=== PATIENT | male | born 1950 | race Caucasian/White ===

== ENCOUNTER 2016-10-15 18:36 | Emergency (ER) | payer OTHER ==
[2016-10-15 18:44] VITALS: BMI 27.4
--- NOTE | 2016-10-15 22:03 | PDOC ---
History of Present Illness - General History Source: Patient Exam Limitations: No Limitations - History of Present Illness Initial Comments: 10/15/16 22:14 The patient is a 66 year old male with significant past medical history of a-fib , hypertension, hyperlipidemia and diabetes who presents to the ED with 6 days of productive cough, wheezing, SOB and headache. Patient report productive cough with yellow sputum. He also reports fever yesterday (tmax of 101) that resolved today on its own. Denies chest pain, diaphoresis, lightheadedness, dizziness, jaw pain, shoulder pain, arm pain, back pain, or leg swelling. States he is visiting from [facility] and has been in the country for about 1 month now. Denies any sick contacts. The patient denies fever, chills, abdominal pain, nausea, vomiting, and diarrhea. Allergies: NKDA Social History: Former smoker (quit several years ago). No alcohol or drug use reported. Past Surgical History: appendectomy, cholecystectomy PMD in [facility] <Melina Hernandez - Last Filed: 10/15/16 22:14> - General History Source: Patient <JackyPratik huerta - Last Filed: 10/15/16 23:43> - General Chief Complaint: Shortness of Breath Stated Complaint: shortness of breath Time Seen by Provider: 10/15/16 22:03 Past History <Melina Hernandez - Last Filed: 10/15/16 22:14> - Past Medical History Diabetes: Yes HTN: Yes - Surgical History Appendectomy: Yes Cholecystectomy: Yes Orthopedic Surgery: Yes - Psycho/Social/Smoking Cessation Hx Anxiety: No Suicidal Ideation: No Smoking History: Never smoked Have you smoked in the past 12 months: No Information on smoking cessation initiated: No Hx Alcohol Use: No Drug/Substance Use Hx: No Substance Use Type: None Hx Substance Use Treatment: No <Pratik Mendoza - Last Filed: 10/15/16 23:43> - Past Medical History Allergies/Adverse Reactions: Allergies Allergy/AdvReac Type Severity Reaction Status Date / Time No Known Allergies Allergy Verified 10/15/16 18:44 Home Medications: Ambulatory Orders Clopidogrel Bisulfate [Plavix -] 75 mg PO DAILY 07/13/14 Enalapril Maleate [Vasotec] 20 mg PO DAILY 07/13/14 Metformin HCl 850 mg PO DAILY 07/13/14 Prednisone [Deltasone -] 50 mg PO DAILY 07/13/14 Amiodarone HCl [Cordarone -] 400 mg PO DAILY #60 tablet 07/18/14 Aspirin [ASA -] 81 mg PO DAILY #0 tab.chew 08/09/14 Digoxin [Lanoxin -] 0.125 mg PO DAILY #0 tablet 08/09/14 Lisinopril [Prinivil] 10 mg PO DAILY #0 tablet 08/09/14 Albuterol 0.083% Nebulizer Malgorzata [Ventolin 0.083% Nebulizer Soln -] 1 neb NEB Q6H #30 vial 10/15/16 Azithromycin [Zithromax -] 250 mg PO UTDICT #6 tab 10/15/16 Prednisone [Deltasone -] 40 mg PO DAILY #10 tablet 10/15/16 Review of Systems - Review of Systems Able to Perform ROS?: Yes Comments:: 10/15/16 22:14 CONSTITUTIONAL: +fever Absent: chills, diaphoresis, generalized weakness, malaise, loss of appetite HEENT: Absent: rhinorrhea, nasal congestion, throat pain, throat swelling, difficulty swallowing, mouth swelling, ear pain, eye pain, visual Changes CARDIOVASCULAR: Absent: chest pain, syncope, palpitations, irregular heart rate, lightheadedness , peripheral edema RESPIRATORY: +cough, SOB, wheezing Absent: dyspnea with exertion, orthopnea, stridor, hemoptysis GASTROINTESTINAL: Absent: abdominal pain, abdominal distension, nausea, vomiting, diarrhea, constipation, melena, hematochezia GENITOURINARY: Absent: dysuria, frequency, urgency, hesitancy, hematuria, flank pain, genital pain MUSCULOSKELETAL: Absent: myalgia, arthralgia, joint swelling SKIN: Absent: rash, itching, pallor NEUROLOGIC: +headache Absent: focal weakness or paresthesias, dizziness, unsteady gait, seizure, mental status changes, bladder or bowel incontinence <Melina Hernandez - Last Filed: 10/15/16 22:14> *Physical Exam - Vital Signs Last Vital Signs Temp Pulse Resp BP Pulse Ox 98.4 F 88 18 137/73 96 10/15/16 18:43 10/15/16 18:43 10/15/16 18:43 10/15/16 18:43 10/15/16 18:43 - Physical Exam Comments: 10/15/16 22:14 GENERAL: Well developed, well nourished. Awake and alert. No acute distress. HEENT: Normocephalic, atraumatic. PERRLA, EOMI. No conjunctival pallor. Sclera are non- icteric. Moist mucous membranes. Oropharynx is clear. NECK: Supple. Full ROM. No JVD. Carotid pulses 2+ and symmetric, without bruits. No thyromegaly. No lymphadenopathy. CARDIOVASCULAR: Regular rate and rhythm. No murmurs, rubs, or gallops. PULMONARY: No evidence of respiratory distress. Bilateral rhonchi. No conversational dyspnea. No retractions. ABDOMINAL: Soft. Non-tender. Non-distended. No rebound or guarding. No organomegaly. Normoactive bowel sounds. MUSCULOSKELETAL Normal range of motion at all joints. No bony deformities or tenderness. No CVA tenderness. EXTREMITIES: No cyanosis. No clubbing. No edema. No calf tenderness. SKIN: Warm and dry. Normal capillary refill. No rashes. No jaundice. NEUROLOGICAL: Alert, awake, appropriate. Cranial nerves 2-12 intact. Moving all extremities. No gross focal neurological deficits. <Melina Hernandez - Last Filed: 10/15/16 22:14> - Vital Signs Last Vital Signs Temp Pulse Resp BP Pulse Ox 98.4 F 88 18 137/73 96 10/15/16 18:43 10/15/16 18:43 10/15/16 18:43 10/15/16 18:43 10/15/16 18:43 <Pratik Mendoza - Last Filed: 10/15/16 23:43> Medical Decision Making - Medical Decision Making 10/15/16 22:47 Dr. Mendoza: The scribe's documentation has been prepared under my direction and personally reviewed by me in its entirery. I confirm that the note above accurately reflects all work, treatment, procedures, and medical decision making performed by me. Chest xray negative for infiltrate. Pt will be give Zpak and prednisone for 5 days. Pt to follow up with pcp. <Pratik Mendoza - Last Filed: 10/15/16 23:43> *DC/Admit/Observation/Transfer - Attestations Scribe Attestion: 10/15/16 22:14 Documentation prepared by Melina Hernandez, acting as certified medical technician for Pratik Mendoza MD <Melina Hernandez - Last Filed: 10/15/16 22:14> - Discharge Dispostion Admit: No <Pratik Mendoza - Last Filed: 10/15/16 23:43> Diagnosis at time of Disposition: Bronchitis - Discharge Dispostion Disposition: HOME Condition at time of disposition: Stable - Prescriptions Prescriptions: Prednisone [Deltasone -] 40 mg PO DAILY #10 tablet Albuterol 0.083% Nebulizer Malgorzata [Ventolin 0.083% Nebulizer Soln -] 1 neb NEB Q6H #30 vial Azithromycin [Zithromax -] 250 mg PO UTDICT #6 tab - Patient Instructions Printed Discharge Instructions: DI for Acute Bronchitis
[2016-10-15] MEDS ORDERED: ALBUTEROL SO4 2.5/IPRATROPIUM 0.5 INH SOL 3 ML VIAL.NEB. NEB STA (22:07)
[2016-10-15] MEDS ORDERED: AZITHROMYCIN 250 MG TABLET (FP) PO STA (22:43)
[2016-10-15] MEDS ORDERED: predniSONE 20 MG TABLET (UD) PO ONE (22:50)
[2016-10-15] MEDS ORDERED: predniSONE 20 MG TABLET (UD) ONE (23:02)
[2016-10-15] MEDS ORDERED: AZITHROMYCIN 250 MG TABLET (FP) ONE (23:02)
[2016-10-15] MEDS ORDERED: ALBUTEROL SO4 2.5/IPRATROPIUM 0.5 INH SOL 3 ML VIAL.NEB. NEB ONE (23:03)
[2016-10-16 07:44] VITALS: BP 140/78; PULSE 86; TEMP 98.6
== END 2016-10-15 23:48 | disposition home or self-care (01) ==
LOC: JER 18:36
PROC: 3E0F7GC Introduction of Other Therapeutic Substance into Respiratory Tract, Via Natural or Artificial Opening (ICD-10-PCS; principal; 2016-10-15)
DX: J40 Bronchitis, not specified as acute or chronic (principal); I48.91 Unspecified atrial fibrillation; Z79.01 Long term (current) use of anticoagulants; I10 Essential (primary) hypertension; E78.00 Pure hypercholesterolemia, unspecified; E11.9 Type 2 diabetes mellitus without complications; Z79.84 Long term (current) use of oral hypoglycemic drugs
CPT/HCPCS: 71020-TC; 99282-25

== ENCOUNTER 2018-11-27 08:28 | Inpatient (IN) | payer OTHER ==
--- NOTE | 2018-11-27 08:40 | PDOC ---
History of Present Illness - General Stated Complaint: SOB Time Seen by Provider: 11/27/18 08:40 History Source: Patient, Family Exam Limitations: No Limitations - History of Present Illness Initial Comments: 11/27/18 08:42 [id number] with h/o A-fib (no reported anticoagulation or rhythm/rate control), HTN ( on enalapril), HLD (on a fibrate), breathing difficulties (patient cannot elaborate on his respiratory diagnosis but has ipratropium MDI on his person), and NIDDM (on metformin) who p/w SOB x1 day. He arrived to [place] from [facility] on 11/17/18 and had been doing well except for BLE edema, but yesterday had the gradual onset of SOB. He has no pain/discomfort in chest or abdomen. Denies any recent f/c/n/v/d/c, cough, runny nose, sore throat, CALERO, dizziness/ lightheadedness, n/t/w focally, LOC, or other symptoms. He reportedly had a similar episode of these symptoms while he was in [facility] a couple of weeks ago and went to the hospital where they treated his difficulty breathing, then was discharged home. He has not followed up since. Past History - Past Medical History Allergies/Adverse Reactions: Allergies Allergy/AdvReac Type Severity Reaction Status Date / Time No Known Allergies Allergy Verified 11/27/18 08:44 Home Medications: Ambulatory Orders metFORMIN HCL [Metformin HCl] 850 mg PO DAILY 07/13/14 Aspirin [ASA -] 81 mg PO DAILY #0 tab.chew 08/09/14 Glipizide [Glipizide Xl] 10 mg PO DAILY 10/16/16 Albuterol Sulfate Inhaler - [Ventolin Hfa Inhaler -] 1 puff IH PRN 11/27/18 Ascorbic Acid [Vitamin C -] 500 mg PO DAILY 11/27/18 Atorvastatin Ca [Lipitor] 10 mg PO HS 11/27/18 Enalapril Maleate [Vasotec] 20 mg PO DAILY 11/27/18 Diabetes: Yes HTN: Yes - Surgical History Appendectomy: Yes Cholecystectomy: Yes Orthopedic Surgery: Yes - Immunization History Immunization Up to Date: No - Suicide/Smoking/Psychosocial Hx Smoking History: Never smoked Have you smoked in the past 12 months: No Hx Alcohol Use: No Drug/Substance Use Hx: No Substance Use Type: None Hx Substance Use Treatment: No Review of Systems - Review of Systems Able to Perform ROS?: Yes Comments:: 11/27/18 09:21 GEN: no fever, chills, malaise, generalized weakness, or weight change HEENT: no ear pain, sore throat, vision change, or eye pain CV: palpitations, edema, no chest pain, lightheadedness, syncope RESP: SOB, no cough or wheezing GI: no abdominal pain, nausea, vomiting, diarrhea, constipation, or white/black/ bloody stool : no dysuria, hematuria, incontinence, retention, bleeding, or discharge MSK: no neck/back pain, muscle weakness/pain, or joint swelling/pain NEURO: no headache, seizure, vertigo, numbness, tingling, or focal weakness PSYCH: no substance use, no behavior change SKIN: no jaundice, no rash ROS otherwise negative except as noted in HPI *Physical Exam - Physical Exam Comments: 11/27/18 09:22 GENERAL: mild distress, nontoxic appearing, A/Ox4, answers questions appropriately, Chinese-speaking, accompanied by daughter HEENT: PERRLA, EOMI, moist mucous membranes NECK/BACK: no midline ttp, no spinal stepoff or deformity, no hematoma, full ROM , neck supple CARDIOVASCULAR: irregularly irregular and tachycardic, normal S1S2, no MGR, strong peripheral pulses, capillary refill <2 seconds, extremities wwp, no edema LUNGS/RESPIRATORY: no respiratory distress, CTAB GI/ABDOMEN: symmetric iadi-tt-dfos, normoactive BS, soft, no ttp, no midline pulsatile masses : no CVA tenderness EXTREMITIES: no muscle atrophy, no acute deformity SKIN: warm and dry, no pallor, no jaundice, no rash, no bruising, no skin breakdown, no cuts, no lesions NEUROLOGICAL: GCS 15, CN II-XII grossly intact, 5/5 strength proximally and distally, no facial droop Heart Score/ECG Review #1 11/27/18 08:25 A-fib with RVR, rate 147, with RBBB and left posterior fascicular block, no ischemic ST-T changes #2 11/27/18 09:22 A-fib with RVR, rate 120, nithe rightward axis, RBBB, left posterior fascicular block has resolved since last study, ST depressions in [id number] but no JANIE ED Treatment Course - LABORATORY CBC & Chemistry Diagram: 11/27/18 08:50 11/27/18 08:50 Medical Decision Making - Medical Decision Making [id number] with h/o paroxysmal A-fib p/w SOB found in A-fib with RVR. Initial Vital Signs Temp Pulse Resp BP Pulse Ox 98.1 F 144 H 18 93/67 100 11/27/18 08:41 11/27/18 08:41 11/27/18 08:41 11/27/18 08:41 11/27/18 08:41 Exam: As noted in Physical Exam section. DDX IBNLT: tachyarrhythmia (e.g. SVT, re-entrant tachycardia, WPW, Brugada, long QT, AF/AFL w/ RVR, MAT, ventricular dysrhythmia), ischemia (ACS), structural heart condition (MVP, mitral stenosis, atrial enlargement, HOCM), anxiety/panic, hypoxia, anemia (e.g. hemorrhage from heavy menstruation, ruptured ectopic, etc), PE, PTX, bronchitis/PNA, sepsis/shock, tamponade, metabolic (e.g. DKA, hypoglycemia), thyroid condition, catecholamine surge ( e.g. pheochromocytoma), anxiety/panic disorder, medication effect, substance use , etc. W/U ordered: Monitor EKG CXR CBCD CMP Mg Phos TSH Cardiac Panel UA UCx hCG TX ordered: IV O2 Pacer pads applied IVF Vagal maneuvers (no carotid massage) EKG: Reviewed; results as noted in ECG Review section. CXR: Congestive changes, otherwise nothing acute. 11/27/18 08:52 FSBG is 232. 11/27/18 09:00 Patient first had 10 mg Cardizem IV push, preceding BP was in 110s systolic, brought HR from 160s-130s. Subsequent BP was in the upper 90s-lower 100s systolic. Second push of Cardizem was given (this time 20 mg as patient's estimated body weight is 85kg). Subsequent BP is 88 systolic, HR subsequently 90s-low 110s. Patient states breathing is a bit easier. 11/27/18 09:10 I placed an order for 30 mg Cardizem PO. Also ordered BLE Duplex r/o DVT. 11/27/18 09:43 Patient with continued (though still improved) SOB; RT called to place BiPAP. Laboratory Tests 11/27/18 11/27/18 11/27/18 08:50 08:50 08:50 WBC 11.4 H RBC 4.10 Hgb 11.5 L Hct 35.4 MCV 86.4 MCH 28.0 MCHC 32.4 RDW 15.5 Plt Count 153 MPV 12.0 H D Absolute Neuts (auto) 9.1 H Neutrophils % 79.4 Lymphocytes % 12.1 D Monocytes % 5.4 Eosinophils % 1.6 Basophils % 1.5 Nucleated RBC % 0 PT with INR 14.50 H INR 1.23 H PTT (Actin FS) 23.4 L Sodium 134 L Potassium 4.7 Chloride 99 Carbon Dioxide 26 Anion Gap 9 BUN 25 H Creatinine 1.7 H Est GFR (CKD-EPI)AfAm 47.31 Est GFR (CKD-EPI)NonAf 40.82 Random Glucose 235 H Calcium 7.9 L Magnesium 1.4 L Total Bilirubin 0.6 AST 32 ALT 56 Alkaline Phosphatase 65 Creatine Kinase 58 Troponin I 0.04 B-Natriuretic Peptide 4343.4 H Total Protein 5.8 L Albumin 3.1 L TSH 1.26 D The Pt is unsafe for discharge at this time. They require further hospital observation, workup, and treatment. Microblog sent to [facility] for admission. Blank Decision to Admit order is placed per ED protocol. 11/27/18 11:[address] Oliver who will admit the patient. We have added on D-dimer per Dr. Oliver's request; if positive, will discuss CTA. Vital Signs Temperature 98.1 F 11/27/18 08:41 Pulse Rate 135 H 11/27/18 12:10 Respiratory Rate 21 H 11/27/18 11:14 Blood Pressure 119/93 11/27/18 12:10 O2 Sat by Pulse Oximetry (%) 100 11/27/18 11:14 11/27/18 12:17 I have spoken with Dr. Oliver who is taking the patient; decision to admit order corrected. Patient's rate back up to the 140s maximum, BP is 116 systolic, so another 20 mg Cardizem IV push ordered. 11/27/18 12:21 Patient's D-dimer will be drawn with repeat troponin; orders placed. 11/27/18 12:58 BLE Duplex showed no e/o DVT. D-dimer positive, repeat troponin negative. I ordered chest CTA and repeat EKG. *DC/Admit/Observation/Transfer Diagnosis at time of Disposition: [place] (acute kidney injury), Atrial fibrillation with rapid ventricular response , Hypotension, SOB (shortness of breath), CHF (congestive heart failure) - Discharge Dispostion Condition at time of disposition: Guarded Decision to Admit order: Yes - Referrals - Patient Instructions - Post Discharge Activity
[2018-11-27] MEDS ORDERED: dilTIAZem HCL 50 MG/10 ML - 10 ML VIAL IVPUSH ONE ×3 (08:43→12:17)
[2018-11-27] MEDS ORDERED: dilTIAZem HCL 50 MG/10 ML - 10 ML VIAL ONE (08:45)
[2018-11-27] MEDS ORDERED: dilTIAZem HCL 125 MG/25 ML - 25 ML VIAL ONE ×2 (08:56→12:13)
--- NOTE | 2018-11-27 08:56 | PDOC ---
Attending Attestation - Resident Resident Name: Glenny Meng - ED Attending Attestation I have performed the following: I have examined & evaluated the patient, The case was reviewed & discussed with the resident, I agree w/resident's findings & plan, Exceptions are as noted - HPI HPI: 11/27/18 09:12 68yo male with sob/hypotension, afib w rvr. Pt recently arrived from [facility] - was in the hospital for heart problems-unsure exactly the cause. Pt with hx of htn, hld, dm-on enalapril for BP. Pt denies fevers/chills. Pt denies cp. C/o SOB. Pt with LE swelling. No abd pain. No n/v/d. - Physicial Exam PE: 11/27/18 09:13 Gen: awake, generally weak heart: +s1s2 tachy lungs: cta b/l abd: soft, nt/nd +bs, abd scars well healed ext: 2+ LE edema skin: warm, dry, intact - Critical Care Time Total Critical Care Time: 35 Critical Care Statement: The care of this patient involved high complexity decision making to prevent further life threatening deterioration of the patient 's condition and/or to evaluate & treat vital organ system(s) failure or risk of failure. - Medical Decision Making 11/27/18 08:56 I, Dr. Sheila Zimmerman, DO, attest that this document has been prepared under my direction and personally reviewed by me in its entirety. I further attest, that it accurately reflects all work, treatment, procedures and medical decision -making performed by me. 11/27/18 09:09 a/p: 68yo male with hx of htn, hld, dm, pafib from [facility] with sob/ palpitations, LE edema -pt arrives in afib w rvr at 147-180s -iv placed, stat labs ordered, cardizem iv given -cardizem 10mg iv given - HR 160s to 120s -repeat cardizem 20mg given with HR 120s-90s - sob improved -pt with LE swelling -arrived 10 days ago with calf swelling - will send for duplex -was in the hospital for heart problems in [facility] prior to [place] the [place] -pt not on rate controlling meds -will need anticoags -will need admission -will need tele monitoring 11/27/18 09:37 mild congestion on cxr - suspect chf secondary to afib w rvr 11/27/18 09:54 pt placed on bipap chf low magnesium consult placed to Dr. Metz microblog sent to [facility] for admission 11/27/18 11:45 resident discussed the case with Dr. Oliver who accepts pt to [facility] service Heart Score/ECG Review - ECG Intrepretation Comment:: 11/27/18 09:38 afib at 147, rbbb, no acute st/t wave fidnigns 11/27/18 09:39 afib at 120, nl axis, rbbb, no acute st/t wave findigns, pvc
[2018-11-27] MEDS ORDERED: dilTIAZem HCL 30 MG TABLET (FP) PO ONE (09:09)
[2018-11-27] MEDS ORDERED: dilTIAZem HCL 30 MG TABLET (FP) ONE (09:12)
[2018-11-27 09:15] LABS: BASO % 1.5 % (0-2.0); EOS % 1.6 % (0-4.5); HEMATOCRIT 35.4 % (35.4-49); HEMOGLOBIN 11.5 GM/dL (11.7-16.9); LYMPH % 12.1 % (8-40); MCHC 32.4 g/dl (32.0-35.9); MEAN CELL VOLUME 86.4 fl (80-96); MONO % 5.4 % (3.8-10.2); NEUT % 79.4 % (42.8-82.8); PLATELET COUNT 153 K/MM3 (134-434); RDW 15.5 % (11.9-15.9); WHITE BLOOD COUNT 11.4 K/mm3 (4.0-10.0)
[2018-11-27] MEDS ORDERED: SODIUM CHLORIDE 0.9% 500 ML INFUS.BAG IV ONE (09:15)
[2018-11-27 09:23] LABS: INR 1.23 (0.83-1.09); PROTHROMBIN TIME (PATIENT) 14.5 SEC (9.7-13.0)
[2018-11-27 09:26] LABS: ACTIVATED PTT 23.4 SECONDS (25.2-36.5)
[2018-11-27 09:49] LABS: ALBUMIN 3.1 g/dl (3.4-5.0); BILIRUBIN,TOTAL 0.6 mg/dL (0.2-1); CALCIUM 7.9 mg/dL (8.5-10.1); CREATININE 1.7 mg/dL (0.55-1.3); MAGNESIUM 1.4 mg/dL (1.8-2.4); N-TERMINAL BNP 4343.4 pg/ml (5-125); POTASSIUM 4.7 mmol/L (3.5-5.1); TOT PROT 5.8 g/dl (6.4-8.2)
[2018-11-27] MEDS ORDERED: MAGNESIUM SULF 50% (8.12 MEQ/2 ML-1 GM VIAL) IVPB ONE (09:52)
[2018-11-27] MEDS ORDERED: MAGNESIUM 1GM/D5W - 1 GM/100 ML IVPB IVPB ONE (09:58)
[2018-11-27] MEDS ORDERED: RIVAROXABAN 20 MG TABLET PO ONE (11:55)
--- NOTE | 2018-11-27 12:06 | CON.CARD ---
Consult Consult Specialty:: cardio - History of Present Illness Chief Complaint: sob History of Present Illness: 68 M here with sob. dtr translates and provides ancillary history: since pt left [place] for [facility] in 2014, pt believes he stopped prior amio and other meds he was on, has only been on blood thinner he thinks. his was administering meds and supervising in [facility]--she several months ago. since then he has not been taking blood thinner either, only ASA began noticing sob spells couple of months ago, was in hospital in [facility] recently for this--? details of w/u and tx then. has noticed feet swelling as well. in recent weeks sob has only been mild. recently returned to [place], living with his dtr--yest incr sob with any activity. worsened in evening--came to ER noted to be in rapid afib in ER here. given 10 mg Cardizem IV push, brought HR from 160s-130s. BP dropped from 110s systolic to 90s-100s range. received Cardizem 20 mg IVP--HR to 90s-110s, with drop in BP to 88 systolic. was 96-97% on 2L NC here. pt reported that sob improved though not resolved--bipap ordered. breathing improved significantly he says, however now starting to feel sob again. has been having intermittent localized (1 finger), "stabbing" pains in lower R pectoral region NEVER FEELS HEART RACING/PALPITATIONS (per review of hospital notes from dr robledo 2014, his prior cardio: pt came in at that time with dx of PAF on amio, warfarin and plavix--all continued by dr robledo in hospital. he had known low EF as well.) PMH: syst chf afib HTN HPL DM (on orals) ex etoh ex cigs (no known copd) - Past Medical History Cardio/Vascular: Yes: HTN Endocrine: Yes: Diabetes Mellitus - Alcohol/Substance Use Hx Alcohol Use: No - Smoking History Smoking history: Never smoked Have you smoked in the past 12 months: No Home Medications - Allergies Allergies/Adverse Reactions: Allergies Allergy/AdvReac Type Severity Reaction Status Date / Time No Known Allergies Allergy Verified 11/27/18 08:44 - Home Medications Home Medications: Ambulatory Orders metFORMIN HCL [Metformin HCl] 850 mg PO DAILY 07/13/14 Aspirin [ASA -] 81 mg PO DAILY #0 tab.chew 08/09/14 Glipizide [Glipizide Xl] 10 mg PO DAILY 10/16/16 Albuterol Sulfate Inhaler - [Ventolin Hfa Inhaler -] 1 puff IH PRN 11/27/18 Ascorbic Acid [Vitamin C -] 500 mg PO DAILY 11/27/18 Atorvastatin Ca [Lipitor] 10 mg PO HS 11/27/18 Enalapril Maleate [Vasotec] 20 mg PO DAILY 11/27/18 Family Disease History - Family Disease History Family History: Denies (no known CMP) Review of Systems - Review of Systems Constitutional: denies: Chills, Fever Eyes: denies: Eye Pain HENT: denies: Nasal Congestion Neck: denies: Stiffness Cardiovascular: denies: Palpitations Respiratory: denies: Cough, Wheezing Gastrointestinal: denies: Diarrhea, Rectal Bleeding Genitourinary: denies: Burning, Hematuria Musculoskeletal: denies: Muscle Pain Integumentary: denies: Rash Neurological: denies: Numbness, Seizure, Syncope Endocrine: denies: Excessive Sweating Hematology/Lymphatic: denies: Excessive Bleeding Vital Signs: Vital Signs Temperature 98.1 F 11/27/18 08:41 Pulse Rate 121 H 11/27/18 11:14 Respiratory Rate 21 H 11/27/18 11:14 Blood Pressure 123/73 11/27/18 11:14 O2 Sat by Pulse Oximetry (%) 100 11/27/18 11:14 Constitutional: Yes: Well Nourished, No Distress, Diaphoresis Eyes: No: Sclera Icterus HENT: No: Nasal Congestion Neck: No: Decreased ROM Respiratory: Yes: CTA Bilaterally (decr diffusely). No: Accessory Muscle Use, Rales, Wheezes Gastrointestinal: Yes: Normal Bowel Sounds. No: Distention, Hepatomegaly, Palpable Mass, Tenderness Cardiovascular: Yes: Pulse Irregular JVD: Yes Carotid Bruit: No PMI: Non-Displaced Heart Sounds: Yes: S1 (decr intensity sounds), S2. No: Gallop Murmur: No: Systolic Murmur, Diastolic Murmur Musculoskeletal: Yes: Other (No kyphosis) Extremities: No: Cool, Cyanosis Edema: Yes (feet 1+) Peripheral Pulses: 2+ Left Carotid, 2+ Right Carotid, 2+ Left Doralis Pedis, 2+ Right Dorsalis Pedis Integumentary: No: Jaundice Neurological: Yes: Alert, Oriented (x3) Psychiatric: No: Agitated - Other Data Labs, Other Data: CBC, BMP 11/27/18 08:50 11/27/18 08:50 INR, PTT INR 1.23 (0.83-1.09) H 11/27/18 08:50 Troponin, BNP 11/27/18 08:50 Troponin I 0.04 B-Natriuretic Peptide 4343.4 H Troponin, BNP 11/27/18 08:50 Troponin I 0.04 B-Natriuretic Peptide 4343.4 H Laboratory Tests 02/02/16 11/27/18 11/27/18 14:00 08:50 08:50 WBC 11.4 H Hgb 11.5 L Plt Count 153 INR 1.23 H Sodium Potassium Carbon Dioxide BUN Creatinine 1.3 D Magnesium AST ALT Troponin I B-Natriuretic Peptide Albumin TSH 11/27/18 08:50 WBC Hgb Plt Count INR Sodium 134 L Potassium 4.7 Carbon Dioxide 26 BUN 25 H Creatinine 1.7 H Magnesium 1.4 L AST 32 ALT 56 Troponin I 0.04 B-Natriuretic Peptide 4343.4 H Albumin 3.1 L TSH 1.26 D Assessment/Plan ECG x2 11/27: afib, RBBB, far right QRS axis, nonspecific ST-T abn--R bundle and axis new vs 01/2016 prior CXR: large heart, congestive changes (new vs 2017), no effusions (my review: + cephalization, + incr interstitium c/w interstitial edema possibly) Echo 2014: mild LVE, moderately decr LVSF (global). RV tds. valves unremarkable PAF: -known dx since at least 2014. -at that time on amiodarone with dr robledo--pt not currently taking, thinks he stopped it since 2014. -rapid HR here, with acute hypotension after IV diltiazem -currently with adequate HRs, soft BPs -start metoprolol tartrate 25 BID, tolerate sbp >90 (will use short acting formulation given possibility of severe underlying LV dysfunction, risk of hypotension) -no CCB (suspect syst HF) -at that time on warfarin (+ clopidogrel, reasons unclear from review of notes)- -not on current med list, INR 1.2 here -CHADS VASC 4--warrants AC. given xarelto 20 in ER. -current GFR is <50, hence xarelto 15mg is indicated dose. however this is acute change in renal fxn vs 2016 value -cont xarelto 20 for now. monitor labs (expect will improve with optimization of HF status)--if GFR remains <50 will change to 15 mg dose acute on chronic syst HF: -here with sob, leg swelling, diaphoresis, + JVD. BNP 4K (decr GFR, no priors available), congested CXR -previously with known moderately decr LVSF 2014. -etiology uncertain--plan was for outpatient stress test in 2014, ? if completed ischemia w/u -? burden of tachycardia (tachy-CMP from afib?)--given no sx's when in rapid AF , suspect he may have been uncontrolled for long time -? DM cmp (untreated for few years?)--check A1c -lasix 40 IV x1 now--may need higher dose. -plan lasix 40 iv bid--reassess response in am -trend labs daily for renal fxn -echo -no concern for ACS (trop neg x 2) [place]: -creat 1.7, from 1.3 in 2016 -? cardiorenal syndrome HTN: -bp was well controlled on presentation--dropped after IV cardizem -hold home meds for now, AF rate control as above PT REQUIRES TELE MONITORING DM: -per hospitalist
[2018-11-27] MEDS ORDERED: FUROSEMIDE 40 MG/4 ML INJECTABLE VIAL IVPUSH ONE (14:48)
--- NOTE | 2018-11-27 15:10 | HP ---
Admitting History and Physical - Admission Chief Complaint: palpiations with SOB History of Present Illness: this is a 68 y/o m with hx of HTN,DM, DL, and atrial fibrillation was on rate control, presented with worsening SOB, and PAYAN patient was recently on a plane ride> 4 hours long from [facility], his daughter said that he became abruptly SOB when he came here, and his heart was racing. she brought him to the hospital History Source: Patient, Family Member Limitations to Obtaining History: No Limitations - Past Medical History Cardiovascular: Yes: HTN Endocrine: Yes: Diabetes Mellitus - Smoking History Smoking history: Never smoked Have you smoked in the past 12 months: No - Alcohol/Substance Use Hx Alcohol Use: No Home Medications - Allergies Allergies/Adverse Reactions: Allergies Allergy/AdvReac Type Severity Reaction Status Date / Time No Known Allergies Allergy Verified 11/27/18 08:44 - Home Medications Home Medications: Ambulatory Orders RX: metFORMIN HCL [Metformin HCl] 850 mg PO DAILY 07/13/14 RX: Aspirin [ASA -] 81 mg PO DAILY #0 tab.chew 08/09/14 Glipizide [Glipizide Xl] 10 mg PO DAILY 10/16/16 Albuterol Sulfate Inhaler - [Ventolin Hfa Inhaler -] 1 puff IH PRN 11/27/18 Ascorbic Acid [Vitamin C -] 500 mg PO DAILY 11/27/18 Atorvastatin Ca [Lipitor] 10 mg PO HS 11/27/18 Enalapril Maleate [Vasotec] 20 mg PO DAILY 11/27/18 Review of Systems - Review of Systems Constitutional: reports: No Symptoms Eyes: reports: No Symptoms HENT: reports: No Symptoms Neck: reports: No Symptoms Cardiovascular: reports: Palpitations, Shortness of Breath Respiratory: reports: Cough, SOB, SOB on Exertion Gastrointestinal: reports: No Symptoms Genitourinary: reports: No Symptoms Musculoskeletal: reports: No Symptoms Integumentary: reports: No Symptoms Neurological: reports: No Symptoms Endocrine: reports: No Symptoms Hematology/Lymphatic: reports: No Symptoms Psychiatric: reports: No Symptoms Physical Examination Vital Signs: Vital Signs Temperature 98.0 F 11/27/18 14:57 Pulse Rate 54 L 11/27/18 14:57 Respiratory Rate 18 11/27/18 14:57 Blood Pressure 102/85 11/27/18 14:57 O2 Sat by Pulse Oximetry (%) 99 11/27/18 14:57 Constitutional: Yes: Well Nourished, No Distress, Calm Eyes: Yes: WNL, Conjunctiva Clear, EOM Intact HENT: Yes: WNL, Atraumatic, Normocephalic Neck: Yes: WNL, Supple, Trachea Midline Cardiovascular: Yes: WNL, Pulse Irregular, S1, S2 Respiratory: Yes: WNL, Regular, CTA Bilaterally, Rales, SOB on Exertion Gastrointestinal: Yes: WNL, Normal Bowel Sounds, Soft Musculoskeletal: Yes: WNL Extremities: Yes: WNL Edema: LLE: 2+, RLE: 2+ Integumentary: Yes: WNL Neurological: Yes: WNL, Alert, Oriented ...Motor Strength: WNL Labs: CBC, BMP 11/27/18 08:50 11/27/18 08:50 Imaging - Results Chest X-ray: Image Reviewed EKG: Image Reviewed Problem List - Problems (1) Acute on chronic HFrEF (heart failure with reduced ejection fraction) Assessment/Plan: patient is being admitted for atrial fibrillation with pulmonary congestion admit to telemetry obtain an echocardiogram IV furosemide 40mg twice dialy keep SBP >90 monitor I/O f/u cardiology recommendation rate control with metoprolol trend troponin trend ecg Code(s): I50.23 - ACUTE ON CHRONIC SYSTOLIC (CONGESTIVE) HEART FAILURE (2) [place] (acute kidney injury) Assessment/Plan: elevated from the baseline - possible 2/2 hypoperfusion monitor levels will give a trial of diueresis and monitor the HENRRY Code(s): N17.9 - ACUTE KIDNEY FAILURE, UNSPECIFIED (3) Atrial fibrillation with rapid ventricular response Assessment/Plan: rivaroxiban 20mg daily rate control tele admission obtain echocardiogram f/u cardiology recommendation AVOID GIVING THE PATIENT DILTIAZEM(CARDIZEM) FOR RATE CONTROL DUE TO HFrEF Code(s): I48.91 - UNSPECIFIED ATRIAL FIBRILLATION (4) SOB (shortness of breath) Assessment/Plan: 2/2 Acute on chronic CHF will diures the patient Code(s): R06.02 - SHORTNESS OF BREATH (5) Diabetes Assessment/Plan: ISS diabetic diet Code(s): E11.9 - TYPE 2 DIABETES MELLITUS WITHOUT COMPLICATIONS (6) Dyslipidemia associated with type 2 diabetes mellitus Assessment/Plan: atorvasatin 20mg chin y obtain TSH obtain Lipid profile Code(s): E11.69 - TYPE 2 DIABETES MELLITUS WITH OTHER SPECIFIED COMPLICATION; E78.5 - HYPERLIPIDEMIA, UNSPECIFIED (7) Hypertension Assessment/Plan: stable will continue the patient on home medicaiton Code(s): I10 - ESSENTIAL (PRIMARY) HYPERTENSION Qualifiers: Hypertension type: secondary to endocrine disorders Qualified Code(s): I15.2 - Hypertension secondary to endocrine disorders (8) Elevated d-dimer Assessment/Plan: patient just arrived from [facility] 6 hour flight patient is a high risk for DVT/PE duplex was negative in the acute setting of the atrial fibrillation with RVR and SOB PE has to be r/o, however the patient is in [place] will wait to obtain the imaging with the high clinical suspicion and the elevated d-dimer patient requires anticoagulation will start the patient on rivaroxiban 20mg daily Code(s): R79.89 - OTHER SPECIFIED ABNORMAL FINDINGS OF BLOOD CHEMISTRY
[2018-11-27] MEDS ORDERED: FUROSEMIDE 40 MG/4 ML INJECTABLE VIAL ONE (15:13)
--- NOTE | 2018-11-27 15:26 | EKG ---
Test Reason : Blood Pressure : / mmHG Vent. Rate : 110 BPM Atrial Rate : 150 BPM P-R Int : 000 ms QRS Dur : 086 ms QT Int : 370 ms P-R-T Axes : 000 120 122 degrees QTc Int : 500 ms Rapid ATRIAL FIBRILLATION Abarrently conducted complexes LEFT POSTERIOR FASCICULAR BLOCK ABNORMAL ECG WHEN COMPARED WITH ECG OF 27-NOV-2018 09:22, JUNCTIONAL RHYTHM HAS REPLACED ATRIAL FIBRILLATION RIGHT BUNDLE BRANCH BLOCK IS NO LONGER PRESENT Confirmed by MD Chase, Michael ([id number]) on 11/27/2018 3:26:00 PM Referred By: Confirmed By:Michael Stone MD
--- NOTE | 2018-11-27 15:28 | EKG ---
Test Reason : Blood Pressure : / mmHG Vent. Rate : 147 BPM Atrial Rate : 147 BPM P-R Int : 000 ms QRS Dur : 132 ms QT Int : 322 ms P-R-T Axes : 000 138 -02 degrees QTc Int : 503 ms ATRIAL FIBRILLATION WITH RAPID VENTRICULAR RESPONSE RIGHT BUNDLE BRANCH BLOCK LEFT POSTERIOR FASCICULAR BLOCK BIFASCICULAR BLOCK ABNORMAL ECG WHEN COMPARED WITH ECG OF 02-FEB-2016 13:48, ATRIAL FIBRILLATION HAS REPLACED SINUS RHYTHM (RBBB AND LEFT POSTERIOR FASCICULAR BLOCK) IS NOW PRESENT Confirmed by MD Chase, Michael ([id number]) on 11/27/2018 3:27:55 PM Referred By: Confirmed By:Michael Stone MD
--- NOTE | 2018-11-27 15:28 | EKG ---
Test Reason : Blood Pressure : / mmHG Vent. Rate : 120 BPM Atrial Rate : 136 BPM P-R Int : 000 ms QRS Dur : 134 ms QT Int : 370 ms P-R-T Axes : 000 138 -23 degrees QTc Int : 522 ms ATRIAL FIBRILLATION WITH RAPID VENTRICULAR RESPONSE WITH PREMATURE VENTRICULAR OR ABERRANTLY CONDUCTED COMPLEXES RIGHT BUNDLE BRANCH BLOCK ABNORMAL ECG WHEN COMPARED WITH ECG OF 27-NOV-2018 08:25, T WAVE INVERSION NOW EVIDENT IN ANTERIOR LEADS Confirmed by MD Chase, Michael ([id number]) on 11/27/2018 3:27:35 PM Referred By: Confirmed By:Michael Stone MD
[2018-11-27] MEDS ORDERED: ALBUTEROL SO4 8 GM HFA INHALER IH SCH (15:45)
[2018-11-27] MEDS ORDERED: ALBUTEROL SO4 8 GM HFA INHALER IH PRN (16:00)
[2018-11-27] MEDS: INSULIN SLIDING SCALE (NOVOLOG) 1 VIAL SQ SCH (17:21)
[2018-11-27] MEDS ORDERED: ACETAMINOPHEN 325 MG TABLET (FP) ONE (18:38)
[2018-11-27] MEDS: METOPROLOL TARTRATE 25 MG TABLET (FP) PO SCH (22:02)
[2018-11-27] MEDS: ACETAMINOPHEN 325 MG TABLET (FP) PO PRN (22:03)
[2018-11-28] MEDS ORDERED: FUROSEMIDE 40 MG/4 ML INJECTABLE VIAL IVPUSH SCH ×2 (06:00→10:24)
[2018-11-28] MEDS: INSULIN SLIDING SCALE (NOVOLOG) 1 VIAL SQ SCH ×3 (06:23→17:43)
--- NOTE | 2018-11-28 08:07 | PN ---
Progress Note, Physician - Current Medication List Current Medications: Active Medications Acetaminophen (Tylenol -) 650 mg PO Q6H PRN PRN Reason: PAIN LEVEL 4 - 6 Last Admin: 11/27/18 22:03 Dose: 650 mg Albuterol Sulfate (Ventolin Hfa Inhaler -) 1 puff IH Q6H PRN PRN Reason: SHORTNESS OF BREATH Aspirin (Asa -) 81 mg PO DAILY [facility] Enalapril Maleate (Vasotec -) 20 mg PO DAILY [facility] Furosemide (Lasix Injection -) 40 mg IVPUSH BIDLASIX [facility] Last Admin: 11/28/18 06:00 Dose: 40 mg Insulin Aspart (Novolog Vial Sliding Scale -) 1 vial SQ TIDAC [facility]; Protocol Last Admin: 11/28/18 06:23 Dose: Not Given Metoprolol Tartrate (Lopressor -) 25 mg PO BID [facility] Last Admin: 11/27/18 22:02 Dose: 25 mg Rivaroxaban (Xarelto) 20 mg PO DAILY@1800 [facility] - Objective Vital Signs: Vital Signs Temperature 97.6 F 11/28/18 04:00 Pulse Rate 117 H 11/28/18 04:00 Respiratory Rate 18 11/28/18 04:00 Blood Pressure 96/55 L 11/28/18 04:00 O2 Sat by Pulse Oximetry (%) 98 11/28/18 04:04 Constitutional: Yes: Well Nourished, No Distress, Calm Eyes: Yes: WNL, Conjunctiva Clear, EOM Intact HENT: Yes: WNL, Atraumatic, Normocephalic Neck: Yes: WNL, Supple, Trachea Midline Cardiovascular: Yes: WNL, Regular Rate and Rhythm Respiratory: Yes: WNL, Regular, CTA Bilaterally Gastrointestinal: Yes: WNL, Normal Bowel Sounds, Soft Musculoskeletal: Yes: WNL Extremities: Yes: WNL Edema: No Peripheral Pulses WNL: Yes Integumentary: Yes: WNL Neurological: Yes: WNL, Alert, Oriented ...Motor Strength: WNL Psychiatric: Yes: WNL, Alert, Oriented Labs: INR, PTT INR 1.23 (0.83-1.09) H 11/27/18 08:50 Problem List - Problems (1) Acute on chronic HFrEF (heart failure with reduced ejection fraction) Code(s): I50.23 - ACUTE ON CHRONIC SYSTOLIC (CONGESTIVE) HEART FAILURE (2) [place] (acute kidney injury) Code(s): N17.9 - ACUTE KIDNEY FAILURE, UNSPECIFIED (3) Atrial fibrillation with rapid ventricular response Code(s): I48.91 - UNSPECIFIED ATRIAL FIBRILLATION (4) SOB (shortness of breath) Code(s): R06.02 - SHORTNESS OF BREATH (5) Diabetes Code(s): E11.9 - TYPE 2 DIABETES MELLITUS WITHOUT COMPLICATIONS (6) Dyslipidemia associated with type 2 diabetes mellitus Code(s): E11.69 - TYPE 2 DIABETES MELLITUS WITH OTHER SPECIFIED COMPLICATION; E78.5 - HYPERLIPIDEMIA, UNSPECIFIED (7) Hypertension Code(s): I10 - ESSENTIAL (PRIMARY) HYPERTENSION Qualifiers: Hypertension type: secondary to endocrine disorders Qualified Code(s): I15.2 - Hypertension secondary to endocrine disorders (8) Elevated d-dimer Code(s): R79.89 - OTHER SPECIFIED ABNORMAL FINDINGS OF BLOOD CHEMISTRY Assessment/Plan Acute on chronic HFrEF (heart failure with reduced ejection fraction) patient is being admitted for atrial fibrillation with pulmonary congestion admit to telemetry obtain an echocardiogram IV furosemide increased to 80mg twice daily keep SBP >90 monitor I/O f/u cardiology recommendation rate control with metoprolol trend troponin trend ecg [place] (acute kidney injury) elevated from the baseline - possible 2/2 hypoperfusion monitor levels will give a trial of diueresis and monitor the HENRRY Atrial fibrillation with rapid ventricular response rivaroxiban 20mg daily rate control tele admission obtain echocardiogram f/u cardiology recommendation SOB (shortness of breath) 2/2 Acute on chronic CHF will diures the patient Diabetes ISS diabetic diet Dyslipidemia associated with type 2 diabetes mellitus atorvasatin 20mg daily obtain TSH obtain Lipid profile Hypertension stable will continue the patient on home medicaiton Elevated d-dimer patient just arrived from [facility] 6 hour flight patient is a high risk for DVT/PE duplex was negative in the acute setting of the atrial fibrillation with RVR and SOB PE has to be r/o, however the patient is in [place] will wait to obtain the imaging with the high clinical suspicion and the elevated d-dimer patient requires anticoagulation will start the patient on rivaroxiban 20mg daily
[2018-11-28 08:17] LABS: HEMATOCRIT 34.1 % (35.4-49); HEMOGLOBIN 11.2 GM/dL (11.7-16.9); MCH 27.8 pg (25.7-33.7); MCHC 32.9 g/dl (32.0-35.9); MEAN CELL VOLUME 84.5 fl (80-96); MEAN PLT VOLUME 12.2 fl (7.5-11.1); PLATELET COUNT 135 K/MM3 (134-434); RBC 4.03 M/mm3 (4.00-5.60); RDW 15.5 % (11.9-15.9); WHITE BLOOD COUNT 8.7 K/mm3 (4.0-10.0)
--- NOTE | 2018-11-28 08:34 | PN ---
Progress Note, Physician Chief Complaint: sob History of Present Illness: remains very sob. able to sleep last night only with cpap on--sob when it is removed no cp, palp no leg swelling no etoh - Current Medication List Current Medications: Active Medications Acetaminophen (Tylenol -) 650 mg PO Q6H PRN PRN Reason: PAIN LEVEL 4 - 6 Last Admin: 11/27/18 22:03 Dose: 650 mg Albuterol Sulfate (Ventolin Hfa Inhaler -) 1 puff IH Q6H PRN PRN Reason: SHORTNESS OF BREATH Aspirin (Asa -) 81 mg PO DAILY [facility] Enalapril Maleate (Vasotec -) 20 mg PO DAILY [facility] Furosemide (Lasix Injection -) 40 mg IVPUSH BIDLASIX [facility] Last Admin: 11/28/18 06:00 Dose: 40 mg Insulin Aspart (Novolog Vial Sliding Scale -) 1 vial SQ TIDAC [facility]; Protocol Last Admin: 11/28/18 06:23 Dose: Not Given Metoprolol Tartrate (Lopressor -) 25 mg PO BID [facility] Last Admin: 11/27/18 22:02 Dose: 25 mg Rivaroxaban (Xarelto) 20 mg PO DAILY@1800 [facility] - Objective Vital Signs: Vital Signs Temperature 97.6 F 11/28/18 04:00 Pulse Rate 117 H 11/28/18 04:00 Respiratory Rate 18 11/28/18 08:25 Blood Pressure 96/55 L 11/28/18 04:00 O2 Sat by Pulse Oximetry (%) 97 11/28/18 08:25 Constitutional: Yes: No Distress, Calm Eyes: No: Sclera Icterus HENT: No: Nasal Congestion Cardiovascular: Yes: Pulse Irregular, JVD (probable (cpap on)), S1, S2, Other ( PMI non diplaced). No: Gallop, Murmur Respiratory: Yes: CTA Bilaterally. No: Accessory Muscle Use, Rales, Wheezes Gastrointestinal: Yes: Normal Bowel Sounds, Soft. No: Tenderness Musculoskeletal: Yes: Other (No kyphosis) Extremities: No: Cold, Cyanosis Edema: No Integumentary: No: Jaundice Neurological: Yes: Alert, Oriented (x3) Psychiatric: No: Agitated Labs: CBC, BMP 11/28/18 06:58 INR, PTT INR 1.23 (0.83-1.09) H 11/27/18 08:50 Assessment/Plan ECG x2 11/27: afib, RBBB, far right QRS axis, nonspecific ST-T abn--R bundle and axis new vs 01/2016 prior CXR: large heart, congestive changes (new vs 2017), no effusions (my review: + cephalization, + incr interstitium c/w interstitial edema possibly) Echo 2015: mild LVE, moderately decr LVSF (global). RV tds. valves unremarkable tele: AF 120s-140s, at times briefly to 170. 8 beats WCT ? AF with aberrancy vs VT PAF: -known dx since at least 2014, at that time on amiodarone with dr robledo--pt not currently taking, thinks he stopped it since 2014. -rapid HR here in ER, with acute hypotension after IV diltiazem (suspect rapid AF is due to acute decomp HF, not the other way around (though possible)). started metoprolol tartrate 25 BID, tolerate sbp >90 (will use short acting formulation given possibility of severe underlying LV dysfunction, risk of hypotension) -11/28: HRs very uncontrolled (see above). bp's soft but stable. try incr lopressor 25 bid to 50 TID if bp allows. start digoxin (monitor levels). -if BP intolerant of AVN miguelito regimen, will need to start IV amio -no CCB (suspect severe syst HF) -CHADS VASC 4--warrants AC. xarelto started here (15mg qd for GFR 15-50) acute on chronic syst HF: -here with sob, leg swelling, diaphoresis, + JVD. BNP 4K (decr GFR, no priors available), congested CXR -previously with known moderately decr LVSF 2014. -etiology uncertain--? if completed outpt ischemia w/u at time of initial dx -suspect may have high, longstanding burden of tachycardia as he has no sx's when in rapid AF--? isch CMP -? diabetic CMP (A1c 8.8), ? sec to past etoh -11/27: lasix 40 IV x1 now, then bid trial -11/28: BPs soft, stable (90s-110s). modest urination to lasix doses (per urinal at bedside). wt down 2 lbs. ongoing resp distress requiring cpap. incr lasix to 80 iv bid. -trend labs daily for renal fxn -echo -hold enalapril to allow bp room to tolerate diuretics, AF rate control -no concern for ACS (trop neg x 2) [place]: -creat 1.7, from 1.3 in 2016 -? cardiorenal syndrome -observe trend with increasing diuresis VT: -NSVT on tele, vs AF with aberrancy -K > 4, Mg > 2 HTN: -low bp's here -TANMAY-I on hold for now. DM: -per hospitalist
[2018-11-28 09:01] LABS: ALBUMIN 3.1 g/dl (3.4-5.0); BILIRUBIN,TOTAL 0.7 mg/dL (0.2-1); CALCIUM 7.7 mg/dL (8.5-10.1); CREATININE 1.8 mg/dL (0.55-1.3); MAGNESIUM 1.7 mg/dL (1.8-2.4); N-TERMINAL BNP 3308.9 pg/ml (5-125); PHOSPHOROUS 3.6 mg/dL (2.5-4.9); POTASSIUM 3.9 mmol/L (3.5-5.1)
[2018-11-28] MEDS: METOPROLOL TARTRATE 25 MG TABLET (FP) PO SCH (09:40)
[2018-11-28] MEDS: ACETAMINOPHEN 325 MG TABLET (FP) PO PRN (09:40)
[2018-11-28] MEDS: ASPIRIN 81 MG CHEWABLE TABLETS PO SCH (09:40)
[2018-11-28] MEDS ORDERED: ENALAPRIL MALEATE 10 MG TABLET (FP) PO SCH (10:00)
[2018-11-28] MEDS ORDERED: METOPROLOL TARTRATE 25 MG TABLET (FP) PO ONE (10:22)
[2018-11-28] MEDS ORDERED: DIGOXIN 0.25 MG TABLET (FP) PO ONE (10:22)
[2018-11-28] MEDS ORDERED: FUROSEMIDE 40 MG/4 ML INJECTABLE VIAL ONE (10:31)
[2018-11-28] MEDS ORDERED: MAGNESIUM SULF 50% (8.12 MEQ/2 ML-1 GM VIAL) IVPB ONE (10:45)
[2018-11-28] MEDS: FUROSEMIDE 40 MG/4 ML INJECTABLE VIAL IVPUSH SCH ×2 (11:16→14:56)
[2018-11-28] MEDS: METOPROLOL TARTRATE 50 MG TABLET (FP) PO SCH ×2 (14:56→22:35)
[2018-11-28] MEDS ORDERED: RIVAROXABAN 20 MG TABLET PO SCH ×2 (18:00)
[2018-11-28] MEDS: RIVAROXABAN 15 MG TABLET PO SCH (18:06)
[2018-11-29] MEDS: ACETAMINOPHEN 325 MG TABLET (FP) PO PRN ×2 (00:59→18:30)
[2018-11-29] MEDS ORDERED: FUROSEMIDE 40 MG/4 ML INJECTABLE VIAL IVPUSH SCH (06:00)
[2018-11-29] MEDS: guaiFENesin/D-METHORPHAN HB 10 ML UNIT-DOSE CUPS PO PRN ×3 (06:19→19:52)
[2018-11-29] MEDS: FUROSEMIDE 40 MG/4 ML INJECTABLE VIAL IVPUSH SCH ×2 (06:20→13:27)
[2018-11-29] MEDS: INSULIN SLIDING SCALE (NOVOLOG) 1 VIAL SQ SCH ×3 (06:20→18:46)
[2018-11-29] MEDS: METOPROLOL TARTRATE 50 MG TABLET (FP) PO SCH ×3 (06:20→22:09)
--- NOTE | 2018-11-29 07:27 | PN ---
Progress Note, Physician Chief Complaint: 68YOM with h/o A-fib, HTN , HLD , breathing difficulties, and NIDDM who p/w SOB x1 day to ED. He arrived to [place] from [facility] on 11/17/18 and had been doing well except for BLE edema with the gradual onset of SOB. Denied chest pain or other symtpoms and claimed he had a similiar episode of these symptoms while he was in [facility] a couple of weeks ago and went to the hospital where they treated his difficulty breathing, then was discharged home. He has not followed up since. - Current Medication List Current Medications: Active Medications Acetaminophen (Tylenol -) 650 mg PO Q6H PRN PRN Reason: PAIN LEVEL 4 - 6 Last Admin: 11/29/18 00:59 Dose: 650 mg Albuterol Sulfate (Ventolin Hfa Inhaler -) 1 puff IH Q6H PRN PRN Reason: SHORTNESS OF BREATH Aspirin (Asa -) 81 mg PO DAILY [facility] Last Admin: 11/28/18 09:40 Dose: 81 mg Digoxin (Lanoxin -) 0.125 mg PO DAILY [facility] Furosemide (Lasix Injection -) 80 mg IVPUSH BIDLASIX [facility] Last Admin: 11/29/18 06:20 Dose: 80 mg Guaifenesin (Robitussin Dm -) 10 ml PO Q6H PRN PRN Reason: COUGH Last Admin: 11/29/18 06:19 Dose: 10 ml Insulin Aspart (Novolog Vial Sliding Scale -) 1 vial SQ TIDAC [facility]; Protocol Last Admin: 11/29/18 06:20 Dose: Not Given Metoprolol Tartrate (Lopressor -) 50 mg PO TID [facility] Last Admin: 11/29/18 06:20 Dose: 50 mg Rivaroxaban (Xarelto) 15 mg PO DAILY@1800 [facility] Last Admin: 11/28/18 18:06 Dose: 15 mg - Objective Vital Signs: Vital Signs Temperature 98.9 F 11/29/18 05:00 Pulse Rate 130 H 11/29/18 05:00 Respiratory Rate 20 11/29/18 05:00 Blood Pressure 91/48 L 11/29/18 05:00 O2 Sat by Pulse Oximetry (%) 100 11/29/18 06:52 Constitutional: Yes: Well Nourished, No Distress, Calm Eyes: Yes: WNL, Conjunctiva Clear, EOM Intact HENT: Yes: WNL, Atraumatic, Normocephalic Neck: Yes: WNL, Supple, Trachea Midline, Other (+JVD) Cardiovascular: Yes: WNL, Regular Rate and Rhythm, Tachycardia, JVD Respiratory: Yes: WNL, Regular, CTA Bilaterally Gastrointestinal: Yes: WNL, Normal Bowel Sounds, Soft Genitourinary: Yes: WNL Musculoskeletal: Yes: WNL Extremities: Yes: WNL Edema: LLE: Trace, RLE: Trace Peripheral Pulses WNL: Yes Integumentary: Yes: WNL Neurological: Yes: WNL, Alert, Oriented ...Motor Strength: WNL Psychiatric: Yes: WNL, Alert, Oriented Labs: CBC, BMP 11/28/18 06:58 INR, PTT INR 1.23 (0.83-1.09) H 11/27/18 08:50 - ....Imaging Chest X-ray: Report Reviewed (mild congestion on cxr - suspect chf secondary to afib w rvr, mild bibasal atelectatic changes with airspace disease/pneumonia in the left lower lobe, posteriorly), Image Reviewed EKG: Report Reviewed (11/27/18 08:25 A-fib with RVR, rate 147, with RBBB and left posterior fascicular block, no ischemic ST-T changes #2 11/27/18 09: 22 A-fib with RVR, rate 120, nithe rightward axis, RBBB, left posterior fascicular block has resolved since last study, ST depressions in [id number] but no JANIE), Image Reviewed Other: Report Reviewed ( Echo 2015: mild LVE, moderately decr LVSF (global). RV tds. valves unremarkable) Problem List - Problems (1) [place] (acute kidney injury) Assessment/Plan: -creat 1.7, up from last documented Cr of 1.3 in 2016 -? cardiorenal syndrome -daily CMP to trend Cr. with increasing diuresis, may need to decrease if Cr rises Code(s): N17.9 - ACUTE KIDNEY FAILURE, UNSPECIFIED (2) Acute on chronic HFrEF (heart failure with reduced ejection fraction) Assessment/Plan: clinical sign of chronic HR HF sob, lperipheral edema, + JVD, elevated BNP -continue lasix 80mg bid as per cardiology -daily weights -daily CMP to assess renal function, Cr 1.7 may need to decrease lasix if becoming too dry -TTE requested to assess LV function -continue to hold home enalapril -Trops negative x 2, no further need to trend unless chest pain presents Code(s): I50.23 - ACUTE ON CHRONIC SYSTOLIC (CONGESTIVE) HEART FAILURE (3) Atrial fibrillation with rapid ventricular response Assessment/Plan: diagnosed in 2014 but not on any home meds, rapid HR here in ER, with acute hypotension after IV diltiazem -cardiology folowing and appreciate recommendations -tolerating metoprolol tartrate 50mg TID , heart rate labile (70s-118) but no sustained episodes of RVR -continue digoxin. Recent dig level .48, continue to monitor levels -11/29: BP remains soft. HR improved. digoxin level ok--cont monitoring. -no CCB as per cardiology (suspect severe syst HF) -CHADS VASC 4,. xarelto started as per cardiology Code(s): I48.91 - UNSPECIFIED ATRIAL FIBRILLATION (4) Atrial fibrillation Assessment/Plan: chronic AF now with RVR Code(s): I48.91 - UNSPECIFIED ATRIAL FIBRILLATION (5) SOB (shortness of breath) Code(s): R06.02 - SHORTNESS OF BREATH (6) Diabetes Assessment/Plan: Novolog sliding scale FS AC/HS diabetic diet Code(s): E11.9 - TYPE 2 DIABETES MELLITUS WITHOUT COMPLICATIONS (7) Hypertension Assessment/Plan: hold home anti hypertensives (CCB) while attempting to rate control AF with BB resume home meds when rate control and BL will tolerate hold TANMAY given rise in Cr. low salt diet Code(s): I10 - ESSENTIAL (PRIMARY) HYPERTENSION Qualifiers: Hypertension type: secondary to endocrine disorders Qualified Code(s): I15.2 - Hypertension secondary to endocrine disorders (8) NSVT (nonsustained ventricular tachycardia) Assessment/Plan: NSVT on telemetry vs AF with aberrancy keep K > 4, Mg > 2 continue continuous tele monitoring Code(s): I47.2 - VENTRICULAR TACHYCARDIA Impression/Plan Impression/Plan: FEN no additional IV while diuresing replete electrolytes as needed diabetic, low sodium diet. Avoid caffeine Prophy continue xarelto 15mg Dispo maintian as in patient on tele discharge planning Visit type - Emergency Visit Emergency Visit: Yes ED Registration Date: 11/27/18 Care time: The patient presented to the Emergency Department on the above date and was hospitalized for further evaluation of their emergent condition. - New Patient This patient is new to me today: Yes Date on this admission: 11/29/18 - Critical Care Critical Care patient: No - Discharge Referral Referred to [facility] No
[2018-11-29 07:49] LABS: CALCIUM 7.6 mg/dL (8.5-10.1); CREATININE 1.7 mg/dL (0.55-1.3); POTASSIUM 3.9 mmol/L (3.5-5.1)
--- NOTE | 2018-11-29 08:52 | PN ---
Progress Note, Physician Chief Complaint: sob History of Present Illness: sob much better. dtr states he slept last night with NC, no cpap. ditto this am so far, not currently sob. no cp leg swelling resolved no palpit remote etoh - Current Medication List Current Medications: Active Medications Acetaminophen (Tylenol -) 650 mg PO Q6H PRN PRN Reason: PAIN LEVEL 4 - 6 Last Admin: 11/29/18 00:59 Dose: 650 mg Albuterol Sulfate (Ventolin Hfa Inhaler -) 1 puff IH Q6H PRN PRN Reason: SHORTNESS OF BREATH Aspirin (Asa -) 81 mg PO DAILY [facility] Last Admin: 11/28/18 09:40 Dose: 81 mg Digoxin (Lanoxin -) 0.125 mg PO DAILY [facility] Furosemide (Lasix Injection -) 80 mg IVPUSH BIDLASIX [facility] Last Admin: 11/29/18 06:20 Dose: 80 mg Guaifenesin (Robitussin Dm -) 10 ml PO Q6H PRN PRN Reason: COUGH Last Admin: 11/29/18 06:19 Dose: 10 ml Insulin Aspart (Novolog Vial Sliding Scale -) 1 vial SQ TIDAC [facility]; Protocol Last Admin: 11/29/18 06:20 Dose: Not Given Metoprolol Tartrate (Lopressor -) 50 mg PO TID [facility] Last Admin: 11/29/18 06:20 Dose: 50 mg Rivaroxaban (Xarelto) 15 mg PO DAILY@1800 [facility] Last Admin: 11/28/18 18:06 Dose: 15 mg - Objective Vital Signs: Vital Signs Temperature 98.9 F 11/29/18 05:00 Pulse Rate 130 H 11/29/18 05:00 Respiratory Rate 20 11/29/18 05:00 Blood Pressure 91/48 L 11/29/18 05:00 O2 Sat by Pulse Oximetry (%) 100 11/29/18 06:52 Constitutional: Yes: No Distress, Calm Eyes: No: Sclera Icterus HENT: No: Nasal Congestion Cardiovascular: Yes: Regular Rate and Rhythm, JVD, S1, S2, Other (PMI non diplaced). No: Gallop, Murmur Respiratory: Yes: CTA Bilaterally. No: Accessory Muscle Use, Rales, Wheezes Gastrointestinal: Yes: Normal Bowel Sounds, Soft. No: Tenderness Musculoskeletal: Yes: Other (No kyphosis) Extremities: No: Cold Edema: No Integumentary: No: Jaundice Neurological: Yes: Alert, Oriented (x3) Psychiatric: No: Agitated Labs: CBC, BMP 11/28/18 06:58 11/29/18 05:40 INR, PTT INR 1.23 (0.83-1.09) H 11/27/18 08:50 Assessment/Plan ECG x2 11/27: afib, RBBB, far right QRS axis, nonspecific ST-T abn--R bundle and axis new vs 01/2016 prior CXR: large heart, congestive changes (new vs 2017), no effusions (my review: + cephalization, + incr interstitium c/w interstitial edema possibly) Echo 2015: mild LVE, moderately decr LVSF (global). RV tds. valves unremarkable tele: AF 110s-120s mostly (briefly 150s) PAF: -known dx since at least 2014, at that time on amiodarone with dr robledo--pt not currently taking, thinks he stopped it since 2014. -rapid HR here in ER, with acute hypotension after IV diltiazem (suspect rapid AF is due to acute decomp HF, not the other way around (though possible)). started metoprolol tartrate 25 BID, tolerate sbp >90 (will use short acting formulation given possibility of severe underlying LV dysfunction, risk of hypotension) -11/28: HRs very uncontrolled (see above). bp's soft but stable. try incr lopressor 25 bid to 50 TID if bp allows. start digoxin (monitor levels). -11/29: BP remains soft. HR signif improved. same metopr, dig as doing. (digoxin level ok--cont monitoring.) -no CCB (suspect severe syst HF) -CHADS VASC 4--warrants AC. xarelto started here (15mg qd for GFR 15-50) acute on chronic syst HF: -here with sob, leg swelling, diaphoresis, + JVD. BNP 4K (decr GFR, no priors available), congested CXR -previously with known moderately decr LVSF 2014. -etiology uncertain--? if completed outpt ischemia w/u at time of initial dx -suspect may have high, longstanding burden of tachycardia as he has no sx's when in rapid AF--? isch CMP -? diabetic CMP (A1c 8.8), ? sec to past etoh -11/27: lasix 40 IV x1 now, then bid trial -11/28: BPs soft, stable (90s-110s). modest urination to lasix doses (per urinal at bedside). wt down 2 lbs. ongoing resp distress requiring cpap. incr lasix to 80 iv bid. -11/29: wt down 176 initially, to 167 today. renal fxn stable. O2 and PAP req'ts signif improved, less sob. JVD persists. continue lasix 80 iv bid. -trend labs daily for renal fxn -echo tomorrow -hold enalapril to allow bp room to tolerate diuretics, AF rate control -no concern for ACS (trop neg x 2) [place]: -creat 1.7, from 1.3 in 2016 -? cardiorenal syndrome -observe trend with increasing diuresis VT: -NSVT on tele, vs AF with aberrancy -K > 4, Mg > 2 HTN: -low bp's here -TANMAY-I on hold for now. DM: -per hospitalist
[2018-11-29] MEDS: ASPIRIN 81 MG CHEWABLE TABLETS PO SCH (09:43)
[2018-11-29] MEDS: DIGOXIN 0.125 MG TABLET (FP) PO SCH (09:43)
[2018-11-29] MEDS ORDERED: PT OWN MED DRAWER 7, Y5N ONE (11:33)
[2018-11-29] MEDS ORDERED: MAGNESIUM CITRATE 300 ML BOTTLE PO PRN (17:57)
[2018-11-29] MEDS ORDERED: BISACODYL 5 MG TABLET.DR (FP) PO ONE (17:57)
[2018-11-29] MEDS: RIVAROXABAN 15 MG TABLET PO SCH (18:26)
[2018-11-29 23:01] LABS: URINE APPEARANCE CLEAR; URINE BILIRUBIN NEGATIVE (NEGATIVE); URINE COLOR YELLOW; URINE GLUCOSE (UA) NEGATIVE (NEGATIVE); URINE KETONE NEGATIVE (NEGATIVE); URINE LEUK ESTERASE NEGATIVE (NEGATIVE); URINE NITRITE NEGATIVE (NEGATIVE); URINE PROTEIN NEGATIVE (NEGATIVE)
[2018-11-30] MEDS: guaiFENesin/D-METHORPHAN HB 10 ML UNIT-DOSE CUPS PO PRN ×2 (03:11→19:54)
[2018-11-30] MEDS: FUROSEMIDE 40 MG/4 ML INJECTABLE VIAL IVPUSH SCH ×2 (05:39→14:14)
[2018-11-30] MEDS: ACETAMINOPHEN 325 MG TABLET (FP) PO PRN ×2 (05:39→19:59)
[2018-11-30] MEDS: METOPROLOL TARTRATE 50 MG TABLET (FP) PO SCH ×3 (05:41→21:34)
[2018-11-30 07:09] LABS: BASO % 0.5 % (0-2.0); EOS % 2.4 % (0-4.5); HEMATOCRIT 32.9 % (35.4-49); HEMOGLOBIN 10.9 GM/dL (11.7-16.9); LYMPH % 8.4 % (8-40); MCH 27.9 pg (25.7-33.7); MEAN CELL VOLUME 84.5 fl (80-96); MEAN PLT VOLUME 11.3 fl (7.5-11.1); MONO % 5.8 % (3.8-10.2); NEUT % 82.9 % (42.8-82.8); PLATELET COUNT 118 K/MM3 (134-434); RBC 3.89 M/mm3 (4.00-5.60); RDW 15.2 % (11.9-15.9); WHITE BLOOD COUNT 9.2 K/mm3 (4.0-10.0)
[2018-11-30] MEDS: INSULIN SLIDING SCALE (NOVOLOG) 1 VIAL SQ SCH ×3 (07:15→16:30)
[2018-11-30 07:50] LABS: ALBUMIN 2.9 g/dl (3.4-5.0); BILIRUBIN,TOTAL 0.8 mg/dL (0.2-1); CREATININE 1.6 mg/dL (0.55-1.3); MAGNESIUM 1.6 mg/dL (1.8-2.4); POTASSIUM 3.5 mmol/L (3.5-5.1); TOT PROT 5.8 g/dl (6.4-8.2)
[2018-11-30 08:05] LABS: CALCIUM 6.9 mg/dL (8.5-10.1)
[2018-11-30] MEDS: DIGOXIN 0.125 MG TABLET (FP) PO SCH (09:12)
[2018-11-30] MEDS: ASPIRIN 81 MG CHEWABLE TABLETS PO SCH (09:22)
--- NOTE | 2018-11-30 09:22 | PN ---
Progress Note, Physician History of Present Illness: Patient is a 68 year old male with a significant past medical history of A-fib ( no reported anticoagulation control), HTN, HLD and NIDDM (on metformin). He comes to the ED on 11/27/2018 with shortness of breath x 1 day. He was on [place] and arrived to [place] on 11/17/2018 and has been doing well except for bilateral lower ext edema, but then developed shortness of breath. BNP 7k on admission. He is having fevers, hypotension, [place] and increased work of breathing. will start on azithromycin. meets sepsis criteria and blood cultures have been collected and are pending. 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: afib 116-130s - Current Medication List Current Medications: Active Medications Acetaminophen (Tylenol -) 650 mg PO Q6H PRN PRN Reason: FEVER Last Admin: 11/30/18 05:39 Dose: 650 mg Albuterol Sulfate (Ventolin Hfa Inhaler -) 1 puff IH Q6H PRN PRN Reason: SHORTNESS OF BREATH Aspirin (Asa -) 81 mg PO DAILY [facility] Last Admin: 11/29/18 09:43 Dose: 81 mg Digoxin (Lanoxin -) 0.125 mg PO DAILY [facility] Last Admin: 11/30/18 09:12 Dose: 0.125 mg Furosemide (Lasix Injection -) 80 mg IVPUSH BIDLASIX [facility] Last Admin: 11/30/18 05:39 Dose: 80 mg Guaifenesin (Robitussin Dm -) 10 ml PO Q6H PRN PRN Reason: COUGH Last Admin: 11/30/18 03:11 Dose: 10 ml Insulin Aspart (Novolog Vial Sliding Scale -) 1 vial SQ TIDAC [facility]; Protocol Last Admin: 11/29/18 18:46 Dose: 2 units Magnesium Citrate (Citroma -) 300 ml PO Q48H PRN PRN Reason: CONSTIPATION Metoprolol Tartrate (Lopressor -) 50 mg PO TID [facility] Last Admin: 11/30/18 05:41 Dose: 50 mg Rivaroxaban (Xarelto) 15 mg PO DAILY@1800 [facility] Last Admin: 11/29/18 18:26 Dose: 15 mg - Objective Vital Signs: Vital Signs Temperature 100.2 F H 11/30/18 06:00 Pulse Rate 117 H 11/30/18 09:12 Respiratory Rate 20 11/30/18 06:00 Blood Pressure 102/57 L 11/30/18 06:00 O2 Sat by Pulse Oximetry (%) 98 11/30/18 04:35 Constitutional: Yes: Well Nourished, Obese Eyes: Yes: WNL HENT: Yes: WNL Neck: Yes: WNL Cardiovascular: Yes: Tachycardia, Pulse Irregular Respiratory: Yes: Accessory Muscle Use, Cough, Diminished, Poor Air Entry, Rhonchi, SOB, SOB on Exertion, Tachypnea Gastrointestinal: Yes: WNL, Normal Bowel Sounds ...Rectal Exam: Yes: Deferred Genitourinary: Yes: WNL Musculoskeletal: Yes: WNL Extremities: Yes: WNL Integumentary: Yes: WNL Neurological: Yes: Alert, Oriented Psychiatric: Yes: WNL Labs: CBC, BMP 11/30/18 05:30 11/30/18 05:30 INR, PTT INR 1.23 (0.83-1.09) H 11/27/18 08:50 Problem List - Problems (1) Sepsis Assessment/Plan: meets sepsis criteria. hypotension, [place], fevers, tachypnea. blood and urine cultures pending lactic acid within normal limits source of fevers unknown at this time, await cultures Code(s): A41.9 - SEPSIS, UNSPECIFIED ORGANISM Qualifiers: Sepsis type: sepsis due to unspecified organism Qualified Code(s): A41.9 - Sepsis, unspecified organism (2) [place] (acute kidney injury) Assessment/Plan: elevated creatinine. based on creat in past admission, baseline 1.0-1.3 monitor kidney function and encourage PO intake, monitor while closely while on diuretic therapy. Code(s): N17.9 - ACUTE KIDNEY FAILURE, UNSPECIFIED (3) Atrial fibrillation with rapid ventricular response Assessment/Plan: rate control with metoprolol, on xarelto Code(s): I48.91 - UNSPECIFIED ATRIAL FIBRILLATION (4) Acute hypoxemic respiratory failure Assessment/Plan: on supplemental oxygen pulmonary following and started on xeponex on noctural bipap Code(s): J96.01 - ACUTE RESPIRATORY FAILURE WITH HYPOXIA (5) Acute on chronic HFrEF (heart failure with reduced ejection fraction) Assessment/Plan: monitor daily weights, intake and output Code(s): I50.23 - ACUTE ON CHRONIC SYSTOLIC (CONGESTIVE) HEART FAILURE (6) CHF (congestive heart failure) Assessment/Plan: on diuretic therapy. cardiology following. monitor for volume overload. Code(s): I50.9 - HEART FAILURE, UNSPECIFIED (7) Elevated d-dimer Assessment/Plan: elevated d dimer. pulmonary following Code(s): R79.89 - OTHER SPECIFIED ABNORMAL FINDINGS OF BLOOD CHEMISTRY (8) D dimer value normal Assessment/Plan: elevated d dimer. unable to perform cta secondary to [place] pulmonary following patient on anticoagulation Code(s): Z01.89 - ENCOUNTER FOR OTHER SPECIFIED SPECIAL EXAMINATIONS (9) Prophylactic measure Assessment/Plan: fen tolerating PO monitor electrolytes hypocalcium on todays labs, corrected calcium 7.8, monitor daily. added supplements low salt diet prophy dvt: on xarelto gi: on bowel regimen. physical therapy when more stable Code(s): Z29.9 - ENCOUNTER FOR PROPHYLACTIC MEASURES, UNSPECIFIED Visit type - Emergency Visit Emergency Visit: Yes ED Registration Date: 11/27/18 Care time: The patient presented to the Emergency Department on the above date and was hospitalized for further evaluation of their emergent condition. - New Patient This patient is new to me today: Yes Date on this admission: 11/30/18 - Critical Care Critical Care patient: No - Discharge Referral Referred to [facility] No
--- NOTE | 2018-11-30 09:56 | PN ---
Progress Note, Physician Chief Complaint: seen and examined Feeling better TELE: AF w/ RVR 150s at times History of Present Illness: weight is down from 11/27 - Current Medication List Current Medications: Active Medications Acetaminophen (Tylenol -) 650 mg PO Q6H PRN PRN Reason: FEVER Last Admin: 11/30/18 05:39 Dose: 650 mg Albuterol Sulfate (Ventolin Hfa Inhaler -) 1 puff IH Q6H [facility] Aspirin (Asa -) 81 mg PO DAILY [facility] Last Admin: 11/30/18 09:22 Dose: 81 mg Digoxin (Lanoxin -) 0.125 mg PO DAILY [facility] Last Admin: 11/30/18 09:12 Dose: 0.125 mg Furosemide (Lasix Injection -) 80 mg IVPUSH BIDLASIX [facility] Last Admin: 11/30/18 05:39 Dose: 80 mg Guaifenesin (Robitussin Dm -) 10 ml PO Q6H PRN PRN Reason: COUGH Last Admin: 11/30/18 03:11 Dose: 10 ml Azithromycin (Zithromax 500mg Ivpb (Pre-Docked)) 500 mg in 250 mls @ 250 mls/ hr IVPB ONCE ONE Stop: 11/30/18 10:59 Insulin Aspart (Novolog Vial Sliding Scale -) 1 vial SQ TIDAC [facility]; Protocol Last Admin: 11/29/18 18:46 Dose: 2 units Magnesium Citrate (Citroma -) 300 ml PO Q48H PRN PRN Reason: CONSTIPATION Magnesium Oxide (Mag-Ox -) 800 mg PO ONCE ONE Stop: 11/30/18 10:01 Metoprolol Tartrate (Lopressor -) 50 mg PO TID [facility] Last Admin: 11/30/18 05:41 Dose: 50 mg Rivaroxaban (Xarelto) 15 mg PO DAILY@1800 [facility] Last Admin: 11/29/18 18:26 Dose: 15 mg - Objective Vital Signs: Vital Signs Temperature 100.2 F H 11/30/18 06:00 Pulse Rate 117 H 11/30/18 09:12 Respiratory Rate 20 11/30/18 06:00 Blood Pressure 102/57 L 11/30/18 06:00 O2 Sat by Pulse Oximetry (%) 98 11/30/18 04:35 Constitutional: Yes: No Distress Cardiovascular: Yes: Pulse Irregular Respiratory: Yes: CTA Bilaterally Gastrointestinal: Yes: Soft (NT) Edema: No Neurological: Yes: Alert Labs: CBC, BMP 11/30/18 05:30 11/30/18 05:30 INR, PTT INR 1.23 (0.83-1.09) H 11/27/18 08:50 Microbiology Laboratory Tests 11/30/18 11/30/18 11/30/18 05:30 05:30 05:30 WBC 9.2 Hgb 10.9 L Plt Count 118 L Sodium 131 L Potassium 3.5 BUN 23 H Creatinine 1.6 H Calcium 6.9 L* Magnesium 1.6 L Total Bilirubin 0.8 AST 15 ALT 34 B-Natriuretic Peptide 7587.8 H - ....Imaging MRI: Image Reviewed Assessment/Plan Assessment/Plan ECG x2 11/27: afib, RBBB, far right QRS axis, nonspecific ST-T abn--R bundle and axis new vs 01/2016 prior CXR: large heart, congestive changes (new vs 2017), no effusions (my review: + cephalization, + incr interstitium c/w interstitial edema possibly) Echo 2015: mild LVE, moderately decr LVSF (global). RV tds. valves unremarkable tele: AF 110s-120s mostly (briefly 150s) PAF: -known dx since at least 2014, at that time on amiodarone with dr robledo--pt not currently taking, thinks he stopped it since 2014. -Overall trend average rates around 100-110. Cont metoprolol and dig. -CHADS VASC 4--warrants AC. xarelto started here (15mg qd for GFR 15-50) Acute on chronic syst HF: Diuresing and overall improved. -previously with known moderately decr LVSF 2014. -etiology uncertain--? if completed outpt ischemia w/u at time of initial dx -suspect may have high, longstanding burden of tachycardia as he has no sx's when in rapid AF--? isch CMP -echo today -holding enalapril to allow bp room to tolerate diuretics, AF rate control -no concern for ACS (trop neg x 2) -ischemic w/u when euvolemic [place]: -creat 1.7, from 1.3 in 2016 -? cardiorenal syndrome -observe trend with increasing diuresis VT: -NSVT on tele, vs AF with aberrancy -K > 4, Mg > 2 HTN: -low bp's here -TANMAY-I on hold for now. DM: -per hospitalist
[2018-11-30] MEDS ORDERED: MAGNESIUM OXIDE 400 MG TABLET (FP) PO ONE (10:00)
[2018-11-30] MEDS ORDERED: AZITHROMYCIN IVPB 500 MG/250 ML BAG IVPB ONE (10:00)
[2018-11-30] MEDS ORDERED: PT OWN MED DRAWER 7, Y5N ONE (11:18)
[2018-11-30] MEDS: ALBUTEROL SO4 8 GM HFA INHALER IH SCH ×2 (11:34→16:29)
--- NOTE | 2018-11-30 12:39 | PN ---
Progress Note (short form) - Note Progress Note: PULMONARY CONSULTATION DICTATED 11/30/18 IMP ACUTE RESPIRATORY FAILURE ACUTE ON CHRONIC CHF AFIB WITH RVR ? H/O COPD HTN ELEVATED D-DIMER NON-SPECIFIC CANNOT EXCLUDE PE ACUTE KIDNEY INJURY PLAN RATE CONTROL PER CARDIOLOGY LASIX AC XOPENEX PRN NIPPV NEEDED O2 TO MAINTAIN O2 SAT > 90% CHEST CT ECHO MONITOR LYTES,RENAL FUNCTION DAILY WT ABG DR SKY Problem List - Problems (1) Acute hypoxemic respiratory failure Code(s): J96.01 - ACUTE RESPIRATORY FAILURE WITH HYPOXIA (2) [place] (acute kidney injury) Code(s): N17.9 - ACUTE KIDNEY FAILURE, UNSPECIFIED (3) Acute on chronic HFrEF (heart failure with reduced ejection fraction) Code(s): I50.23 - ACUTE ON CHRONIC SYSTOLIC (CONGESTIVE) HEART FAILURE (4) Atrial fibrillation with rapid ventricular response Code(s): I48.91 - UNSPECIFIED ATRIAL FIBRILLATION (5) CHF (congestive heart failure) Code(s): I50.9 - HEART FAILURE, UNSPECIFIED (6) Dyslipidemia associated with type 2 diabetes mellitus Code(s): E11.69 - TYPE 2 DIABETES MELLITUS WITH OTHER SPECIFIED COMPLICATION; E78.5 - HYPERLIPIDEMIA, UNSPECIFIED (7) Elevated d-dimer Code(s): R79.89 - OTHER SPECIFIED ABNORMAL FINDINGS OF BLOOD CHEMISTRY (8) Hypotension Code(s): I95.9 - HYPOTENSION, UNSPECIFIED (9) SOB (shortness of breath) Code(s): R06.02 - SHORTNESS OF BREATH (10) Hypertension Code(s): I10 - ESSENTIAL (PRIMARY) HYPERTENSION Qualifiers: Hypertension type: secondary to endocrine disorders Qualified Code(s): I15.2 - Hypertension secondary to endocrine disorders (11) Acute respiratory failure Code(s): J96.00 - ACUTE RESPIRATORY FAILURE, UNSP W HYPOXIA OR HYPERCAPNIA
--- NOTE | 2018-11-30 14:49 | ECHO ---
Name: TRACEY GARCIA Exam:Adult Echocardiogram Study Date: 11/30/2018 01:25 PM Age: 68 yrs Reason For Study: DECOMPENSATED HF Height: 66 in Weight: 154 lb BSA: 1.8 m2 MMode/2D Measurements & Calculations IVSd: 0.99 cm Ao root diam: 2.6 cm LVIDd: 6.0 cm LA dimension: 4.1 cm LVIDs: 5.2 cm LVPWd: 1.00 cm EDV(Teich): 176.9 ml LVOT diam: 2.0 cm ESV(Teich): 127.0 ml Doppler Measurements & Calculations MV E max luke: 99.9 cm/sec Ao V2 max: 161.6 cm/sec MV A max luke: 35.0 cm/sec Ao max P.4 mmHg MV E/A: 2.9 Ao V2 mean: 117.5 cm/sec MV dec time: 0.17 sec Ao mean P.1 mmHg Ao V2 VTI: 25.2 cm FERNANDEZ(I,D): 1.3 cm2 FERNANDEZ(V,D): 1.3 cm2 LV V1 max P.0 mmHg MR max luke: 342.6 cm/sec LV V1 mean P.75 mmHg MR max P.1 mmHg LV V1 max: 71.0 cm/sec LV V1 mean: 37.8 cm/sec LV V1 VTI: 10.9 cm SV(LVOT): 32.7 ml TR max luke: 230.9 cm/sec TR max P.7 mmHg Med Peak E' Luke: 6.3 cm/sec Med E/e': 15.7 Lat Peak E' Luke: 8.1 cm/sec Lat E/e': 12.3 Procedure A complete two-dimensional transthoracic echocardiogram was performed (2D, M-mode, Doppler and color flow Doppler). Left Ventricle The left ventricle is mildly dilated. Left ventricular systolic function is severely reduced. Ejectio n Fraction = 30%. The transmitral spectral Doppler flow pattern is suggestive of restrictive physiology . There is severe global hypokinesis of the left ventricle. Right Ventricle The right ventricle is normal in size and function. Atria The left atrium is mildly dilated. Right atrial size is normal. Mitral Valve The mitral valve is normal in structure and function. There is mild to moderate mitral regurgitation. The mitral regurgitant jet is eccentrically directed. Tricuspid Valve The tricuspid valve is normal in structure and function. There is trace tricuspid regurgitation. Righ t ventricular systolic pressure is 22 mmhg. Aortic Valve There is mild aortic valve thickening. Pulmonic Valve The pulmonic valve is normal in structure and function. Great Vessels The aortic root is normal size. Pericardium/Pleura There is no pericardial effusion. There is no pleural effusion. Interpretation Summary The left ventricle is mildly dilated. There is severe global hypokinesis of the left ventricle. Left ventricular systolic function is severely reduced. Ejection Fraction = 30%. The right ventricle is normal in size and function. The left atrium is mildly dilated. Right atrial size is normal. There is mild to moderate mitral regurgitation. The mitral regurgitant jet is eccentrically directed. There is mild aortic valve thickening. MD Mychal Rapp 11/30/2018 02:49 PM
--- NOTE | 2018-11-30 14:51 | CONS ---
DATE OF CONSULTATION: 11/30/2018 REFERRING PROVIDER: ALEXANDR Perry The patient is a 68-year-old male with a past medical history of atrial fibrillation, not on anticoagulation, hypertension, hyperlipidemia, congestive heart failure, cardiomyopathy, also questionable history of COPD, apparently he was placed on an inhaled bronchodilator, and was recently in [facility], has insulin- dependent diabetes, admitted to [facility] with increasing shortness of breath. Patient recently arrived from [facility] on November 17, 2018, after a prolonged plane ride. Apparently he has been doing well but complaining of lower extremity edema. The day prior to admission, he developed increasing shortness of breath and then he developed acute onset of shortness of breath with worsening, at which time he presented to the emergency room. In the ER, he was felt to be in acute CHF as well as he was noted to be in a rapid atrial fibrillation. At the time, he was started on Cardizem IV, which reduced his heart rate but he developed hypotension. He has also had increasing shortness of breath, with some improvement, but was placed on BiPAP and transferred up to medical telemetry unit for further monitoring. On the telemetry unit, he was evaluated by Dr. Metz, for cardiology consultation, who felt that the patient had acute on chronic congestive heart failure. Of note is the patient had an echo in 2014 which revealed mild LV enlargement and moderate decrease in left ventricular systolic ejection function. Patient was started on Lasix as well as BiPAP. Patient apparently at nighttime , off BiPAP, develops increasing respiratory distress, which was why he was placed back on BiPAP. The patient has history of tobacco use, approximately 2 to 3 packs per day for 30 years, quit in his mid-50s. There is no history of occupational exposure. There is no history of DVT or PE in the past. Of note is that patient was also placed on Xarelto 20 mg daily secondary to PAF and possibility of pulmonary embolism due to increased risk secondary to recent plane ride. Also noted to have elevated D- dimer. Of note is the patient underwent a duplex of the lower extremities, which was within normal limits. Past medical history, again, includes systolic congestive heart failure, global hypokinesia, atrial fibrillation, hypertension, hyperlipidemia, diabetes. SOCIAL HISTORY: Tobacco use, quit 16 or 17 years ago. History of EtOH. No occupational exposures. REVIEW OF SYSTEMS: Positive dyspnea, positive orthopnea, positive lower extremity edema. No chest pain, no palpitation, no nausea, no vomiting, no hemoptysis. PHYSICAL EXAMINATION: General: The patient is a well-developed, well-nourished male, awake, on BiPAP, appears comfortable, in no acute distress. Vital Signs: Heart rate is 117 and irregular. Blood pressure is 101/68. Respiratory rate is 20. O2 saturation 100% on BiPAP with 30% oxygen. Temperature is 99. HEENT: Normocephalic, atraumatic. Neck: Supple. Heart: Tachycardic, irregular, S1 and S2. Chest: Bibasilar crackles, a few scattered bilateral wheezes. Abdomen: Soft. Bowel sounds are positive. Extremities: No cyanosis, edema. LABORATORY DATA: WBC 9.2, hemoglobin 10.9, hematocrit 32.9, with a platelet count of 118,000. INR is 1.23. BUN 23, creatinine 1.6. BNP is 7587. Chest x-ray reveals cardiomegaly and mild congestion bilaterally. IMPRESSION: 1. Acute respiratory failure secondary to acute on chronic congestive heart failure. 2. Atrial fibrillation with rapid ventricular response. 3. Questionable history of chronic obstructive pulmonary disease. 4. Underlying chronic obstructive pulmonary disease. 5. Hypertension. 6. Diabetes. 7. Elevated D-dimer, nonspecific, although cannot exclude a possible pulmonary embolism, as patient is at increased risk secondary to recent travel. 8r acute on chronic kidney injury. PLAN: Rate control as per Cardiology. Continue Lasix, anticoagulation, Xopenex inhalation p.r.n., BiPAP as needed to reduce work of breathing. Supplemental O2 to maintain O2 saturation greater than 90%. Obtain CT scan of the chest, echocardiogram. Monitor renal function. Electrolytes. Obtain echocardiogram. Daily weight. ZENIA SKY M.D. [id number] MTDD
[2018-11-30 15:04] LABS: ARTERIAL BLD GAS O2 SATURATION 98.6 % (95-98); ARTERIAL BLOOD GAS BASE EXCESS 7.4 meq/l (-2-2); ARTERIAL BLOOD GAS PCO2 43.4 mmHg (35-45); ARTERIAL BLOOD GAS PO2 103 mmHg (80-105); ARTERIAL BLOOD GAS pH 7.47 (7.35-7.45)
[2018-11-30 15:09] LABS: ALLENS TEST POSITIVE
[2018-11-30] MEDS: RIVAROXABAN 15 MG TABLET PO SCH (17:54)
[2018-11-30] MEDS: DOCUSATE SODIUM 100 MG CAPSULE (FP) PO SCH (23:20)
[2018-11-30] MEDS: CALCIUM (OYSTER SHELL) 500 MG TABLET (FP) PO SCH (23:20)
[2018-12-01] MEDS: guaiFENesin/D-METHORPHAN HB 10 ML UNIT-DOSE CUPS PO PRN ×3 (01:30→22:26)
[2018-12-01] MEDS: DOCUSATE SODIUM 100 MG CAPSULE (FP) PO SCH ×3 (06:03→21:37)
[2018-12-01] MEDS: FUROSEMIDE 40 MG/4 ML INJECTABLE VIAL IVPUSH SCH (06:03)
[2018-12-01] MEDS: METOPROLOL TARTRATE 50 MG TABLET (FP) PO SCH ×3 (06:03→17:00)
[2018-12-01] MEDS: INSULIN SLIDING SCALE (NOVOLOG) 1 VIAL SQ SCH ×3 (06:04→16:56)
[2018-12-01] MEDS: ACETAMINOPHEN 325 MG TABLET (FP) PO PRN ×2 (06:05→19:53)
[2018-12-01 07:06] LABS: BASO % 0.4 % (0-2.0); EOS % 2.1 % (0-4.5); HEMATOCRIT 33.1 % (35.4-49); HEMOGLOBIN 10.9 GM/dL (11.7-16.9); LYMPH % 7.6 % (8-40); MCH 27.9 pg (25.7-33.7); MCHC 32.9 g/dl (32.0-35.9); MEAN CELL VOLUME 84.8 fl (80-96); MEAN PLT VOLUME 11.4 fl (7.5-11.1); MONO % 5.9 % (3.8-10.2); PLATELET COUNT 129 K/MM3 (134-434); RBC 3.91 M/mm3 (4.00-5.60); RDW 15.4 % (11.9-15.9); WHITE BLOOD COUNT 10.9 K/mm3 (4.0-10.0)
[2018-12-01 08:25] LABS: BILIRUBIN,TOTAL 0.9 mg/dL (0.2-1); CREATININE 1.6 mg/dL (0.55-1.3); MAGNESIUM 1.5 mg/dL (1.8-2.4); POTASSIUM 3.6 mmol/L (3.5-5.1); TOT PROT 6.1 g/dl (6.4-8.2)
[2018-12-01] MEDS ORDERED: MAGNESIUM OXIDE 400 MG TABLET (FP) PO ONE (08:26)
--- NOTE | 2018-12-01 09:51 | PN ---
Progress Note, Physician Chief Complaint: Having fevers TELE: AF 130s. Average rate is > 100bpm - Current Medication List Current Medications: Active Medications Acetaminophen (Tylenol -) 650 mg PO Q6H PRN PRN Reason: FEVER Last Admin: 12/01/18 06:05 Dose: 650 mg Albuterol Sulfate (Ventolin Hfa Inhaler -) 1 puff IH Q6H [facility] Last Admin: 11/30/18 16:29 Dose: 1 puff Aspirin (Asa -) 81 mg PO DAILY [facility] Last Admin: 11/30/18 09:22 Dose: 81 mg Calcium Carbonate (Os-Raffi 500mg -) 500 mg PO BID [facility] Last Admin: 11/30/18 23:20 Dose: 500 mg Digoxin (Lanoxin -) 0.125 mg PO DAILY [facility] Last Admin: 11/30/18 09:12 Dose: 0.125 mg Docusate Sodium (Colace -) 100 mg PO TID [facility] Last Admin: 12/01/18 06:03 Dose: 100 mg Furosemide (Lasix Injection -) 80 mg IVPUSH BIDLASIX [facility] Last Admin: 12/01/18 06:03 Dose: 80 mg Guaifenesin (Robitussin Dm -) 10 ml PO Q6H PRN PRN Reason: COUGH Last Admin: 12/01/18 01:30 Dose: 10 ml Azithromycin 250 mg/ Dextrose 250 mls @ 250 mls/hr IVPB DAILY [facility] Insulin Aspart (Novolog Vial Sliding Scale -) 1 vial SQ TIDAC [facility]; Protocol Last Admin: 12/01/18 06:04 Dose: Not Given Magnesium Citrate (Citroma -) 300 ml PO Q48H PRN PRN Reason: CONSTIPATION Metoprolol Tartrate (Lopressor -) 50 mg PO TID [facility] Last Admin: 12/01/18 06:03 Dose: 50 mg Multivitamins/Minerals/Vitamin C (Tab-A-Vit -) 1 tab PO DAILY [facility] Rivaroxaban (Xarelto) 15 mg PO DAILY@1800 [facility] Last Admin: 11/30/18 17:54 Dose: 15 mg - Objective Vital Signs: Vital Signs Temperature 100.1 F H 12/01/18 06:00 Pulse Rate 124 H 12/01/18 06:00 Respiratory Rate 20 12/01/18 06:00 Blood Pressure 119/66 12/01/18 06:00 O2 Sat by Pulse Oximetry (%) 98 05/28/19 22:00 Constitutional: Yes: No Distress Cardiovascular: Yes: Pulse Irregular Respiratory: Yes: Other (decreased breath sounds c/w COPD- no active wheezing.) Gastrointestinal: Yes: Soft Edema: No Labs: CBC, BMP 12/01/18 05:30 12/01/18 05:30 INR, PTT INR 1.23 (0.83-1.09) H 11/27/18 08:50 - ....Imaging EKG: Image Reviewed Assessment/Plan Assessment/Plan ECG x2 11/27: afib, RBBB, far right QRS axis, nonspecific ST-T abn--R bundle and axis new vs 01/2016 prior CXR: large heart, congestive changes (new vs 2017), no effusions (my review: + cephalization, + incr interstitium c/w interstitial edema possibly) Echo 2014: mild LVE, moderately decr LVSF (global). RV tds. valves unremarkable tele: AF 110s-120s mostly (briefly 150s) 1. PAF: -known dx since at least 2014, at that time on amiodarone with dr robledo--pt not currently taking, thinks he stopped it since 2014. -Overall trend shows uncontrolled AF. Will increase metoprolol to q6h. Cont Dig -CHADS VASC 4--warrants AC. xarelto started here (15mg qd for GFR 15-50) 2. Acute on chronic syst HF: Diuresing and overall improved. -previously with known moderately decr LVSF 2014. Now with EF 30%, global -etiology uncertain--? if completed outpt ischemia w/u at time of initial dx -suspect may have high, longstanding burden of tachycardia as he has no sx's when in rapid AF--? isch CMP -echo 11/30 showed severe global HK, EF 30%, moderate MR -holding enalapril to allow bp room to tolerate diuretics, AF rate control -no concern for ACS (trop neg x 2) -ischemic w/u when euvolemic 3. [place]: -creat 1.7, from 1.3 in 2016 -? cardiorenal syndrome -Creat stable thus far with diuresis. Will now scale back on IV Lasix as he is febrile 4. VT: -NSVT on tele, vs AF with aberrancy -K > 4, Mg > 2 5. HTN: -low bp's here, improved. -TANMAY-I on hold for now. 6. DM: -per hospitalist 7. Fevers: -Work up as per PMD
[2018-12-01] MEDS: ALBUTEROL SO4 8 GM HFA INHALER IH SCH ×2 (10:00→15:55)
[2018-12-01] MEDS: ASPIRIN 81 MG CHEWABLE TABLETS PO SCH (10:01)
[2018-12-01] MEDS: DIGOXIN 0.125 MG TABLET (FP) PO SCH (10:01)
[2018-12-01] MEDS: CALCIUM (OYSTER SHELL) 500 MG TABLET (FP) PO SCH ×2 (10:02→21:37)
[2018-12-01] MEDS: MULTIVITAMINS (DAILY MVI) TABLET (FP) PO SCH (10:02)
[2018-12-01] MEDS: AZITHROMYCIN IVPB 250 MG in DEXTROSE 5%-WATER - 250 ML IVPB SCH (10:02)
--- NOTE | 2018-12-01 12:13 | PN ---
Progress Note, Physician History of Present Illness: PULMONARY ALERT,ON BIPAP,MORE COMFORTABLE - Current Medication List Current Medications: Active Medications Acetaminophen (Tylenol -) 650 mg PO Q6H PRN PRN Reason: FEVER Last Admin: 12/01/18 06:05 Dose: 650 mg Albuterol Sulfate (Ventolin Hfa Inhaler -) 1 puff IH Q6H [facility] Last Admin: 12/01/18 10:00 Dose: 1 puff Aspirin (Asa -) 81 mg PO DAILY [facility] Last Admin: 12/01/18 10:01 Dose: 81 mg Calcium Carbonate (Os-Raffi 500mg -) 500 mg PO BID [facility] Last Admin: 12/01/18 10:02 Dose: 500 mg Digoxin (Lanoxin -) 0.125 mg PO DAILY [facility] Last Admin: 12/01/18 10:01 Dose: 0.125 mg Docusate Sodium (Colace -) 100 mg PO TID [facility] Last Admin: 12/01/18 06:03 Dose: 100 mg Furosemide (Lasix Injection -) 80 mg IVPUSH BIDLASIX [facility] Last Admin: 12/01/18 06:03 Dose: 80 mg Guaifenesin (Robitussin Dm -) 10 ml PO Q6H PRN PRN Reason: COUGH Last Admin: 12/01/18 10:45 Dose: 10 ml Azithromycin 250 mg/ Dextrose 250 mls @ 250 mls/hr IVPB DAILY [facility] Last Admin: 12/01/18 10:02 Dose: 250 mls/hr Insulin Aspart (Novolog Vial Sliding Scale -) 1 vial SQ TIDAC [facility]; Protocol Last Admin: 12/01/18 11:01 Dose: 4 units Magnesium Citrate (Citroma -) 300 ml PO Q48H PRN PRN Reason: CONSTIPATION Metoprolol Tartrate (Lopressor -) 50 mg PO Q6HPO [facility] Multivitamins/Minerals/Vitamin C (Tab-A-Vit -) 1 tab PO DAILY [facility] Last Admin: 12/01/18 10:02 Dose: 1 tab Rivaroxaban (Xarelto) 15 mg PO DAILY@1800 [facility] Last Admin: 11/30/18 17:54 Dose: 15 mg - Objective Vital Signs: Vital Signs Temperature 97.7 F 12/01/18 10:00 Pulse Rate 109 H 12/01/18 10:01 Respiratory Rate 22 H 12/01/18 10:00 Blood Pressure 122/79 12/01/18 10:00 O2 Sat by Pulse Oximetry (%) 99 12/01/18 11:20 Constitutional: Yes: Well Nourished, Calm Eyes: Yes: WNL HENT: Yes: WNL Neck: Yes: WNL Cardiovascular: Yes: Tachycardia, Pulse Irregular, S1, S2 Respiratory: Yes: On BiPap, Rales, Wheezes (SCATTERED WHEEZES AND RALES) Gastrointestinal: Yes: Normal Bowel Sounds, Soft Extremities: Yes: WNL Edema: No Labs: CBC, BMP 12/01/18 05:30 12/01/18 05:30 INR, PTT INR 1.23 (0.83-1.09) H 11/27/18 08:50 Laboratory Tests 11/30/18 12:45 ABG pH 7.47 H ABG pCO2 at Pt Temp 43.4 ABG pO2 at Pt Temp 103 ABG HCO3 31.5 H ABG O2 Sat (Measured) 98.6 H Oxygen Flow Rate 30 Vent Rate 14 Pressure Support Vent 10/ Problem List - Problems (1) Acute hypoxemic respiratory failure Code(s): J96.01 - ACUTE RESPIRATORY FAILURE WITH HYPOXIA (2) [place] (acute kidney injury) Code(s): N17.9 - ACUTE KIDNEY FAILURE, UNSPECIFIED (3) Acute on chronic HFrEF (heart failure with reduced ejection fraction) Code(s): I50.23 - ACUTE ON CHRONIC SYSTOLIC (CONGESTIVE) HEART FAILURE (4) Atrial fibrillation with rapid ventricular response Code(s): I48.91 - UNSPECIFIED ATRIAL FIBRILLATION (5) CHF (congestive heart failure) Code(s): I50.9 - HEART FAILURE, UNSPECIFIED (6) Dyslipidemia associated with type 2 diabetes mellitus Code(s): E11.69 - TYPE 2 DIABETES MELLITUS WITH OTHER SPECIFIED COMPLICATION; E78.5 - HYPERLIPIDEMIA, UNSPECIFIED (7) Elevated d-dimer Code(s): R79.89 - OTHER SPECIFIED ABNORMAL FINDINGS OF BLOOD CHEMISTRY (8) Hypotension Code(s): I95.9 - HYPOTENSION, UNSPECIFIED (9) SOB (shortness of breath) Code(s): R06.02 - SHORTNESS OF BREATH (10) Hypertension Code(s): I10 - ESSENTIAL (PRIMARY) HYPERTENSION Qualifiers: Hypertension type: secondary to endocrine disorders Qualified Code(s): I15.2 - Hypertension secondary to endocrine disorders (11) Acute respiratory failure Code(s): J96.00 - ACUTE RESPIRATORY FAILURE, UNSP W HYPOXIA OR HYPERCAPNIA Assessment/Plan IMP ACUTE RESPIRATORY FAILURE ACUTE ON CHRONIC CHF/CARDIOMYOPATHY SEVERE LV DYSFUNCTION WITH GLOBAL HYPOKINESIS LVEF 30% AFIB WITH RVR ? H/O COPD HTN ELEVATED D-DIMER NON-SPECIFIC CANNOT EXCLUDE PE ACUTE KIDNEY INJURY PLAN RATE CONTROL PER CARDIOLOGY LASIX AC XOPENEX PRN NIPPV NEEDED O2 TO MAINTAIN O2 SAT > 90% MONITOR LYTES,RENAL FUNCTION DAILY WT DR SKY Problem List - Problems (1) Acute hypoxemic respiratory failure Code(s): J96.01 - ACUTE RESPIRATORY FAILURE WITH HYPOXIA (2) [place] (acute kidney injury) Code(s): N17.9 - ACUTE KIDNEY FAILURE, UNSPECIFIED (3) Acute on chronic HFrEF (heart failure with reduced ejection fraction) Code(s): I50.23 - ACUTE ON CHRONIC SYSTOLIC (CONGESTIVE) HEART FAILURE (4) Atrial fibrillation with rapid ventricular response Code(s): I48.91 - UNSPECIFIED ATRIAL FIBRILLATION (5) CHF (congestive heart failure) Code(s): I50.9 - HEART FAILURE, UNSPECIFIED (6) Dyslipidemia associated with type 2 diabetes mellitus Code(s): E11.69 - TYPE 2 DIABETES MELLITUS WITH OTHER SPECIFIED COMPLICATION; E78.5 - HYPERLIPIDEMIA, UNSPECIFIED (7) Elevated d-dimer Code(s): R79.89 - OTHER SPECIFIED ABNORMAL FINDINGS OF BLOOD CHEMISTRY (8) Hypotension Code(s): I95.9 - HYPOTENSION, UNSPECIFIED (9) SOB (shortness of breath) Code(s): R06.02 - SHORTNESS OF BREATH (10) Hypertension Code(s): I10 - ESSENTIAL (PRIMARY) HYPERTENSION Qualifiers: Hypertension type: secondary to endocrine disorders Qualified Code(s): I15.2 - Hypertension secondary to endocrine disorders (11) Acute respiratory failure Code(s): J96.00 - ACUTE RESPIRATORY FAILURE, UNSP W HYPOXIA OR HYPERCAPNIA
--- NOTE | 2018-12-01 13:09 | CON.ID ---
Consult - Past Medical History Cardio/Vascular: Yes: HTN Endocrine: Yes: Diabetes Mellitus - Alcohol/Substance Use Hx Alcohol Use: No - Smoking History Smoking history: Never smoked Have you smoked in the past 12 months: No Home Medications - Allergies Allergies/Adverse Reactions: Allergies Allergy/AdvReac Type Severity Reaction Status Date / Time No Known Allergies Allergy Verified 11/27/18 08:44 - Home Medications Home Medications: Ambulatory Orders metFORMIN HCL [Metformin HCl] 850 mg PO DAILY 07/13/14 Aspirin [ASA -] 81 mg PO DAILY #0 tab.chew 08/09/14 Glipizide [Glipizide Xl] 10 mg PO DAILY 10/16/16 Albuterol Sulfate Inhaler - [Ventolin Hfa Inhaler -] 1 puff IH PRN 11/27/18 Ascorbic Acid [Vitamin C -] 500 mg PO DAILY 11/27/18 Atorvastatin Ca [Lipitor] 10 mg PO HS 11/27/18 Enalapril Maleate [Vasotec] 20 mg PO DAILY 11/27/18 Physical Exam Vital Signs: Vital Signs Temperature 97.7 F 12/01/18 10:00 Pulse Rate 109 H 12/01/18 10:01 Respiratory Rate 22 H 12/01/18 10:00 Blood Pressure 122/79 12/01/18 10:00 O2 Sat by Pulse Oximetry (%) 99 12/01/18 11:20 Labs: CBC, BMP 12/01/18 05:30 12/01/18 05:30
[2018-12-01] MEDS ORDERED: cefTRIAXone SODIUM 1 GM VIAL ONE (13:27)
[2018-12-01] MEDS ORDERED: DEXTROSE 5%-WATER - 50 ML IVPB ONE (13:27)
[2018-12-01] MEDS: CEFTRIAXONE 1 GM in DEXTROSE 5%-WATER - 50 ML IVPB SCH (13:45)
--- NOTE | 2018-12-01 13:49 | PN ---
Progress Note, Physician History of Present Illness: Patient is a 68 year old male with a significant past medical history of A-fib ( no reported anticoagulation control), HTN, HLD and NIDDM (on metformin). He comes to the ED on 11/27/2018 with shortness of breath x 1 day. He was on [place] and arrived to [place] on 11/17/2018 and has been doing well except for bilateral lower ext edema, but then developed shortness of breath. BNP 7k on admission. He is having fevers, hypotension, [place] and increased work of breathing. will start on azithromycin. meets sepsis criteria and blood cultures have been collected and are pending. potline monitor 12/01 @ 0900: afib 110s - Current Medication List Current Medications: Active Medications Acetaminophen (Tylenol -) 650 mg PO Q6H PRN PRN Reason: FEVER Last Admin: 12/01/18 06:05 Dose: 650 mg Albuterol Sulfate (Ventolin Hfa Inhaler -) 1 puff IH Q6H [facility] Last Admin: 12/01/18 10:00 Dose: 1 puff Aspirin (Asa -) 81 mg PO DAILY [facility] Last Admin: 12/01/18 10:01 Dose: 81 mg Calcium Carbonate (Os-Raffi 500mg -) 500 mg PO BID [facility] Last Admin: 12/01/18 10:02 Dose: 500 mg Digoxin (Lanoxin -) 0.125 mg PO DAILY [facility] Last Admin: 12/01/18 10:01 Dose: 0.125 mg Docusate Sodium (Colace -) 100 mg PO TID [facility] Last Admin: 12/01/18 13:46 Dose: 100 mg Furosemide (Lasix Injection -) 80 mg IVPUSH BIDLASIX [facility] Last Admin: 12/01/18 06:03 Dose: 80 mg Guaifenesin (Robitussin Dm -) 10 ml PO Q6H PRN PRN Reason: COUGH Last Admin: 12/01/18 10:45 Dose: 10 ml Azithromycin 250 mg/ Dextrose 250 mls @ 250 mls/hr IVPB DAILY [facility] Last Admin: 12/01/18 10:02 Dose: 250 mls/hr Ceftriaxone Sodium 1 gm/ (Dextrose) 50 mls @ 100 mls/hr IVPB DAILY [facility]; Protocol Last Admin: 12/01/18 13:45 Dose: 100 mls/hr Insulin Aspart (Novolog Vial Sliding Scale -) 1 vial SQ TIDAC [facility]; Protocol Last Admin: 12/01/18 11:01 Dose: 4 units Magnesium Citrate (Citroma -) 300 ml PO Q48H PRN PRN Reason: CONSTIPATION Metoprolol Tartrate (Lopressor -) 50 mg PO Q6HPO [facility] Last Admin: 12/01/18 12:12 Dose: 50 mg Multivitamins/Minerals/Vitamin C (Tab-A-Vit -) 1 tab PO DAILY [facility] Last Admin: 12/01/18 10:02 Dose: 1 tab Rivaroxaban (Xarelto) 15 mg PO DAILY@1800 [facility] Last Admin: 11/30/18 17:54 Dose: 15 mg - Objective Vital Signs: Vital Signs Temperature 97.7 F 12/01/18 10:00 Pulse Rate 109 H 12/01/18 10:01 Respiratory Rate 22 H 12/01/18 10:00 Blood Pressure 122/79 12/01/18 10:00 O2 Sat by Pulse Oximetry (%) 99 12/01/18 11:20 Constitutional: Yes: Well Nourished, Calm Eyes: Yes: WNL Neck: Yes: WNL Cardiovascular: Yes: Pulse Irregular Respiratory: Yes: Accessory Muscle Use, Cough, Diminished, On BiPap, On Nasal O2 , Rhonchi, SOB, SOB on Exertion Gastrointestinal: Yes: Normal Bowel Sounds ...Rectal Exam: Yes: WNL Genitourinary: Yes: WNL Extremities: Yes: WNL Edema: No Peripheral Pulses WNL: Yes Integumentary: Yes: WNL Neurological: Yes: Alert, Oriented ...Motor Strength: WNL Labs: CBC, BMP 12/01/18 05:30 12/01/18 05:30 INR, PTT INR 1.23 (0.83-1.09) H 11/27/18 08:50 Problem List - Problems (1) Sepsis Assessment/Plan: Currently meets sepsis criteria. hypotensive with [place], fevers and tachypnea. Started on Azithromycin on 11/30/18, ID consulted for further recommendations and patient now also on Ceftriaxone. Blood and urine cultures negative to date. lactic acid within normal limits source of fevers unknown at this time, await cultures, however, pneumonia a possibility. Code(s): A41.9 - SEPSIS, UNSPECIFIED ORGANISM Qualifiers: Sepsis type: sepsis due to unspecified organism Qualified Code(s): A41.9 - Sepsis, unspecified organism (2) [place] (acute kidney injury) Assessment/Plan: elevated creatinine. based on creat in past admission, baseline 1.0-1.3 monitor kidney function and encourage PO intake, monitor while closely while on diuretic therapy. Code(s): N17.9 - ACUTE KIDNEY FAILURE, UNSPECIFIED (3) Atrial fibrillation with rapid ventricular response Assessment/Plan: rate control with metoprolol, on xarelto daily. Code(s): I48.91 - UNSPECIFIED ATRIAL FIBRILLATION (4) Acute hypoxemic respiratory failure Assessment/Plan: on supplemental oxygen pulmonary following and started on xeponex on noctural bipap Code(s): J96.01 - ACUTE RESPIRATORY FAILURE WITH HYPOXIA (5) Acute on chronic HFrEF (heart failure with reduced ejection fraction) Assessment/Plan: monitor daily weights, intake and output Code(s): I50.23 - ACUTE ON CHRONIC SYSTOLIC (CONGESTIVE) HEART FAILURE (6) CHF (congestive heart failure) Assessment/Plan: on diuretic therapy. Echo shows EF 30%. LV mildly dilated, severe global hypokinesis of left ventricle. left ventricular systolic function is severely reduced. right ventrile normal, left atria mildly dilated. right atrial size normal. mild to moderate mitral regurg. mitral regurg jet is eccentrically directed. mild aortic valve thickening. Code(s): I50.9 - HEART FAILURE, UNSPECIFIED (7) Elevated d-dimer Assessment/Plan: elevated d dimer. Echo shows heart failure. lower extremity dopplers negative for DVT. pulmonary following Code(s): R79.89 - OTHER SPECIFIED ABNORMAL FINDINGS OF BLOOD CHEMISTRY (8) D dimer value normal Assessment/Plan: elevated d dimer. unable to perform cta secondary to [place] pulmonary following patient on anticoagulation Code(s): Z01.89 - ENCOUNTER FOR OTHER SPECIFIED SPECIAL EXAMINATIONS (9) Prophylactic measure Assessment/Plan: fen tolerating PO monitor electrolytes hypocalcium on todays labs, corrected calcium 7.8, added supplements. will give one dose of calcium gluconate. low salt diet prophy dvt: on xarelto gi: on bowel regimen. physical therapy when more stable Code(s): Z29.9 - ENCOUNTER FOR PROPHYLACTIC MEASURES, UNSPECIFIED Visit type - Emergency Visit Emergency Visit: Yes ED Registration Date: 11/27/18 Care time: The patient presented to the Emergency Department on the above date and was hospitalized for further evaluation of their emergent condition. - New Patient This patient is new to me today: No - Critical Care Critical Care patient: No - Discharge Referral Referred to [facility] Med P.C.: No
[2018-12-01] MEDS: RIVAROXABAN 15 MG TABLET PO SCH (17:01)
[2018-12-01] MEDS ORDERED: CALCIUM GLUCONATE 10% - 1,000 MG/10 ML VIAL IVPB ONE (18:13)
[2018-12-01] MEDS: MAGNESIUM OXIDE 400 MG TABLET (FP) PO SCH (21:37)
[2018-12-02] MEDS: METOPROLOL TARTRATE 50 MG TABLET (FP) PO SCH ×4 (00:10→17:18)
[2018-12-02] MEDS ORDERED: ACETAMINOPHEN 1000 MG/100 ML VIAL (NON FORMULARY) IVPB ONE ×2 (01:36→13:05)
[2018-12-02] MEDS: INSULIN SLIDING SCALE (NOVOLOG) 1 VIAL SQ SCH ×3 (06:28→17:17)
[2018-12-02] MEDS: DOCUSATE SODIUM 100 MG CAPSULE (FP) PO SCH ×3 (06:31→21:53)
[2018-12-02 07:32] LABS: BASO % 0.4 % (0-2.0); EOS % 1.3 % (0-4.5); HEMOGLOBIN 11.1 GM/dL (11.7-16.9); LYMPH % 7.2 % (8-40); MCH 28.3 pg (25.7-33.7); MCHC 33.7 g/dl (32.0-35.9); MEAN PLT VOLUME 11.2 fl (7.5-11.1); NEUT % 84.1 % (42.8-82.8); PLATELET COUNT 141 K/MM3 (134-434); RBC 3.93 M/mm3 (4.00-5.60); RDW 15.2 % (11.9-15.9); WHITE BLOOD COUNT 10.3 K/mm3 (4.0-10.0)
[2018-12-02 08:38] LABS: ALBUMIN 3.2 g/dl (3.4-5.0); CALCIUM 7.7 mg/dL (8.5-10.1); CREATININE 1.5 mg/dL (0.55-1.3); POTASSIUM 3.7 mmol/L (3.5-5.1); TOT PROT 6.6 g/dl (6.4-8.2)
[2018-12-02] MEDS ORDERED: cefTRIAXone SODIUM 1 GM VIAL ONE (10:17)
[2018-12-02] MEDS ORDERED: DEXTROSE 5%-WATER - 50 ML IVPB ONE (10:17)
[2018-12-02] MEDS: guaiFENesin/D-METHORPHAN HB 10 ML UNIT-DOSE CUPS PO PRN (10:22)
[2018-12-02] MEDS: ASPIRIN 81 MG CHEWABLE TABLETS PO SCH (10:22)
[2018-12-02] MEDS: CALCIUM (OYSTER SHELL) 500 MG TABLET (FP) PO SCH ×2 (10:22→21:53)
[2018-12-02] MEDS: DIGOXIN 0.125 MG TABLET (FP) PO SCH (10:22)
[2018-12-02] MEDS: CEFTRIAXONE 1 GM in DEXTROSE 5%-WATER - 50 ML IVPB SCH (10:23)
[2018-12-02] MEDS: MULTIVITAMINS (DAILY MVI) TABLET (FP) PO SCH (10:23)
[2018-12-02] MEDS: MAGNESIUM OXIDE 400 MG TABLET (FP) PO SCH ×2 (10:23→21:53)
[2018-12-02] MEDS: ACETAMINOPHEN 325 MG TABLET (FP) PO PRN (10:26)
[2018-12-02] MEDS: AZITHROMYCIN IVPB 250 MG in DEXTROSE 5%-WATER - 250 ML IVPB SCH (10:31)
[2018-12-02] MEDS ORDERED: METOPROLOL TARTRATE 5 MG/5 ML VIAL IVPUSH PRN (11:33)
--- NOTE | 2018-12-02 11:33 | PN ---
Progress Note (short form) - Note Progress Note: s: no cp sob palps dizzy o: Vital Signs Period Temp Pulse Resp BP Sys/Perez Pulse Ox Last 24 Hr 97.9 F-100.9 F 91-120 18-20 101-135/46-82 100-100 Constitutional: Yes: No Distress Cardiovascular: Yes: Pulse Irregular Respiratory: Yes: scattered rhonchi, nl eff Gastrointestinal: Yes: Soft Edema: no le e/c/c no jaundice diaphoresis Current Medications Generic Name Dose Route Start Last Admin Trade Name Freq PRN Reason Stop Dose Admin Acetaminophen 650 mg 11/29/18 18:42 12/02/18 10:26 Tylenol - PO 650 mg Q6H PRN Administration FEVER Albuterol Sulfate 1 puff 11/30/18 09:45 12/01/18 15:55 Ventolin Hfa Inhaler - IH 1 puff Q6H [facility] Administration Aspirin 81 mg 11/28/18 10:00 12/02/18 10:22 Asa - PO 81 mg DAILY [facility] Administration Calcium Carbonate 500 mg 11/30/18 22:00 12/02/18 10:22 Os-Raffi 500mg - PO 500 mg BID [facility] Administration Digoxin 0.125 mg 11/29/18 10:00 12/02/18 10:22 Lanoxin - PO 0.125 mg DAILY [facility] Administration Docusate Sodium 100 mg 11/30/18 22:00 12/02/18 06:31 Colace - PO 100 mg TID [facility] Administration Furosemide 80 mg 11/28/18 10:30 12/01/18 06:03 Lasix Injection - IVPUSH 80 mg BIDLASIX [facility] Administration Guaifenesin 10 ml 11/29/18 05:25 12/02/18 10:22 Robitussin Dm - PO 10 ml Q6H PRN Administration COUGH Azithromycin 250 mg/ Dextrose 250 mls @ 250 mls/hr 12/01/18 10:00 12/02/18 10 :31 IVPB 250 mls/hr DAILY [facility] Administration Ceftriaxone Sodium 1 gm/ 50 mls @ 100 mls/hr 12/01/18 13:15 12/02/18 10:23 Dextrose IVPB 100 mls/hr DAILY [facility] Administration Protocol Insulin Aspart 1 vial 11/27/18 16:30 12/02/18 06:28 Novolog Vial Sliding Scale - SQ 2 units TIDAC [facility] Administration Protocol Magnesium Citrate 300 ml 11/29/18 17:57 Citroma - PO Q48H PRN CONSTIPATION Magnesium Oxide 400 mg 12/01/18 22:00 12/02/18 10:23 Mag-Ox - PO 400 mg BID [facility] Administration Metoprolol Tartrate 50 mg 12/01/18 12:00 12/02/18 06:30 Lopressor - PO 50 mg Q6HPO [facility] Administration Metoprolol Tartrate 5 mg 12/02/18 11:33 Lopressor Injection - IVPUSH Q4H PRN [facility] Multivitamins/Minerals/Vitamin C 1 tab 12/01/18 10:00 12/02/18 10:23 Tab-A-Vit - PO 1 tab DAILY [facility] Administration Rivaroxaban 15 mg 11/28/18 18:00 12/01/18 17:01 Xarelto PO 15 mg DAILY@1800 [facility] Administration CBC, BMP 12/02/18 06:20 12/02/18 06:20 - ....Imaging EKG: Image Reviewed Assessment/Plan ECG x2 11/27: afib, RBBB, far right QRS axis, nonspecific ST-T abn--R bundle and axis new vs 01/2016 prior CXR: large heart, congestive changes (new vs 2017), no effusions (my review: + cephalization, + incr interstitium c/w interstitial edema possibly) Echo 2014: mild LVE, moderately decr LVSF (global). RV tds. valves unremarkable tele: AF with rvr at times 1. PAF: -known dx since at least 2014, at that time on amiodarone with dr robledo--pt not currently taking, thinks he stopped it since 2014. -Cont metoprolol and dig. Monitor on tele. -CHADS VASC 4--warrants AC. xarelto started here (15mg qd for GFR 15-50) 2. Acute on chronic syst HF: Diuresing and overall improved. -previously with known moderately decr LVSF 2014. Now with EF 30%, global -etiology uncertain--? if completed outpt ischemia w/u at time of initial dx -suspect may have high, longstanding burden of tachycardia as he has no sx's when in rapid AF--? isch CMP -echo 11/30 showed severe global HK, EF 30%, moderate MR -holding enalapril to allow bp room to tolerate diuretics, AF rate control -no concern for ACS (trop neg x 2) -ischemic w/u when euvolemic -12/02: cont iv lasix, daily chem7, daily wt 3. [place]: -creat 1.7, from 1.3 in 2016 -? cardiorenal syndrome -Creat stable thus far with diuresis. 4. VT: -NSVT on tele, vs AF with aberrancy -K > 4, Mg > 2 5. HTN: -low bp's here, improved. -TANMAY-I on hold for now. 6. DM: -per hospitalist 7. Fevers: -Work up as per PMD/ID
--- NOTE | 2018-12-02 12:24 | CONSULT ---
Consult - text type - Consultation Consultation Note: Renal consult for Hyponatremia and [place]/CKD This is a 68 year old gentleman with hx of systolic HF, Afib, DM who presented with complaints of chest pain, shortness of breath and LE swelling and admitted for CHF exacerbation with downtrending serum Na and Cr of 1.6. Pt was seen at the bedside. Awake and alert. History obtained from daughter. Reports that he feels a little better but still has sob. No CP now. LE swelling improving. No flank pain, abd pain, N/V/D. Drinks about 3 pitchers of water plus additional bottled drinks per day. Also reports fevers. PMHx: as above Allergies: NKDA Family Hx: NC Social Hx: No T/A/D ROS: as per HPI, all other pertinent ros negative Home Medications Medication Instructions Recorded metFORMIN HCL [Metformin HCl] 850 mg PO DAILY 07/13/14 Aspirin [ASA -] 81 mg PO DAILY #0 tab.chew 08/09/14 Glipizide [Glipizide Xl] 10 mg PO DAILY 10/16/16 Albuterol Sulfate Inhaler - 1 puff IH PRN 11/27/18 [Ventolin Hfa Inhaler -] Ascorbic Acid [Vitamin C -] 500 mg PO DAILY 11/27/18 Atorvastatin Ca [Lipitor] 10 mg PO HS 11/27/18 Enalapril Maleate [Vasotec] 20 mg PO DAILY 11/27/18 Vital Signs Temperature 99.8 F H 12/02/18 07:00 Pulse Rate 120 H 12/02/18 10:22 Respiratory Rate 18 12/02/18 07:00 Blood Pressure 134/81 12/02/18 07:00 O2 Sat by Pulse Oximetry (%) 100 12/01/18 22:00 Intake & Output 11/29/18 11/30/18 12/01/18 12/02/18 23:59 23:59 23:59 23:59 Intake Total 10 600 1120 550 Output Total 100 450 Balance 10 500 670 550 Weight 76.158 kg 76.204 kg 75.807 kg 75.024 kg NAD awake and alert neck supple, no JVD irregular, no M/R CTA, no rales soft,obese, NT/ND no LE edema, clubbing or cyanosis CBC, BMP 12/02/18 06:20 12/02/18 06:20 Current Medications Acetaminophen (Tylenol -) 650 mg PO Q6H PRN PRN Reason: FEVER Last Admin: 12/02/18 10:26 Dose: 650 mg Albuterol Sulfate (Ventolin Hfa Inhaler -) 1 puff IH Q6H [facility] Last Admin: 12/01/18 15:55 Dose: 1 puff Aspirin (Asa -) 81 mg PO DAILY [facility] Last Admin: 12/02/18 10:22 Dose: 81 mg Calcium Carbonate (Os-Raffi 500mg -) 500 mg PO BID [facility] Last Admin: 12/02/18 10:22 Dose: 500 mg Digoxin (Lanoxin -) 0.125 mg PO DAILY [facility] Last Admin: 12/02/18 10:22 Dose: 0.125 mg Docusate Sodium (Colace -) 100 mg PO TID [facility] Last Admin: 12/02/18 06:31 Dose: 100 mg Furosemide (Lasix Injection -) 80 mg IVPUSH BIDLASIX [facility] Last Admin: 12/01/18 06:03 Dose: 80 mg Guaifenesin (Robitussin Dm -) 10 ml PO Q6H PRN PRN Reason: COUGH Last Admin: 12/02/18 10:22 Dose: 10 ml Azithromycin 250 mg/ Dextrose 250 mls @ 250 mls/hr IVPB DAILY [facility] Last Admin: 12/02/18 10:31 Dose: 250 mls/hr Ceftriaxone Sodium 1 gm/ (Dextrose) 50 mls @ 100 mls/hr IVPB DAILY [facility]; Protocol Last Admin: 12/02/18 10:23 Dose: 100 mls/hr Insulin Aspart (Novolog Vial Sliding Scale -) 1 vial SQ TIDAC [facility]; Protocol Last Admin: 12/02/18 06:28 Dose: 2 units Magnesium Citrate (Citroma -) 300 ml PO Q48H PRN PRN Reason: CONSTIPATION Magnesium Oxide (Mag-Ox -) 400 mg PO BID [facility] Last Admin: 12/02/18 10:23 Dose: 400 mg Metoprolol Tartrate (Lopressor -) 50 mg PO Q6HPO [facility] Last Admin: 12/02/18 06:30 Dose: 50 mg Metoprolol Tartrate (Lopressor Injection -) 5 mg IVPUSH Q4H PRN PRN Reason: TACHYCARDIA Multivitamins/Minerals/Vitamin C (Tab-A-Vit -) 1 tab PO DAILY [facility] Last Admin: 12/02/18 10:23 Dose: 1 tab Rivaroxaban (Xarelto) 15 mg PO DAILY@1800 [facility] Last Admin: 12/01/18 17:01 Dose: 15 mg 68 year old gentleman with hx of systolic HF, Afib, DM who presented with complaints of chest pain, shortness of breath and LE swelling and admitted for CHF exacerbation with downtrending serum Na and Cr of 1.6. #Hyponatremia in setting of HF and [place]/CKD due to fluid overload and increased water intak/poor solute intake #CHF exacerbation #[place]/CKD (baseline Cr from 2016 is 1.3) #Fevers #DM #Anemia Instructed daughter to restrict his total fluid/water intake to 1.5L daily Check urine studies for Na and OSM Check TSH, AM Cortisol Trend Na daily no indication for 3% saline continue Lasix IV BID as per cardiology Trend renal function and electrolytes, change in Cr may be due to Cardio-renal syndrome vs. new baseline do no suspect that pt is hypovolemic at this time as serum BUN is decreasing continue empiric antibiotics, f/c cultures Thank you Will follow Miguel Garcia DO
[2018-12-02] MEDS ORDERED: INSULIN (NOVOLOG) ASPART 100 UNITS/ML 10ML VIAL ONE (12:25)
--- NOTE | 2018-12-02 12:41 | PN ---
Progress Note, Physician History of Present Illness: patient c/o of neck pain still with low grade fever cx negative so far neck pain - Current Medication List Current Medications: Active Medications Acetaminophen (Tylenol -) 650 mg PO Q6H PRN PRN Reason: FEVER Last Admin: 12/02/18 10:26 Dose: 650 mg Albuterol Sulfate (Ventolin Hfa Inhaler -) 1 puff IH Q6H [facility] Last Admin: 12/01/18 15:55 Dose: 1 puff Aspirin (Asa -) 81 mg PO DAILY [facility] Last Admin: 12/02/18 10:22 Dose: 81 mg Calcium Carbonate (Os-Raffi 500mg -) 500 mg PO BID [facility] Last Admin: 12/02/18 10:22 Dose: 500 mg Digoxin (Lanoxin -) 0.125 mg PO DAILY [facility] Last Admin: 12/02/18 10:22 Dose: 0.125 mg Docusate Sodium (Colace -) 100 mg PO TID [facility] Last Admin: 12/02/18 06:31 Dose: 100 mg Furosemide (Lasix Injection -) 80 mg IVPUSH BIDLASIX [facility] Last Admin: 12/01/18 06:03 Dose: 80 mg Guaifenesin (Robitussin Dm -) 10 ml PO Q6H PRN PRN Reason: COUGH Last Admin: 12/02/18 10:22 Dose: 10 ml Azithromycin 250 mg/ Dextrose 250 mls @ 250 mls/hr IVPB DAILY [facility] Last Admin: 12/02/18 10:31 Dose: 250 mls/hr Ceftriaxone Sodium 1 gm/ (Dextrose) 50 mls @ 100 mls/hr IVPB DAILY [facility]; Protocol Last Admin: 12/02/18 10:23 Dose: 100 mls/hr Insulin Aspart (Novolog Vial Sliding Scale -) 1 vial SQ TIDAC [facility]; Protocol Last Admin: 12/02/18 12:28 Dose: 6 units Magnesium Citrate (Citroma -) 300 ml PO Q48H PRN PRN Reason: CONSTIPATION Magnesium Oxide (Mag-Ox -) 400 mg PO BID [facility] Last Admin: 12/02/18 10:23 Dose: 400 mg Metoprolol Tartrate (Lopressor -) 50 mg PO Q6HPO [facility] Last Admin: 12/02/18 12:28 Dose: 50 mg Metoprolol Tartrate (Lopressor Injection -) 5 mg IVPUSH Q4H PRN PRN Reason: TACHYCARDIA Multivitamins/Minerals/Vitamin C (Tab-A-Vit -) 1 tab PO DAILY [facility] Last Admin: 12/02/18 10:23 Dose: 1 tab Rivaroxaban (Xarelto) 15 mg PO DAILY@1800 [facility] Last Admin: 12/01/18 17:01 Dose: 15 mg - Objective Vital Signs: Vital Signs Temperature 99.8 F H 12/02/18 07:00 Pulse Rate 120 H 12/02/18 10:22 Respiratory Rate 18 12/02/18 07:00 Blood Pressure 134/81 12/02/18 07:00 O2 Sat by Pulse Oximetry (%) 100 12/01/18 22:00 Constitutional: Yes: Calm, Mild Distress Cardiovascular: Yes: Regular Rate and Rhythm Respiratory: Yes: Regular, On Nasal O2, Poor Air Entry Gastrointestinal: Yes: Normal Bowel Sounds, Soft Musculoskeletal: Yes: WNL Extremities: Yes: WNL Neurological: Yes: Alert Psychiatric: Yes: Alert Labs: CBC, BMP 12/02/18 06:20 12/02/18 06:20 INR, PTT INR 1.23 (0.83-1.09) H 11/27/18 08:50 Assessment/Plan Problem List - Problems (1) Acute hypoxemic respiratory failure Code(s): J96.01 - ACUTE RESPIRATORY FAILURE WITH HYPOXIA (2) [place] (acute kidney injury) Code(s): N17.9 - ACUTE KIDNEY FAILURE, UNSPECIFIED (3) Acute on chronic HFrEF (heart failure with reduced ejection fraction) Code(s): I50.23 - ACUTE ON CHRONIC SYSTOLIC (CONGESTIVE) HEART FAILURE (4) Atrial fibrillation with rapid ventricular response Code(s): I48.91 - UNSPECIFIED ATRIAL FIBRILLATION (5) CHF (congestive heart failure) Code(s): I50.9 - HEART FAILURE, UNSPECIFIED (6) Dyslipidemia associated with type 2 diabetes mellitus Code(s): E11.69 - TYPE 2 DIABETES MELLITUS WITH OTHER SPECIFIED COMPLICATION; E78.5 - HYPERLIPIDEMIA, UNSPECIFIED (7) Elevated d-dimer Code(s): R79.89 - OTHER SPECIFIED ABNORMAL FINDINGS OF BLOOD CHEMISTRY (8) Hypotension Code(s): I95.9 - HYPOTENSION, UNSPECIFIED (9) SOB (shortness of breath) Code(s): R06.02 - SHORTNESS OF BREATH (10) Hypertension Code(s): I10 - ESSENTIAL (PRIMARY) HYPERTENSION Qualifiers: Hypertension type: secondary to endocrine disorders Qualified Code(s): I15.2 - Hypertension secondary to endocrine disorders (11) Acute respiratory failure Code(s): J96.00 - ACUTE RESPIRATORY FAILURE, UNSP W HYPOXIA OR HYPERCAPNIA plan will continue empirically on ceftriaxone and zithro pain mgmt rest as per the team monitor fevers
--- NOTE | 2018-12-02 12:48 | PN ---
Progress Note (short form) - Note Progress Note: Breathing feels better today. Less SOB. Still PAYAN. Intake & Output 11/29/18 11/30/18 12/01/18 12/02/18 23:59 23:59 23:59 23:59 Intake Total 10 600 1120 550 Output Total 100 450 Balance 10 500 670 550 Weight 167 lb 14.4 oz 168 lb 167 lb 2 oz 165 lb 6.4 oz Last Vital Signs Temp Pulse Resp BP Pulse Ox 99.8 F H 120 H 18 134/81 100 12/02/18 07:00 12/02/18 10:22 12/02/18 07:00 12/02/18 07:00 12/01/18 22:00 Active Medications Acetaminophen (Tylenol -) 650 mg PO Q6H PRN PRN Reason: FEVER Last Admin: 12/02/18 10:26 Dose: 650 mg Albuterol Sulfate (Ventolin Hfa Inhaler -) 1 puff IH Q6H [facility] Last Admin: 12/01/18 15:55 Dose: 1 puff Aspirin (Asa -) 81 mg PO DAILY [facility] Last Admin: 12/02/18 10:22 Dose: 81 mg Calcium Carbonate (Os-Raffi 500mg -) 500 mg PO BID [facility] Last Admin: 12/02/18 10:22 Dose: 500 mg Digoxin (Lanoxin -) 0.125 mg PO DAILY [facility] Last Admin: 12/02/18 10:22 Dose: 0.125 mg Docusate Sodium (Colace -) 100 mg PO TID [facility] Last Admin: 12/02/18 06:31 Dose: 100 mg Furosemide (Lasix Injection -) 80 mg IVPUSH BIDLASIX [facility] Last Admin: 12/01/18 06:03 Dose: 80 mg Guaifenesin (Robitussin Dm -) 10 ml PO Q6H PRN PRN Reason: COUGH Last Admin: 12/02/18 10:22 Dose: 10 ml Azithromycin 250 mg/ Dextrose 250 mls @ 250 mls/hr IVPB DAILY [facility] Last Admin: 12/02/18 10:31 Dose: 250 mls/hr Ceftriaxone Sodium 1 gm/ (Dextrose) 50 mls @ 100 mls/hr IVPB DAILY [facility]; Protocol Last Admin: 12/02/18 10:23 Dose: 100 mls/hr Insulin Aspart (Novolog Vial Sliding Scale -) 1 vial SQ TIDAC [facility]; Protocol Last Admin: 12/02/18 12:28 Dose: 6 units Magnesium Citrate (Citroma -) 300 ml PO Q48H PRN PRN Reason: CONSTIPATION Magnesium Oxide (Mag-Ox -) 400 mg PO BID [facility] Last Admin: 12/02/18 10:23 Dose: 400 mg Metoprolol Tartrate (Lopressor -) 50 mg PO Q6HPO [facility] Last Admin: 12/02/18 12:28 Dose: 50 mg Metoprolol Tartrate (Lopressor Injection -) 5 mg IVPUSH Q4H PRN PRN Reason: TACHYCARDIA Multivitamins/Minerals/Vitamin C (Tab-A-Vit -) 1 tab PO DAILY [facility] Last Admin: 12/02/18 10:23 Dose: 1 tab Rivaroxaban (Xarelto) 15 mg PO DAILY@1800 [facility] Last Admin: 12/01/18 17:01 Dose: 15 mg Constitutional: Yes: Awake and alert, NAD Eyes: Yes: WNL HENT: Yes: WNL Neck: Yes: WNL Cardiovascular: Yes: S1S2, Pulse Irregular, S1, S2 Respiratory: Yes: NC O2, Rales & Rhonchi Gastrointestinal: Yes: Normal Bowel Sounds, Soft Extremities: Yes: WNL Edema: No Labs: Laboratory Results - last 24 hr 12/01/18 12/02/18 12/02/18 16:55 06:20 06:20 WBC 10.3 H RBC 3.93 L Hgb 11.1 L Hct 33.0 L MCV 84.0 MCH 28.3 MCHC 33.7 RDW 15.2 Plt Count 141 MPV 11.2 H Absolute Neuts (auto) 8.7 H Neutrophils % 84.1 H Lymphocytes % 7.2 L Monocytes % 7.0 Eosinophils % 1.3 Basophils % 0.4 Nucleated RBC % 0 Sodium 126 L Potassium 3.7 Chloride 82 L Carbon Dioxide 35 H Anion Gap 10 BUN 22 H Creatinine 1.5 H Est GFR (CKD-EPI)AfAm 55.04 Est GFR (CKD-EPI)NonAf 47.49 POC Glucometer 155 Random Glucose 218 H Calcium 7.7 L Magnesium 2.0 Total Bilirubin 1.0 AST 26 ALT 38 Alkaline Phosphatase 89 Troponin I 0.04 Total Protein 6.6 Albumin 3.2 L Digoxin 0.71 L 12/02/18 12/02/18 06:28 11:56 WBC RBC Hgb Hct MCV MCH MCHC RDW Plt Count MPV Absolute Neuts (auto) Neutrophils % Lymphocytes % Monocytes % Eosinophils % Basophils % Nucleated RBC % Sodium Potassium Chloride Carbon Dioxide Anion Gap BUN Creatinine Est GFR (CKD-EPI)AfAm Est GFR (CKD-EPI)NonAf POC Glucometer 220 323 Random Glucose Calcium Magnesium Total Bilirubin AST ALT Alkaline Phosphatase Troponin I Total Protein Albumin Digoxin Problem List - Problems (1) Acute hypoxemic respiratory failure Code(s): J96.01 - ACUTE RESPIRATORY FAILURE WITH HYPOXIA (2) [place] (acute kidney injury) Code(s): N17.9 - ACUTE KIDNEY FAILURE, UNSPECIFIED (3) Acute on chronic HFrEF (heart failure with reduced ejection fraction) Code(s): I50.23 - ACUTE ON CHRONIC SYSTOLIC (CONGESTIVE) HEART FAILURE (4) Atrial fibrillation with rapid ventricular response Code(s): I48.91 - UNSPECIFIED ATRIAL FIBRILLATION (5) CHF (congestive heart failure) Code(s): I50.9 - HEART FAILURE, UNSPECIFIED (6) Dyslipidemia associated with type 2 diabetes mellitus Code(s): E11.69 - TYPE 2 DIABETES MELLITUS WITH OTHER SPECIFIED COMPLICATION; E78.5 - HYPERLIPIDEMIA, UNSPECIFIED (7) Elevated d-dimer Code(s): R79.89 - OTHER SPECIFIED ABNORMAL FINDINGS OF BLOOD CHEMISTRY (8) Hypotension Code(s): I95.9 - HYPOTENSION, UNSPECIFIED (9) SOB (shortness of breath) Code(s): R06.02 - SHORTNESS OF BREATH (10) Hypertension Code(s): I10 - ESSENTIAL (PRIMARY) HYPERTENSION Qualifiers: Hypertension type: secondary to endocrine disorders Qualified Code(s): I15.2 - Hypertension secondary to endocrine disorders (11) Acute respiratory failure Code(s): J96.00 - ACUTE RESPIRATORY FAILURE, UNSP W HYPOXIA OR HYPERCAPNIA Assessment/Plan IMP ACUTE RESPIRATORY FAILURE ACUTE ON CHRONIC CHF/CARDIOMYOPATHY SEVERE LV DYSFUNCTION WITH GLOBAL HYPOKINESIS LVEF 30% AFIB WITH RVR ? H/O COPD HTN ELEVATED D-DIMER NON-SPECIFIC CANNOT EXCLUDE PE ACUTE KIDNEY INJURY R/O PNA PLAN RATE CONTROL PER CARDIOLOGY LASIX AC BD TX PEN NIPPV NEEDED O2 TO MAINTAIN O2 SATURATION MONITOR LYTES,RENAL FUNCTION DAILY WT ABX PER ID DR SÁNCHEZ
--- NOTE | 2018-12-02 13:06 | PN ---
Progress Note, Physician Chief Complaint: stiff neck, shoulder discomfort. no vomiting or nausea. no headaches. History of Present Illness: Patient is a 68 year old male with a significant past medical history of A-fib ( no reported anticoagulation control), HTN, HLD and NIDDM (on metformin). He comes to the ED on 11/27/2018 with shortness of breath x 1 day. He was on [place] and arrived to [place] on 11/17/2018 and has been doing well except for bilateral lower ext edema, but then developed shortness of breath. BNP 7k on admission. - Current Medication List Current Medications: Active Medications Acetaminophen (Tylenol -) 650 mg PO Q6H PRN PRN Reason: FEVER Last Admin: 12/02/18 10:26 Dose: 650 mg Acetaminophen (Ofirmev Injection -) 1,000 mg IVPB ONCE ONE Stop: 12/02/18 13:06 Albuterol Sulfate (Ventolin Hfa Inhaler -) 1 puff IH Q6H [facility] Last Admin: 12/01/18 15:55 Dose: 1 puff Aspirin (Asa -) 81 mg PO DAILY [facility] Last Admin: 12/02/18 10:22 Dose: 81 mg Calcium Carbonate (Os-Raffi 500mg -) 500 mg PO BID [facility] Last Admin: 12/02/18 10:22 Dose: 500 mg Digoxin (Lanoxin -) 0.125 mg PO DAILY [facility] Last Admin: 12/02/18 10:22 Dose: 0.125 mg Docusate Sodium (Colace -) 100 mg PO TID [facility] Last Admin: 12/02/18 06:31 Dose: 100 mg Furosemide (Lasix Injection -) 80 mg IVPUSH BIDLASIX [facility] Last Admin: 12/01/18 06:03 Dose: 80 mg Guaifenesin (Robitussin Dm -) 10 ml PO Q6H PRN PRN Reason: COUGH Last Admin: 12/02/18 10:22 Dose: 10 ml Azithromycin 250 mg/ Dextrose 250 mls @ 250 mls/hr IVPB DAILY [facility] Last Admin: 12/02/18 10:31 Dose: 250 mls/hr Ceftriaxone Sodium 1 gm/ (Dextrose) 50 mls @ 100 mls/hr IVPB DAILY [facility]; Protocol Last Admin: 12/02/18 10:23 Dose: 100 mls/hr Insulin Aspart (Novolog Vial Sliding Scale -) 1 vial SQ TIDAC [facility]; Protocol Last Admin: 12/02/18 12:28 Dose: 6 units Magnesium Citrate (Citroma -) 300 ml PO Q48H PRN PRN Reason: CONSTIPATION Magnesium Oxide (Mag-Ox -) 400 mg PO BID [facility] Last Admin: 12/02/18 10:23 Dose: 400 mg Metoprolol Tartrate (Lopressor -) 50 mg PO Q6HPO [facility] Last Admin: 12/02/18 12:28 Dose: 50 mg Metoprolol Tartrate (Lopressor Injection -) 5 mg IVPUSH Q4H PRN PRN Reason: TACHYCARDIA Multivitamins/Minerals/Vitamin C (Tab-A-Vit -) 1 tab PO DAILY [facility] Last Admin: 12/02/18 10:23 Dose: 1 tab Rivaroxaban (Xarelto) 15 mg PO DAILY@1800 [facility] Last Admin: 12/01/18 17:01 Dose: 15 mg - Objective Vital Signs: Vital Signs Temperature 99.8 F H 12/02/18 07:00 Pulse Rate 120 H 12/02/18 10:22 Respiratory Rate 18 12/02/18 07:00 Blood Pressure 134/81 12/02/18 07:00 O2 Sat by Pulse Oximetry (%) 100 12/01/18 22:00 Constitutional: Yes: No Distress, Calm Eyes: Yes: WNL HENT: Yes: WNL Neck: Yes: Tenderness Cardiovascular: Yes: Pulse Irregular Respiratory: Yes: Accessory Muscle Use, Diminished, On BiPap, On Nasal O2 Gastrointestinal: Yes: Normal Bowel Sounds ...Rectal Exam: Yes: WNL Genitourinary: Yes: WNL Musculoskeletal: Yes: Muscle Weakness Edema: No Integumentary: Yes: WNL Wound/Incision: Yes: Clean/Dry Neurological: Yes: WNL, Alert, Oriented ...Motor Strength: WNL Psychiatric: Yes: WNL Labs: CBC, BMP 12/02/18 06:20 12/02/18 06:20 INR, PTT INR 1.23 (0.83-1.09) H 11/27/18 08:50 Problem List - Problems (1) Hyponatremia Assessment/Plan: Serum sodium continues to trend down. Seen by nephrology and recommendations appreciated. Patient on a fluid restriction of 1.5 liters Will continue lasix per cardiology and nephrology monitor cmp. Patient is currently asymptomatic. Code(s): E87.1 - HYPO-OSMOLALITY AND HYPONATREMIA (2) Sepsis Assessment/Plan: Currently meets sepsis criteria. hypotensive with [place], fevers and tachypnea. Started on Azithromycin on 11/30/18, ID consulted for further recommendations and patient now also on Ceftriaxone (day 2). Blood and urine cultures negative to date. lactic acid within normal limits source of fevers unknown at this time, await cultures, however, pneumonia a possibility. Code(s): A41.9 - SEPSIS, UNSPECIFIED ORGANISM Qualifiers: Sepsis type: sepsis due to unspecified organism Qualified Code(s): A41.9 - Sepsis, unspecified organism (3) [place] (acute kidney injury) Assessment/Plan: elevated creatinine. based on creat in past admission, baseline 1.0-1.3 monitor kidney function and encourage PO intake, monitor while closely while on diuretic therapy. Code(s): N17.9 - ACUTE KIDNEY FAILURE, UNSPECIFIED (4) Atrial fibrillation with rapid ventricular response Assessment/Plan: rate control with metoprolol, on xarelto daily. Code(s): I48.91 - UNSPECIFIED ATRIAL FIBRILLATION (5) Acute hypoxemic respiratory failure Assessment/Plan: on supplemental oxygen pulmonary following and started on xeponex on noctural bipap Code(s): J96.01 - ACUTE RESPIRATORY FAILURE WITH HYPOXIA (6) Acute on chronic HFrEF (heart failure with reduced ejection fraction) Assessment/Plan: monitor daily weights, intake and output Code(s): I50.23 - ACUTE ON CHRONIC SYSTOLIC (CONGESTIVE) HEART FAILURE (7) CHF (congestive heart failure) Assessment/Plan: on diuretic therapy. Echo shows EF 30%. LV mildly dilated, severe global hypokinesis of left ventricle. left ventricular systolic function is severely reduced. right ventricle normal, left atria mildly dilated. right atrial size normal. mild to moderate mitral regurg. mitral regurg jet is eccentrically directed. mild aortic valve thickening. Code(s): I50.9 - HEART FAILURE, UNSPECIFIED (8) Elevated d-dimer Assessment/Plan: elevated d dimer. Echo shows heart failure. lower extremity dopplers negative for DVT. pulmonary following Code(s): R79.89 - OTHER SPECIFIED ABNORMAL FINDINGS OF BLOOD CHEMISTRY (9) D dimer value normal Assessment/Plan: elevated d dimer. unable to perform cta secondary to [place] pulmonary following patient on anticoagulation Code(s): Z01.89 - ENCOUNTER FOR OTHER SPECIFIED SPECIAL EXAMINATIONS (10) Prophylactic measure Assessment/Plan: fen tolerating PO monitor electrolytes Calcium corrected at 8.2 low salt diet prophy dvt: on xarelto gi: on bowel regimen. physical therapy when more stable Code(s): Z29.9 - ENCOUNTER FOR PROPHYLACTIC MEASURES, UNSPECIFIED Visit type - Emergency Visit Emergency Visit: Yes ED Registration Date: 11/27/18 Care time: The patient presented to the Emergency Department on the above date and was hospitalized for further evaluation of their emergent condition. - New Patient This patient is new to me today: No - Critical Care Critical Care patient: No - Discharge Referral Referred to [facility] Med P.C.: No
[2018-12-02] MEDS: RIVAROXABAN 15 MG TABLET PO SCH (17:18)
[2018-12-03] MEDS: METOPROLOL TARTRATE 50 MG TABLET (FP) PO SCH ×4 (00:40→18:56)
[2018-12-03] MEDS: ACETAMINOPHEN 325 MG TABLET (FP) PO PRN (03:30)
[2018-12-03] MEDS: INSULIN SLIDING SCALE (NOVOLOG) 1 VIAL SQ SCH ×3 (06:51→19:35)
[2018-12-03] MEDS: DOCUSATE SODIUM 100 MG CAPSULE (FP) PO SCH ×3 (06:51→21:53)
[2018-12-03] MEDS: FUROSEMIDE 40 MG/4 ML INJECTABLE VIAL IVPUSH SCH (06:51)
[2018-12-03 08:06] LABS: BASO % 0.3 % (0-2.0); EOS % 0.4 % (0-4.5); HEMATOCRIT 29.9 % (35.4-49); HEMOGLOBIN 10.2 GM/dL (11.7-16.9); LYMPH % 3.2 % (8-40); MCH 28.2 pg (25.7-33.7); MCHC 34.1 g/dl (32.0-35.9); MEAN PLT VOLUME 11.1 fl (7.5-11.1); MONO % 2.4 % (3.8-10.2); NEUT % 93.7 % (42.8-82.8); PLATELET COUNT 126 K/MM3 (134-434); RBC 3.61 M/mm3 (4.00-5.60); WHITE BLOOD COUNT 8.6 K/mm3 (4.0-10.0)
[2018-12-03 09:02] LABS: ALBUMIN 2.9 g/dl (3.4-5.0); BILIRUBIN,TOTAL 0.8 mg/dL (0.2-1); CALCIUM 7.6 mg/dL (8.5-10.1); CREATININE 1.2 mg/dL (0.55-1.3); MAGNESIUM 2.4 mg/dL (1.8-2.4); POTASSIUM 3.8 mmol/L (3.5-5.1); TOT PROT 6.2 g/dl (6.4-8.2)
--- NOTE | 2018-12-03 10:29 | PN ---
Progress Note, Physician Chief Complaint: NO further fevers TELE: AF, PVCs. Average AF rates 100bpm History of Present Illness: daughter reports episode of near syncope earlier this AM with diaphoresis. TELE: does not show any arrhythmias that would explain. - Current Medication List Current Medications: Active Medications Acetaminophen (Tylenol -) 650 mg PO Q6H PRN PRN Reason: FEVER Last Admin: 12/03/18 03:30 Dose: 650 mg Albuterol Sulfate (Ventolin Hfa Inhaler -) 1 puff IH Q6H [facility] Last Admin: 12/01/18 15:55 Dose: 1 puff Aspirin (Asa -) 81 mg PO DAILY [facility] Last Admin: 12/02/18 10:22 Dose: 81 mg Calcium Carbonate (Os-Raffi 500mg -) 500 mg PO BID [facility] Last Admin: 12/02/18 21:53 Dose: 500 mg Digoxin (Lanoxin -) 0.125 mg PO DAILY [facility] Last Admin: 12/02/18 10:22 Dose: 0.125 mg Docusate Sodium (Colace -) 100 mg PO TID [facility] Last Admin: 12/03/18 06:51 Dose: 100 mg Furosemide (Lasix Injection -) 80 mg IVPUSH BIDLASIX [facility] Last Admin: 12/03/18 06:51 Dose: 80 mg Guaifenesin (Robitussin Dm -) 10 ml PO Q6H PRN PRN Reason: COUGH Last Admin: 12/02/18 10:22 Dose: 10 ml Azithromycin 250 mg/ Dextrose 250 mls @ 250 mls/hr IVPB DAILY [facility] Last Admin: 12/02/18 10:31 Dose: 250 mls/hr Ceftriaxone Sodium 1 gm/ (Dextrose) 50 mls @ 100 mls/hr IVPB DAILY [facility]; Protocol Last Admin: 12/02/18 10:23 Dose: 100 mls/hr Insulin Aspart (Novolog Vial Sliding Scale -) 1 vial SQ TIDAC [facility]; Protocol Last Admin: 12/03/18 06:51 Dose: 2 units Magnesium Citrate (Citroma -) 300 ml PO Q48H PRN PRN Reason: CONSTIPATION Magnesium Oxide (Mag-Ox -) 400 mg PO BID [facility] Last Admin: 12/02/18 21:53 Dose: 400 mg Metoprolol Tartrate (Lopressor -) 50 mg PO Q6HPO [facility] Last Admin: 12/03/18 06:51 Dose: 50 mg Metoprolol Tartrate (Lopressor Injection -) 5 mg IVPUSH Q4H PRN PRN Reason: TACHYCARDIA Multivitamins/Minerals/Vitamin C (Tab-A-Vit -) 1 tab PO DAILY [facility] Last Admin: 12/02/18 10:23 Dose: 1 tab Rivaroxaban (Xarelto) 15 mg PO DAILY@1800 [facility] Last Admin: 12/02/18 17:18 Dose: 15 mg - Objective Vital Signs: Vital Signs Temperature 98.1 F 12/03/18 06:00 Pulse Rate 100 H 12/03/18 06:00 Respiratory Rate 20 12/03/18 06:00 Blood Pressure 112/83 12/03/18 06:00 O2 Sat by Pulse Oximetry (%) 96 12/03/18 02:45 Constitutional: Yes: No Distress Cardiovascular: Yes: Pulse Irregular Respiratory: Yes: CTA Bilaterally Gastrointestinal: Yes: Soft Edema: No Labs: CBC, BMP 12/03/18 06:29 12/03/18 06:29 INR, PTT INR 1.23 (0.83-1.09) H 11/27/18 08:50 Microbiology 11/29/18 19:45 Blood - Peripheral Venous Blood Culture - Preliminary NO GROWTH OBTAINED AFTER 72 HOURS, INCUBATION TO CONTINUE FOR 2 DAYS. 11/29/18 19:45 Blood - Peripheral Venous Blood Culture - Preliminary NO GROWTH OBTAINED AFTER 24 HOURS, INCUBATION TO CONTINUE FOR 4 DAYS. 11/29/18 19:30 Blood - Peripheral Venous Blood Culture - Preliminary NO GROWTH OBTAINED AFTER 72 HOURS, INCUBATION TO CONTINUE FOR 2 DAYS. 11/29/18 19:30 Blood - Peripheral Venous Blood Culture - Preliminary NO GROWTH OBTAINED AFTER 24 HOURS, INCUBATION TO CONTINUE FOR 4 DAYS. Laboratory Tests 12/03/18 12/03/18 06:29 06:29 WBC 8.6 Hgb 10.2 L Plt Count 126 L MPV 11.1 Sodium 124 L Potassium 3.8 BUN 21 H Creatinine 1.2 Ferritin 219.5 Total Bilirubin 0.8 AST 27 ALT 38 Alkaline Phosphatase 94 - ....Imaging EKG: Image Reviewed Assessment/Plan Assessment/Plan ECG x2 11/27: afib, RBBB, far right QRS axis, nonspecific ST-T abn--R bundle and axis new vs 01/2016 prior CXR: large heart, congestive changes (new vs 2017), no effusions (my review: + cephalization, + incr interstitium c/w interstitial edema possibly) Echo 2015: mild LVE, moderately decr LVSF (global). RV tds. valves unremarkable tele: AF with rvr at times 1. PAF: -known dx since at least 2014, at that time on amiodarone with dr robledo--pt not currently taking, thinks he stopped it since 2014. -Cont metoprolol and dig. Monitor on tele. -CHADS VASC 4--warrants AC. xarelto started here (15mg qd for GFR 15-50) 2. Acute on chronic syst HF: Diuresing and overall improved. -previously with known moderately decr LVSF 2014. Now with EF 30%, global -etiology uncertain--? if completed outpt ischemia w/u at time of initial dx -suspect may have high, longstanding burden of tachycardia as he has no sx's when in rapid AF--? isch CMP -echo 11/30 showed severe global HK, EF 30%, moderate MR -holding enalapril to allow bp room to tolerate diuretics, AF rate control -no concern for ACS (trop neg x 2) -ischemic w/u when euvolemic -BP running low, last CXR improved. BUN climbing. Will decrease Lasix to daily 3. VIR[place]: -creat 1.7, from 1.3 in 2016 -? cardiorenal syndrome -Creat stable thus far with diuresis. 4. VT: -NSVT on tele, vs AF with aberrancy -K > 4, Mg > 2 5. HTN: -low bp's here, improved. -TANMAY-I on hold for now. 6. DM: -per hospitalist 7. Fevers: -Work up as per PMD/ID
[2018-12-03 10:32] LABS: ANISOCYTOSIS 0; MACROCYTOSIS 0; PLATELET ESTIMATE DECREASED
[2018-12-03] MEDS: ALBUTEROL SO4 8 GM HFA INHALER IH SCH ×3 (11:00→21:54)
[2018-12-03] MEDS ORDERED: cefTRIAXone SODIUM 1 GM VIAL ONE (11:03)
[2018-12-03] MEDS ORDERED: DEXTROSE 5%-WATER - 50 ML IVPB ONE (11:03)
--- NOTE | 2018-12-03 11:33 | PN ---
Progress Note, Physician History of Present Illness: pulmonary alert,less dyspneic on nasal cannula - Current Medication List Current Medications: Active Medications Acetaminophen (Tylenol -) 650 mg PO Q6H PRN PRN Reason: FEVER Last Admin: 12/03/18 03:30 Dose: 650 mg Albuterol Sulfate (Ventolin Hfa Inhaler -) 1 puff IH Q6H [facility] Last Admin: 12/01/18 15:55 Dose: 1 puff Aspirin (Asa -) 81 mg PO DAILY [facility] Last Admin: 12/02/18 10:22 Dose: 81 mg Calcium Carbonate (Os-Raffi 500mg -) 500 mg PO BID [facility] Last Admin: 12/02/18 21:53 Dose: 500 mg Digoxin (Lanoxin -) 0.125 mg PO DAILY [facility] Last Admin: 12/02/18 10:22 Dose: 0.125 mg Docusate Sodium (Colace -) 100 mg PO TID [facility] Last Admin: 12/03/18 06:51 Dose: 100 mg Furosemide (Lasix Injection -) 80 mg IVPB DAILY [facility] Guaifenesin (Robitussin Dm -) 10 ml PO Q6H PRN PRN Reason: COUGH Last Admin: 12/02/18 10:22 Dose: 10 ml Azithromycin 250 mg/ Dextrose 250 mls @ 250 mls/hr IVPB DAILY [facility] Last Admin: 12/02/18 10:31 Dose: 250 mls/hr Ceftriaxone Sodium 1 gm/ (Dextrose) 50 mls @ 100 mls/hr IVPB DAILY [facility]; Protocol Last Admin: 12/02/18 10:23 Dose: 100 mls/hr Insulin Aspart (Novolog Vial Sliding Scale -) 1 vial SQ TIDAC [facility]; Protocol Last Admin: 12/03/18 06:51 Dose: 2 units Magnesium Citrate (Citroma -) 300 ml PO Q48H PRN PRN Reason: CONSTIPATION Magnesium Oxide (Mag-Ox -) 400 mg PO BID [facility] Last Admin: 12/02/18 21:53 Dose: 400 mg Metoprolol Tartrate (Lopressor -) 50 mg PO Q6HPO [facility] Last Admin: 12/03/18 06:51 Dose: 50 mg Metoprolol Tartrate (Lopressor Injection -) 5 mg IVPUSH Q4H PRN PRN Reason: TACHYCARDIA Multivitamins/Minerals/Vitamin C (Tab-A-Vit -) 1 tab PO DAILY [facility] Last Admin: 12/02/18 10:23 Dose: 1 tab Rivaroxaban (Xarelto) 15 mg PO DAILY@1800 [facility] Last Admin: 12/02/18 17:18 Dose: 15 mg - Objective Vital Signs: Vital Signs Temperature 98.1 F 12/03/18 06:00 Pulse Rate 100 H 12/03/18 06:00 Respiratory Rate 20 12/03/18 06:00 Blood Pressure 112/83 12/03/18 06:00 O2 Sat by Pulse Oximetry (%) 96 12/03/18 02:45 Constitutional: Yes: Well Nourished, Calm Eyes: Yes: WNL HENT: Yes: WNL Neck: Yes: WNL Cardiovascular: Yes: Pulse Irregular, S1, S2 Respiratory: Yes: Rales (scattered ayo wheezes and crackles), Wheezes Gastrointestinal: Yes: Normal Bowel Sounds, Soft Extremities: Yes: WNL Edema: No Labs: CBC, BMP 12/03/18 06:29 12/03/18 06:29 INR, PTT INR 1.23 (0.83-1.09) H 11/27/18 08:50 Problem List - Problems (1) Acute hypoxemic respiratory failure Code(s): J96.01 - ACUTE RESPIRATORY FAILURE WITH HYPOXIA (2) [place] (acute kidney injury) Code(s): N17.9 - ACUTE KIDNEY FAILURE, UNSPECIFIED (3) Acute on chronic HFrEF (heart failure with reduced ejection fraction) Code(s): I50.23 - ACUTE ON CHRONIC SYSTOLIC (CONGESTIVE) HEART FAILURE (4) Atrial fibrillation with rapid ventricular response Code(s): I48.91 - UNSPECIFIED ATRIAL FIBRILLATION (5) CHF (congestive heart failure) Code(s): I50.9 - HEART FAILURE, UNSPECIFIED (6) Dyslipidemia associated with type 2 diabetes mellitus Code(s): E11.69 - TYPE 2 DIABETES MELLITUS WITH OTHER SPECIFIED COMPLICATION; E78.5 - HYPERLIPIDEMIA, UNSPECIFIED (7) Elevated d-dimer Code(s): R79.89 - OTHER SPECIFIED ABNORMAL FINDINGS OF BLOOD CHEMISTRY (8) Hypotension Code(s): I95.9 - HYPOTENSION, UNSPECIFIED (9) SOB (shortness of breath) Code(s): R06.02 - SHORTNESS OF BREATH (10) Hypertension Code(s): I10 - ESSENTIAL (PRIMARY) HYPERTENSION Qualifiers: Hypertension type: secondary to endocrine disorders Qualified Code(s): I15.2 - Hypertension secondary to endocrine disorders (11) Acute respiratory failure Code(s): J96.00 - ACUTE RESPIRATORY FAILURE, UNSP W HYPOXIA OR HYPERCAPNIA Assessment/Plan IMP ACUTE RESPIRATORY FAILURE ACUTE ON CHRONIC CHF/CARDIOMYOPATHY SEVERE LV DYSFUNCTION WITH GLOBAL HYPOKINESIS LVEF 30% AFIB WITH RVR ? H/O COPD HTN ELEVATED D-DIMER NON-SPECIFIC CANNOT EXCLUDE PE ACUTE KIDNEY INJURY PLAN RATE CONTROL PER CARDIOLOGY MEDROL PT HAS BEEN ON CHRONIC STEROIDS FOR UNKNOWN REASON OR DURATION LASIX AC XOPENEX PRN NIPPV NEEDED O2 TO MAINTAIN O2 SAT > 90% MONITOR LYTES,RENAL FUNCTION DAILY WT CHEST CT DR SKY Problem List - Problems (1) Acute hypoxemic respiratory failure Code(s): J96.01 - ACUTE RESPIRATORY FAILURE WITH HYPOXIA (2) [place] (acute kidney injury) Code(s): N17.9 - ACUTE KIDNEY FAILURE, UNSPECIFIED (3) Acute on chronic HFrEF (heart failure with reduced ejection fraction) Code(s): I50.23 - ACUTE ON CHRONIC SYSTOLIC (CONGESTIVE) HEART FAILURE (4) Atrial fibrillation with rapid ventricular response Code(s): I48.91 - UNSPECIFIED ATRIAL FIBRILLATION (5) CHF (congestive heart failure) Code(s): I50.9 - HEART FAILURE, UNSPECIFIED (6) Dyslipidemia associated with type 2 diabetes mellitus Code(s): E11.69 - TYPE 2 DIABETES MELLITUS WITH OTHER SPECIFIED COMPLICATION; E78.5 - HYPERLIPIDEMIA, UNSPECIFIED (7) Elevated d-dimer Code(s): R79.89 - OTHER SPECIFIED ABNORMAL FINDINGS OF BLOOD CHEMISTRY (8) Hypotension Code(s): I95.9 - HYPOTENSION, UNSPECIFIED (9) SOB (shortness of breath) Code(s): R06.02 - SHORTNESS OF BREATH (10) Hypertension Code(s): I10 - ESSENTIAL (PRIMARY) HYPERTENSION Qualifiers: Hypertension type: secondary to endocrine disorders Qualified Code(s): I15.2 - Hypertension secondary to endocrine disorders (11) Acute respiratory failure Code(s): J96.00 - ACUTE RESPIRATORY FAILURE, UNSP W HYPOXIA OR HYPERCAPNIA
[2018-12-03] MEDS: CEFTRIAXONE 1 GM in DEXTROSE 5%-WATER - 50 ML IVPB SCH (11:36)
[2018-12-03] MEDS: MAGNESIUM OXIDE 400 MG TABLET (FP) PO SCH ×2 (11:36→21:54)
[2018-12-03] MEDS: DIGOXIN 0.125 MG TABLET (FP) PO SCH (11:36)
[2018-12-03] MEDS: CALCIUM (OYSTER SHELL) 500 MG TABLET (FP) PO SCH ×2 (11:36→21:54)
[2018-12-03] MEDS: ASPIRIN 81 MG CHEWABLE TABLETS PO SCH (11:36)
[2018-12-03] MEDS: MULTIVITAMINS (DAILY MVI) TABLET (FP) PO SCH (11:37)
[2018-12-03] MEDS ORDERED: PT OWN MED DRAWER 7, Y5N ONE (11:38)
[2018-12-03] MEDS: AZITHROMYCIN IVPB 250 MG in DEXTROSE 5%-WATER - 250 ML IVPB SCH (12:03)
[2018-12-03] MEDS: methylPREDNISolone NA SUCC 40 MG/1 ML VIAL IVPUSH SCH (12:08)
--- NOTE | 2018-12-03 12:41 | PN ---
Progress Note, Physician - Current Medication List Current Medications: Active Medications Acetaminophen (Tylenol -) 650 mg PO Q6H PRN PRN Reason: FEVER Last Admin: 12/03/18 03:30 Dose: 650 mg Albuterol Sulfate (Ventolin Hfa Inhaler -) 1 puff IH Q6H [facility] Last Admin: 12/01/18 15:55 Dose: 1 puff Aspirin (Asa -) 81 mg PO DAILY [facility] Last Admin: 12/03/18 11:36 Dose: 81 mg Calcium Carbonate (Os-Raffi 500mg -) 500 mg PO BID [facility] Last Admin: 12/03/18 11:36 Dose: 500 mg Digoxin (Lanoxin -) 0.125 mg PO DAILY [facility] Last Admin: 12/03/18 11:36 Dose: 0.125 mg Docusate Sodium (Colace -) 100 mg PO TID [facility] Last Admin: 12/03/18 06:51 Dose: 100 mg Furosemide (Lasix Injection -) 80 mg IVPB DAILY [facility] Guaifenesin (Robitussin Dm -) 10 ml PO Q6H PRN PRN Reason: COUGH Last Admin: 12/02/18 10:22 Dose: 10 ml Azithromycin 250 mg/ Dextrose 250 mls @ 250 mls/hr IVPB DAILY [facility] Last Admin: 12/03/18 12:03 Dose: 250 mls/hr Ceftriaxone Sodium 1 gm/ (Dextrose) 50 mls @ 100 mls/hr IVPB DAILY [facility]; Protocol Last Admin: 12/03/18 11:36 Dose: 100 mls/hr Insulin Aspart (Novolog Vial Sliding Scale -) 1 vial SQ TIDAC [facility]; Protocol Last Admin: 12/03/18 06:51 Dose: 2 units Magnesium Citrate (Citroma -) 300 ml PO Q48H PRN PRN Reason: CONSTIPATION Magnesium Oxide (Mag-Ox -) 400 mg PO BID [facility] Last Admin: 12/03/18 11:36 Dose: 400 mg Methylprednisolone Sodium Succinate (Solu-Medrol -) 40 mg IVPUSH DAILY [facility] Last Admin: 12/03/18 12:08 Dose: 40 mg Metoprolol Tartrate (Lopressor -) 50 mg PO Q6HPO [facility] Last Admin: 12/03/18 11:36 Dose: 50 mg Metoprolol Tartrate (Lopressor Injection -) 5 mg IVPUSH Q4H PRN PRN Reason: TACHYCARDIA Multivitamins/Minerals/Vitamin C (Tab-A-Vit -) 1 tab PO DAILY [facility] Last Admin: 12/03/18 11:37 Dose: 1 tab Rivaroxaban (Xarelto) 15 mg PO DAILY@1800 [facility] Last Admin: 12/02/18 17:18 Dose: 15 mg - Objective Vital Signs: Vital Signs Temperature 98.1 F 12/03/18 06:00 Pulse Rate 109 H 12/03/18 11:36 Respiratory Rate 22 H 12/03/18 10:00 Blood Pressure 110/91 12/03/18 10:00 O2 Sat by Pulse Oximetry (%) 96 12/03/18 02:45 Labs: CBC, BMP 12/03/18 06:29 12/03/18 06:29 INR, PTT INR 1.23 (0.83-1.09) H 11/27/18 08:50
--- NOTE | 2018-12-03 14:37 | PN ---
Progress Note (short form) - Note Progress Note: Renal follow up for Hyponatremiea/[place]/CKD Pt seen and examined at the bedside no acute complaints daughter reports that he had brief period of unresponsivness this morning but is improved now is restricting water intake diuretics held the last day and a half Vital Signs Temperature 98.1 F 12/03/18 06:00 Pulse Rate 109 H 12/03/18 11:36 Respiratory Rate 22 H 12/03/18 10:00 Blood Pressure 110/91 12/03/18 10:00 O2 Sat by Pulse Oximetry (%) 96 12/03/18 02:45 Intake & Output 11/30/18 12/01/18 12/02/18 12/03/18 23:59 23:59 23:59 23:59 Intake Total 600 1120 1840 Output Total 100 450 250 Balance [phone] Weight 76.204 kg 75.807 kg 75.024 kg NAD irregular, no M/R CTA, no rales soft,obese, NT/ND no LE edema, clubbing or cyanosis CBC, BMP 12/03/18 06:29 12/03/18 06:29 Current Medications Acetaminophen (Tylenol -) 650 mg PO Q6H PRN PRN Reason: FEVER Last Admin: 12/03/18 03:30 Dose: 650 mg Albuterol Sulfate (Ventolin Hfa Inhaler -) 1 puff IH Q6H [facility] Last Admin: 12/01/18 15:55 Dose: 1 puff Aspirin (Asa -) 81 mg PO DAILY [facility] Last Admin: 12/03/18 11:36 Dose: 81 mg Calcium Carbonate (Os-Raffi 500mg -) 500 mg PO BID [facility] Last Admin: 12/03/18 11:36 Dose: 500 mg Digoxin (Lanoxin -) 0.125 mg PO DAILY [facility] Last Admin: 12/03/18 11:36 Dose: 0.125 mg Docusate Sodium (Colace -) 100 mg PO TID [facility] Last Admin: 12/03/18 06:51 Dose: 100 mg Furosemide (Lasix Injection -) 80 mg IVPB DAILY [facility] Guaifenesin (Robitussin Dm -) 10 ml PO Q6H PRN PRN Reason: COUGH Last Admin: 12/02/18 10:22 Dose: 10 ml Azithromycin 250 mg/ Dextrose 250 mls @ 250 mls/hr IVPB DAILY [facility] Last Admin: 12/03/18 12:03 Dose: 250 mls/hr Ceftriaxone Sodium 1 gm/ (Dextrose) 50 mls @ 100 mls/hr IVPB DAILY [facility]; Protocol Last Admin: 12/03/18 11:36 Dose: 100 mls/hr Insulin Aspart (Novolog Vial Sliding Scale -) 1 vial SQ TIDAC [facility]; Protocol Last Admin: 12/03/18 13:26 Dose: 2 units Magnesium Citrate (Citroma -) 300 ml PO Q48H PRN PRN Reason: CONSTIPATION Magnesium Oxide (Mag-Ox -) 400 mg PO BID [facility] Last Admin: 12/03/18 11:36 Dose: 400 mg Methylprednisolone Sodium Succinate (Solu-Medrol -) 40 mg IVPUSH DAILY [facility] Last Admin: 12/03/18 12:08 Dose: 40 mg Metoprolol Tartrate (Lopressor -) 50 mg PO Q6HPO [facility] Last Admin: 12/03/18 11:36 Dose: 50 mg Metoprolol Tartrate (Lopressor Injection -) 5 mg IVPUSH Q4H PRN PRN Reason: TACHYCARDIA Multivitamins/Minerals/Vitamin C (Tab-A-Vit -) 1 tab PO DAILY [facility] Last Admin: 12/03/18 11:37 Dose: 1 tab Rivaroxaban (Xarelto) 15 mg PO DAILY@1800 [facility] Last Admin: 12/02/18 17:18 Dose: 15 mg 68 year old gentleman with hx of systolic HF, Afib, DM who presented with complaints of chest pain, shortness of breath and LE swelling and admitted for CHF exacerbation with downtrending serum Na and Cr of 1.6. #Hyponatremia in setting of HF and [place]/CKD due to fluid overload and increased water intake/poor solute intake #CHF exacerbation #[place]/CKD (baseline Cr from 2016 is 1.3) #Fevers #DM #Anemia serum Na downtrended today but was off diuretics for the past 36 hour did get AM dose today Would continue daily lasix and fluid restriction Renal function improved today no indication for 3% saline will repeat Na level this evening Miguel Garcia DO
--- NOTE | 2018-12-03 17:59 | PN ---
Progress Note, Physician Chief Complaint: stiff neck, shoulder discomfort. no vomiting or nausea. no headaches. per daughter, she had a hard time waking him up this morning. states the same thing happened overnight when family came to visit. Patient was also on a steriod from [facility] for neck pain History of Present Illness: Patient is a 68 year old male with a significant past medical history of A-fib ( no reported anticoagulation control), HTN, HLD and NIDDM (on metformin). He comes to the ED on 11/27/2018 with shortness of breath x 1 day. He was on [place] and arrived to [facility] on 11/17/2018 and has been doing well except for bilateral lower ext edema, but then developed shortness of breath. BNP 7k on admission. On exam, he is awake and alert, maltese speaking only. Will order head CT for reported brief episode of unresponsiveness. Still having neck pain, ct imaging ordered. - Current Medication List Current Medications: Active Medications Acetaminophen (Tylenol -) 650 mg PO Q6H PRN PRN Reason: FEVER Last Admin: 12/03/18 03:30 Dose: 650 mg Albuterol Sulfate (Ventolin Hfa Inhaler -) 1 puff IH Q6H [facility] Last Admin: 12/03/18 15:45 Dose: 1 puff Aspirin (Asa -) 81 mg PO DAILY [facility] Last Admin: 12/03/18 11:36 Dose: 81 mg Calcium Carbonate (Os-Raffi 500mg -) 500 mg PO BID [facility] Last Admin: 12/03/18 11:36 Dose: 500 mg Digoxin (Lanoxin -) 0.125 mg PO DAILY [facility] Last Admin: 12/03/18 11:36 Dose: 0.125 mg Docusate Sodium (Colace -) 100 mg PO TID [facility] Last Admin: 12/03/18 15:45 Dose: 100 mg Furosemide (Lasix Injection -) 80 mg IVPB DAILY [facility] Guaifenesin (Robitussin Dm -) 10 ml PO Q6H PRN PRN Reason: COUGH Last Admin: 12/02/18 10:22 Dose: 10 ml Azithromycin 250 mg/ Dextrose 250 mls @ 250 mls/hr IVPB DAILY [facility] Last Admin: 12/03/18 12:03 Dose: 250 mls/hr Ceftriaxone Sodium 1 gm/ (Dextrose) 50 mls @ 100 mls/hr IVPB DAILY [facility]; Protocol Last Admin: 12/03/18 11:36 Dose: 100 mls/hr Insulin Aspart (Novolog Vial Sliding Scale -) 1 vial SQ TIDAC [facility]; Protocol Last Admin: 12/03/18 13:26 Dose: 2 units Magnesium Citrate (Citroma -) 300 ml PO Q48H PRN PRN Reason: CONSTIPATION Magnesium Oxide (Mag-Ox -) 400 mg PO BID [facility] Last Admin: 12/03/18 11:36 Dose: 400 mg Methylprednisolone Sodium Succinate (Solu-Medrol -) 40 mg IVPUSH DAILY [facility] Last Admin: 12/03/18 12:08 Dose: 40 mg Metoprolol Tartrate (Lopressor -) 50 mg PO Q6HPO [facility] Last Admin: 12/03/18 11:36 Dose: 50 mg Metoprolol Tartrate (Lopressor Injection -) 5 mg IVPUSH Q4H PRN PRN Reason: TACHYCARDIA Multivitamins/Minerals/Vitamin C (Tab-A-Vit -) 1 tab PO DAILY [facility] Last Admin: 12/03/18 11:37 Dose: 1 tab Rivaroxaban (Xarelto) 15 mg PO DAILY@1800 [facility] Last Admin: 12/02/18 17:18 Dose: 15 mg - Objective Vital Signs: Vital Signs Temperature 97.5 F L 12/03/18 14:00 Pulse Rate 93 H 12/03/18 14:00 Respiratory Rate 22 H 12/03/18 10:00 Blood Pressure 119/61 12/03/18 14:00 O2 Sat by Pulse Oximetry (%) 96 12/03/18 09:00 Constitutional: Yes: Calm Eyes: Yes: WNL HENT: Yes: WNL Neck: Yes: Tenderness Cardiovascular: Yes: Pulse Irregular Respiratory: Yes: Diminished, On BiPap, On Nasal O2, Rales (left lower lung) Gastrointestinal: Yes: Normal Bowel Sounds ...Rectal Exam: Yes: WNL Genitourinary: Yes: WNL Edema: LLE: Trace, RLE: Trace Integumentary: Yes: WNL Neurological: Yes: Alert, Oriented, Confusion, Weakness ...Motor Strength: WNL Psychiatric: Yes: WNL, Alert, Oriented Labs: CBC, BMP 12/03/18 06:29 12/03/18 06:29 INR, PTT INR 1.23 (0.83-1.09) H 11/27/18 08:50 Problem List - Problems (1) Hyponatremia Assessment/Plan: Serum sodium continues to trend down. Seen by nephrology and recommendations appreciated. Patient on a fluid restriction of 1.5 liters Will continue lasix per cardiology and nephrology monitor cmp. Patient is currently asymptomatic. Code(s): E87.1 - HYPO-OSMOLALITY AND HYPONATREMIA (2) Sepsis Assessment/Plan: Currently meets sepsis criteria. hypotensive with [place], fevers and tachypnea. Started on Azithromycin on 11/30/18, ID consulted for further recommendations and patient now also on Ceftriaxone (day 3). Blood and urine cultures negative to date. lactic acid within normal limits source of fevers unknown at this time, await cultures, however, pneumonia a possibility. Code(s): A41.9 - SEPSIS, UNSPECIFIED ORGANISM Qualifiers: Sepsis type: sepsis due to unspecified organism Qualified Code(s): A41.9 - Sepsis, unspecified organism (3) [place] (acute kidney injury) Assessment/Plan: elevated creatinine. based on creat in past admission, baseline 1.0-1.3 monitor kidney function and encourage PO intake, monitor while closely while on diuretic therapy. Code(s): N17.9 - ACUTE KIDNEY FAILURE, UNSPECIFIED (4) Atrial fibrillation with rapid ventricular response Assessment/Plan: rate control with metoprolol, on xarelto daily. Code(s): I48.91 - UNSPECIFIED ATRIAL FIBRILLATION (5) Acute hypoxemic respiratory failure Assessment/Plan: on supplemental oxygen pulmonary following and started on xopenex on noctural bipap Code(s): J96.01 - ACUTE RESPIRATORY FAILURE WITH HYPOXIA (6) Acute on chronic HFrEF (heart failure with reduced ejection fraction) Assessment/Plan: monitor daily weights, intake and output Code(s): I50.23 - ACUTE ON CHRONIC SYSTOLIC (CONGESTIVE) HEART FAILURE (7) CHF (congestive heart failure) Assessment/Plan: on diuretic therapy. Echo shows EF 30%. LV mildly dilated, severe global hypokinesis of left ventricle. left ventricular systolic function is severely reduced. right ventricle normal, left atria mildly dilated. right atrial size normal. mild to moderate mitral regurg. mitral regurg jet is eccentrically directed. mild aortic valve thickening. Code(s): I50.9 - HEART FAILURE, UNSPECIFIED (8) Elevated d-dimer Assessment/Plan: elevated d dimer. Echo shows heart failure. lower extremity dopplers negative for DVT. pulmonary following Code(s): R79.89 - OTHER SPECIFIED ABNORMAL FINDINGS OF BLOOD CHEMISTRY (9) D dimer value normal Assessment/Plan: elevated d dimer. unable to perform cta secondary to [place] pulmonary following patient on anticoagulation Code(s): Z01.89 - ENCOUNTER FOR OTHER SPECIFIED SPECIAL EXAMINATIONS (10) Prophylactic measure Assessment/Plan: fen tolerating PO monitor electrolytes Calcium corrected at 8.2 low salt diet prophy dvt: on xarelto gi: on bowel regimen. physical therapy when more stable Code(s): Z29.9 - ENCOUNTER FOR PROPHYLACTIC MEASURES, UNSPECIFIED Visit type - Emergency Visit Emergency Visit: Yes ED Registration Date: 11/27/18 Care time: The patient presented to the Emergency Department on the above date and was hospitalized for further evaluation of their emergent condition. - New Patient This patient is new to me today: No - Critical Care Critical Care patient: No - Discharge Referral Referred to [facility] Med P.C.: No
[2018-12-03] MEDS: RIVAROXABAN 15 MG TABLET PO SCH (18:56)
[2018-12-04] MEDS: METOPROLOL TARTRATE 50 MG TABLET (FP) PO SCH ×4 (00:50→17:54)
[2018-12-04] MEDS: guaiFENesin/D-METHORPHAN HB 10 ML UNIT-DOSE CUPS PO PRN (00:50)
[2018-12-04 04:10] LABS: SERUM IRON SATURATION 7 % (15-55); TOTAL IRON BINDING CAPACITY 309 ug/dL (250-450); UIBC 287 ug/dL (111-343)
[2018-12-04] MEDS: ALBUTEROL SO4 8 GM HFA INHALER IH SCH ×3 (05:35→17:51)
[2018-12-04] MEDS: DOCUSATE SODIUM 100 MG CAPSULE (FP) PO SCH ×3 (05:36→21:25)
[2018-12-04] MEDS ORDERED: INSULIN (NOVOLOG) ASPART 100 UNITS/ML 10ML VIAL ONE (06:16)
[2018-12-04] MEDS: INSULIN SLIDING SCALE (NOVOLOG) 1 VIAL SQ SCH ×4 (06:35→21:26)
[2018-12-04 07:35] LABS: BASO % 0.2 % (0-2.0); EOS % 0.1 % (0-4.5); HEMOGLOBIN 10.2 GM/dL (11.7-16.9); LYMPH % 5.8 % (8-40); MCH 28.3 pg (25.7-33.7); MCHC 33.9 g/dl (32.0-35.9); MEAN CELL VOLUME 83.6 fl (80-96); MEAN PLT VOLUME 11.4 fl (7.5-11.1); MONO % 6.3 % (3.8-10.2); NEUT % 87.6 % (42.8-82.8); PLATELET COUNT 160 K/MM3 (134-434); RBC 3.59 M/mm3 (4.00-5.60); RDW 14.8 % (11.9-15.9); WHITE BLOOD COUNT 8.9 K/mm3 (4.0-10.0)
[2018-12-04 08:24] LABS: ALBUMIN 2.8 g/dl (3.4-5.0); BILIRUBIN,TOTAL 0.5 mg/dL (0.2-1); CALCIUM 7.9 mg/dL (8.5-10.1); CREATININE 1.6 mg/dL (0.55-1.3); MAGNESIUM 2.5 mg/dL (1.8-2.4); POTASSIUM 4.4 mmol/L (3.5-5.1); TOT PROT 6.3 g/dl (6.4-8.2)
--- NOTE | 2018-12-04 08:56 | PN ---
Progress Note, Physician History of Present Illness: pulmonary alert,comfortable on nasal cannula 02 sat 98%,-tachypnea,-dyspnea - Current Medication List Current Medications: Active Medications Acetaminophen (Tylenol -) 650 mg PO Q6H PRN PRN Reason: FEVER Last Admin: 12/03/18 03:30 Dose: 650 mg Albuterol Sulfate (Ventolin Hfa Inhaler -) 1 puff IH Q6H [facility] Last Admin: 12/04/18 05:35 Dose: 1 puff Aspirin (Asa -) 81 mg PO DAILY [facility] Last Admin: 12/03/18 11:36 Dose: 81 mg Calcium Carbonate (Os-Raffi 500mg -) 500 mg PO BID [facility] Last Admin: 12/03/18 21:54 Dose: 500 mg Digoxin (Lanoxin -) 0.125 mg PO DAILY [facility] Last Admin: 12/03/18 11:36 Dose: 0.125 mg Docusate Sodium (Colace -) 100 mg PO TID [facility] Last Admin: 12/04/18 05:36 Dose: 100 mg Furosemide (Lasix Injection -) 80 mg IVPB DAILY [facility] Guaifenesin (Robitussin Dm -) 10 ml PO Q6H PRN PRN Reason: COUGH Last Admin: 12/04/18 00:50 Dose: 10 ml Azithromycin 250 mg/ Dextrose 250 mls @ 250 mls/hr IVPB DAILY [facility] Last Admin: 12/03/18 12:03 Dose: 250 mls/hr Ceftriaxone Sodium 1 gm/ (Dextrose) 50 mls @ 100 mls/hr IVPB DAILY [facility]; Protocol Last Admin: 12/03/18 11:36 Dose: 100 mls/hr Insulin Aspart (Novolog Vial Sliding Scale -) 1 vial SQ TIDAC [facility]; Protocol Last Admin: 12/04/18 06:35 Dose: 8 units Magnesium Citrate (Citroma -) 300 ml PO Q48H PRN PRN Reason: CONSTIPATION Magnesium Oxide (Mag-Ox -) 400 mg PO BID [facility] Last Admin: 12/03/18 21:54 Dose: 400 mg Methylprednisolone Sodium Succinate (Solu-Medrol -) 40 mg IVPUSH DAILY [facility] Last Admin: 12/03/18 12:08 Dose: 40 mg Metoprolol Tartrate (Lopressor -) 50 mg PO Q6HPO [facility] Last Admin: 12/04/18 05:36 Dose: 50 mg Metoprolol Tartrate (Lopressor Injection -) 5 mg IVPUSH Q4H PRN PRN Reason: TACHYCARDIA Multivitamins/Minerals/Vitamin C (Tab-A-Vit -) 1 tab PO DAILY [facility] Last Admin: 12/03/18 11:37 Dose: 1 tab Rivaroxaban (Xarelto) 15 mg PO DAILY@1800 [facility] Last Admin: 12/03/18 18:56 Dose: 15 mg - Objective Vital Signs: Vital Signs Temperature 97.3 F L 12/04/18 08:35 Pulse Rate 108 H 12/04/18 08:35 Respiratory Rate 20 12/04/18 08:35 Blood Pressure 130/76 12/04/18 08:35 O2 Sat by Pulse Oximetry (%) 95 12/03/18 21:00 Constitutional: Yes: Well Nourished, Calm Eyes: Yes: WNL HENT: Yes: WNL Neck: Yes: WNL Cardiovascular: Yes: Pulse Irregular, S1, S2 Respiratory: Yes: Rales (bibasilar crackles) Gastrointestinal: Yes: Normal Bowel Sounds Extremities: Yes: WNL Edema: No Labs: CBC, BMP 12/04/18 06:00 12/04/18 06:00 INR, PTT INR 1.23 (0.83-1.09) H 11/27/18 08:50 - ....Imaging Cat Scan: Image Reviewed Problem List - Problems (1) Acute hypoxemic respiratory failure Code(s): J96.01 - ACUTE RESPIRATORY FAILURE WITH HYPOXIA (2) [place] (acute kidney injury) Code(s): N17.9 - ACUTE KIDNEY FAILURE, UNSPECIFIED (3) Acute on chronic HFrEF (heart failure with reduced ejection fraction) Code(s): I50.23 - ACUTE ON CHRONIC SYSTOLIC (CONGESTIVE) HEART FAILURE (4) Atrial fibrillation with rapid ventricular response Code(s): I48.91 - UNSPECIFIED ATRIAL FIBRILLATION (5) CHF (congestive heart failure) Code(s): I50.9 - HEART FAILURE, UNSPECIFIED (6) Dyslipidemia associated with type 2 diabetes mellitus Code(s): E11.69 - TYPE 2 DIABETES MELLITUS WITH OTHER SPECIFIED COMPLICATION; E78.5 - HYPERLIPIDEMIA, UNSPECIFIED (7) Elevated d-dimer Code(s): R79.89 - OTHER SPECIFIED ABNORMAL FINDINGS OF BLOOD CHEMISTRY (8) Hypotension Code(s): I95.9 - HYPOTENSION, UNSPECIFIED (9) SOB (shortness of breath) Code(s): R06.02 - SHORTNESS OF BREATH (10) Hypertension Code(s): I10 - ESSENTIAL (PRIMARY) HYPERTENSION Qualifiers: Hypertension type: secondary to endocrine disorders Qualified Code(s): I15.2 - Hypertension secondary to endocrine disorders (11) Acute respiratory failure Code(s): J96.00 - ACUTE RESPIRATORY FAILURE, UNSP W HYPOXIA OR HYPERCAPNIA Assessment/Plan IMP ACUTE RESPIRATORY FAILURE ACUTE ON CHRONIC CHF/CARDIOMYOPATHY SEVERE LV DYSFUNCTION WITH GLOBAL HYPOKINESIS LVEF 30% AFIB WITH RVR ? H/O COPD PNEUMONIA HTN ELEVATED D-DIMER NON-SPECIFIC CANNOT EXCLUDE PE ACUTE KIDNEY INJURY RUL NODULE PLAN RATE CONTROL PER CARDIOLOGY CONTINUE MEDROL LASIX AC XOPENEX PRN NIPPV NEEDED O2 TO MAINTAIN O2 SAT > 90% MONITOR LYTES,RENAL FUNCTION DAILY WT PET SCAN OUTPATIENT ABX DR SKY Problem List - Problems (1) Acute hypoxemic respiratory failure Code(s): J96.01 - ACUTE RESPIRATORY FAILURE WITH HYPOXIA (2) [place] (acute kidney injury) Code(s): N17.9 - ACUTE KIDNEY FAILURE, UNSPECIFIED (3) Acute on chronic HFrEF (heart failure with reduced ejection fraction) Code(s): I50.23 - ACUTE ON CHRONIC SYSTOLIC (CONGESTIVE) HEART FAILURE (4) Atrial fibrillation with rapid ventricular response Code(s): I48.91 - UNSPECIFIED ATRIAL FIBRILLATION (5) CHF (congestive heart failure) Code(s): I50.9 - HEART FAILURE, UNSPECIFIED (6) Dyslipidemia associated with type 2 diabetes mellitus Code(s): E11.69 - TYPE 2 DIABETES MELLITUS WITH OTHER SPECIFIED COMPLICATION; E78.5 - HYPERLIPIDEMIA, UNSPECIFIED (7) Elevated d-dimer Code(s): R79.89 - OTHER SPECIFIED ABNORMAL FINDINGS OF BLOOD CHEMISTRY (8) Hypotension Code(s): I95.9 - HYPOTENSION, UNSPECIFIED (9) SOB (shortness of breath) Code(s): R06.02 - SHORTNESS OF BREATH (10) Hypertension Code(s): I10 - ESSENTIAL (PRIMARY) HYPERTENSION Qualifiers: Hypertension type: secondary to endocrine disorders Qualified Code(s): I15.2 - Hypertension secondary to endocrine disorders (11) Acute respiratory failure Code(s): J96.00 - ACUTE RESPIRATORY FAILURE, UNSP W HYPOXIA OR HYPERCAPNIA
--- NOTE | 2018-12-04 09:55 | PN ---
Progress Note, Physician - Current Medication List Current Medications: Active Medications Acetaminophen (Tylenol -) 650 mg PO Q6H PRN PRN Reason: FEVER Last Admin: 12/03/18 03:30 Dose: 650 mg Albuterol Sulfate (Ventolin Hfa Inhaler -) 1 puff IH Q6H [facility] Last Admin: 12/04/18 05:35 Dose: 1 puff Aspirin (Asa -) 81 mg PO DAILY [facility] Last Admin: 12/03/18 11:36 Dose: 81 mg Calcium Carbonate (Os-Raffi 500mg -) 500 mg PO BID [facility] Last Admin: 12/03/18 21:54 Dose: 500 mg Digoxin (Lanoxin -) 0.125 mg PO DAILY [facility] Last Admin: 12/03/18 11:36 Dose: 0.125 mg Docusate Sodium (Colace -) 100 mg PO TID [facility] Last Admin: 12/04/18 05:36 Dose: 100 mg Furosemide (Lasix Injection -) 80 mg IVPB DAILY [facility] Guaifenesin (Robitussin Dm -) 10 ml PO Q6H PRN PRN Reason: COUGH Last Admin: 12/04/18 00:50 Dose: 10 ml Azithromycin 250 mg/ Dextrose 250 mls @ 250 mls/hr IVPB DAILY [facility] Last Admin: 12/03/18 12:03 Dose: 250 mls/hr Ceftriaxone Sodium 1 gm/ (Dextrose) 50 mls @ 100 mls/hr IVPB DAILY [facility]; Protocol Last Admin: 12/03/18 11:36 Dose: 100 mls/hr Insulin Aspart (Novolog Vial Sliding Scale -) 1 vial SQ TIDAC [facility]; Protocol Last Admin: 12/04/18 06:35 Dose: 8 units Magnesium Citrate (Citroma -) 300 ml PO Q48H PRN PRN Reason: CONSTIPATION Magnesium Oxide (Mag-Ox -) 400 mg PO BID [facility] Last Admin: 12/03/18 21:54 Dose: 400 mg Methylprednisolone Sodium Succinate (Solu-Medrol -) 40 mg IVPUSH DAILY [facility] Last Admin: 12/03/18 12:08 Dose: 40 mg Metoprolol Tartrate (Lopressor -) 50 mg PO Q6HPO [facility] Last Admin: 12/04/18 05:36 Dose: 50 mg Metoprolol Tartrate (Lopressor Injection -) 5 mg IVPUSH Q4H PRN PRN Reason: TACHYCARDIA Multivitamins/Minerals/Vitamin C (Tab-A-Vit -) 1 tab PO DAILY [facility] Last Admin: 12/03/18 11:37 Dose: 1 tab Rivaroxaban (Xarelto) 15 mg PO DAILY@1800 [facility] Last Admin: 12/03/18 18:56 Dose: 15 mg - Objective Vital Signs: Vital Signs Temperature 97.3 F L 12/04/18 08:35 Pulse Rate 108 H 12/04/18 08:35 Respiratory Rate 20 12/04/18 08:35 Blood Pressure 130/76 12/04/18 08:35 O2 Sat by Pulse Oximetry (%) 95 12/03/18 21:00 Labs: CBC, BMP 12/04/18 06:00 12/04/18 06:00 INR, PTT INR 1.23 (0.83-1.09) H 11/27/18 08:50
[2018-12-04] MEDS ORDERED: cefTRIAXone SODIUM 1 GM VIAL ONE (10:11)
[2018-12-04] MEDS ORDERED: DEXTROSE 5%-WATER - 50 ML IVPB ONE (10:12)
[2018-12-04] MEDS: CALCIUM (OYSTER SHELL) 500 MG TABLET (FP) PO SCH ×2 (10:20→21:26)
[2018-12-04] MEDS: DIGOXIN 0.125 MG TABLET (FP) PO SCH (10:20)
[2018-12-04] MEDS: MAGNESIUM OXIDE 400 MG TABLET (FP) PO SCH ×2 (10:21→21:26)
[2018-12-04] MEDS: MULTIVITAMINS (DAILY MVI) TABLET (FP) PO SCH (10:21)
[2018-12-04] MEDS: ASPIRIN 81 MG CHEWABLE TABLETS PO SCH (10:21)
[2018-12-04] MEDS: methylPREDNISolone NA SUCC 40 MG/1 ML VIAL IVPUSH SCH (10:26)
[2018-12-04] MEDS: CEFTRIAXONE 1 GM in DEXTROSE 5%-WATER - 50 ML IVPB SCH (10:26)
[2018-12-04] MEDS: AZITHROMYCIN IVPB 250 MG in DEXTROSE 5%-WATER - 250 ML IVPB SCH (10:27)
[2018-12-04] MEDS: FUROSEMIDE 100 MG/10 ML INJECTABLE VIAL IVPB SCH (10:27)
--- NOTE | 2018-12-04 10:35 | PN ---
Progress Note, Physician History of Present Illness: Breathing improving Tele: Afib [id number] - Current Medication List Current Medications: Active Medications Acetaminophen (Tylenol -) 650 mg PO Q6H PRN PRN Reason: FEVER Last Admin: 12/03/18 03:30 Dose: 650 mg Albuterol Sulfate (Ventolin Hfa Inhaler -) 1 puff IH Q6H [facility] Last Admin: 12/04/18 05:35 Dose: 1 puff Aspirin (Asa -) 81 mg PO DAILY [facility] Last Admin: 12/04/18 10:21 Dose: 81 mg Calcium Carbonate (Os-Raffi 500mg -) 500 mg PO BID [facility] Last Admin: 12/04/18 10:20 Dose: 500 mg Digoxin (Lanoxin -) 0.125 mg PO DAILY [facility] Last Admin: 12/04/18 10:20 Dose: 0.125 mg Docusate Sodium (Colace -) 100 mg PO TID [facility] Last Admin: 12/04/18 05:36 Dose: 100 mg Furosemide (Lasix Injection -) 80 mg IVPB DAILY [facility] Last Admin: 12/04/18 10:27 Dose: 80 mg Guaifenesin (Robitussin Dm -) 10 ml PO Q6H PRN PRN Reason: COUGH Last Admin: 12/04/18 00:50 Dose: 10 ml Azithromycin 250 mg/ Dextrose 250 mls @ 250 mls/hr IVPB DAILY [facility] Last Admin: 12/04/18 10:27 Dose: 250 mls/hr Ceftriaxone Sodium 1 gm/ (Dextrose) 50 mls @ 100 mls/hr IVPB DAILY [facility]; Protocol Last Admin: 12/04/18 10:26 Dose: 100 mls/hr Insulin Aspart (Novolog Vial Sliding Scale -) 1 vial SQ TIDAC [facility]; Protocol Last Admin: 12/04/18 06:35 Dose: 8 units Magnesium Citrate (Citroma -) 300 ml PO Q48H PRN PRN Reason: CONSTIPATION Magnesium Oxide (Mag-Ox -) 400 mg PO BID [facility] Last Admin: 12/04/18 10:21 Dose: 400 mg Methylprednisolone Sodium Succinate (Solu-Medrol -) 40 mg IVPUSH DAILY [facility] Last Admin: 12/04/18 10:26 Dose: 40 mg Metoprolol Tartrate (Lopressor -) 50 mg PO Q6HPO [facility] Last Admin: 12/04/18 05:36 Dose: 50 mg Metoprolol Tartrate (Lopressor Injection -) 5 mg IVPUSH Q4H PRN PRN Reason: TACHYCARDIA Multivitamins/Minerals/Vitamin C (Tab-A-Vit -) 1 tab PO DAILY [facility] Last Admin: 12/04/18 10:21 Dose: 1 tab Rivaroxaban (Xarelto) 15 mg PO DAILY@1800 [facility] Last Admin: 12/03/18 18:56 Dose: 15 mg - Objective Vital Signs: Vital Signs Temperature 97.3 F L 12/04/18 08:35 Pulse Rate 112 H 12/04/18 10:20 Respiratory Rate 20 12/04/18 08:35 Blood Pressure 130/76 12/04/18 08:35 O2 Sat by Pulse Oximetry (%) 95 12/03/18 21:00 Constitutional: Yes: No Distress Eyes: Yes: WNL Cardiovascular: Yes: Pulse Irregular Respiratory: Yes: Diminished Edema: Yes Labs: CBC, BMP 12/04/18 06:00 12/04/18 06:00 INR, PTT INR 1.23 (0.83-1.09) H 11/27/18 08:50 Assessment/Plan 1. PAF: -known dx since at least 2014, at that time on amiodarone with dr robledo--pt not currently taking, thinks he stopped it since 2014. -Cont metoprolol and dig. Monitor on tele. -CHADS VASC 4--warrants AC. xarelto started here (15mg qd for GFR 15-50) 2. Acute on chronic syst HF: Diuresing and overall improved. -previously with known moderately decr LVSF 2014. Now with EF 30%, global -etiology uncertain--? if completed outpt ischemia w/u at time of initial dx -suspect may have high, longstanding burden of tachycardia as he has no sx's when in rapid AF--? isch CMP -echo 11/30 showed severe global HK, EF 30%, moderate MR -holding enalapril to allow bp room to tolerate diuretics, AF rate control -no concern for ACS (trop neg x 2) -ischemic w/u when euvolemic -BP running low, last CXR improved. BUN climbing. Will decrease Lasix to daily 12/04: BP stable. On lasix 80mg IV daily. Creat 1.6 (1.2) will watch as baseline has been 1.6. Last dig 0.82 3. [place]: -creat 1.7, from 1.3 in 2016 -? cardiorenal syndrome -Creat stable thus far with diuresis. 4. VT: -NSVT on tele, vs AF with aberrancy -K > 4, Mg > 2 5. HTN: -low bp's here, improved. -TANMAY-I on hold for now. 6. DM: -per hospitalist 7. Fevers: -Work up as per PMD/ID
--- NOTE | 2018-12-04 12:05 | PN ---
Progress Note (short form) - Note Progress Note: RENAL Coverage for Dr Garcia Pt is awake and alert says he feels better Last Vital Signs Temp Pulse Resp BP Pulse Ox 97.3 F L 112 H 20 130/76 95 12/04/18 08:35 12/04/18 10:20 12/04/18 08:35 12/04/18 08:35 12/03/18 21:00 lungs has some crackles at bases nd wheeze cvs s1s 2 rr abd soft ext no edema neuro a+ox3 CBC, BMP 12/04/18 06:00 12/04/18 06:00 Current Medications Generic Name Dose Route Start Last Admin Trade Name Freq PRN Reason Stop Dose Admin Acetaminophen 650 mg 11/29/18 18:42 12/03/18 03:30 Tylenol - PO 650 mg Q6H PRN Administration FEVER Albuterol Sulfate 1 puff 11/30/18 09:45 12/04/18 05:35 Ventolin Hfa Inhaler - IH 1 puff Q6H [facility] Administration Aspirin 81 mg 11/28/18 10:00 12/04/18 10:21 Asa - PO 81 mg DAILY [facility] Administration Calcium Carbonate 500 mg 11/30/18 22:00 12/04/18 10:20 Os-Raffi 500mg - PO 500 mg BID [facility] Administration Digoxin 0.125 mg 11/29/18 10:00 12/04/18 10:20 Lanoxin - PO 0.125 mg DAILY [facility] Administration Docusate Sodium 100 mg 11/30/18 22:00 12/04/18 05:36 Colace - PO 100 mg TID [facility] Administration Furosemide 80 mg 12/04/18 10:00 12/04/18 10:27 Lasix Injection - IVPB 80 mg DAILY [facility] Administration Guaifenesin 10 ml 11/29/18 05:25 12/04/18 00:50 Robitussin Dm - PO 10 ml Q6H PRN Administration COUGH Azithromycin 250 mg/ Dextrose 250 mls @ 250 mls/hr 12/01/18 10:00 12/04/18 10 :27 IVPB 250 mls/hr DAILY [facility] Administration Ceftriaxone Sodium 1 gm/ 50 mls @ 100 mls/hr 12/01/18 13:15 12/04/18 10:26 Dextrose IVPB 100 mls/hr DAILY [facility] Administration Protocol Insulin Aspart 1 vial 11/27/18 16:30 12/04/18 06:35 Novolog Vial Sliding Scale - SQ 8 units TIDAC [facility] Administration Protocol Magnesium Citrate 300 ml 11/29/18 17:57 Citroma - PO Q48H PRN CONSTIPATION Magnesium Oxide 400 mg 12/01/18 22:00 12/04/18 10:21 Mag-Ox - PO 400 mg BID [facility] Administration Methylprednisolone Sodium Succinate 40 mg 12/03/18 11:45 12/04/18 10:26 Solu-Medrol - IVPUSH 40 mg DAILY [facility] Administration Metoprolol Tartrate 50 mg 12/01/18 12:00 12/04/18 05:36 Lopressor - PO 50 mg Q6HPO [facility] Administration Metoprolol Tartrate 5 mg 12/02/18 11:33 Lopressor Injection - IVPUSH Q4H PRN TACHYCARDIA Multivitamins/Minerals/Vitamin C 1 tab 12/01/18 10:00 12/04/18 10:21 Tab-A-Vit - PO 1 tab DAILY [facility] Administration Rivaroxaban 15 mg 11/28/18 18:00 12/03/18 18:56 Xarelto PO 15 mg DAILY@1800 [facility] Administration 68 year old gentleman with hx of systolic HF, Afib, DM who presented with complaints of chest pain, shortness of breath and LE swelling and admitted for CHF exacerbation with downtrending serum Na and Cr of 1.6. hyponatremia worsened by hyperglycemia- previously had a low urine osmolality which likely suggests increased water intake uncontrolled DM chf Asthma anemia PLAN would contnue water restriction needs to have steroids tapered sodium did improve increase insulin to control glucose and prevent further deterioration in kidney function would continue diuretics MV
--- NOTE | 2018-12-04 12:28 | CON.NEURO ---
Consult - History of Present Illness History of Present Illness: covering for DR ROSADO 68 year old male with a significant past medical history of A-fib (no reported anticoagulation control), HTN, HLD and NIDDM (on metformin). He comes to the ED on 11/27/2018 with shortness of breath x 1 day. He was on [place] and arrived to [facility] on [facility] and has been doing well except for bilateral lower ext edema, but then developed shortness of breath. BNP 7k on admission. called for poorly responsive state -- as per family, not seen by nursing staff. This MA back ot baseline. no CALERO , dzziness or focal weakness. On exam, he is awake and alert, stateless speaking only. daughter bedside. CT HD : Impression: No CT evidence of acute intracranial pathology. There has been no definite interval change in comparison to a prior CT study of 08/07/2014. IMPRESSION: Previously visualized nodular like density in the right lung base on prior CT scan of the abdomen dated 02/02/2016 is not seen on this exam. Focal nodular opacity in the right upper lobe measuring 1.4 cm with an irregular margin. A follow- up CT scan of the chest in a couple of weeks to assess for change of infiltrates or correlation with PET/CT is needed to rule out malignancy. Minimal atelectatic changes in the right middle lobe. Mild atelectatic changes in the left lung base with questionable nodularity suggestive of infiltrates. Minimal atelectatic changes in the right lung base with a small right pleural effusion. Borderline right paratracheal lymph nodes with the largest measuring 1.6 x 1 cm that demonstrates a central fatty hilum. Borderline cardiomegaly. Calcification of the coronary arteries are present. CT C SPINE : IMPRESSION: The alignment is satisfactory. No gross fracture or subluxation is seen. C3-C4 mild right uncovertebral hypertrophy slightly to moderately narrowing the right foramen. C4-C5 mild mainly central disc bulge without gross cord or nerve root impingement. Slightly enlarged left thyroid lobe. Small calcified plaques at the common carotid bifurcation, bilaterally - Past Medical History Cardio/Vascular: Yes: HTN Endocrine: Yes: Diabetes Mellitus - Alcohol/Substance Use Hx Alcohol Use: No - Smoking History Smoking history: Never smoked Have you smoked in the past 12 months: No Home Medications - Allergies Allergies/Adverse Reactions: Allergies Allergy/AdvReac Type Severity Reaction Status Date / Time No Known Allergies Allergy Verified 11/27/18 08:44 - Home Medications Home Medications: Ambulatory Orders metFORMIN HCL [Metformin HCl] 850 mg PO DAILY 07/13/14 Aspirin [ASA -] 81 mg PO DAILY #0 tab.chew 08/09/14 Glipizide [Glipizide Xl] 10 mg PO DAILY 10/16/16 Albuterol Sulfate Inhaler - [Ventolin Hfa Inhaler -] 1 puff IH PRN 11/27/18 Ascorbic Acid [Vitamin C -] 500 mg PO DAILY 11/27/18 Atorvastatin Ca [Lipitor] 10 mg PO HS 11/27/18 Enalapril Maleate [Vasotec] 20 mg PO DAILY 11/27/18 Physical Exam-Neuro Vital Signs: Vital Signs Temperature 97.3 F L 12/04/18 08:35 Pulse Rate 112 H 12/04/18 10:20 Respiratory Rate 20 12/04/18 08:35 Blood Pressure 130/76 12/04/18 08:35 O2 Sat by Pulse Oximetry (%) 95 12/03/18 21:00 Labs: CBC, BMP 12/04/18 06:00 12/04/18 06:00 INR, PTT INR 1.23 (0.83-1.09) H 11/27/18 08:50 - Neuro Exam Level Of Consciousness: Yes: Alert (awake, alert, EOMI, no facila, motor 5/5, no drift, ++ arthritis ) Imaging - Results Cat Scan: Report Reviewed, Image Reviewed Problem List - Problems (1) [place] (acute kidney injury) Code(s): N17.9 - ACUTE KIDNEY FAILURE, UNSPECIFIED (2) Acute hypoxemic respiratory failure Code(s): J96.01 - ACUTE RESPIRATORY FAILURE WITH HYPOXIA (3) Atrial fibrillation with rapid ventricular response Code(s): I48.91 - UNSPECIFIED ATRIAL FIBRILLATION (4) CHF (congestive heart failure) Code(s): I50.9 - HEART FAILURE, UNSPECIFIED Assessment/Plan 68 year old male with a significant past medical history of A-fib (no reported anticoagulation control), HTN, HLD and NIDDM (on metformin). He comes to the ED on 11/27/2018 with shortness of breath x 1 day. [place] was [place] and [place] on [place] and has been doing well except for bilateral lower ext edema, but then developed shortness of breath. BNP 7k on admission. called for poorly responsive state -- as per family, not seen by nursing staff. This AM back ot baseline. no CALERO , dzziness or focal weakness. On exam, he is awake and alert, stateless speaking only. daughter bedside. CT HD : Impression: No CT evidence of acute intracranial pathology. There has been no definite interval change in comparison to a prior CT study of 08/07/2014. IMPRESSION: Previously visualized nodular like density in the right lung base on prior CT scan of the abdomen dated 02/02/2016 is not seen on this exam. Focal nodular opacity in the right upper lobe measuring 1.4 cm with an irregular margin. A follow- up CT scan of the chest in a couple of weeks to assess for change of infiltrates or correlation with PET/CT is needed to rule out malignancy. Minimal atelectatic changes in the right middle lobe. Mild atelectatic changes in the left lung base with questionable nodularity suggestive of infiltrates. Minimal atelectatic changes in the right lung base with a small right pleural effusion. Borderline right paratracheal lymph nodes with the largest measuring 1.6 x 1 cm that demonstrates a central fatty hilum. Borderline cardiomegaly. Calcification of the coronary arteries are present. CT C SPINE : IMPRESSION: The alignment is satisfactory. No gross fracture or subluxation is seen. C3-C4 mild right uncovertebral hypertrophy slightly to moderately narrowing the right foramen. C4-C5 mild mainly central disc bulge without gross cord or nerve root impingement. Slightly enlarged left thyroid lobe. Small calcified plaques at the common carotid bifurcation, bilaterally AP : ? change in MS , yesterday --now back to baseline suspect metabolic (low NA and ARF) /infectious encephalopathy in poorly controlled diabetic FU CT CHEST DM control no signs of meningitis , seizure or stroke thanks DR GARZA
[2018-12-04] MEDS: RIVAROXABAN 15 MG TABLET PO SCH (17:55)
--- NOTE | 2018-12-04 18:05 | PN ---
Progress Note, Physician Chief Complaint: stiff neck, shoulder discomfort. no vomiting or nausea. no headaches. History of Present Illness: Patient is a 68 year old male with a significant past medical history of A-fib ( no reported anticoagulation control), HTN, HLD and NIDDM (on metformin). He comes to the ED on 11/27/2018 with shortness of breath x 1 day. He was [place] and arrived to [place] on 11/17/2018 and has been doing well except for bilateral lower ext edema, but then developed shortness of breath. BNP 7k on admission. On exam, he is awake and alert, swedish speaking only. - Current Medication List Current Medications: Active Medications Acetaminophen (Tylenol -) 650 mg PO Q6H PRN PRN Reason: FEVER Last Admin: 12/03/18 03:30 Dose: 650 mg Albuterol Sulfate (Ventolin Hfa Inhaler -) 1 puff IH Q6H [facility] Last Admin: 12/04/18 17:51 Dose: 1 puff Aspirin (Asa -) 81 mg PO DAILY [facility] Last Admin: 12/04/18 10:21 Dose: 81 mg Calcium Carbonate (Os-Raffi 500mg -) 500 mg PO BID [facility] Last Admin: 12/04/18 10:20 Dose: 500 mg Digoxin (Lanoxin -) 0.125 mg PO DAILY [facility] Last Admin: 12/04/18 10:20 Dose: 0.125 mg Docusate Sodium (Colace -) 100 mg PO TID [facility] Last Admin: 12/04/18 13:28 Dose: 100 mg Furosemide (Lasix Injection -) 80 mg IVPB DAILY [facility] Last Admin: 12/04/18 10:27 Dose: 80 mg Guaifenesin (Robitussin Dm -) 10 ml PO Q6H PRN PRN Reason: COUGH Last Admin: 12/04/18 00:50 Dose: 10 ml Azithromycin 250 mg/ Dextrose 250 mls @ 250 mls/hr IVPB DAILY [facility] Last Admin: 12/04/18 10:27 Dose: 250 mls/hr Ceftriaxone Sodium 1 gm/ (Dextrose) 50 mls @ 100 mls/hr IVPB DAILY [facility]; Protocol Last Admin: 12/04/18 10:26 Dose: 100 mls/hr Insulin Aspart (Novolog Vial Sliding Scale -) 1 vial SQ [facility]; Protocol Insulin Detemir (Levemir Vial) 10 units SQ [facility] Magnesium Citrate (Citroma -) 300 ml PO Q48H PRN PRN Reason: CONSTIPATION Magnesium Oxide (Mag-Ox -) 400 mg PO BID [facility] Last Admin: 12/04/18 10:21 Dose: 400 mg Methylprednisolone Sodium Succinate (Solu-Medrol -) 40 mg IVPUSH DAILY [facility] Last Admin: 12/04/18 10:26 Dose: 40 mg Metoprolol Tartrate (Lopressor -) 50 mg PO Q6HPO [facility] Last Admin: 12/04/18 17:54 Dose: 50 mg Metoprolol Tartrate (Lopressor Injection -) 5 mg IVPUSH Q4H PRN PRN Reason: TACHYCARDIA Multivitamins/Minerals/Vitamin C (Tab-A-Vit -) 1 tab PO DAILY [facility] Last Admin: 12/04/18 10:21 Dose: 1 tab Rivaroxaban (Xarelto) 15 mg PO DAILY@1800 [facility] Last Admin: 12/04/18 17:55 Dose: 15 mg - Objective Vital Signs: Vital Signs Temperature 98.7 F 12/04/18 15:40 Pulse Rate 120 H 12/04/18 15:40 Respiratory Rate 20 12/04/18 15:40 Blood Pressure 124/80 12/04/18 15:40 O2 Sat by Pulse Oximetry (%) 95 12/03/18 21:00 Constitutional: Yes: Well Nourished, No Distress Eyes: Yes: WNL HENT: Yes: WNL Neck: Yes: Tenderness Cardiovascular: Yes: Pulse Irregular Respiratory: Yes: Accessory Muscle Use, On BiPap, On Nasal O2 Gastrointestinal: Yes: Normal Bowel Sounds ...Rectal Exam: Yes: Deferred Genitourinary: Yes: WNL Musculoskeletal: Yes: WNL Edema: LLE: Trace, RLE: Trace Integumentary: Yes: WNL Neurological: Yes: WNL, Alert, Oriented ...Motor Strength: WNL Psychiatric: Yes: WNL Labs: CBC, BMP 12/04/18 06:00 12/04/18 06:00 INR, PTT INR 1.23 (0.83-1.09) H 11/27/18 08:50 Problem List - Problems (1) Hyponatremia Assessment/Plan: Serum sodium mildly improved. Seen by nephrology and recommendations appreciated. Patient on a fluid restriction of 1.5 liters Will continue lasix per cardiology and nephrology monitor cmp. Patient is currently asymptomatic. Code(s): E87.1 - HYPO-OSMOLALITY AND HYPONATREMIA (2) Sepsis Assessment/Plan: Currently meets sepsis criteria. hypotensive with [place], fevers and tachypnea. Started on Azithromycin on 11/30/18, ID consulted for further recommendations and patient now also on Ceftriaxone (day 4). Blood and urine cultures negative to date. lactic acid within normal limits source of fevers unknown at this time, await cultures, however, pneumonia a possibility. Code(s): A41.9 - SEPSIS, UNSPECIFIED ORGANISM Qualifiers: Sepsis type: sepsis due to unspecified organism Qualified Code(s): A41.9 - Sepsis, unspecified organism (3) [place] (acute kidney injury) Assessment/Plan: elevated creatinine. based on creat in past admission, baseline 1.0-1.3 monitor kidney function and encourage PO intake, monitor while closely while on diuretic therapy. Code(s): N17.9 - ACUTE KIDNEY FAILURE, UNSPECIFIED (4) Atrial fibrillation with rapid ventricular response Assessment/Plan: rate control with metoprolol, on xarelto daily. Code(s): I48.91 - UNSPECIFIED ATRIAL FIBRILLATION (5) Acute hypoxemic respiratory failure Assessment/Plan: on supplemental oxygen pulmonary following and started on xopenex on noctural bipap Code(s): J96.01 - ACUTE RESPIRATORY FAILURE WITH HYPOXIA (6) Acute on chronic HFrEF (heart failure with reduced ejection fraction) Assessment/Plan: monitor daily weights, intake and output Code(s): I50.23 - ACUTE ON CHRONIC SYSTOLIC (CONGESTIVE) HEART FAILURE (7) CHF (congestive heart failure) Assessment/Plan: on diuretic therapy. Echo shows EF 30%. LV mildly dilated, severe global hypokinesis of left ventricle. left ventricular systolic function is severely reduced. right ventricle normal, left atria mildly dilated. right atrial size normal. mild to moderate mitral regurg. mitral regurg jet is eccentrically directed. mild aortic valve thickening. Code(s): I50.9 - HEART FAILURE, UNSPECIFIED (8) Elevated d-dimer Assessment/Plan: elevated d dimer. Echo shows heart failure. lower extremity dopplers negative for DVT. pulmonary following Code(s): R79.89 - OTHER SPECIFIED ABNORMAL FINDINGS OF BLOOD CHEMISTRY (9) D dimer value normal Assessment/Plan: elevated d dimer. unable to perform cta secondary to [place] pulmonary following patient on anticoagulation Code(s): Z01.89 - ENCOUNTER FOR OTHER SPECIFIED SPECIAL EXAMINATIONS (10) Acute metabolic encephalopathy Assessment/Plan: episodes of confusion and lethargy reported yesterday, mentation back to baseline seen by neuro, notes reviewed and appreciated monitor mental status Code(s): G93.41 - METABOLIC ENCEPHALOPATHY (11) Prophylactic measure Assessment/Plan: fen tolerating PO monitor electrolytes Calcium corrected at 8.2 low salt diet prophy dvt: on xarelto gi: on bowel regimen. physical therapy when more stable Code(s): Z29.9 - ENCOUNTER FOR PROPHYLACTIC MEASURES, UNSPECIFIED Visit type - Emergency Visit Emergency Visit: Yes ED Registration Date: 11/27/18 Care time: The patient presented to the Emergency Department on the above date and was hospitalized for further evaluation of their emergent condition. - New Patient This patient is new to me today: No - Critical Care Critical Care patient: No - Discharge Referral Referred to [facility] Med [facility] No
[2018-12-04] MEDS ORDERED: INSULIN (LEVEMIR) 100 UNITS/ML UNITS SQ SCH (22:00)
[2018-12-05] MEDS: METOPROLOL TARTRATE 50 MG TABLET (FP) PO SCH ×4 (00:20→17:19)
[2018-12-05] MEDS: DOCUSATE SODIUM 100 MG CAPSULE (FP) PO SCH ×3 (06:02→21:39)
[2018-12-05] MEDS: INSULIN SLIDING SCALE (NOVOLOG) 1 VIAL SQ SCH ×4 (06:03→21:40)
[2018-12-05] MEDS ORDERED: cefTRIAXone SODIUM 1 GM VIAL ONE (09:17)
[2018-12-05] MEDS ORDERED: DEXTROSE 5%-WATER - 50 ML IVPB ONE (09:18)
[2018-12-05] MEDS: MULTIVITAMINS (DAILY MVI) TABLET (FP) PO SCH (09:25)
[2018-12-05] MEDS: FUROSEMIDE 100 MG/10 ML INJECTABLE VIAL IVPB SCH (09:25)
[2018-12-05] MEDS: ASPIRIN 81 MG CHEWABLE TABLETS PO SCH (09:25)
[2018-12-05] MEDS: methylPREDNISolone NA SUCC 40 MG/1 ML VIAL IVPUSH SCH (09:25)
[2018-12-05] MEDS: CALCIUM (OYSTER SHELL) 500 MG TABLET (FP) PO SCH ×2 (09:25→21:56)
[2018-12-05] MEDS: DIGOXIN 0.125 MG TABLET (FP) PO SCH (09:25)
[2018-12-05] MEDS: MAGNESIUM OXIDE 400 MG TABLET (FP) PO SCH ×2 (09:25→21:39)
[2018-12-05] MEDS: ALBUTEROL SO4 8 GM HFA INHALER IH SCH ×3 (09:26→21:41)
[2018-12-05] MEDS: CEFTRIAXONE 1 GM in DEXTROSE 5%-WATER - 50 ML IVPB SCH (09:26)
[2018-12-05] MEDS: AZITHROMYCIN IVPB 250 MG in DEXTROSE 5%-WATER - 250 ML IVPB SCH (09:27)
[2018-12-05 09:38] LABS: BASO % 0.4 % (0-2.0); EOS % 0.6 % (0-4.5); HEMATOCRIT 33.2 % (35.4-49); HEMOGLOBIN 10.9 GM/dL (11.7-16.9); LYMPH % 14.2 % (8-40); MCH 27.9 pg (25.7-33.7); MCHC 32.9 g/dl (32.0-35.9); MEAN CELL VOLUME 84.7 fl (80-96); MEAN PLT VOLUME 10.7 fl (7.5-11.1); MONO % 6.5 % (3.8-10.2); NEUT % 78.3 % (42.8-82.8); PLATELET COUNT 220 K/MM3 (134-434); RBC 3.92 M/mm3 (4.00-5.60); WHITE BLOOD COUNT 10.2 K/mm3 (4.0-10.0)
[2018-12-05 10:09] LABS: ALBUMIN 3.2 g/dl (3.4-5.0); BILIRUBIN,TOTAL 0.3 mg/dL (0.2-1); CREATININE 1.4 mg/dL (0.55-1.3); MAGNESIUM 2.5 mg/dL (1.8-2.4); POTASSIUM 4.1 mmol/L (3.5-5.1); TOT PROT 6.7 g/dl (6.4-8.2)
--- NOTE | 2018-12-05 10:36 | PN ---
Progress Note, Physician History of Present Illness: Feels he is improving slowly Breathing better (+) coughing Tele:Afib - Current Medication List Current Medications: Active Medications Acetaminophen (Tylenol -) 650 mg PO Q6H PRN PRN Reason: FEVER Last Admin: 12/03/18 03:30 Dose: 650 mg Albuterol Sulfate (Ventolin Hfa Inhaler -) 1 puff IH Q6H [facility] Last Admin: 12/05/18 09:26 Dose: 1 puff Aspirin (Asa -) 81 mg PO DAILY [facility] Last Admin: 12/05/18 09:25 Dose: 81 mg Calcium Carbonate (Os-Raffi 500mg -) 500 mg PO BID [facility] Last Admin: 12/05/18 09:25 Dose: 500 mg Digoxin (Lanoxin -) 0.125 mg PO DAILY [facility] Last Admin: 12/05/18 09:25 Dose: 0.125 mg Docusate Sodium (Colace -) 100 mg PO TID [facility] Last Admin: 12/05/18 06:02 Dose: 100 mg Furosemide (Lasix Injection -) 80 mg IVPB DAILY [facility] Last Admin: 12/05/18 09:25 Dose: 80 mg Guaifenesin (Robitussin Dm -) 10 ml PO Q6H PRN PRN Reason: COUGH Last Admin: 12/04/18 00:50 Dose: 10 ml Azithromycin 250 mg/ Dextrose 250 mls @ 250 mls/hr IVPB DAILY [facility] Last Admin: 12/05/18 09:27 Dose: 250 mls/hr Ceftriaxone Sodium 1 gm/ (Dextrose) 50 mls @ 100 mls/hr IVPB DAILY [facility]; Protocol Last Admin: 12/05/18 09:26 Dose: 100 mls/hr Insulin Aspart (Novolog Vial Sliding Scale -) 1 vial SQ ACHS [facility]; Protocol Last Admin: 12/05/18 06:03 Dose: 6 units Insulin Detemir (Levemir Vial) 10 units SQ HS [facility] Last Admin: 12/04/18 21:27 Dose: 10 units Magnesium Citrate (Citroma -) 300 ml PO Q48H PRN PRN Reason: CONSTIPATION Magnesium Oxide (Mag-Ox -) 400 mg PO BID [facility] Last Admin: 12/05/18 09:25 Dose: 400 mg Methylprednisolone Sodium Succinate (Solu-Medrol -) 40 mg IVPUSH DAILY [facility] Last Admin: 12/05/18 09:25 Dose: 40 mg Metoprolol Tartrate (Lopressor -) 50 mg PO Q6HPO [facility] Last Admin: 12/05/18 06:03 Dose: 50 mg Metoprolol Tartrate (Lopressor Injection -) 5 mg IVPUSH Q4H PRN PRN Reason: TACHYCARDIA Multivitamins/Minerals/Vitamin C (Tab-A-Vit -) 1 tab PO DAILY [facility] Last Admin: 12/05/18 09:25 Dose: 1 tab Rivaroxaban (Xarelto) 15 mg PO DAILY@1800 [facility] Last Admin: 12/04/18 17:55 Dose: 15 mg - Objective Vital Signs: Vital Signs Temperature 97.9 F 12/05/18 09:00 Pulse Rate 111 H 12/05/18 09:25 Respiratory Rate 20 12/05/18 09:00 Blood Pressure 131/71 12/05/18 09:00 O2 Sat by Pulse Oximetry (%) 100 12/05/18 10:17 Constitutional: Yes: No Distress Eyes: Yes: WNL HENT: Yes: WNL Cardiovascular: Yes: Pulse Irregular Respiratory: Yes: Diminished Extremities: Yes: WNL Edema: LLE: Trace, RLE: Trace Labs: CBC, BMP 12/05/18 09:00 12/05/18 09:00 INR, PTT INR 1.23 (0.83-1.09) H 11/27/18 08:50 Assessment/Plan 1. PAF: -known dx since at least 2014, at that time on amiodarone with dr robledo--pt not currently taking, thinks he stopped it since 2014. -Cont metoprolol and dig. Monitor on tele. -CHADS VASC 4--warrants AC. xarelto started here (15mg qd for GFR 15-50) 2. Acute on chronic syst HF: Diuresing and overall improved. -previously with known moderately decr LVSF 2014. Now with EF 30%, global -etiology uncertain--? if completed outpt ischemia w/u at time of initial dx -suspect may have high, longstanding burden of tachycardia as he has no sx's when in rapid AF--? isch CMP -echo 11/30 showed severe global HK, EF 30%, moderate MR -holding enalapril to allow bp room to tolerate diuretics, AF rate control -no concern for ACS (trop neg x 2) -ischemic w/u when euvolemic -BP running low, last CXR improved. BUN climbing. Will decrease Lasix to daily 12/04: BP stable. On lasix 80mg IV daily. Creat 1.6 (1.2) will watch as baseline has been 1.6. Last dig 0.82 12/05: Stable. Continue lasix 80mg IV BID. Creat 1.4 (improved). If Creat continues to improve will need adjusted dose of Xarelto (20mg) prior to Dc. 3. V[place]: -creat 1.7, from 1.3 in 2016 -? cardiorenal syndrome -Creat stable thus far with diuresis. 4. VT: -NSVT on tele, vs AF with aberrancy -K > 4, Mg > 2 5. HTN: -low bp's here, improved. -TANMAY-I on hold for now. 6. DM: -per hospitalist
--- NOTE | 2018-12-05 10:44 | PN ---
Progress Note (short form) - Note Progress Note: RENAL Coverage for Dr Garcia Pt is awake and alert says he feels better Last Vital Signs Temp Pulse Resp BP Pulse Ox 97.9 F 111 H 20 131/71 100 12/05/18 09:00 12/05/18 09:25 12/05/18 09:00 12/05/18 09:00 12/05/18 10:17 appears comfortable lungs has some crackles at bases no wheeze cvs s1s 2 rr abd soft ext no edema neuro a+ox3 CBC, BMP 12/05/18 09:00 12/05/18 09:00 Generic Name Dose Route Start Last Admin Trade Name Freq PRN Reason Stop Dose Admin Acetaminophen 650 mg 11/29/18 18:42 12/03/18 03:30 Tylenol - PO 650 mg Q6H PRN Administration FEVER Albuterol Sulfate 1 puff 11/30/18 09:45 12/04/18 05:35 Ventolin Hfa Inhaler - IH 1 puff Q6H [facility] Administration Aspirin 81 mg 11/28/18 10:00 12/04/18 10:21 Asa - PO 81 mg DAILY [facility] Administration Calcium Carbonate 500 mg 11/30/18 22:00 12/04/18 10:20 Os-Raffi 500mg - PO 500 mg BID [facility] Administration Digoxin 0.125 mg 11/29/18 10:00 12/04/18 10:20 Lanoxin - PO 0.125 mg DAILY [facility] Administration Docusate Sodium 100 mg 11/30/18 22:00 12/04/18 05:36 Colace - PO 100 mg TID [facility] Administration Furosemide 80 mg 12/04/18 10:00 12/04/18 10:27 Lasix Injection - IVPB 80 mg DAILY [facility] Administration Guaifenesin 10 ml 11/29/18 05:25 12/04/18 00:50 Robitussin Dm - PO 10 ml Q6H PRN Administration COUGH Azithromycin 250 mg/ Dextrose 250 mls @ 250 mls/hr 12/01/18 10:00 12/04/18 10 :27 IVPB 250 mls/hr DAILY [facility] Administration Ceftriaxone Sodium 1 gm/ 50 mls @ 100 mls/hr 12/01/18 13:15 12/04/18 10:26 Dextrose IVPB 100 mls/hr DAILY [facility] Administration Protocol Insulin Aspart 1 vial 11/27/18 16:30 12/04/18 06:35 Novolog Vial Sliding Scale - SQ 8 units TIDAC [facility] Administration Protocol Magnesium Citrate 300 ml 11/29/18 17:57 Citroma - PO Q48H PRN CONSTIPATION Magnesium Oxide 400 mg 12/01/18 22:00 12/04/18 10:21 Mag-Ox - PO 400 mg BID [facility] Administration Methylprednisolone Sodium Succinate 40 mg 12/03/18 11:45 12/04/18 10:26 Solu-Medrol - IVPUSH 40 mg DAILY [facility] Administration Metoprolol Tartrate 50 mg 12/01/18 12:00 12/04/18 05:36 Lopressor - PO 50 mg Q6HPO [facility] Administration Metoprolol Tartrate 5 mg 12/02/18 11:33 Lopressor Injection - IVPUSH Q4H PRN TACHYCARDIA Multivitamins/Minerals/Vitamin C 1 tab 12/01/18 10:00 12/04/18 10:21 Tab-A-Vit - PO 1 tab DAILY [facility] Administration Rivaroxaban 15 mg 11/28/18 18:00 12/03/18 18:56 Xarelto PO 15 mg DAILY@1800 [facility] Administration 68 year old gentleman with hx of systolic HF, Afib, DM who presented with complaints of chest pain, shortness of breath and LE swelling and admitted for CHF exacerbation with downtrending serum Na and Cr of 1.6. hyponatremia worsened by hyperglycemia- previously had a low urine osmolality which likely suggests increased water intake uncontrolled DM chf Asthma anemia nodular density in right upper lobe PLAN would contnue water restriction needs to have steroids tapered sodium did improve increase insulin to control glucose and prevent further deterioration in kidney function hold diuretics given high bicarb MV
--- NOTE | 2018-12-05 10:50 | PN ---
Progress Note, Physician History of Present Illness: PULMONARY ALERT,FEELING BETTER ON NASAL CANNULA O2 SAT 97%,-RESP DISTRESS - Current Medication List Current Medications: Active Medications Acetaminophen (Tylenol -) 650 mg PO Q6H PRN PRN Reason: FEVER Last Admin: 12/03/18 03:30 Dose: 650 mg Albuterol Sulfate (Ventolin Hfa Inhaler -) 1 puff IH Q6H [facility] Last Admin: 12/05/18 09:26 Dose: 1 puff Aspirin (Asa -) 81 mg PO DAILY [facility] Last Admin: 12/05/18 09:25 Dose: 81 mg Calcium Carbonate (Os-Raffi 500mg -) 500 mg PO BID [facility] Last Admin: 12/05/18 09:25 Dose: 500 mg Digoxin (Lanoxin -) 0.125 mg PO DAILY [facility] Last Admin: 12/05/18 09:25 Dose: 0.125 mg Docusate Sodium (Colace -) 100 mg PO TID [facility] Last Admin: 12/05/18 06:02 Dose: 100 mg Furosemide (Lasix Injection -) 80 mg IVPB DAILY [facility] Last Admin: 12/05/18 09:25 Dose: 80 mg Guaifenesin (Robitussin Dm -) 10 ml PO Q6H PRN PRN Reason: COUGH Last Admin: 12/04/18 00:50 Dose: 10 ml Azithromycin 250 mg/ Dextrose 250 mls @ 250 mls/hr IVPB DAILY [facility] Last Admin: 12/05/18 09:27 Dose: 250 mls/hr Ceftriaxone Sodium 1 gm/ (Dextrose) 50 mls @ 100 mls/hr IVPB DAILY [facility]; Protocol Last Admin: 12/05/18 09:26 Dose: 100 mls/hr Insulin Aspart (Novolog Vial Sliding Scale -) 1 vial SQ ACHS [facility]; Protocol Last Admin: 12/05/18 06:03 Dose: 6 units Insulin Detemir (Levemir Vial) 10 units SQ HS [facility] Last Admin: 12/04/18 21:27 Dose: 10 units Magnesium Citrate (Citroma -) 300 ml PO Q48H PRN PRN Reason: CONSTIPATION Magnesium Oxide (Mag-Ox -) 400 mg PO BID [facility] Last Admin: 12/05/18 09:25 Dose: 400 mg Methylprednisolone Sodium Succinate (Solu-Medrol -) 40 mg IVPUSH DAILY [facility] Last Admin: 12/05/18 09:25 Dose: 40 mg Metoprolol Tartrate (Lopressor -) 50 mg PO Q6HPO [facility] Last Admin: 12/05/18 06:03 Dose: 50 mg Metoprolol Tartrate (Lopressor Injection -) 5 mg IVPUSH Q4H PRN PRN Reason: TACHYCARDIA Multivitamins/Minerals/Vitamin C (Tab-A-Vit -) 1 tab PO DAILY [facility] Last Admin: 12/05/18 09:25 Dose: 1 tab Rivaroxaban (Xarelto) 15 mg PO DAILY@1800 [facility] Last Admin: 12/04/18 17:55 Dose: 15 mg - Objective Vital Signs: Vital Signs Temperature 97.9 F 12/05/18 09:00 Pulse Rate 111 H 12/05/18 09:25 Respiratory Rate 20 12/05/18 09:00 Blood Pressure 131/71 12/05/18 09:00 O2 Sat by Pulse Oximetry (%) 100 12/05/18 10:17 Constitutional: Yes: Well Nourished, Calm Eyes: Yes: WNL HENT: Yes: WNL Neck: Yes: WNL Cardiovascular: Yes: Pulse Irregular, S1, S2 Respiratory: Yes: Diminished, Rales (BIBASILAR CRACKLES) Gastrointestinal: Yes: Normal Bowel Sounds, Soft Extremities: Yes: WNL Edema: No Labs: CBC, BMP 12/05/18 09:00 12/05/18 09:00 INR, PTT INR 1.23 (0.83-1.09) H 11/27/18 08:50 Problem List - Problems (1) Acute hypoxemic respiratory failure Code(s): J96.01 - ACUTE RESPIRATORY FAILURE WITH HYPOXIA (2) [place] (acute kidney injury) Code(s): N17.9 - ACUTE KIDNEY FAILURE, UNSPECIFIED (3) Acute on chronic HFrEF (heart failure with reduced ejection fraction) Code(s): I50.23 - ACUTE ON CHRONIC SYSTOLIC (CONGESTIVE) HEART FAILURE (4) Atrial fibrillation with rapid ventricular response Code(s): I48.91 - UNSPECIFIED ATRIAL FIBRILLATION (5) CHF (congestive heart failure) Code(s): I50.9 - HEART FAILURE, UNSPECIFIED (6) Dyslipidemia associated with type 2 diabetes mellitus Code(s): E11.69 - TYPE 2 DIABETES MELLITUS WITH OTHER SPECIFIED COMPLICATION; E78.5 - HYPERLIPIDEMIA, UNSPECIFIED (7) Elevated d-dimer Code(s): R79.89 - OTHER SPECIFIED ABNORMAL FINDINGS OF BLOOD CHEMISTRY (8) Hypotension Code(s): I95.9 - HYPOTENSION, UNSPECIFIED (9) SOB (shortness of breath) Code(s): R06.02 - SHORTNESS OF BREATH (10) Hypertension Code(s): I10 - ESSENTIAL (PRIMARY) HYPERTENSION Qualifiers: Hypertension type: secondary to endocrine disorders Qualified Code(s): I15.2 - Hypertension secondary to endocrine disorders (11) Acute respiratory failure Code(s): J96.00 - ACUTE RESPIRATORY FAILURE, UNSP W HYPOXIA OR HYPERCAPNIA Assessment/Plan IMP ACUTE RESPIRATORY FAILURE ACUTE ON CHRONIC CHF/CARDIOMYOPATHY SEVERE LV DYSFUNCTION WITH GLOBAL HYPOKINESIS LVEF 30% AFIB WITH RVR ? H/O COPD PNEUMONIA HTN ELEVATED D-DIMER NON-SPECIFIC CANNOT EXCLUDE PE ACUTE KIDNEY INJURY RUL NODULE PLAN RATE CONTROL PER CARDIOLOGY CONTINUE MEDROL LASIX AC XOPENEX PRN NIPPV NEEDED O2 TO MAINTAIN O2 SAT > 90% MONITOR LYTES,RENAL FUNCTION DAILY WT PET SCAN OUTPATIENT TO EVALUATE RUL NODULE DR SKY Problem List - Problems (1) Acute hypoxemic respiratory failure Code(s): J96.01 - ACUTE RESPIRATORY FAILURE WITH HYPOXIA (2) [place] (acute kidney injury) Code(s): N17.9 - ACUTE KIDNEY FAILURE, UNSPECIFIED (3) Acute on chronic HFrEF (heart failure with reduced ejection fraction) Code(s): I50.23 - ACUTE ON CHRONIC SYSTOLIC (CONGESTIVE) HEART FAILURE (4) Atrial fibrillation with rapid ventricular response Code(s): I48.91 - UNSPECIFIED ATRIAL FIBRILLATION (5) CHF (congestive heart failure) Code(s): I50.9 - HEART FAILURE, UNSPECIFIED (6) Dyslipidemia associated with type 2 diabetes mellitus Code(s): E11.69 - TYPE 2 DIABETES MELLITUS WITH OTHER SPECIFIED COMPLICATION; E78.5 - HYPERLIPIDEMIA, UNSPECIFIED (7) Elevated d-dimer Code(s): R79.89 - OTHER SPECIFIED ABNORMAL FINDINGS OF BLOOD CHEMISTRY (8) Hypotension Code(s): I95.9 - HYPOTENSION, UNSPECIFIED (9) SOB (shortness of breath) Code(s): R06.02 - SHORTNESS OF BREATH (10) Hypertension Code(s): I10 - ESSENTIAL (PRIMARY) HYPERTENSION Qualifiers: Hypertension type: secondary to endocrine disorders Qualified Code(s): I15.2 - Hypertension secondary to endocrine disorders (11) Acute respiratory failure Code(s): J96.00 - ACUTE RESPIRATORY FAILURE, UNSP W HYPOXIA OR HYPERCAPNIA
--- NOTE | 2018-12-05 14:35 | PN ---
Progress Note, Physician - Current Medication List Current Medications: Active Medications Acetaminophen (Tylenol -) 650 mg PO Q6H PRN PRN Reason: FEVER Last Admin: 12/03/18 03:30 Dose: 650 mg Albuterol Sulfate (Ventolin Hfa Inhaler -) 1 puff IH Q6H [facility] Last Admin: 12/05/18 09:26 Dose: 1 puff Aspirin (Asa -) 81 mg PO DAILY [facility] Last Admin: 12/05/18 09:25 Dose: 81 mg Calcium Carbonate (Os-Raffi 500mg -) 500 mg PO BID [facility] Last Admin: 12/05/18 09:25 Dose: 500 mg Digoxin (Lanoxin -) 0.125 mg PO DAILY [facility] Last Admin: 12/05/18 09:25 Dose: 0.125 mg Docusate Sodium (Colace -) 100 mg PO TID [facility] Last Admin: 12/05/18 13:06 Dose: 100 mg Furosemide (Lasix Injection -) 80 mg IVPB DAILY [facility] Last Admin: 12/05/18 09:25 Dose: 80 mg Guaifenesin (Robitussin Dm -) 10 ml PO Q6H PRN PRN Reason: COUGH Last Admin: 12/04/18 00:50 Dose: 10 ml Azithromycin 250 mg/ Dextrose 250 mls @ 250 mls/hr IVPB DAILY [facility] Last Admin: 12/05/18 09:27 Dose: 250 mls/hr Ceftriaxone Sodium 1 gm/ (Dextrose) 50 mls @ 100 mls/hr IVPB DAILY [facility]; Protocol Last Admin: 12/05/18 09:26 Dose: 100 mls/hr Insulin Aspart (Novolog Vial Sliding Scale -) 1 vial SQ ACHS [facility]; Protocol Last Admin: 12/05/18 11:09 Dose: 6 units Insulin Detemir (Levemir Vial) 10 units SQ HS [facility] Last Admin: 12/04/18 21:27 Dose: 10 units Magnesium Citrate (Citroma -) 300 ml PO Q48H PRN PRN Reason: CONSTIPATION Magnesium Oxide (Mag-Ox -) 400 mg PO BID [facility] Last Admin: 12/05/18 09:25 Dose: 400 mg Methylprednisolone Sodium Succinate (Solu-Medrol -) 40 mg IVPUSH DAILY [facility] Last Admin: 12/05/18 09:25 Dose: 40 mg Metoprolol Tartrate (Lopressor -) 50 mg PO Q6HPO [facility] Last Admin: 12/05/18 11:55 Dose: 50 mg Metoprolol Tartrate (Lopressor Injection -) 5 mg IVPUSH Q4H PRN PRN Reason: TACHYCARDIA Multivitamins/Minerals/Vitamin C (Tab-A-Vit -) 1 tab PO DAILY [facility] Last Admin: 12/05/18 09:25 Dose: 1 tab Rivaroxaban (Xarelto) 15 mg PO DAILY@1800 [facility] Last Admin: 12/04/18 17:55 Dose: 15 mg - Objective Vital Signs: Vital Signs Temperature 97.9 F 12/05/18 09:00 Pulse Rate 111 H 12/05/18 09:25 Respiratory Rate 20 12/05/18 09:00 Blood Pressure 131/71 12/05/18 09:00 O2 Sat by Pulse Oximetry (%) 100 12/05/18 10:17 Labs: CBC, BMP 12/05/18 09:00 12/05/18 09:00 INR, PTT INR 1.23 (0.83-1.09) H 11/27/18 08:50
--- NOTE | 2018-12-05 16:17 | PN ---
Progress Note, Physician Chief Complaint: feels better, breathing better History of Present Illness: Patient is a 68 year old male with a significant past medical history of A-fib ( no reported anticoagulation control), HTN, HLD and NIDDM (on metformin). He comes to the ED on 11/27/2018 with shortness of breath x 1 day. He was on [place] and arrived to [place] on 11/17/2018 and has been doing well except for bilateral lower ext edema, but then developed shortness of breath. BNP 7k on admission. His PCP is in [facility]. Patient has no prescription insurance. All medications to be called into [facility] pharmacy. He will need Xarelto on d/c. On exam, he is awake and alert, armenian speaking only. - Current Medication List Current Medications: Active Medications Acetaminophen (Tylenol -) 650 mg PO Q6H PRN PRN Reason: FEVER Last Admin: 12/03/18 03:30 Dose: 650 mg Albuterol Sulfate (Ventolin Hfa Inhaler -) 1 puff IH Q6H [facility] Last Admin: 12/05/18 09:26 Dose: 1 puff Aspirin (Asa -) 81 mg PO DAILY [facility] Last Admin: 12/05/18 09:25 Dose: 81 mg Calcium Carbonate (Os-Raffi 500mg -) 500 mg PO BID [facility] Last Admin: 12/05/18 09:25 Dose: 500 mg Digoxin (Lanoxin -) 0.125 mg PO DAILY [facility] Last Admin: 12/05/18 09:25 Dose: 0.125 mg Docusate Sodium (Colace -) 100 mg PO TID [facility] Last Admin: 12/05/18 13:06 Dose: 100 mg Furosemide (Lasix Injection -) 80 mg IVPB DAILY [facility] Last Admin: 12/05/18 09:25 Dose: 80 mg Guaifenesin (Robitussin Dm -) 10 ml PO Q6H PRN PRN Reason: COUGH Last Admin: 12/04/18 00:50 Dose: 10 ml Insulin Aspart (Novolog Vial Sliding Scale -) 1 vial SQ [facility]; Protocol Last Admin: 12/05/18 11:09 Dose: 6 units Insulin Detemir (Levemir Vial) 10 units SQ HS [facility] Last Admin: 12/04/18 21:27 Dose: 10 units Magnesium Citrate (Citroma -) 300 ml PO Q48H PRN PRN Reason: CONSTIPATION Magnesium Oxide (Mag-Ox -) 400 mg PO BID [facility] Last Admin: 12/05/18 09:25 Dose: 400 mg Methylprednisolone Sodium Succinate (Solu-Medrol -) 40 mg IVPUSH DAILY [facility] Last Admin: 12/05/18 09:25 Dose: 40 mg Metoprolol Tartrate (Lopressor -) 50 mg PO Q6HPO [facility] Last Admin: 12/05/18 11:55 Dose: 50 mg Metoprolol Tartrate (Lopressor Injection -) 5 mg IVPUSH Q4H PRN PRN Reason: TACHYCARDIA Multivitamins/Minerals/Vitamin C (Tab-A-Vit -) 1 tab PO DAILY [facility] Last Admin: 12/05/18 09:25 Dose: 1 tab Rivaroxaban (Xarelto) 15 mg PO DAILY@1800 [facility] Last Admin: 12/04/18 17:55 Dose: 15 mg - Objective Vital Signs: Vital Signs Temperature 97.9 F 12/05/18 15:09 Pulse Rate 102 H 12/05/18 15:09 Respiratory Rate 20 12/05/18 15:09 Blood Pressure 105/74 12/05/18 15:09 O2 Sat by Pulse Oximetry (%) 100 12/05/18 10:17 Constitutional: Yes: Well Nourished, No Distress, Calm Eyes: Yes: WNL HENT: Yes: Atraumatic Neck: Yes: WNL Cardiovascular: Yes: Pulse Irregular Respiratory: Yes: Cough, Rales Gastrointestinal: Yes: Normal Bowel Sounds ...Rectal Exam: Yes: Deferred Genitourinary: Yes: WNL Edema: No Integumentary: Yes: WNL Neurological: Yes: WNL, Alert, Oriented Labs: CBC, BMP 12/05/18 09:00 12/05/18 09:00 INR, PTT INR 1.23 (0.83-1.09) H 11/27/18 08:50 Problem List - Problems (1) Hyponatremia Assessment/Plan: Serum sodium improved. Seen by nephrology and recommendations appreciated. Patient on a fluid restriction of 1.5 liters Will continue lasix per cardiology and nephrology monitor cmp. Patient is currently asymptomatic and reports feeling better. Code(s): E87.1 - HYPO-OSMOLALITY AND HYPONATREMIA (2) Sepsis Assessment/Plan: Sepsis resolved. seen by ID and all antibiotics discontinued. Code(s): A41.9 - SEPSIS, UNSPECIFIED ORGANISM Qualifiers: Sepsis type: sepsis due to unspecified organism Qualified Code(s): A41.9 - Sepsis, unspecified organism (3) [place] (acute kidney injury) Assessment/Plan: mildly elevated creatinine. based on creat in past admission, baseline 1.0-1.3 monitor kidney function and encourage PO intake, monitor while closely while on diuretic therapy. Code(s): N17.9 - ACUTE KIDNEY FAILURE, UNSPECIFIED (4) Atrial fibrillation with rapid ventricular response Assessment/Plan: rate control with metoprolol, on xarelto daily. Code(s): I48.91 - UNSPECIFIED ATRIAL FIBRILLATION (5) Acute hypoxemic respiratory failure Assessment/Plan: on supplemental oxygen pulmonary following and started on xopenex on noctural bipap CT scan shows lung nodule, patient will need a pet scan outpatient to further evaluate. Code(s): J96.01 - ACUTE RESPIRATORY FAILURE WITH HYPOXIA (6) Acute on chronic HFrEF (heart failure with reduced ejection fraction) Assessment/Plan: monitor daily weights, intake and output Code(s): I50.23 - ACUTE ON CHRONIC SYSTOLIC (CONGESTIVE) HEART FAILURE (7) CHF (congestive heart failure) Assessment/Plan: on diuretic therapy. Echo shows EF 30%. LV mildly dilated, severe global hypokinesis of left ventricle. left ventricular systolic function is severely reduced. right ventricle normal, left atria mildly dilated. right atrial size normal. mild to moderate mitral regurg. mitral regurg jet is eccentrically directed. mild aortic valve thickening. Code(s): I50.9 - HEART FAILURE, UNSPECIFIED (8) Elevated d-dimer Assessment/Plan: elevated d dimer. Echo shows heart failure. lower extremity dopplers negative for DVT. pulmonary following Code(s): R79.89 - OTHER SPECIFIED ABNORMAL FINDINGS OF BLOOD CHEMISTRY (9) D dimer value normal Assessment/Plan: elevated d dimer. unable to perform cta secondary to [place] pulmonary following patient on anticoagulation Code(s): Z01.89 - ENCOUNTER FOR OTHER SPECIFIED SPECIAL EXAMINATIONS (10) Acute metabolic encephalopathy Assessment/Plan: mentation back to baseline seen by neuro, notes reviewed and appreciated. head ct negative. monitor mental status Code(s): G93.41 - METABOLIC ENCEPHALOPATHY (11) Prophylactic measure Assessment/Plan: fen tolerating PO monitor electrolytes Calcium corrected at 8.2 low salt diet prophy dvt: on xarelto gi: on bowel regimen. physical therapy when more stable Code(s): Z29.9 - ENCOUNTER FOR PROPHYLACTIC MEASURES, UNSPECIFIED Visit type - Emergency Visit Emergency Visit: Yes ED Registration Date: 11/27/18 Care time: The patient presented to the Emergency Department on the above date and was hospitalized for further evaluation of their emergent condition. - New Patient This patient is new to me today: No - Critical Care Critical Care patient: No - Discharge Referral Referred to [facility] No
[2018-12-05] MEDS: RIVAROXABAN 15 MG TABLET PO SCH (17:19)
[2018-12-05] MEDS: INSULIN (LEVEMIR) 100 UNITS/ML UNITS SQ SCH (21:39)
[2018-12-06] MEDS: METOPROLOL TARTRATE 50 MG TABLET (FP) PO SCH ×5 (02:26→23:35)
[2018-12-06] MEDS: ALBUTEROL SO4 8 GM HFA INHALER IH SCH ×4 (02:30→17:04)
[2018-12-06] MEDS: DOCUSATE SODIUM 100 MG CAPSULE (FP) PO SCH ×3 (06:27→21:25)
[2018-12-06] MEDS: INSULIN SLIDING SCALE (NOVOLOG) 1 VIAL SQ SCH ×4 (06:46→21:35)
--- NOTE | 2018-12-06 08:15 | PN ---
Progress Note, Physician Chief Complaint: Patient is a 68 year old male with a significant past medical history of A-fib ( no reported anticoagulation control), HTN, HLD and NIDDM (on metformin). He comes to the ED on 11/27/2018 with shortness of breath x 1 day. He was on [place] and arrived to [place] on 11/17/2018 and has been doing well except for bilateral lower ext edema, but then developed shortness of breath. BNP 7k on admission. His PCP is in [facility]. Patient has no prescription insurance. All medications to be called into [facility]. On exam, he is awake and alert, syriac speaking only. met with family yesterday and informed me that patient is not able to afford his home medications Xarelto is an expensive anticoagulant and patient unable to afford. estimated cost if apx $540 per month will start on bridge to coumadin *from Rivoroxaban to warfarin, will bridge with lovenox or heparin drip as a bridge and convert to coumadin when inr is therapeutic. History of Present Illness: patient not yet seen. met with family yesterday and informed me that patient is not able to afford his home medications Xarelto is an expensive anticoagulant and patient unable to afford. estimated cost if apx $540 per month will start on bridge to coumadin *from Rivoroxaban to warfarin, will bridge with lovenox or heparin drip as a bridge and convert to coumadin when inr is therapeutic. appointment: an appointment has been set up - ThursdayDecember AT 10.AM.. with Dr. Winters. THIS IS FOR AN INR CHECK AND POST HOSPITAL CHECK - Current Medication List Current Medications: Active Medications Acetaminophen (Tylenol -) 650 mg PO Q6H PRN PRN Reason: FEVER Last Admin: 12/03/18 03:30 Dose: 650 mg Albuterol Sulfate (Ventolin Hfa Inhaler -) 1 puff IH Q6H [facility] Last Admin: 12/06/18 03:30 Dose: 1 puff Aspirin (Asa -) 81 mg PO DAILY [facility] Last Admin: 12/05/18 09:25 Dose: 81 mg Calcium Carbonate (Os-Raffi 500mg -) 500 mg PO BID [facility] Last Admin: 12/05/18 21:56 Dose: 500 mg Digoxin (Lanoxin -) 0.125 mg PO DAILY [facility] Last Admin: 12/05/18 09:25 Dose: 0.125 mg Docusate Sodium (Colace -) 100 mg PO TID [facility] Last Admin: 12/06/18 06:27 Dose: 100 mg Furosemide (Lasix Injection -) 80 mg IVPB DAILY [facility] Last Admin: 12/05/18 09:25 Dose: 80 mg Guaifenesin (Robitussin Dm -) 10 ml PO Q6H PRN PRN Reason: COUGH Last Admin: 12/04/18 00:50 Dose: 10 ml Insulin Aspart (Novolog Vial Sliding Scale -) 1 vial SQ [facility]; Protocol Last Admin: 12/06/18 06:46 Dose: 8 units Insulin Detemir (Levemir Vial) 15 units SQ HS [facility] Last Admin: 12/05/18 21:39 Dose: 15 units Magnesium Citrate (Citroma -) 300 ml PO Q48H PRN PRN Reason: CONSTIPATION Magnesium Oxide (Mag-Ox -) 400 mg PO BID [facility] Last Admin: 12/05/18 21:39 Dose: 400 mg Methylprednisolone Sodium Succinate (Solu-Medrol -) 40 mg IVPUSH DAILY [facility] Last Admin: 12/05/18 09:25 Dose: 40 mg Metoprolol Tartrate (Lopressor -) 50 mg PO Q6HPO [facility] Last Admin: 12/06/18 06:27 Dose: 50 mg Metoprolol Tartrate (Lopressor Injection -) 5 mg IVPUSH Q4H PRN PRN Reason: TACHYCARDIA Multivitamins/Minerals/Vitamin C (Tab-A-Vit -) 1 tab PO DAILY [facility] Last Admin: 12/05/18 09:25 Dose: 1 tab - Objective Vital Signs: Vital Signs Temperature 98 F 12/06/18 05:00 Pulse Rate 107 H 12/06/18 05:00 Respiratory Rate 20 12/06/18 05:00 Blood Pressure 126/72 12/06/18 05:00 O2 Sat by Pulse Oximetry (%) 100 12/05/18 20:38 Constitutional: Yes: Well Nourished Eyes: Yes: WNL HENT: Yes: WNL Neck: Yes: WNL Respiratory: Yes: On Nasal O2 Gastrointestinal: Yes: WNL ...Rectal Exam: Yes: Deferred Edema: Yes Edema: LLE: Trace, RLE: Trace Labs: CBC, BMP 12/05/18 09:00 12/05/18 09:00 INR, PTT INR 1.23 (0.83-1.09) H 11/27/18 08:50 Problem List - Problems (1) Hyponatremia Assessment/Plan: Serum sodium improved. Seen by nephrology and recommendations appreciated. Patient on a fluid restriction of 1.5 liters Will continue lasix per cardiology and nephrology monitor cmp. Patient is currently asymptomatic and reports feeling better. Code(s): E87.1 - HYPO-OSMOLALITY AND HYPONATREMIA (2) Sepsis Assessment/Plan: Sepsis resolved. seen by ID and all antibiotics discontinued. Code(s): A41.9 - SEPSIS, UNSPECIFIED ORGANISM Qualifiers: Sepsis type: sepsis due to unspecified organism Qualified Code(s): A41.9 - Sepsis, unspecified organism (3) [place] (acute kidney injury) Assessment/Plan: mildly elevated creatinine. based on creat in past admission, baseline 1.0-1.3 monitor kidney function and encourage PO intake, monitor while closely while on diuretic therapy. Code(s): N17.9 - ACUTE KIDNEY FAILURE, UNSPECIFIED (4) Atrial fibrillation with rapid ventricular response Assessment/Plan: rate control with metoprolol, started on coumadin with lovenox bridge. Code(s): I48.91 - UNSPECIFIED ATRIAL FIBRILLATION (5) Acute hypoxemic respiratory failure Assessment/Plan: on supplemental oxygen pulmonary following and started on xopenex on noctural bipap CT scan shows lung nodule, patient will need a pet scan outpatient to further evaluate as an outpatient. pre and post prior to discharge Code(s): J96.01 - ACUTE RESPIRATORY FAILURE WITH HYPOXIA (6) Acute on chronic HFrEF (heart failure with reduced ejection fraction) Assessment/Plan: monitor daily weights, intake and output Code(s): I50.23 - ACUTE ON CHRONIC SYSTOLIC (CONGESTIVE) HEART FAILURE (7) CHF (congestive heart failure) Assessment/Plan: on diuretic therapy. Echo shows EF 30%. LV mildly dilated, severe global hypokinesis of left ventricle. left ventricular systolic function is severely reduced. right ventricle normal, left atria mildly dilated. right atrial size normal. mild to moderate mitral regurg. mitral regurg jet is eccentrically directed. mild aortic valve thickening. Code(s): I50.9 - HEART FAILURE, UNSPECIFIED (8) Elevated d-dimer Assessment/Plan: elevated d dimer. Echo shows heart failure. lower extremity dopplers negative for DVT. pulmonary following Code(s): R79.89 - OTHER SPECIFIED ABNORMAL FINDINGS OF BLOOD CHEMISTRY (9) D dimer value normal Assessment/Plan: elevated d dimer. unable to perform cta secondary to [place] pulmonary following patient on anticoagulation Code(s): Z01.89 - ENCOUNTER FOR OTHER SPECIFIED SPECIAL EXAMINATIONS (10) Acute metabolic encephalopathy Assessment/Plan: mentation back to baseline Code(s): G93.41 - METABOLIC ENCEPHALOPATHY (11) Prophylactic measure Assessment/Plan: fen tolerating PO monitor electrolytes Calcium corrected at 8.2 low salt diet prophy dvt: on coumadin and lovenox until inr 2, then just coumadin gi: on bowel regimen. physical therapy when more stable Code(s): Z29.9 - ENCOUNTER FOR PROPHYLACTIC MEASURES, UNSPECIFIED Visit type - Emergency Visit Emergency Visit: Yes ED Registration Date: 11/27/18 Care time: The patient presented to the Emergency Department on the above date and was hospitalized for further evaluation of their emergent condition. - New Patient This patient is new to me today: No - Critical Care Critical Care patient: No - Discharge Referral Referred to [facility] No
[2018-12-06] MEDS: DIGOXIN 0.125 MG TABLET (FP) PO SCH (09:46)
[2018-12-06] MEDS: MULTIVITAMINS (DAILY MVI) TABLET (FP) PO SCH (09:46)
[2018-12-06] MEDS: ASPIRIN 81 MG CHEWABLE TABLETS PO SCH (09:46)
[2018-12-06] MEDS: methylPREDNISolone NA SUCC 40 MG/1 ML VIAL IVPUSH SCH (09:46)
[2018-12-06] MEDS: MAGNESIUM OXIDE 400 MG TABLET (FP) PO SCH ×2 (09:47→21:26)
[2018-12-06] MEDS: CALCIUM (OYSTER SHELL) 500 MG TABLET (FP) PO SCH ×2 (09:47→21:26)
--- NOTE | 2018-12-06 09:55 | PN ---
Progress Note, Physician History of Present Illness: PULMONARY AWAKE ALERT,OOB-CHAIR ON NASAL CANNULA NO DISTRESS - Current Medication List Current Medications: Active Medications Acetaminophen (Tylenol -) 650 mg PO Q6H PRN PRN Reason: FEVER Last Admin: 12/03/18 03:30 Dose: 650 mg Albuterol Sulfate (Ventolin Hfa Inhaler -) 1 puff IH Q6H [facility] Last Admin: 12/06/18 09:49 Dose: 1 puff Aspirin (Asa -) 81 mg PO DAILY [facility] Last Admin: 12/06/18 09:46 Dose: 81 mg Calcium Carbonate (Os-Raffi 500mg -) 500 mg PO BID [facility] Last Admin: 12/06/18 09:47 Dose: 500 mg Digoxin (Lanoxin -) 0.125 mg PO DAILY [facility] Last Admin: 12/06/18 09:46 Dose: 0.125 mg Docusate Sodium (Colace -) 100 mg PO TID [facility] Last Admin: 12/06/18 06:27 Dose: 100 mg Furosemide (Lasix Injection -) 80 mg IVPB DAILY [facility] Last Admin: 12/05/18 09:25 Dose: 80 mg Guaifenesin (Robitussin Dm -) 10 ml PO Q6H PRN PRN Reason: COUGH Last Admin: 12/04/18 00:50 Dose: 10 ml Insulin Aspart (Novolog Vial Sliding Scale -) 1 vial SQ [facility]; Protocol Last Admin: 12/06/18 06:46 Dose: 8 units Insulin Detemir (Levemir Vial) 15 units SQ [facility] Last Admin: 12/05/18 21:39 Dose: 15 units Magnesium Citrate (Citroma -) 300 ml PO Q48H PRN PRN Reason: CONSTIPATION Magnesium Oxide (Mag-Ox -) 400 mg PO BID [facility] Last Admin: 12/06/18 09:47 Dose: 400 mg Methylprednisolone Sodium Succinate (Solu-Medrol -) 40 mg IVPUSH DAILY [facility] Last Admin: 12/06/18 09:46 Dose: 40 mg Metoprolol Tartrate (Lopressor -) 50 mg PO Q6HPO [facility] Last Admin: 12/06/18 06:27 Dose: 50 mg Metoprolol Tartrate (Lopressor Injection -) 5 mg IVPUSH Q4H PRN PRN Reason: TACHYCARDIA Multivitamins/Minerals/Vitamin C (Tab-A-Vit -) 1 tab PO DAILY [facility] Last Admin: 12/06/18 09:46 Dose: 1 tab - Objective Vital Signs: Vital Signs Temperature 98.2 F 12/06/18 09:00 Pulse Rate 103 H 12/06/18 09:46 Respiratory Rate 20 12/06/18 09:00 Blood Pressure 122/70 12/06/18 09:00 O2 Sat by Pulse Oximetry (%) 100 12/05/18 20:38 Constitutional: Yes: Well Nourished, Calm Eyes: Yes: WNL HENT: Yes: WNL Neck: Yes: WNL Cardiovascular: Yes: Pulse Irregular, S1, S2 Respiratory: Yes: Rales (bibasilar crackles) Gastrointestinal: Yes: Normal Bowel Sounds, Soft Extremities: Yes: WNL Edema: Yes Problem List - Problems (1) Acute hypoxemic respiratory failure Code(s): J96.01 - ACUTE RESPIRATORY FAILURE WITH HYPOXIA (2) [place] (acute kidney injury) Code(s): N17.9 - ACUTE KIDNEY FAILURE, UNSPECIFIED (3) Acute on chronic HFrEF (heart failure with reduced ejection fraction) Code(s): I50.23 - ACUTE ON CHRONIC SYSTOLIC (CONGESTIVE) HEART FAILURE (4) Atrial fibrillation with rapid ventricular response Code(s): I48.91 - UNSPECIFIED ATRIAL FIBRILLATION (5) CHF (congestive heart failure) Code(s): I50.9 - HEART FAILURE, UNSPECIFIED (6) Dyslipidemia associated with type 2 diabetes mellitus Code(s): E11.69 - TYPE 2 DIABETES MELLITUS WITH OTHER SPECIFIED COMPLICATION; E78.5 - HYPERLIPIDEMIA, UNSPECIFIED (7) Elevated d-dimer Code(s): R79.89 - OTHER SPECIFIED ABNORMAL FINDINGS OF BLOOD CHEMISTRY (8) Hypotension Code(s): I95.9 - HYPOTENSION, UNSPECIFIED (9) SOB (shortness of breath) Code(s): R06.02 - SHORTNESS OF BREATH (10) Hypertension Code(s): I10 - ESSENTIAL (PRIMARY) HYPERTENSION Qualifiers: Hypertension type: secondary to endocrine disorders Qualified Code(s): I15.2 - Hypertension secondary to endocrine disorders (11) Acute respiratory failure Code(s): J96.00 - ACUTE RESPIRATORY FAILURE, UNSP W HYPOXIA OR HYPERCAPNIA Assessment/Plan IMP ACUTE RESPIRATORY FAILURE improving ACUTE ON CHRONIC CHF/CARDIOMYOPATHY improving SEVERE LV DYSFUNCTION WITH GLOBAL HYPOKINESIS LVEF 30% AFIB WITH RVR ? H/O COPD PNEUMONIA HTN ELEVATED D-DIMER NON-SPECIFIC CANNOT EXCLUDE PE ACUTE KIDNEY INJURY RUL NODULE PLAN RATE CONTROL PER CARDIOLOGY PREDNISONE LASIX AC XOPENEX PRN NIPPV NEEDED O2 TO MAINTAIN O2 SAT > 90% MONITOR LYTES,RENAL FUNCTION DAILY WT PET SCAN OUTPATIENT ABX DR SKY Problem List - Problems (1) Acute hypoxemic respiratory failure Code(s): J96.01 - ACUTE RESPIRATORY FAILURE WITH HYPOXIA (2) [place] (acute kidney injury) Code(s): N17.9 - ACUTE KIDNEY FAILURE, UNSPECIFIED (3) Acute on chronic HFrEF (heart failure with reduced ejection fraction) Code(s): I50.23 - ACUTE ON CHRONIC SYSTOLIC (CONGESTIVE) HEART FAILURE (4) Atrial fibrillation with rapid ventricular response Code(s): I48.91 - UNSPECIFIED ATRIAL FIBRILLATION (5) CHF (congestive heart failure) Code(s): I50.9 - HEART FAILURE, UNSPECIFIED (6) Dyslipidemia associated with type 2 diabetes mellitus Code(s): E11.69 - TYPE 2 DIABETES MELLITUS WITH OTHER SPECIFIED COMPLICATION; E78.5 - HYPERLIPIDEMIA, UNSPECIFIED (7) Elevated d-dimer Code(s): R79.89 - OTHER SPECIFIED ABNORMAL FINDINGS OF BLOOD CHEMISTRY (8) Hypotension Code(s): I95.9 - HYPOTENSION, UNSPECIFIED (9) SOB (shortness of breath) Code(s): R06.02 - SHORTNESS OF BREATH (10) Hypertension Code(s): I10 - ESSENTIAL (PRIMARY) HYPERTENSION Qualifiers: Hypertension type: secondary to endocrine disorders Qualified Code(s): I15.2 - Hypertension secondary to endocrine disorders (11) Acute respiratory failure Code(s): J96.00 - ACUTE RESPIRATORY FAILURE, UNSP W HYPOXIA OR HYPERCAPNIA
--- NOTE | 2018-12-06 11:10 | PN ---
Progress Note, Physician History of Present Illness: stable no new issues still on nasal canula - Current Medication List Current Medications: Active Medications Acetaminophen (Tylenol -) 650 mg PO Q6H PRN PRN Reason: FEVER Last Admin: 12/03/18 03:30 Dose: 650 mg Albuterol Sulfate (Ventolin Hfa Inhaler -) 1 puff IH Q6H [facility] Last Admin: 12/06/18 09:49 Dose: 1 puff Aspirin (Asa -) 81 mg PO DAILY [facility] Last Admin: 12/06/18 09:46 Dose: 81 mg Calcium Carbonate (Os-Raffi 500mg -) 500 mg PO BID [facility] Last Admin: 12/06/18 09:47 Dose: 500 mg Digoxin (Lanoxin -) 0.125 mg PO DAILY [facility] Last Admin: 12/06/18 09:46 Dose: 0.125 mg Docusate Sodium (Colace -) 100 mg PO TID [facility] Last Admin: 12/06/18 06:27 Dose: 100 mg Furosemide (Lasix Injection -) 80 mg IVPB DAILY [facility] Last Admin: 12/05/18 09:25 Dose: 80 mg Guaifenesin (Robitussin Dm -) 10 ml PO Q6H PRN PRN Reason: COUGH Last Admin: 12/04/18 00:50 Dose: 10 ml Insulin Aspart (Novolog Vial Sliding Scale -) 1 vial SQ [facility]; Protocol Last Admin: 12/06/18 06:46 Dose: 8 units Insulin Detemir (Levemir Vial) 15 units SQ [facility] Last Admin: 12/05/18 21:39 Dose: 15 units Magnesium Citrate (Citroma -) 300 ml PO Q48H PRN PRN Reason: CONSTIPATION Magnesium Oxide (Mag-Ox -) 400 mg PO BID [facility] Last Admin: 12/06/18 09:47 Dose: 400 mg Methylprednisolone Sodium Succinate (Solu-Medrol -) 40 mg IVPUSH DAILY [facility] Last Admin: 12/06/18 09:46 Dose: 40 mg Metoprolol Tartrate (Lopressor -) 50 mg PO Q6HPO [facility] Last Admin: 12/06/18 06:27 Dose: 50 mg Metoprolol Tartrate (Lopressor Injection -) 5 mg IVPUSH Q4H PRN PRN Reason: TACHYCARDIA Multivitamins/Minerals/Vitamin C (Tab-A-Vit -) 1 tab PO DAILY [facility] Last Admin: 12/06/18 09:46 Dose: 1 tab - Objective Vital Signs: Vital Signs Temperature 98.2 F 12/06/18 09:00 Pulse Rate 103 H 12/06/18 09:46 Respiratory Rate 20 12/06/18 09:00 Blood Pressure 122/70 12/06/18 09:00 O2 Sat by Pulse Oximetry (%) 100 12/05/18 20:38 Constitutional: Yes: No Distress, Calm Cardiovascular: Yes: Regular Rate and Rhythm Respiratory: Yes: Regular, On Nasal O2 Gastrointestinal: Yes: Normal Bowel Sounds, Soft Musculoskeletal: Yes: WNL Extremities: Yes: WNL Neurological: Yes: Alert, Oriented Psychiatric: Yes: Alert, Oriented Labs: INR, PTT INR 1.23 (0.83-1.09) H 11/27/18 08:50 Assessment/Plan Problem List - Problems (1) Acute hypoxemic respiratory failure Code(s): J96.01 - ACUTE RESPIRATORY FAILURE WITH HYPOXIA (2) [place] (acute kidney injury) Code(s): N17.9 - ACUTE KIDNEY FAILURE, UNSPECIFIED (3) Acute on chronic HFrEF (heart failure with reduced ejection fraction) Code(s): I50.23 - ACUTE ON CHRONIC SYSTOLIC (CONGESTIVE) HEART FAILURE (4) Atrial fibrillation with rapid ventricular response Code(s): I48.91 - UNSPECIFIED ATRIAL FIBRILLATION (5) CHF (congestive heart failure) Code(s): I50.9 - HEART FAILURE, UNSPECIFIED (6) Dyslipidemia associated with type 2 diabetes mellitus Code(s): E11.69 - TYPE 2 DIABETES MELLITUS WITH OTHER SPECIFIED COMPLICATION; E78.5 - HYPERLIPIDEMIA, UNSPECIFIED (7) Elevated d-dimer Code(s): R79.89 - OTHER SPECIFIED ABNORMAL FINDINGS OF BLOOD CHEMISTRY (8) Hypotension Code(s): I95.9 - HYPOTENSION, UNSPECIFIED (9) SOB (shortness of breath) Code(s): R06.02 - SHORTNESS OF BREATH (10) Hypertension Code(s): I10 - ESSENTIAL (PRIMARY) HYPERTENSION Qualifiers: Hypertension type: secondary to endocrine disorders Qualified Code(s): I15.2 - Hypertension secondary to endocrine disorders (11) Acute respiratory failure Code(s): J96.00 - ACUTE RESPIRATORY FAILURE, UNSP W HYPOXIA OR HYPERCAPNIA plan stable off of abx now resp support rest continue current mgmt incentive anjana
[2018-12-06 11:22] LABS: BASO % 0.7 % (0-2.0); EOS % 1.6 % (0-4.5); HEMATOCRIT 34.1 % (35.4-49); LYMPH % 18.2 % (8-40); MCH 27.9 pg (25.7-33.7); MCHC 32.4 g/dl (32.0-35.9); MEAN CELL VOLUME 86.1 fl (80-96); MEAN PLT VOLUME 10.7 fl (7.5-11.1); MONO % 8.1 % (3.8-10.2); NEUT % 71.4 % (42.8-82.8); PLATELET COUNT 222 K/MM3 (134-434); RBC 3.95 M/mm3 (4.00-5.60); WHITE BLOOD COUNT 8.8 K/mm3 (4.0-10.0)
[2018-12-06 11:31] LABS: ALBUMIN 3.1 g/dl (3.4-5.0); BILIRUBIN,TOTAL 0.3 mg/dL (0.2-1); CALCIUM 9.1 mg/dL (8.5-10.1); CREATININE 1.3 mg/dL (0.55-1.3); MAGNESIUM 2.3 mg/dL (1.8-2.4); POTASSIUM 3.7 mmol/L (3.5-5.1); TOT PROT 6.5 g/dl (6.4-8.2)
[2018-12-06 11:37] LABS: INR 1.5 (0.83-1.09); PROTHROMBIN TIME (PATIENT) 17.8 SEC (9.7-13.0)
[2018-12-06 11:39] LABS: ACTIVATED PTT 34.4 SECONDS (25.2-36.5)
[2018-12-06] MEDS ORDERED: INSULIN (NOVOLOG) ASPART 100 UNITS/ML 10ML VIAL ONE ×3 (11:56→21:41)
--- NOTE | 2018-12-06 12:37 | PN ---
Progress Note (short form) - Note Progress Note: Renal follow up for Hyponatremiea/[place]/CKD Pt seen and examined in the solarium awake and alert reports feeling better no cp, abd pain, N/V/D making urine leg edema is better Vital Signs Temperature 98.2 F 12/06/18 09:00 Pulse Rate 103 H 12/06/18 09:46 Respiratory Rate 20 12/06/18 09:00 Blood Pressure 122/70 12/06/18 09:00 O2 Sat by Pulse Oximetry (%) 100 12/05/18 20:38 Intake & Output 12/03/18 12/04/18 12/05/18 12/06/18 23:59 23:59 23:59 23:59 Intake Total 125 570 7379 100 Output Total 200 Balance 281 688 8543 100 Weight 76.657 kg 76.204 kg NAD irregular, no M/R CTA, no rales soft,obese, NT/ND no LE edema, clubbing or cyanosis CBC, BMP 12/06/18 10:00 12/06/18 10:00 Current Medications Acetaminophen (Tylenol -) 650 mg PO Q6H PRN PRN Reason: FEVER Last Admin: 12/03/18 03:30 Dose: 650 mg Albuterol Sulfate (Ventolin Hfa Inhaler -) 1 puff IH Q6H [facility] Last Admin: 12/06/18 09:49 Dose: 1 puff Aspirin (Asa -) 81 mg PO DAILY [facility] Last Admin: 12/06/18 09:46 Dose: 81 mg Calcium Carbonate (Os-Raffi 500mg -) 500 mg PO BID [facility] Last Admin: 12/06/18 09:47 Dose: 500 mg Digoxin (Lanoxin -) 0.125 mg PO DAILY [facility] Last Admin: 12/06/18 09:46 Dose: 0.125 mg Docusate Sodium (Colace -) 100 mg PO TID [facility] Last Admin: 12/06/18 06:27 Dose: 100 mg Furosemide (Lasix Injection -) 80 mg IVPB DAILY [facility] Last Admin: 12/05/18 09:25 Dose: 80 mg Guaifenesin (Robitussin Dm -) 10 ml PO Q6H PRN PRN Reason: COUGH Last Admin: 12/04/18 00:50 Dose: 10 ml Insulin Aspart (Novolog Vial Sliding Scale -) 1 vial SQ [facility]; Protocol Last Admin: 12/06/18 11:57 Dose: 10 units Insulin Detemir (Levemir Vial) 15 units SQ [facility] Last Admin: 12/05/18 21:39 Dose: 15 units Magnesium Citrate (Citroma -) 300 ml PO Q48H PRN PRN Reason: CONSTIPATION Magnesium Oxide (Mag-Ox -) 400 mg PO BID [facility] Last Admin: 12/06/18 09:47 Dose: 400 mg Metoprolol Tartrate (Lopressor -) 50 mg PO Q6HPO [facility] Last Admin: 12/06/18 12:16 Dose: 50 mg Metoprolol Tartrate (Lopressor Injection -) 5 mg IVPUSH Q4H PRN PRN Reason: TACHYCARDIA Multivitamins/Minerals/Vitamin C (Tab-A-Vit -) 1 tab PO DAILY [facility] Last Admin: 12/06/18 09:46 Dose: 1 tab Prednisone (Deltasone -) 40 mg PO DAILY [facility] 68 year old gentleman with hx of systolic HF, Afib, DM who presented with complaints of chest pain, shortness of breath and LE swelling and admitted for CHF exacerbation with downtrending serum Na and Cr of 1.6. #Hyponatremia in setting of HF and [place]/CKD due to fluid overload and increased water intake/poor solute intake #CHF exacerbation #[place]/CKD (baseline Cr from 2016 is 1.3) #Fevers #DM #Anemia Serum Na now improved to normal limits continue fluid restriction can plan to transition to oral dose of diuretics as per cardiology Renal function stable Miguel Garcia DO
--- NOTE | 2018-12-06 15:43 | PN ---
Progress Note (short form) - Note Progress Note: s: Current Medications Acetaminophen (Tylenol -) 650 mg PO Q6H PRN PRN Reason: FEVER Last Admin: 12/03/18 03:30 Dose: 650 mg Albuterol Sulfate (Ventolin Hfa Inhaler -) 1 puff IH Q6H [facility] Last Admin: 12/06/18 09:49 Dose: 1 puff Aspirin (Asa -) 81 mg PO DAILY [facility] Last Admin: 12/06/18 09:46 Dose: 81 mg Calcium Carbonate (Os-Raffi 500mg -) 500 mg PO BID [facility] Last Admin: 12/06/18 09:47 Dose: 500 mg Digoxin (Lanoxin -) 0.125 mg PO DAILY [facility] Last Admin: 12/06/18 09:46 Dose: 0.125 mg Docusate Sodium (Colace -) 100 mg PO TID [facility] Last Admin: 12/06/18 14:55 Dose: 100 mg Furosemide (Lasix Injection -) 80 mg IVPB DAILY [facility] Last Admin: 12/05/18 09:25 Dose: 80 mg Guaifenesin (Robitussin Dm -) 10 ml PO Q6H PRN PRN Reason: COUGH Last Admin: 12/04/18 00:50 Dose: 10 ml Insulin Aspart (Novolog Vial Sliding Scale -) 1 vial SQ [facility]; Protocol Last Admin: 12/06/18 11:57 Dose: 10 units Insulin Detemir (Levemir Vial) 15 units SQ [facility] Last Admin: 12/05/18 21:39 Dose: 15 units Magnesium Citrate (Citroma -) 300 ml PO Q48H PRN PRN Reason: CONSTIPATION Magnesium Oxide (Mag-Ox -) 400 mg PO BID [facility] Last Admin: 12/06/18 09:47 Dose: 400 mg Metoprolol Tartrate (Lopressor -) 50 mg PO Q6HPO [facility] Last Admin: 12/06/18 12:16 Dose: 50 mg Metoprolol Tartrate (Lopressor Injection -) 5 mg IVPUSH Q4H PRN PRN Reason: TACHYCARDIA Multivitamins/Minerals/Vitamin C (Tab-A-Vit -) 1 tab PO DAILY [facility] Last Admin: 12/06/18 09:46 Dose: 1 tab Prednisone (Deltasone -) 40 mg PO DAILY [facility] Vital Signs Period Temp Pulse Resp BP Sys/Perez Pulse Ox Last 24 Hr 97.7 F-98.2 F 68-119 20-20 114-126/66-74 100-100 Constitutional: Yes: No Distress Eyes: Yes: WNL HENT: Yes: WNL Cardiovascular: Yes: Pulse Irregular, Respiratory: Yes: Diminished Extremities: Yes: WNL Edema: LLE: Trace, RLE: Trace no jaundice, diaphoresis not agitated tele: afib with occasional RVR 120s-150s Assessment/Plan 1. PAF: -known dx since at least 2014, at that time on amiodarone with dr robledo--pt not currently taking, thinks he stopped it since 2014. -Cont metoprolol and dig. Monitor on tele. -CHADS VASC 4--warrants AC. xarelto started here (15mg qd for GFR 15-50) -patient unable to afford xarelto - will start coumadin, goal INR 2-3, bridging with lovenox 2. Acute on chronic syst HF: Diuresing and overall improved. -previously with known moderately decr LVSF 2014. Now with EF 30%, global -etiology uncertain--? if completed outpt ischemia w/u at time of initial dx -suspect may have high, longstanding burden of tachycardia as he has no sx's when in rapid AF--? isch CMP -echo 11/30 showed severe global HK, EF 30%, moderate MR -holding enalapril to allow bp room to tolerate diuretics, AF rate control -no concern for ACS (trop neg x 2) -ischemic w/u when euvolemic -BP running low, last CXR improved. BUN climbing. Will decrease Lasix to daily 12/04: BP stable. On lasix 80mg IV daily. Creat 1.6 (1.2) will watch as baseline has been 1.6. Last dig 0.82 2-3: Continue lasix 80mg IV BID. Cr improving, likely transition to PO tomorrow 3. [place]: -creat 1.7, from 1.3 in 2016 -? cardiorenal syndrome -Creat stable thus far with diuresis. 4. VT: -NSVT on tele, vs AF with aberrancy -K > 4, Mg > 2 5. HTN: -low bp's here, improved. -TANMAY-I on hold for now. 6. DM: -per hospitalist
[2018-12-06] MEDS: WARFARIN NA 5 MG TABLET (UD) PO SCH (18:39)
[2018-12-06] MEDS: ENOXAPARIN NA (PORCINE) 80 MG/0.8 ML DISP.SYRIN SQ SCH ×2 (18:40→21:26)
[2018-12-06] MEDS: INSULIN (LEVEMIR) 100 UNITS/ML UNITS SQ SCH (21:36)
[2018-12-07] MEDS: ALBUTEROL SO4 8 GM HFA INHALER IH SCH ×5 (01:26→23:47)
[2018-12-07] MEDS: guaiFENesin/D-METHORPHAN HB 10 ML UNIT-DOSE CUPS PO PRN ×2 (02:59→16:32)
[2018-12-07] MEDS: DOCUSATE SODIUM 100 MG CAPSULE (FP) PO SCH ×3 (06:17→23:45)
[2018-12-07] MEDS: METOPROLOL TARTRATE 50 MG TABLET (FP) PO SCH (06:17)
[2018-12-07] MEDS: INSULIN SLIDING SCALE (NOVOLOG) 1 VIAL SQ SCH ×4 (06:18→23:54)
[2018-12-07 07:01] LABS: BASO % 0.5 % (0-2.0); HEMATOCRIT 32.6 % (35.4-49); HEMOGLOBIN 10.8 GM/dL (11.7-16.9); LYMPH % 15.5 % (8-40); MCH 28.2 pg (25.7-33.7); MCHC 33.1 g/dl (32.0-35.9); MEAN CELL VOLUME 85.3 fl (80-96); MEAN PLT VOLUME 10.3 fl (7.5-11.1); MONO % 6.3 % (3.8-10.2); NEUT % 76.7 % (42.8-82.8); PLATELET COUNT 259 K/MM3 (134-434); RBC 3.82 M/mm3 (4.00-5.60); RDW 15.3 % (11.9-15.9); WHITE BLOOD COUNT 9.4 K/mm3 (4.0-10.0)
--- NOTE | 2018-12-07 07:22 | PN ---
Progress Note, Physician Chief Complaint: Patient is a 68 year old male with a significant past medical history of A-fib ( no reported anticoagulation control), HTN, HLD and NIDDM (on metformin). He comes to the ED on 11/27/2018 with shortness of breath x 1 day. He was on [place] and arrived to [place] on 11/17/2018 and has been doing well except for bilateral lower ext edema, but then developed shortness of breath. BNP 7k on admission. His PCP is in [facility]. Patient has no prescription insurance. All medications to be called into [facility] pharmacy. On exam, he is awake and alert, venezuelan speaking only, daughter at bedside - Current Medication List Current Medications: Active Medications Acetaminophen (Tylenol -) 650 mg PO Q6H PRN PRN Reason: FEVER Last Admin: 12/03/18 03:30 Dose: 650 mg Albuterol Sulfate (Ventolin Hfa Inhaler -) 1 puff IH Q6H [facility] Last Admin: 12/07/18 02:58 Dose: 1 puff Aspirin (Asa -) 81 mg PO DAILY [facility] Last Admin: 12/06/18 09:46 Dose: 81 mg Calcium Carbonate (Os-Raffi 500mg -) 500 mg PO BID [facility] Last Admin: 12/06/18 21:26 Dose: 500 mg Digoxin (Lanoxin -) 0.125 mg PO DAILY [facility] Last Admin: 12/06/18 09:46 Dose: 0.125 mg Docusate Sodium (Colace -) 100 mg PO TID [facility] Last Admin: 12/07/18 06:17 Dose: 100 mg Enoxaparin Sodium (Lovenox -) 80 mg SQ BID [facility] Last Admin: 12/06/18 21:26 Dose: 80 mg Furosemide (Lasix Injection -) 80 mg IVPB DAILY [facility] Last Admin: 12/05/18 09:25 Dose: 80 mg Guaifenesin (Robitussin Dm -) 10 ml PO Q6H PRN PRN Reason: COUGH Last Admin: 12/07/18 02:59 Dose: 10 ml Insulin Aspart (Novolog Vial Sliding Scale -) 1 vial SQ [facility]; Protocol Last Admin: 12/07/18 06:18 Dose: Not Given Insulin Detemir (Levemir Vial) 15 units SQ [facility] Last Admin: 12/06/18 21:36 Dose: 15 units Magnesium Citrate (Citroma -) 300 ml PO Q48H PRN PRN Reason: CONSTIPATION Last Admin: 12/06/18 18:47 Dose: 300 ml Magnesium Oxide (Mag-Ox -) 400 mg PO BID [facility] Last Admin: 12/06/18 21:26 Dose: 400 mg Metoprolol Tartrate (Lopressor -) 50 mg PO Q6HPO [facility] Last Admin: 12/07/18 06:17 Dose: 50 mg Metoprolol Tartrate (Lopressor Injection -) 5 mg IVPUSH Q4H PRN PRN Reason: TACHYCARDIA Multivitamins/Minerals/Vitamin C (Tab-A-Vit -) 1 tab PO DAILY [facility] Last Admin: 12/06/18 09:46 Dose: 1 tab Prednisone (Deltasone -) 40 mg PO DAILY [facility] Warfarin Sodium (Coumadin -) 5 mg PO DAILY@1800 [facility] Last Admin: 12/06/18 18:39 Dose: 5 mg - Objective Vital Signs: Vital Signs Temperature 97.8 F 12/07/18 06:00 Pulse Rate 73 12/07/18 06:00 Respiratory Rate 18 12/07/18 06:00 Blood Pressure 125/61 12/07/18 06:00 O2 Sat by Pulse Oximetry (%) 98 12/06/18 21:00 Constitutional: Yes: Well Nourished, No Distress, Calm Eyes: Yes: WNL, Conjunctiva Clear, EOM Intact HENT: Yes: WNL, Atraumatic, Normocephalic Neck: Yes: WNL, Supple, Trachea Midline Cardiovascular: Yes: WNL, Regular Rate and Rhythm Respiratory: Yes: WNL, Regular, CTA Bilaterally Gastrointestinal: Yes: WNL, Normal Bowel Sounds ...Rectal Exam: Yes: Deferred Genitourinary: Yes: WNL Musculoskeletal: Yes: WNL Extremities: Yes: WNL Edema: Yes Edema: LLE: Trace, RLE: Trace Peripheral Pulses WNL: Yes Integumentary: Yes: WNL Neurological: Yes: WNL, Alert, Oriented ...Motor Strength: WNL Psychiatric: Yes: WNL Labs: CBC, BMP 12/07/18 05:40 INR, PTT INR 1.50 (0.83-1.09) H 12/06/18 10:00 - ....Imaging Chest X-ray: Report Reviewed Cat Scan: Report Reviewed Problem List - Problems (1) [place] (acute kidney injury) Assessment/Plan: - cardiorenal syndrome -daily CMP to trend Cr. with increasing diuresis, may need to decrease if Cr rises - creatinine 1.3 at baseline -based on creat in past admission, baseline 1.0-1.3 -monitor kidney function and encourage PO intake, monitor while closely while on diuretic therapy. Code(s): N17.9 - ACUTE KIDNEY FAILURE, UNSPECIFIED (2) Acute on chronic HFrEF (heart failure with reduced ejection fraction) Assessment/Plan: -continue lasix 80mg bid as per cardiology, change to PO -daily weights -daily CMP to assess renal function, Cr 1.7 may need to decrease lasix if becoming too dry -TTE requested to assess LV function -continue to hold home enalapril -Trops negative x 2, no further need to trend unless chest pain presents Code(s): I50.23 - ACUTE ON CHRONIC SYSTOLIC (CONGESTIVE) HEART FAILURE (3) Atrial fibrillation with rapid ventricular response Assessment/Plan: remains in AF rate controlled on beat blockers Code(s): I48.91 - UNSPECIFIED ATRIAL FIBRILLATION (4) Atrial fibrillation Assessment/Plan: chronic AF now with RVR -maintain on metoprolol -not able to afford Xarelto, maintain on coumadin -INR goal 2-3, subtherapeutic Code(s): I48.91 - UNSPECIFIED ATRIAL FIBRILLATION (5) SOB (shortness of breath) Assessment/Plan: on supplemental oxygen pulmonary following -continue xopenex -tolerating noctural bipap Code(s): R06.02 - SHORTNESS OF BREATH (6) Diabetes Assessment/Plan: Novolog sliding scale FS AC/HS diabetic diet Code(s): E11.9 - TYPE 2 DIABETES MELLITUS WITHOUT COMPLICATIONS (7) Hypertension Assessment/Plan: hold home anti hypertensives (CCB) while attempting to rate control AF with BB resume home meds when rate control and BL will tolerate hold TANMAY given rise in Cr. low salt diet Code(s): I10 - ESSENTIAL (PRIMARY) HYPERTENSION Qualifiers: Hypertension type: secondary to endocrine disorders Qualified Code(s): I15.2 - Hypertension secondary to endocrine disorders (8) NSVT (nonsustained ventricular tachycardia) Assessment/Plan: resolved Code(s): I47.2 - VENTRICULAR TACHYCARDIA (9) Hyponatremia Assessment/Plan: Serum sodium now WNL 138 -Seen by nephrology and recommendations appreciated. -Maintain on a fluid restriction of 1.5 liters -liberalize tomorrow of Na remains stable -Will continue lasix per cardiology and nephrology, switch to PO if consults agree -monitor cmp. Code(s): E87.1 - HYPO-OSMOLALITY AND HYPONATREMIA (10) Sepsis Assessment/Plan: resolved Code(s): A41.9 - SEPSIS, UNSPECIFIED ORGANISM Qualifiers: Sepsis type: sepsis due to unspecified organism Qualified Code(s): A41.9 - Sepsis, unspecified organism (11) CHF (congestive heart failure) Assessment/Plan: on diuretic therapy. -TTE EF 30%. LV mildly dilated, severe global hypokinesis of left ventricle. left ventricular systolic function is severely reduced. right ventricle normal, left atria mildly dilated. right atrial size normal. mild to moderate mitral regurg. mitral regurg jet is eccentrically directed. mild aortic valve thickening -cardiology following and appreciate input Code(s): I50.9 - HEART FAILURE, UNSPECIFIED (12) Elevated d-dimer Assessment/Plan: elevated d dimer. unable to perform cta secondary to [place] pulmonary following patient on anticoagulation Code(s): R79.89 - OTHER SPECIFIED ABNORMAL FINDINGS OF BLOOD CHEMISTRY Impression/Plan Impression/Plan: FEN no additional IV while diuresing replete electrolytes as needed diabetic, low sodium diet. Avoid caffeine Prophy dvt: on coumadin and lovenox until inr 2, then just coumadin gi: on bowel regimen. physical therapy when more stable Dispo -maintain as in patient -discharge planning -SILVANO Cantor met with family yesterday & patient is not able to afford Xarelto -Follow up Appointment: an appointment has been set up - ThursdayDecember AT 10.AM.. with Dr. Winters. [facility] at [address] [place] [address] THIS IS FOR AN INR CHECK AND POST HOSPITAL CHECK. The office aware patient is uninsured and will offer services at a nominal rate. -full code Visit type - Emergency Visit Emergency Visit: Yes ED Registration Date: 11/27/18 Care time: The patient presented to the Emergency Department on the above date and was hospitalized for further evaluation of their emergent condition. - New Patient This patient is new to me today: No - Critical Care Critical Care patient: No - Discharge Referral Referred to [facility] Med P.C.: No
[2018-12-07 07:29] LABS: BILIRUBIN,TOTAL 0.4 mg/dL (0.2-1); CALCIUM 9.6 mg/dL (8.5-10.1); CREATININE 1.2 mg/dL (0.55-1.3); POTASSIUM 4.4 mmol/L (3.5-5.1); TOT PROT 6.5 g/dl (6.4-8.2)
[2018-12-07 07:33] LABS: INR 1.43 (0.83-1.09); PROTHROMBIN TIME (PATIENT) 16.9 SEC (9.7-13.0)
--- NOTE | 2018-12-07 10:21 | PN ---
Progress Note, Physician History of Present Illness: PULMONARY COMFORTABLE,-RESP DISTRESS,+ COUGH - Current Medication List Current Medications: Active Medications Acetaminophen (Tylenol -) 650 mg PO Q6H PRN PRN Reason: FEVER Last Admin: 12/03/18 03:30 Dose: 650 mg Albuterol Sulfate (Ventolin Hfa Inhaler -) 1 puff IH Q6H [facility] Last Admin: 12/07/18 02:58 Dose: 1 puff Aspirin (Asa -) 81 mg PO DAILY [facility] Last Admin: 12/06/18 09:46 Dose: 81 mg Calcium Carbonate (Os-Raffi 500mg -) 500 mg PO BID [facility] Last Admin: 12/06/18 21:26 Dose: 500 mg Digoxin (Lanoxin -) 0.125 mg PO DAILY [facility] Last Admin: 12/06/18 09:46 Dose: 0.125 mg Docusate Sodium (Colace -) 100 mg PO TID [facility] Last Admin: 12/07/18 06:17 Dose: 100 mg Enoxaparin Sodium (Lovenox -) 80 mg SQ BID [facility] Last Admin: 12/06/18 21:26 Dose: 80 mg Furosemide (Lasix Injection -) 80 mg IVPB DAILY [facility] Last Admin: 12/05/18 09:25 Dose: 80 mg Guaifenesin (Robitussin Dm -) 10 ml PO Q6H PRN PRN Reason: COUGH Last Admin: 12/07/18 02:59 Dose: 10 ml Insulin Aspart (Novolog Vial Sliding Scale -) 1 vial SQ [facility]; Protocol Last Admin: 12/07/18 06:18 Dose: Not Given Insulin Detemir (Levemir Vial) 15 units SQ [facility] Last Admin: 12/06/18 21:36 Dose: 15 units Magnesium Citrate (Citroma -) 300 ml PO Q48H PRN PRN Reason: CONSTIPATION Last Admin: 12/06/18 18:47 Dose: 300 ml Magnesium Oxide (Mag-Ox -) 400 mg PO BID [facility] Last Admin: 12/06/18 21:26 Dose: 400 mg Metoprolol Tartrate (Lopressor -) 50 mg PO Q6HPO [facility] Last Admin: 12/07/18 06:17 Dose: 50 mg Metoprolol Tartrate (Lopressor Injection -) 5 mg IVPUSH Q4H PRN PRN Reason: TACHYCARDIA Multivitamins/Minerals/Vitamin C (Tab-A-Vit -) 1 tab PO DAILY [facility] Last Admin: 12/06/18 09:46 Dose: 1 tab Prednisone (Deltasone -) 40 mg PO DAILY [facility] Warfarin Sodium (Coumadin -) 5 mg PO DAILY@1800 [facility] Last Admin: 12/06/18 18:39 Dose: 5 mg - Objective Vital Signs: Vital Signs Temperature 98 F 12/07/18 09:00 Pulse Rate 100 H 12/07/18 09:00 Respiratory Rate 20 12/07/18 09:00 Blood Pressure 117/64 12/07/18 09:00 O2 Sat by Pulse Oximetry (%) 98 12/06/18 21:00 Constitutional: Yes: Well Nourished, Calm Eyes: Yes: WNL HENT: Yes: WNL Neck: Yes: WNL Cardiovascular: Yes: Pulse Irregular, S1, S2 Respiratory: Yes: Rales, Wheezes (BILATERAL RALES WIYH SCATTERED SUSANNE WHEEZES) Gastrointestinal: Yes: Normal Bowel Sounds, Soft Extremities: Yes: WNL Edema: No Labs: CBC, BMP 12/07/18 05:40 12/07/18 05:40 INR, PTT INR 1.43 (0.83-1.09) H 12/07/18 05:40 Problem List - Problems (1) Acute hypoxemic respiratory failure Code(s): J96.01 - ACUTE RESPIRATORY FAILURE WITH HYPOXIA (2) [place] (acute kidney injury) Code(s): N17.9 - ACUTE KIDNEY FAILURE, UNSPECIFIED (3) Acute on chronic HFrEF (heart failure with reduced ejection fraction) Code(s): I50.23 - ACUTE ON CHRONIC SYSTOLIC (CONGESTIVE) HEART FAILURE (4) Atrial fibrillation with rapid ventricular response Code(s): I48.91 - UNSPECIFIED ATRIAL FIBRILLATION (5) CHF (congestive heart failure) Code(s): I50.9 - HEART FAILURE, UNSPECIFIED (6) Dyslipidemia associated with type 2 diabetes mellitus Code(s): E11.69 - TYPE 2 DIABETES MELLITUS WITH OTHER SPECIFIED COMPLICATION; E78.5 - HYPERLIPIDEMIA, UNSPECIFIED (7) Elevated d-dimer Code(s): R79.89 - OTHER SPECIFIED ABNORMAL FINDINGS OF BLOOD CHEMISTRY (8) Hypotension Code(s): I95.9 - HYPOTENSION, UNSPECIFIED (9) SOB (shortness of breath) Code(s): R06.02 - SHORTNESS OF BREATH (10) Hypertension Code(s): I10 - ESSENTIAL (PRIMARY) HYPERTENSION Qualifiers: Hypertension type: secondary to endocrine disorders Qualified Code(s): I15.2 - Hypertension secondary to endocrine disorders (11) Acute respiratory failure Code(s): J96.00 - ACUTE RESPIRATORY FAILURE, UNSP W HYPOXIA OR HYPERCAPNIA Assessment/Plan IMP ACUTE RESPIRATORY FAILURE improving ACUTE ON CHRONIC CHF/CARDIOMYOPATHY improving SEVERE LV DYSFUNCTION WITH GLOBAL HYPOKINESIS LVEF 30% AFIB WITH RVR ? H/O COPD PNEUMONIA HTN ELEVATED D-DIMER NON-SPECIFIC CANNOT EXCLUDE PE ACUTE KIDNEY INJURY RUL NODULE PLAN RATE CONTROL PER CARDIOLOGY PREDNISONE LASIX AC XOPENEX PRN NIPPV NEEDED O2 TO MAINTAIN O2 SAT > 90% MONITOR LYTES,RENAL FUNCTION DAILY WT PET SCAN OUTPATIENT CHEST X-RAY TODAY DR SKY Problem List - Problems (1) Acute hypoxemic respiratory failure Code(s): J96.01 - ACUTE RESPIRATORY FAILURE WITH HYPOXIA (2) [place] (acute kidney injury) Code(s): N17.9 - ACUTE KIDNEY FAILURE, UNSPECIFIED (3) Acute on chronic HFrEF (heart failure with reduced ejection fraction) Code(s): I50.23 - ACUTE ON CHRONIC SYSTOLIC (CONGESTIVE) HEART FAILURE (4) Atrial fibrillation with rapid ventricular response Code(s): I48.91 - UNSPECIFIED ATRIAL FIBRILLATION (5) CHF (congestive heart failure) Code(s): I50.9 - HEART FAILURE, UNSPECIFIED (6) Dyslipidemia associated with type 2 diabetes mellitus Code(s): E11.69 - TYPE 2 DIABETES MELLITUS WITH OTHER SPECIFIED COMPLICATION; E78.5 - HYPERLIPIDEMIA, UNSPECIFIED (7) Elevated d-dimer Code(s): R79.89 - OTHER SPECIFIED ABNORMAL FINDINGS OF BLOOD CHEMISTRY (8) Hypotension Code(s): I95.9 - HYPOTENSION, UNSPECIFIED (9) SOB (shortness of breath) Code(s): R06.02 - SHORTNESS OF BREATH (10) Hypertension Code(s): I10 - ESSENTIAL (PRIMARY) HYPERTENSION Qualifiers: Hypertension type: secondary to endocrine disorders Qualified Code(s): I15.2 - Hypertension secondary to endocrine disorders (11) Acute respiratory failure Code(s): J96.00 - ACUTE RESPIRATORY FAILURE, UNSP W HYPOXIA OR HYPERCAPNIA
[2018-12-07] MEDS: ENOXAPARIN NA (PORCINE) 80 MG/0.8 ML DISP.SYRIN SQ SCH ×2 (11:03→23:46)
[2018-12-07] MEDS: ASPIRIN 81 MG CHEWABLE TABLETS PO SCH (11:03)
[2018-12-07] MEDS: MULTIVITAMINS (DAILY MVI) TABLET (FP) PO SCH (11:03)
[2018-12-07] MEDS: DIGOXIN 0.125 MG TABLET (FP) PO SCH (11:03)
[2018-12-07] MEDS: FUROSEMIDE 100 MG/10 ML INJECTABLE VIAL IVPB SCH (11:03)
[2018-12-07] MEDS: predniSONE 20 MG TABLET (UD) PO SCH (11:03)
[2018-12-07] MEDS: MAGNESIUM OXIDE 400 MG TABLET (FP) PO SCH ×2 (11:04→23:45)
[2018-12-07] MEDS: CALCIUM (OYSTER SHELL) 500 MG TABLET (FP) PO SCH ×2 (11:04→23:45)
--- NOTE | 2018-12-07 11:52 | PN ---
Progress Note (short form) - Note Progress Note: s: no chest pain, palps, dizziness, lightheadedness, lying flat without sob. no edema Current Medications Acetaminophen (Tylenol -) 650 mg PO Q6H PRN PRN Reason: FEVER Last Admin: 12/03/18 03:30 Dose: 650 mg Albuterol Sulfate (Ventolin Hfa Inhaler -) 1 puff IH Q6H [facility] Last Admin: 12/07/18 11:03 Dose: 1 puff Aspirin (Asa -) 81 mg PO DAILY [facility] Last Admin: 12/07/18 11:03 Dose: 81 mg Calcium Carbonate (Os-Raffi 500mg -) 500 mg PO BID [facility] Last Admin: 12/07/18 11:04 Dose: 500 mg Digoxin (Lanoxin -) 0.125 mg PO DAILY [facility] Last Admin: 12/07/18 11:03 Dose: 0.125 mg Docusate Sodium (Colace -) 100 mg PO TID [facility] Last Admin: 12/07/18 06:17 Dose: 100 mg Enoxaparin Sodium (Lovenox -) 80 mg SQ BID [facility] Last Admin: 12/07/18 11:03 Dose: 80 mg Furosemide (Lasix -) 80 mg PO DAILY [facility] Guaifenesin (Robitussin Dm -) 10 ml PO Q6H PRN PRN Reason: COUGH Last Admin: 12/07/18 02:59 Dose: 10 ml Insulin Aspart (Novolog Vial Sliding Scale -) 1 vial SQ [facility]; Protocol Last Admin: 12/07/18 06:18 Dose: Not Given Insulin Detemir (Levemir Vial) 15 units SQ [facility] Last Admin: 12/06/18 21:36 Dose: 15 units Magnesium Citrate (Citroma -) 300 ml PO Q48H PRN PRN Reason: CONSTIPATION Last Admin: 12/06/18 18:47 Dose: 300 ml Magnesium Oxide (Mag-Ox -) 400 mg PO BID [facility] Last Admin: 12/07/18 11:04 Dose: 400 mg Metoprolol Tartrate (Lopressor -) 50 mg PO Q6HPO [facility] Last Admin: 12/07/18 06:17 Dose: 50 mg Metoprolol Tartrate (Lopressor Injection -) 5 mg IVPUSH Q4H PRN PRN Reason: TACHYCARDIA Multivitamins/Minerals/Vitamin C (Tab-A-Vit -) 1 tab PO DAILY [facility] Last Admin: 12/07/18 11:03 Dose: 1 tab Prednisone (Deltasone -) 40 mg PO DAILY [facility] Last Admin: 12/07/18 11:03 Dose: 40 mg Warfarin Sodium (Coumadin -) 5 mg PO DAILY@1800 [facility] Last Admin: 12/06/18 18:39 Dose: 5 mg Vital Signs Period Temp Pulse Resp BP Sys/Perez Pulse Ox Last 24 Hr 97.8 F-98.4 F 73-134 18-20 117-154/61-76 93-98 Constitutional: Yes: No Distress Eyes: Yes: WNL HENT: Yes: WNL Cardiovascular: Yes: Pulse Irregular, Respiratory: Yes: Diminished Extremities: Yes: WNL Edema: LLE: Trace, RLE: Trace no jaundice, diaphoresis not agitated tele: afib with occasional RVR 120s-150s Assessment/Plan 1. PAF: -known dx since at least 2014, at that time on amiodarone with dr robledo--pt not currently taking, thinks he stopped it since 2014. -Cont metoprolol and dig. Monitor on tele. -CHADS VASC 4--warrants AC. xarelto started here (15mg qd for GFR 15-50) -patient unable to afford xarelto - will start coumadin, goal INR 2-3, bridging with lovenox - change to metoprolol succinate 100 mg BID, cont dig 2. Acute on chronic syst HF: Diuresing and overall improved. -previously with known moderately decr LVSF 2014. Now with EF 30%, global -etiology uncertain--? if completed outpt ischemia w/u at time of initial dx -suspect may have high, longstanding burden of tachycardia as he has no sx's when in rapid AF--? isch CMP -echo 11/30 showed severe global HK, EF 30%, moderate MR -holding enalapril to allow bp room to tolerate diuretics, AF rate control -no concern for ACS (trop neg x 2) -ischemic w/u when euvolemic -BP running low, last CXR improved. BUN climbing. Will decrease Lasix to daily 12/04: BP stable. On lasix 80mg IV daily. Creat 1.6 (1.2) will watch as baseline has been 1.6. Last dig 0.82 12/05-3: Continue lasix 80mg IV BID. Cr improving, likely transition to PO tomorrow 12/07 change to lasix 80 mg PO daily 3. [place]: -creat 1.7, from 1.3 in 2016 -? cardiorenal syndrome -Creat stable 4. VT: -NSVT on tele, vs AF with aberrancy -K > 4, Mg > 2 5. HTN: -low bp's here, improved. -TANMAY-I on hold for now. 6. DM: -per hospitalist
--- NOTE | 2018-12-07 11:59 | PN ---
Progress Note, Physician - Current Medication List Current Medications: Active Medications Acetaminophen (Tylenol -) 650 mg PO Q6H PRN PRN Reason: FEVER Last Admin: 12/03/18 03:30 Dose: 650 mg Albuterol Sulfate (Ventolin Hfa Inhaler -) 1 puff IH Q6H [facility] Last Admin: 12/07/18 11:03 Dose: 1 puff Aspirin (Asa -) 81 mg PO DAILY [facility] Last Admin: 12/07/18 11:03 Dose: 81 mg Calcium Carbonate (Os-Raffi 500mg -) 500 mg PO BID [facility] Last Admin: 12/07/18 11:04 Dose: 500 mg Digoxin (Lanoxin -) 0.125 mg PO DAILY [facility] Last Admin: 12/07/18 11:03 Dose: 0.125 mg Docusate Sodium (Colace -) 100 mg PO TID [facility] Last Admin: 12/07/18 06:17 Dose: 100 mg Enoxaparin Sodium (Lovenox -) 80 mg SQ BID [facility] Last Admin: 12/07/18 11:03 Dose: 80 mg Furosemide (Lasix -) 80 mg PO DAILY [facility] Guaifenesin (Robitussin Dm -) 10 ml PO Q6H PRN PRN Reason: COUGH Last Admin: 12/07/18 02:59 Dose: 10 ml Insulin Aspart (Novolog Vial Sliding Scale -) 1 vial SQ [facility]; Protocol Last Admin: 12/07/18 06:18 Dose: Not Given Insulin Detemir (Levemir Vial) 15 units SQ [facility] Last Admin: 12/06/18 21:36 Dose: 15 units Magnesium Citrate (Citroma -) 300 ml PO Q48H PRN PRN Reason: CONSTIPATION Last Admin: 12/06/18 18:47 Dose: 300 ml Magnesium Oxide (Mag-Ox -) 400 mg PO BID [facility] Last Admin: 12/07/18 11:04 Dose: 400 mg Metoprolol Succinate (Toprol Xl -) 100 mg PO BID [facility] Metoprolol Tartrate (Lopressor Injection -) 5 mg IVPUSH Q4H PRN PRN Reason: TACHYCARDIA Multivitamins/Minerals/Vitamin C (Tab-A-Vit -) 1 tab PO DAILY [facility] Last Admin: 12/07/18 11:03 Dose: 1 tab Prednisone (Deltasone -) 40 mg PO DAILY [facility] Last Admin: 12/07/18 11:03 Dose: 40 mg Warfarin Sodium (Coumadin -) 5 mg PO DAILY@1800 [facility] Last Admin: 12/06/18 18:39 Dose: 5 mg - Objective Vital Signs: Vital Signs Temperature 98 F 12/07/18 09:00 Pulse Rate 118 H 12/07/18 11:03 Respiratory Rate 20 12/07/18 09:00 Blood Pressure 117/64 12/07/18 09:00 O2 Sat by Pulse Oximetry (%) 98 12/06/18 21:00 Labs: CBC, BMP 12/07/18 05:40 12/07/18 05:40 INR, PTT INR 1.43 (0.83-1.09) H 12/07/18 05:40
--- NOTE | 2018-12-07 12:33 | PN ---
Progress Note (short form) - Note Progress Note: Renal follow up for Hyponatremiea/[place]/CKD Pt seen and examined at the bedside awake and alert daughter reports that he was more short of breath last night feels better now after getting IV lasix in AM leg swelling is improved no fever, chills, abd pain, chest pain Vital Signs Temperature 98 F 12/07/18 09:00 Pulse Rate 118 H 12/07/18 11:03 Respiratory Rate 20 12/07/18 09:00 Blood Pressure 117/64 12/07/18 09:00 O2 Sat by Pulse Oximetry (%) 98 12/06/18 21:00 Intake & Output 12/04/18 12/05/18 12/06/18 12/07/18 23:59 23:59 23:59 23:59 Intake Total 760 1350 445 10 Output Total 200 Balance 760 1150 445 10 Weight 76.657 kg 76.204 kg 77.474 kg NAD irregular, no M/R CTA, no rales soft,obese, NT/ND no LE edema, clubbing or cyanosis CBC, BMP 12/07/18 05:40 12/07/18 05:40 Current Medications Acetaminophen (Tylenol -) 650 mg PO Q6H PRN PRN Reason: FEVER Last Admin: 12/03/18 03:30 Dose: 650 mg Albuterol Sulfate (Ventolin Hfa Inhaler -) 1 puff IH Q6H [facility] Last Admin: 12/07/18 11:03 Dose: 1 puff Aspirin (Asa -) 81 mg PO DAILY [facility] Last Admin: 12/07/18 11:03 Dose: 81 mg Calcium Carbonate (Os-Raffi 500mg -) 500 mg PO BID [facility] Last Admin: 12/07/18 11:04 Dose: 500 mg Digoxin (Lanoxin -) 0.125 mg PO DAILY [facility] Last Admin: 12/07/18 11:03 Dose: 0.125 mg Docusate Sodium (Colace -) 100 mg PO TID [facility] Last Admin: 12/07/18 06:17 Dose: 100 mg Enoxaparin Sodium (Lovenox -) 80 mg SQ BID [facility] Last Admin: 12/07/18 11:03 Dose: 80 mg Furosemide (Lasix -) 80 mg PO DAILY [facility] Guaifenesin (Robitussin Dm -) 10 ml PO Q6H PRN PRN Reason: COUGH Last Admin: 12/07/18 02:59 Dose: 10 ml Insulin Aspart (Novolog Vial Sliding Scale -) 1 vial SQ ACHS [facility]; Protocol Last Admin: 12/07/18 06:18 Dose: Not Given Insulin Detemir (Levemir Vial) 15 units SQ HS [facility] Last Admin: 12/06/18 21:36 Dose: 15 units Magnesium Citrate (Citroma -) 300 ml PO Q48H PRN PRN Reason: CONSTIPATION Last Admin: 12/06/18 18:47 Dose: 300 ml Magnesium Oxide (Mag-Ox -) 400 mg PO BID [facility] Last Admin: 12/07/18 11:04 Dose: 400 mg Metoprolol Succinate (Toprol Xl -) 100 mg PO BID [facility] Metoprolol Tartrate (Lopressor Injection -) 5 mg IVPUSH Q4H PRN PRN Reason: TACHYCARDIA Multivitamins/Minerals/Vitamin C (Tab-A-Vit -) 1 tab PO DAILY [facility] Last Admin: 12/07/18 11:03 Dose: 1 tab Prednisone (Deltasone -) 40 mg PO DAILY [facility] Last Admin: 12/07/18 11:03 Dose: 40 mg Warfarin Sodium (Coumadin -) 5 mg PO DAILY@1800 [facility] Last Admin: 12/06/18 18:39 Dose: 5 mg 68 year old gentleman with hx of systolic HF, Afib, DM who presented with complaints of chest pain, shortness of breath and LE swelling and admitted for CHF exacerbation with downtrending serum Na and Cr of 1.6. #Hyponatremia in setting of HF and [place]/CKD due to fluid overload and increased water intake/poor solute intake #CHF exacerbation #[place]/CKD (baseline Cr from 2016 is 1.3) #Fevers #DM #Anemia Serum Na stable Renal function is at baseline still appears to have some degree of volume overload continue oral diuretics going forward as per Cardiology Miguel Garcia DO
[2018-12-07] MEDS: WARFARIN NA 5 MG TABLET (UD) PO SCH (17:16)
[2018-12-07] MEDS: INSULIN (LEVEMIR) 100 UNITS/ML UNITS SQ SCH (23:56)
[2018-12-08] MEDS: ALBUTEROL SO4 8 GM HFA INHALER IH SCH ×5 (04:53→21:58)
[2018-12-08] MEDS: DOCUSATE SODIUM 100 MG CAPSULE (FP) PO SCH ×3 (05:53→21:58)
[2018-12-08] MEDS: INSULIN SLIDING SCALE (NOVOLOG) 1 VIAL SQ SCH ×4 (06:12→21:59)
--- NOTE | 2018-12-08 07:45 | PN ---
Progress Note, Physician Chief Complaint: Patient is a 68 year old male with a significant past medical history of A-fib ( no reported anticoagulation control), HTN, HLD and NIDDM (on metformin). He comes to the ED on 11/27/2018 with shortness of breath x 1 day. He was on [place] and arrived to [place] on 11/17/2018 and has been doing well except for bilateral lower ext edema, but then developed shortness of breath. BNP 7k on admission. His PCP is in [facility]. Patient has no prescription insurance. All medications to be called into [facility] pharmacy. On exam, he is awake and alert, divehi speaking only, youngest daughter at bedside - Current Medication List Current Medications: Active Medications Acetaminophen (Tylenol -) 650 mg PO Q6H PRN PRN Reason: FEVER Last Admin: 12/03/18 03:30 Dose: 650 mg Albuterol Sulfate (Ventolin Hfa Inhaler -) 1 puff IH Q6H [facility] Last Admin: 12/08/18 04:53 Dose: 1 puff Aspirin (Asa -) 81 mg PO DAILY [facility] Last Admin: 12/07/18 11:03 Dose: 81 mg Calcium Carbonate (Os-Raffi 500mg -) 500 mg PO BID [facility] Last Admin: 12/07/18 23:45 Dose: 500 mg Digoxin (Lanoxin -) 0.125 mg PO DAILY [facility] Last Admin: 12/07/18 11:03 Dose: 0.125 mg Docusate Sodium (Colace -) 100 mg PO TID [facility] Last Admin: 12/08/18 05:53 Dose: 100 mg Enoxaparin Sodium (Lovenox -) 80 mg SQ BID [facility] Last Admin: 12/07/18 23:46 Dose: 80 mg Furosemide (Lasix -) 80 mg PO DAILY [facility] Guaifenesin (Robitussin Dm -) 10 ml PO Q6H PRN PRN Reason: COUGH Last Admin: 12/07/18 16:32 Dose: 10 ml Insulin Aspart (Novolog Vial Sliding Scale -) 1 vial SQ [facility]; Protocol Last Admin: 12/08/18 06:12 Dose: Not Given Insulin Detemir (Levemir Vial) 15 units SQ HS [facility] Last Admin: 12/07/18 23:56 Dose: 15 units Magnesium Citrate (Citroma -) 300 ml PO Q48H PRN PRN Reason: CONSTIPATION Last Admin: 12/06/18 18:47 Dose: 300 ml Magnesium Oxide (Mag-Ox -) 400 mg PO BID [facility] Last Admin: 12/07/18 23:45 Dose: 400 mg Metoprolol Succinate (Toprol Xl -) 100 mg PO BID [facility] Last Admin: 12/07/18 23:45 Dose: 100 mg Metoprolol Tartrate (Lopressor Injection -) 5 mg IVPUSH Q4H PRN PRN Reason: TACHYCARDIA Multivitamins/Minerals/Vitamin C (Tab-A-Vit -) 1 tab PO DAILY [facility] Last Admin: 12/07/18 11:03 Dose: 1 tab Prednisone (Deltasone -) 40 mg PO DAILY [facility] Last Admin: 12/07/18 11:03 Dose: 40 mg Warfarin Sodium (Coumadin -) 5 mg PO DAILY@1800 [facility] Last Admin: 12/07/18 17:16 Dose: 5 mg - Objective Vital Signs: Vital Signs Temperature 97.8 F 12/08/18 06:00 Pulse Rate 110 H 12/08/18 06:00 Respiratory Rate 20 12/08/18 06:00 Blood Pressure 117/81 12/08/18 06:00 O2 Sat by Pulse Oximetry (%) 98 12/08/18 00:54 Constitutional: Yes: Well Nourished, No Distress, Calm Eyes: Yes: WNL, Conjunctiva Clear, EOM Intact HENT: Yes: WNL, Atraumatic, Normocephalic Neck: Yes: WNL, Supple, Trachea Midline Cardiovascular: Yes: WNL, Regular Rate and Rhythm Respiratory: Yes: WNL, Regular, CTA Bilaterally, Diminished (at bases) Gastrointestinal: Yes: WNL, Normal Bowel Sounds, Soft ...Rectal Exam: Yes: Deferred Genitourinary: Yes: WNL Musculoskeletal: Yes: WNL Extremities: Yes: WNL Edema: Yes Edema: LLE: 1+, RLE: 1+ Peripheral Pulses WNL: Yes Integumentary: Yes: WNL Neurological: Yes: WNL, Alert ...Motor Strength: WNL Psychiatric: Yes: Alert, Oriented Labs: CBC, BMP 12/07/18 05:40 12/07/18 05:40 INR, PTT INR 1.43 (0.83-1.09) H 12/07/18 05:40 - ....Imaging Chest X-ray: Report Reviewed, Image Reviewed Cat Scan: Report Reviewed (HCT/cervical) Ultrasound: Report Reviewed (Lower extrem dopples) EKG: Report Reviewed, Image Reviewed Other: Report Reviewed (TTE) Problem List - Problems (1) [place] (acute kidney injury) Assessment/Plan: - cardiorenal syndrome -daily CMP to trend Cr. with increasing diuresis, may need to decrease if Cr rises - creatinine 1.3 at baseline, now 1.2 -based on creat in past admission, baseline 1.0-1.3 -monitor kidney function and encourage PO intake, monitor while closely while on diuretic therapy. Code(s): N17.9 - ACUTE KIDNEY FAILURE, UNSPECIFIED (2) Acute on chronic HFrEF (heart failure with reduced ejection fraction) Assessment/Plan: -continue lasix 80mg bid IV as per cardiology,reasses tomorrow for PO -daily weights, 2 kg down since admission -daily CMP to assess renal function, Cr 1.3 -continue to hold home enalapril -Trops negative x 2, no further need to trend unless chest pain presents Code(s): I50.23 - ACUTE ON CHRONIC SYSTOLIC (CONGESTIVE) HEART FAILURE (3) Atrial fibrillation with rapid ventricular response Assessment/Plan: remains in AF rate controlled on beat blockers and digoxin Code(s): I48.91 - UNSPECIFIED ATRIAL FIBRILLATION (4) Atrial fibrillation Assessment/Plan: chronic AF now with RVR -maintain on metoprolol -not able to afford Xarelto, maintain on coumadin -INR goal 2-3, subtherapeutic Code(s): I48.91 - UNSPECIFIED ATRIAL FIBRILLATION (5) SOB (shortness of breath) Assessment/Plan: on supplemental oxygen @ 2l pulmonary following -continue xopenex -no requiring noctural bipap -pre & post done and O2 decreased to 91% off O2. Will not qualify for home O2. Will speak with daughter again since she expressed concerns about needing supplemental O2 at home Code(s): R06.02 - SHORTNESS OF BREATH (6) Diabetes Assessment/Plan: Novolog sliding scale FS AC/HS diabetic diet Code(s): E11.9 - TYPE 2 DIABETES MELLITUS WITHOUT COMPLICATIONS (7) Hypertension Assessment/Plan: hold home anti hypertensives (CCB) while attempting to rate control AF with BB resume home meds when rate control and BL will tolerate hold TANMAY low salt diet Code(s): I10 - ESSENTIAL (PRIMARY) HYPERTENSION Qualifiers: Hypertension type: secondary to endocrine disorders Qualified Code(s): I15.2 - Hypertension secondary to endocrine disorders (8) NSVT (nonsustained ventricular tachycardia) Assessment/Plan: resolved Code(s): I47.2 - VENTRICULAR TACHYCARDIA (9) Hyponatremia Assessment/Plan: Serum sodium now WNL 138 -Seen by nephrology and recommendations appreciated. -Maintain on a fluid restriction of 1.5 liters -liberalize tomorrow of Na remains stable -Will continue lasix per cardiology and nephrology -monitor cmp. Code(s): E87.1 - HYPO-OSMOLALITY AND HYPONATREMIA (10) Sepsis Assessment/Plan: resolved Code(s): A41.9 - SEPSIS, UNSPECIFIED ORGANISM Qualifiers: Sepsis type: sepsis due to unspecified organism Qualified Code(s): A41.9 - Sepsis, unspecified organism (11) CHF (congestive heart failure) Assessment/Plan: on diuretic therapy. -TTE EF 30%. LV mildly dilated, severe global hypokinesis of left ventricle. left ventricular systolic function is severely reduced. right ventricle normal, left atria mildly dilated. right atrial size normal. mild to moderate mitral regurg. mitral regurg jet is eccentrically directed. mild aortic valve thickening -cardiology following and appreciate input Code(s): I50.9 - HEART FAILURE, UNSPECIFIED (12) Elevated d-dimer Assessment/Plan: elevated d dimer. unable to perform CTA secondary to [place] pulmonary following patient on anticoagulation, INR bogdan therapeutic Code(s): R79.89 - OTHER SPECIFIED ABNORMAL FINDINGS OF BLOOD CHEMISTRY (13) Under or uninsured Assessment/Plan: request place for emergency Medicaid by social work and case management rn Request typically take 30-45 days to be approved. Will update family/patient. Appreciate CM/SW assistance Code(s): Z59.8 - OTHER PROBLEMS RELATED TO HOUSING AND ECONOMIC CIRCUMSTANCES (14) Prophylactic measure Assessment/Plan: on comadin bridge with lovenox INR 1.8 increased comadin dose to 7.5mg tonight for goal 2-3 Code(s): Z29.9 - ENCOUNTER FOR PROPHYLACTIC MEASURES, UNSPECIFIED Visit type - Emergency Visit Emergency Visit: Yes ED Registration Date: 11/27/18 Care time: The patient presented to the Emergency Department on the above date and was hospitalized for further evaluation of their emergent condition. - New Patient This patient is new to me today: No - Critical Care Critical Care patient: No - Discharge Referral Referred to [facility] Med [facility] No
[2018-12-08 07:54] LABS: BASO % 0.3 % (0-2.0); EOS % 0.9 % (0-4.5); HEMATOCRIT 33.6 % (35.4-49); HEMOGLOBIN 10.8 GM/dL (11.7-16.9); LYMPH % 16.6 % (8-40); MCH 27.4 pg (25.7-33.7); MCHC 32.1 g/dl (32.0-35.9); MEAN CELL VOLUME 85.3 fl (80-96); MEAN PLT VOLUME 10.2 fl (7.5-11.1); MONO % 6.4 % (3.8-10.2); NEUT % 75.8 % (42.8-82.8); PLATELET COUNT 300 K/MM3 (134-434); RBC 3.94 M/mm3 (4.00-5.60); WHITE BLOOD COUNT 11.2 K/mm3 (4.0-10.0)
[2018-12-08 08:19] LABS: INR 1.82 (0.83-1.09); PROTHROMBIN TIME (PATIENT) 21.6 SEC (9.7-13.0)
[2018-12-08 08:23] LABS: BILIRUBIN,TOTAL 0.3 mg/dL (0.2-1); CALCIUM 9.8 mg/dL (8.5-10.1); CREATININE 1.2 mg/dL (0.55-1.3); MAGNESIUM 2.3 mg/dL (1.8-2.4); POTASSIUM 4.4 mmol/L (3.5-5.1); TOT PROT 6.2 g/dl (6.4-8.2)
[2018-12-08] MEDS: predniSONE 20 MG TABLET (UD) PO SCH (09:42)
[2018-12-08] MEDS: CALCIUM (OYSTER SHELL) 500 MG TABLET (FP) PO SCH ×2 (09:42→21:58)
[2018-12-08] MEDS: ASPIRIN 81 MG CHEWABLE TABLETS PO SCH (09:42)
[2018-12-08] MEDS: MULTIVITAMINS (DAILY MVI) TABLET (FP) PO SCH (09:42)
[2018-12-08] MEDS: MAGNESIUM OXIDE 400 MG TABLET (FP) PO SCH ×2 (09:42→21:58)
[2018-12-08] MEDS: DIGOXIN 0.125 MG TABLET (FP) PO SCH (09:42)
[2018-12-08] MEDS: FUROSEMIDE 40 MG/4 ML INJECTABLE VIAL IVPB SCH (09:45)
[2018-12-08] MEDS: ENOXAPARIN NA (PORCINE) 80 MG/0.8 ML DISP.SYRIN SQ SCH ×2 (09:46→21:58)
[2018-12-08] MEDS ORDERED: FUROSEMIDE 40 MG TABLET (FP) PO SCH (10:00)
--- NOTE | 2018-12-08 10:28 | PN ---
Progress Note, Physician History of Present Illness: pulmonary alert,oob-chair,-sob,-cp. - Current Medication List Current Medications: Active Medications Acetaminophen (Tylenol -) 650 mg PO Q6H PRN PRN Reason: FEVER Last Admin: 12/03/18 03:30 Dose: 650 mg Albuterol Sulfate (Ventolin Hfa Inhaler -) 1 puff IH Q6H [facility] Last Admin: 12/08/18 04:53 Dose: 1 puff Aspirin (Asa -) 81 mg PO DAILY [facility] Last Admin: 12/08/18 09:42 Dose: 81 mg Calcium Carbonate (Os-Raffi 500mg -) 500 mg PO BID [facility] Last Admin: 12/08/18 09:42 Dose: 500 mg Digoxin (Lanoxin -) 0.125 mg PO DAILY [facility] Last Admin: 12/08/18 09:42 Dose: 0.125 mg Docusate Sodium (Colace -) 100 mg PO TID [facility] Last Admin: 12/08/18 05:53 Dose: 100 mg Enoxaparin Sodium (Lovenox -) 80 mg SQ BID [facility] Last Admin: 12/08/18 09:46 Dose: 80 mg Furosemide (Lasix Injection -) 80 mg IVPB DAILY [facility] Last Admin: 12/08/18 09:45 Dose: 80 mg Guaifenesin (Robitussin Dm -) 10 ml PO Q6H PRN PRN Reason: COUGH Last Admin: 12/07/18 16:32 Dose: 10 ml Insulin Aspart (Novolog Vial Sliding Scale -) [address] [facility]; Protocol Last Admin: 12/08/18 06:12 Dose: Not Given Insulin Detemir (Levemir Vial) 15 units SQ [facility] Last Admin: 12/07/18 23:56 Dose: 15 units Magnesium Citrate (Citroma -) 300 ml PO Q48H PRN PRN Reason: CONSTIPATION Last Admin: 12/06/18 18:47 Dose: 300 ml Magnesium Oxide (Mag-Ox -) 400 mg PO BID [facility] Last Admin: 12/08/18 09:42 Dose: 400 mg Metoprolol Succinate (Toprol Xl -) 100 mg PO BID [facility] Last Admin: 12/08/18 09:45 Dose: 100 mg Metoprolol Tartrate (Lopressor Injection -) 5 mg IVPUSH Q4H PRN PRN Reason: TACHYCARDIA Multivitamins/Minerals/Vitamin C (Tab-A-Vit -) 1 tab PO DAILY [facility] Last Admin: 12/08/18 09:42 Dose: 1 tab Prednisone (Deltasone -) 40 mg PO DAILY [facility] Last Admin: 12/08/18 09:42 Dose: 40 mg Warfarin Sodium (Coumadin -) 5 mg PO DAILY@1800 [facility] Last Admin: 12/07/18 17:16 Dose: 5 mg - Objective Vital Signs: Vital Signs Temperature 97.8 F 12/08/18 06:00 Pulse Rate 110 H 12/08/18 09:42 Respiratory Rate 20 12/08/18 06:00 Blood Pressure 117/81 12/08/18 06:00 O2 Sat by Pulse Oximetry (%) 98 12/08/18 00:54 Constitutional: Yes: Well Nourished, Calm Eyes: Yes: WNL HENT: Yes: WNL Neck: Yes: WNL Cardiovascular: Yes: Pulse Irregular, S1, S2 Respiratory: Yes: Rales (bilateral crackle,with few scattered wheezes) Gastrointestinal: Yes: Normal Bowel Sounds, Soft Extremities: Yes: WNL Edema: No Labs: CBC, BMP 12/08/18 06:40 12/08/18 06:40 INR, PTT INR 1.82 (0.83-1.09) H 12/08/18 06:40 Problem List - Problems (1) Acute hypoxemic respiratory failure Code(s): J96.01 - ACUTE RESPIRATORY FAILURE WITH HYPOXIA (2) [place] (acute kidney injury) Code(s): N17.9 - ACUTE KIDNEY FAILURE, UNSPECIFIED (3) Acute on chronic HFrEF (heart failure with reduced ejection fraction) Code(s): I50.23 - ACUTE ON CHRONIC SYSTOLIC (CONGESTIVE) HEART FAILURE (4) Atrial fibrillation with rapid ventricular response Code(s): I48.91 - UNSPECIFIED ATRIAL FIBRILLATION (5) CHF (congestive heart failure) Code(s): I50.9 - HEART FAILURE, UNSPECIFIED (6) Dyslipidemia associated with type 2 diabetes mellitus Code(s): E11.69 - TYPE 2 DIABETES MELLITUS WITH OTHER SPECIFIED COMPLICATION; E78.5 - HYPERLIPIDEMIA, UNSPECIFIED (7) Elevated d-dimer Code(s): R79.89 - OTHER SPECIFIED ABNORMAL FINDINGS OF BLOOD CHEMISTRY (8) Hypotension Code(s): I95.9 - HYPOTENSION, UNSPECIFIED (9) SOB (shortness of breath) Code(s): R06.02 - SHORTNESS OF BREATH (10) Hypertension Code(s): I10 - ESSENTIAL (PRIMARY) HYPERTENSION Qualifiers: Hypertension type: secondary to endocrine disorders Qualified Code(s): I15.2 - Hypertension secondary to endocrine disorders (11) Acute respiratory failure Code(s): J96.00 - ACUTE RESPIRATORY FAILURE, UNSP W HYPOXIA OR HYPERCAPNIA Assessment/Plan IMP ACUTE RESPIRATORY FAILURE improving ACUTE ON CHRONIC CHF/CARDIOMYOPATHY improving SEVERE LV DYSFUNCTION WITH GLOBAL HYPOKINESIS LVEF 30% AFIB WITH RVR ? H/O COPD PNEUMONIA HTN ELEVATED D-DIMER NON-SPECIFIC CANNOT EXCLUDE PE ACUTE KIDNEY INJURY RUL NODULE PLAN RATE CONTROL PER CARDIOLOGY PREDNISONE LASIX AC XOPENEX PRN NIPPV NEEDED O2 TO MAINTAIN O2 SAT > 90% MONITOR LYTES,RENAL FUNCTION DAILY WT PET SCAN OUTPATIENT DR SKY Problem List - Problems (1) Acute hypoxemic respiratory failure Code(s): J96.01 - ACUTE RESPIRATORY FAILURE WITH HYPOXIA (2) [place] (acute kidney injury) Code(s): N17.9 - ACUTE KIDNEY FAILURE, UNSPECIFIED (3) Acute on chronic HFrEF (heart failure with reduced ejection fraction) Code(s): I50.23 - ACUTE ON CHRONIC SYSTOLIC (CONGESTIVE) HEART FAILURE (4) Atrial fibrillation with rapid ventricular response Code(s): I48.91 - UNSPECIFIED ATRIAL FIBRILLATION (5) CHF (congestive heart failure) Code(s): I50.9 - HEART FAILURE, UNSPECIFIED (6) Dyslipidemia associated with type 2 diabetes mellitus Code(s): E11.69 - TYPE 2 DIABETES MELLITUS WITH OTHER SPECIFIED COMPLICATION; E78.5 - HYPERLIPIDEMIA, UNSPECIFIED (7) Elevated d-dimer Code(s): R79.89 - OTHER SPECIFIED ABNORMAL FINDINGS OF BLOOD CHEMISTRY (8) Hypotension Code(s): I95.9 - HYPOTENSION, UNSPECIFIED (9) SOB (shortness of breath) Code(s): R06.02 - SHORTNESS OF BREATH (10) Hypertension Code(s): I10 - ESSENTIAL (PRIMARY) HYPERTENSION Qualifiers: Hypertension type: secondary to endocrine disorders Qualified Code(s): I15.2 - Hypertension secondary to endocrine disorders (11) Acute respiratory failure Code(s): J96.00 - ACUTE RESPIRATORY FAILURE, UNSP W HYPOXIA OR HYPERCAPNIA
--- NOTE | 2018-12-08 10:32 | PN ---
Progress Note (short form) - Note Progress Note: s: no chest pain, palps, dizziness, lightheadedness. sob improving Current Medications Acetaminophen (Tylenol -) 650 mg PO Q6H PRN PRN Reason: FEVER Last Admin: 12/03/18 03:30 Dose: 650 mg Albuterol Sulfate (Ventolin Hfa Inhaler -) 1 puff IH Q6H [facility] Last Admin: 12/08/18 04:53 Dose: 1 puff Aspirin (Asa -) 81 mg PO DAILY [facility] Last Admin: 12/08/18 09:42 Dose: 81 mg Calcium Carbonate (Os-Raffi 500mg -) 500 mg PO BID [facility] Last Admin: 12/08/18 09:42 Dose: 500 mg Digoxin (Lanoxin -) 0.125 mg PO DAILY [facility] Last Admin: 12/08/18 09:42 Dose: 0.125 mg Docusate Sodium (Colace -) 100 mg PO TID [facility] Last Admin: 12/08/18 05:53 Dose: 100 mg Enoxaparin Sodium (Lovenox -) 80 mg SQ BID [facility] Last Admin: 12/08/18 09:46 Dose: 80 mg Furosemide (Lasix Injection -) 80 mg IVPB DAILY [facility] Last Admin: 12/08/18 09:45 Dose: 80 mg Guaifenesin (Robitussin Dm -) 10 ml PO Q6H PRN PRN Reason: COUGH Last Admin: 12/07/18 16:32 Dose: 10 ml Insulin Aspart (Novolog Vial Sliding Scale -) 1 vial SQ [facility]; Protocol Last Admin: 12/08/18 06:12 Dose: Not Given Insulin Detemir (Levemir Vial) 15 units SQ [facility] Last Admin: 12/07/18 23:56 Dose: 15 units Magnesium Citrate (Citroma -) 300 ml PO Q48H PRN PRN Reason: CONSTIPATION Last Admin: 12/06/18 18:47 Dose: 300 ml Magnesium Oxide (Mag-Ox -) 400 mg PO BID [facility] Last Admin: 12/08/18 09:42 Dose: 400 mg Metoprolol Succinate (Toprol Xl -) 100 mg PO BID [facility] Last Admin: 12/08/18 09:45 Dose: 100 mg Metoprolol Tartrate (Lopressor Injection -) 5 mg IVPUSH Q4H PRN PRN Reason: TACHYCARDIA Multivitamins/Minerals/Vitamin C (Tab-A-Vit -) 1 tab PO DAILY [facility] Last Admin: 12/08/18 09:42 Dose: 1 tab Prednisone (Deltasone -) 40 mg PO DAILY [facility] Last Admin: 12/08/18 09:42 Dose: 40 mg Warfarin Sodium (Coumadin -) 5 mg PO DAILY@1800 [facility] Last Admin: 12/07/18 17:16 Dose: 5 mg Vital Signs Period Temp Pulse Resp BP Sys/Perez Pulse Ox Last 24 Hr 97.5 F-98.2 F 76-129 18-20 117-139/71-84 98-99 Constitutional: Yes: No Distress Eyes: Yes: WNL HENT: Yes: WNL Cardiovascular: Yes: Pulse Irregular, Respiratory: Yes: Diminished Extremities: Yes: WNL Edema: LLE: Trace, RLE: Trace no jaundice, diaphoresis not agitated tele: afib with occasional RVR 120s-150s Assessment/Plan 1. PAF: -known dx since at least 2014, at that time on amiodarone with dr robledo--pt not currently taking, thinks he stopped it since 2014. -Cont metoprolol and dig. Monitor on tele. -CHADS VASC 4--warrants AC. xarelto started here (15mg qd for GFR 15-50) -patient unable to afford xarelto - cont coumadin, goal INR 2-3, bridging with lovenox - change to metoprolol succinate 100 mg BID, cont dig 2. Acute on chronic syst HF: Diuresing and overall improved. -previously with known moderately decr LVSF 2014. Now with EF 30%, global -etiology uncertain--? if completed outpt ischemia w/u at time of initial dx -suspect may have high, longstanding burden of tachycardia as he has no sx's when in rapid AF--? isch CMP -echo 11/30 showed severe global HK, EF 30%, moderate MR -holding enalapril to allow bp room to tolerate diuretics, AF rate control -no concern for ACS (trop neg x 2) -ischemic w/u when euvolemic -will give IV lasix today, weight increased 3 lbs, +JVD, reevaluate in AM 3. [place]: -creat 1.7, from 1.3 in 2016 -? cardiorenal syndrome -Creat stable 4. VT: -NSVT on tele, vs AF with aberrancy -K > 4, Mg > 2 5. HTN: -low bp's here, improved. -TANAMY-I on hold for now. 6. DM: -per hospitalist
--- NOTE | 2018-12-08 12:18 | PN ---
Progress Note, Physician - Current Medication List Current Medications: Active Medications Acetaminophen (Tylenol -) 650 mg PO Q6H PRN PRN Reason: FEVER Last Admin: 12/03/18 03:30 Dose: 650 mg Albuterol Sulfate (Ventolin Hfa Inhaler -) 1 puff IH Q6H [facility] Last Admin: 12/08/18 10:50 Dose: 1 puff Aspirin (Asa -) 81 mg PO DAILY [facility] Last Admin: 12/08/18 09:42 Dose: 81 mg Calcium Carbonate (Os-Raffi 500mg -) 500 mg PO BID [facility] Last Admin: 12/08/18 09:42 Dose: 500 mg Digoxin (Lanoxin -) 0.125 mg PO DAILY [facility] Last Admin: 12/08/18 09:42 Dose: 0.125 mg Docusate Sodium (Colace -) 100 mg PO TID [facility] Last Admin: 12/08/18 05:53 Dose: 100 mg Enoxaparin Sodium (Lovenox -) 80 mg SQ BID [facility] Last Admin: 12/08/18 09:46 Dose: 80 mg Furosemide (Lasix Injection -) 80 mg IVPB DAILY [facility] Last Admin: 12/08/18 09:45 Dose: 80 mg Guaifenesin (Robitussin Dm -) 10 ml PO Q6H PRN PRN Reason: COUGH Last Admin: 12/07/18 16:32 Dose: 10 ml Insulin Aspart (Novolog Vial Sliding Scale -) 1 vial SQ [facility]; Protocol Last Admin: 12/08/18 06:12 Dose: Not Given Insulin Detemir (Levemir Vial) 15 units SQ HS [facility] Last Admin: 12/07/18 23:56 Dose: 15 units Magnesium Citrate (Citroma -) 300 ml PO Q48H PRN PRN Reason: CONSTIPATION Last Admin: 12/06/18 18:47 Dose: 300 ml Magnesium Oxide (Mag-Ox -) 400 mg PO BID [facility] Last Admin: 12/08/18 09:42 Dose: 400 mg Metoprolol Succinate (Toprol Xl -) 100 mg PO BID [facility] Last Admin: 12/08/18 09:45 Dose: 100 mg Metoprolol Tartrate (Lopressor Injection -) 5 mg IVPUSH Q4H PRN PRN Reason: TACHYCARDIA Multivitamins/Minerals/Vitamin C (Tab-A-Vit -) 1 tab PO DAILY [facility] Last Admin: 12/08/18 09:42 Dose: 1 tab Prednisone (Deltasone -) 40 mg PO DAILY [facility] Last Admin: 12/08/18 09:42 Dose: 40 mg Warfarin Sodium (Coumadin -) 5 mg PO DAILY@1800 [facility] Last Admin: 12/07/18 17:16 Dose: 5 mg - Objective Vital Signs: Vital Signs Temperature 97.8 F 12/08/18 06:00 Pulse Rate 110 H 12/08/18 12:01 Respiratory Rate 20 12/08/18 06:00 Blood Pressure 117/81 12/08/18 06:00 O2 Sat by Pulse Oximetry (%) 96 12/08/18 12:01 Labs: CBC, BMP 12/08/18 06:40 12/08/18 06:40 INR, PTT INR 1.82 (0.83-1.09) H 12/08/18 06:40
[2018-12-08] MEDS ORDERED: WARFARIN NA 5 MG TABLET (UD) PO SCH (12:40)
--- NOTE | 2018-12-08 14:25 | PN ---
Progress Note (short form) - Note Progress Note: Renal follow up for Hyponatremiea/[place]/CKD Pt seen and examined at the bedside awake and alert pt reports slight improvement in SOB reports that he slept ok last night no cp, abd pain, N/V/D still has minimal cough no fever or chills Vital Signs Temperature 97.7 F 12/08/18 10:00 Pulse Rate 110 H 12/08/18 12:01 Respiratory Rate 20 12/08/18 10:00 Blood Pressure 121/68 12/08/18 10:00 O2 Sat by Pulse Oximetry (%) 96 12/08/18 12:01 Intake & Output 12/05/18 12/06/18 12/07/18 12/08/18 23:59 23:59 23:59 23:59 Intake Total 1350 445 395 0 Output Total 200 Balance 1150 445 395 0 Weight 76.204 kg 77.474 kg 77.564 kg NAD irregular, no M/R CTA, no rales soft,obese, NT/ND no LE edema, clubbing or cyanosis CBC, BMP 12/08/18 06:40 12/08/18 06:40 Current Medications Acetaminophen (Tylenol -) 650 mg PO Q6H PRN PRN Reason: FEVER Last Admin: 12/03/18 03:30 Dose: 650 mg Albuterol Sulfate (Ventolin Hfa Inhaler -) 1 puff IH Q6H [facility] Last Admin: 12/08/18 10:50 Dose: 1 puff Aspirin (Asa -) 81 mg PO DAILY [facility] Last Admin: 12/08/18 09:42 Dose: 81 mg Calcium Carbonate (Os-Raffi 500mg -) 500 mg PO BID [facility] Last Admin: 12/08/18 09:42 Dose: 500 mg Digoxin (Lanoxin -) 0.125 mg PO DAILY [facility] Last Admin: 12/08/18 09:42 Dose: 0.125 mg Docusate Sodium (Colace -) 100 mg PO TID [facility] Last Admin: 12/08/18 05:53 Dose: 100 mg Enoxaparin Sodium (Lovenox -) 80 mg SQ BID [facility] Last Admin: 12/08/18 09:46 Dose: 80 mg Furosemide (Lasix Injection -) 80 mg IVPB DAILY [facility] Last Admin: 12/08/18 09:45 Dose: 80 mg Guaifenesin (Robitussin Dm -) 10 ml PO Q6H PRN PRN Reason: COUGH Last Admin: 12/07/18 16:32 Dose: 10 ml Insulin Aspart (Novolog Vial Sliding Scale -) 1 vial SQ [facility]; Protocol Last Admin: 12/08/18 12:50 Dose: 12 units Insulin Detemir (Levemir Vial) 15 units SQ [facility] Last Admin: 12/07/18 23:56 Dose: 15 units Magnesium Citrate (Citroma -) 300 ml PO Q48H PRN PRN Reason: CONSTIPATION Last Admin: 12/06/18 18:47 Dose: 300 ml Magnesium Oxide (Mag-Ox -) 400 mg PO BID [facility] Last Admin: 12/08/18 09:42 Dose: 400 mg Metoprolol Succinate (Toprol Xl -) 100 mg PO BID [facility] Last Admin: 12/08/18 09:45 Dose: 100 mg Metoprolol Tartrate (Lopressor Injection -) 5 mg IVPUSH Q4H PRN PRN Reason: TACHYCARDIA Multivitamins/Minerals/Vitamin C (Tab-A-Vit -) 1 tab PO DAILY [facility] Last Admin: 12/08/18 09:42 Dose: 1 tab Prednisone (Deltasone -) 40 mg PO DAILY [facility] Last Admin: 12/08/18 09:42 Dose: 40 mg Warfarin Sodium (Coumadin -) 7.5 mg PO DAILY@1800 [facility] 68 year old gentleman with hx of systolic HF, Afib, DM who presented with complaints of chest pain, shortness of breath and LE swelling and admitted for CHF exacerbation with downtrending serum Na and Cr of 1.6. #Hyponatremia in setting of HF and [place]/CKD due to fluid overload and increased water intake/poor solute intake #CHF exacerbation #[place]/CKD (baseline Cr from 2016 is 1.3) #Fevers #DM #Anemia Serum Na and renal function stable continue fluid restriction weights increasing, diuretics changed back to IV as per cardiology Trend daily weights, renal function and electrolytes Miguel Garcia DO
[2018-12-08] MEDS ORDERED: WARFARIN NA 7.5 MG TABLET (FP) PO SCH (14:56)
[2018-12-08] MEDS ORDERED: INSULIN (NOVOLOG) ASPART 100 UNITS/ML 10ML VIAL ONE (21:29)
[2018-12-08] MEDS ORDERED: PT OWN MED DRAWER 7, Y5N ONE (21:29)
[2018-12-08] MEDS: INSULIN (LEVEMIR) 100 UNITS/ML UNITS SQ SCH (21:59)
[2018-12-08 22:36] VITALS: BMI 27.1
[2018-12-09] MEDS: ALBUTEROL SO4 8 GM HFA INHALER IH SCH ×2 (05:00→21:32)
[2018-12-09] MEDS: INSULIN SLIDING SCALE (NOVOLOG) 1 VIAL SQ SCH ×4 (06:31→21:33)
[2018-12-09] MEDS: DOCUSATE SODIUM 100 MG CAPSULE (FP) PO SCH ×3 (06:40→21:32)
--- NOTE | 2018-12-09 07:25 | PN ---
Progress Note, Physician Chief Complaint: Patient is a 68 year old male with a significant past medical history of A-fib ( no reported anticoagulation control), HTN, HLD and NIDDM (on metformin). He comes to the ED on 11/27/2018 with shortness of breath x 1 day. He was on [place] and arrived to [place] on 11/17/2018 and has been doing well except for bilateral lower ext edema, but then developed shortness of breath. BNP 7k on admission. His PCP is in [facility]. Patient has no prescription insurance. All medications to be called into [facility] pharmacy. On exam, he is awake and alert, singaporean speaking only, youngest daughter at bedside - Current Medication List Current Medications: Active Medications Acetaminophen (Tylenol -) 650 mg PO Q6H PRN PRN Reason: FEVER Last Admin: 12/03/18 03:30 Dose: 650 mg Albuterol Sulfate (Ventolin Hfa Inhaler -) 1 puff IH Q6H [facility] Last Admin: 12/09/18 05:00 Dose: 1 puff Aspirin (Asa -) 81 mg PO DAILY [facility] Last Admin: 12/08/18 09:42 Dose: 81 mg Calcium Carbonate (Os-Raffi 500mg -) 500 mg PO BID [facility] Last Admin: 12/08/18 21:58 Dose: 500 mg Digoxin (Lanoxin -) 0.125 mg PO DAILY [facility] Last Admin: 12/08/18 09:42 Dose: 0.125 mg Docusate Sodium (Colace -) 100 mg PO TID [facility] Last Admin: 12/09/18 06:40 Dose: 100 mg Enoxaparin Sodium (Lovenox -) 80 mg SQ BID [facility] Last Admin: 12/08/18 21:58 Dose: 80 mg Furosemide (Lasix Injection -) 80 mg IVPB DAILY [facility] Last Admin: 12/08/18 09:45 Dose: 80 mg Guaifenesin (Robitussin Dm -) 10 ml PO Q6H PRN PRN Reason: COUGH Last Admin: 12/07/18 16:32 Dose: 10 ml Insulin Aspart (Novolog Vial Sliding Scale -) 1 vial SQ [facility]; Protocol Last Admin: 12/09/18 06:31 Dose: Not Given Insulin Detemir (Levemir Vial) 15 units SQ [facility] Last Admin: 12/08/18 21:59 Dose: 15 units Magnesium Citrate (Citroma -) 300 ml PO Q48H PRN PRN Reason: CONSTIPATION Last Admin: 12/06/18 18:47 Dose: 300 ml Magnesium Oxide (Mag-Ox -) 400 mg PO BID [facility] Last Admin: 12/08/18 21:58 Dose: 400 mg Metoprolol Succinate (Toprol Xl -) 100 mg PO BID [facility] Last Admin: 12/08/18 21:58 Dose: 100 mg Metoprolol Tartrate (Lopressor Injection -) 5 mg IVPUSH Q4H PRN PRN Reason: TACHYCARDIA Multivitamins/Minerals/Vitamin C (Tab-A-Vit -) 1 tab PO DAILY [facility] Last Admin: 12/08/18 09:42 Dose: 1 tab Prednisone (Deltasone -) 40 mg PO DAILY [facility] Last Admin: 12/08/18 09:42 Dose: 40 mg Warfarin Sodium (Coumadin -) 7.5 mg PO DAILY@1800 [facility] Last Admin: 12/08/18 18:40 Dose: 7.5 mg - Objective Vital Signs: Vital Signs Temperature 98.1 F 12/09/18 06:00 Pulse Rate 100 H 12/09/18 06:00 Respiratory Rate 20 12/09/18 06:00 Blood Pressure 136/68 12/09/18 06:00 O2 Sat by Pulse Oximetry (%) 99 12/09/18 00:14 Constitutional: Yes: Well Nourished, No Distress, Calm Eyes: Yes: WNL, Conjunctiva Clear, EOM Intact HENT: Yes: WNL, Atraumatic, Normocephalic Neck: Yes: WNL, Supple, Trachea Midline Cardiovascular: Yes: WNL, Regular Rate and Rhythm Respiratory: Yes: WNL, CTA Bilaterally, Diminished (at based) Gastrointestinal: Yes: WNL, Normal Bowel Sounds, Soft ...Rectal Exam: Yes: Deferred Genitourinary: Yes: WNL Musculoskeletal: Yes: WNL Extremities: Yes: WNL Edema: Yes Edema: LLE: 1+, RLE: 1+ Peripheral Pulses WNL: Yes Integumentary: Yes: WNL Neurological: Yes: WNL, Alert, Oriented ...Motor Strength: WNL Psychiatric: Yes: WNL, Alert, Oriented Labs: CBC, BMP 12/08/18 06:40 12/08/18 06:40 INR, PTT INR 1.82 (0.83-1.09) H 12/08/18 06:40 - ....Imaging Chest X-ray: Report Reviewed, Image Reviewed Problem List - Problems (1) [place] (acute kidney injury) Assessment/Plan: - cardiorenal syndrome -daily CMP to trend Cr. with increasing diuresis, may need to decrease if Cr rises - creatinine 1.3 at baseline, now 1.4 -based on creat in past admission, baseline 1.0-1.3 -monitor kidney function and encourage PO intake, monitor while closely while on diuretic therapy. -continue IV lasix as per cardiology Code(s): N17.9 - ACUTE KIDNEY FAILURE, UNSPECIFIED (2) Acute on chronic HFrEF (heart failure with reduced ejection fraction) Assessment/Plan: -continue lasix 80mg bid IV as per cardiology -daily weights, 2 kg down since admission -daily CMP to assess renal function, Cr 1. -continue to hold home enalapril -Trops negative x 2, no further need to trend unless chest pain presents Code(s): I50.23 - ACUTE ON CHRONIC SYSTOLIC (CONGESTIVE) HEART FAILURE (3) Atrial fibrillation with rapid ventricular response Assessment/Plan: remains in AF rate controlled on beat blockers and digoxin Code(s): I48.91 - UNSPECIFIED ATRIAL FIBRILLATION (4) Atrial fibrillation Assessment/Plan: chronic AF now with RVR -maintain on metoprolol -not able to afford Xarelto, maintain on coumadin -INR 3.2 today, stop lovenox and continue with coumadin 5 mg tomorrow -INR goal 2-3 Code(s): I48.91 - UNSPECIFIED ATRIAL FIBRILLATION (5) SOB (shortness of breath) Assessment/Plan: on supplemental oxygen @ 2l pulmonary following -continue xopenex -no requiring noctural bipap -pre & post done and O2 decreased to 91% off O2. Will not qualify for home O2. Will speak with daughter again since she expressed concerns about needing supplemental O2 at home Code(s): R06.02 - SHORTNESS OF BREATH (6) Diabetes Assessment/Plan: Novolog sliding scale FS AC/HS diabetic diet, BS >300 this am-daughter states she had fruit-education provided Code(s): E11.9 - TYPE 2 DIABETES MELLITUS WITHOUT COMPLICATIONS (7) Hypertension Assessment/Plan: hold home anti hypertensives (CCB) while attempting to rate control AF with BB resume home meds when rate control and BL will tolerate hold TANMAY low salt diet Code(s): I10 - ESSENTIAL (PRIMARY) HYPERTENSION Qualifiers: Hypertension type: secondary to endocrine disorders Qualified Code(s): I15.2 - Hypertension secondary to endocrine disorders (8) NSVT (nonsustained ventricular tachycardia) Assessment/Plan: resolved Code(s): I47.2 - VENTRICULAR TACHYCARDIA (9) Hyponatremia Assessment/Plan: Serum sodium now WNL 138 -Seen by nephrology and recommendations appreciated. -Maintain on a fluid restriction of 1.5 liters -liberalize tomorrow of Na remains stable -Will continue lasix per cardiology and nephrology -monitor cmp. Code(s): E87.1 - HYPO-OSMOLALITY AND HYPONATREMIA (10) Sepsis Assessment/Plan: resolved Code(s): A41.9 - SEPSIS, UNSPECIFIED ORGANISM Qualifiers: Sepsis type: sepsis due to unspecified organism Qualified Code(s): A41.9 - Sepsis, unspecified organism (11) CHF (congestive heart failure) Assessment/Plan: on diuretic therapy. -TTE EF 30%. LV mildly dilated, severe global hypokinesis of left ventricle. left ventricular systolic function is severely reduced. right ventricle normal, left atria mildly dilated. right atrial size normal. mild to moderate mitral regurg. mitral regurg jet is eccentrically directed. mild aortic valve thickening -cardiology following and appreciate input Code(s): I50.9 - HEART FAILURE, UNSPECIFIED (12) Elevated d-dimer Assessment/Plan: resolved Code(s): R79.89 - OTHER SPECIFIED ABNORMAL FINDINGS OF BLOOD CHEMISTRY (13) Under or uninsured Assessment/Plan: request place for emergency Medicaid by social work and immigration case manager Request typically take 30-45 days to be approved. Will update family/patient. -information given to family on pricing for oxygen for home Appreciate CM/SW assistance Code(s): Z59.8 - OTHER PROBLEMS RELATED TO HOUSING AND ECONOMIC CIRCUMSTANCES (14) Prophylactic measure Assessment/Plan: on comadin INR 3.2 today Code(s): Z29.9 - ENCOUNTER FOR PROPHYLACTIC MEASURES, UNSPECIFIED Impression/Plan Impression/Plan: FEN no additional IV while diuresing replete electrolytes as needed diabetic, low sodium diet. Avoid caffeine Prophy dvt: on coumadin and lovenox until inr 2, then just coumadin gi: on bowel regimen. physical therapy when more stable Dispo -maintain as in patient -discharge planning -Follow up Appointment: an appointment has been set up - ThursdayDecember AT 10.AM(CANCELED).. with Dr. Winters. [facility] at [address] [place] [address] THIS IS FOR AN INR CHECK AND POST HOSPITAL CHECK. The office aware patient is uninsured and will offer services at a nominal rate. -full code Visit type - Emergency Visit Emergency Visit: Yes ED Registration Date: 11/27/18 Care time: The patient presented to the Emergency Department on the above date and was hospitalized for further evaluation of their emergent condition. - New Patient This patient is new to me today: No - Critical Care Critical Care patient: No - Discharge Referral Referred to [facility] Med P.C.: No
[2018-12-09] MEDS: MULTIVITAMINS (DAILY MVI) TABLET (FP) PO SCH (10:01)
[2018-12-09] MEDS: DIGOXIN 0.125 MG TABLET (FP) PO SCH (10:01)
[2018-12-09] MEDS: MAGNESIUM OXIDE 400 MG TABLET (FP) PO SCH ×2 (10:02→21:33)
[2018-12-09] MEDS: FUROSEMIDE 40 MG/4 ML INJECTABLE VIAL IVPB SCH (10:02)
[2018-12-09] MEDS: ENOXAPARIN NA (PORCINE) 80 MG/0.8 ML DISP.SYRIN SQ SCH (10:02)
[2018-12-09] MEDS: predniSONE 20 MG TABLET (UD) PO SCH (10:02)
[2018-12-09] MEDS: CALCIUM (OYSTER SHELL) 500 MG TABLET (FP) PO SCH ×2 (10:02→21:33)
[2018-12-09] MEDS: ASPIRIN 81 MG CHEWABLE TABLETS PO SCH (10:02)
[2018-12-09 11:41] LABS: BASO % 1.3 % (0-2.0); EOS % 1.8 % (0-4.5); HEMATOCRIT 35.1 % (35.4-49); HEMOGLOBIN 11.1 GM/dL (11.7-16.9); LYMPH % 18.3 % (8-40); MCH 27.3 pg (25.7-33.7); MCHC 31.6 g/dl (32.0-35.9); MEAN CELL VOLUME 86.2 fl (80-96); MEAN PLT VOLUME 10.1 fl (7.5-11.1); MONO % 6.5 % (3.8-10.2); NEUT % 72.1 % (42.8-82.8); PLATELET COUNT 260 K/MM3 (134-434); RBC 4.07 M/mm3 (4.00-5.60); RDW 15.1 % (11.9-15.9); WHITE BLOOD COUNT 9.5 K/mm3 (4.0-10.0)
[2018-12-09 12:00] LABS: INR 3.24 (0.83-1.09); PROTHROMBIN TIME (PATIENT) 38.7 SEC (9.7-13.0)
[2018-12-09 12:09] LABS: ALBUMIN 2.9 g/dl (3.4-5.0); BILIRUBIN,TOTAL 0.3 mg/dL (0.2-1); CREATININE 1.4 mg/dL (0.55-1.3); MAGNESIUM 1.9 mg/dL (1.8-2.4)
[2018-12-09] MEDS ORDERED: WARFARIN NA 2.5 MG TABLET (FP) PO SCH (12:18)
--- NOTE | 2018-12-09 12:25 | PN ---
Progress Note (short form) - Note Progress Note: s: no cp sob palps dizzy o: Vital Signs Period Temp Pulse Resp BP Sys/Perez Pulse Ox Last 24 Hr 98 F-98.4 F 100-109 18-20 102-136/65-81 93-99 Constitutional: Yes: No Distress Cardiovascular: Yes: Pulse Irregular Respiratory: Yes: cta bl nl eff Gastrointestinal: Yes: Soft Edema: no le e/c/c no jaundice diaphoresis pos dp pt Current Medications Generic Name Dose Route Start Last Admin Trade Name Freq PRN Reason Stop Dose Admin Acetaminophen 650 mg 11/29/18 18:42 12/03/18 03:30 Tylenol - PO 650 mg Q6H PRN Administration FEVER Albuterol Sulfate 1 puff 11/30/18 09:45 12/09/18 05:00 Ventolin Hfa Inhaler - IH 1 puff Q6H DANYEL Administration Aspirin 81 mg 11/28/18 10:00 12/09/18 10:02 Asa - PO 81 mg DAILY DANYEL Administration Calcium Carbonate 500 mg 11/30/18 22:00 12/09/18 10:02 Os-Raffi 500mg - PO 500 mg BID DANYEL Administration Digoxin 0.125 mg 11/29/18 10:00 12/09/18 10:01 Lanoxin - PO 0.125 mg DAILY DANYEL Administration Docusate Sodium 100 mg 11/30/18 22:00 12/09/18 06:40 Colace - PO 100 mg TID DANYEL Administration Furosemide 80 mg 12/08/18 10:00 12/09/18 10:02 Lasix Injection - IVPB 80 mg DAILY DANYEL Administration Guaifenesin 10 ml 11/29/18 05:25 12/07/18 16:32 Robitussin Dm - PO 10 ml Q6H PRN Administration COUGH Insulin Aspart 1 vial 12/05/18 16:19 12/09/18 12:23 Novolog Vial Sliding Scale - SQ 12 units ACHS DANYEL Administration Protocol Insulin Detemir 15 units 12/05/18 16:19 12/08/18 21:59 Levemir Vial SQ 15 units HS [facility]ANYEL Administration Magnesium Citrate 300 ml 11/29/18 17:57 12/06/18 18:47 Citroma - PO 300 ml Q48H PRN Administration CONSTIPATION Magnesium Oxide 400 mg 12/01/18 22:00 12/09/18 10:02 Mag-Ox - PO 400 mg BID [facility]ANYEL Administration Metoprolol Succinate 100 mg 12/07/18 12:00 12/09/18 10:01 Toprol Xl - PO 100 mg BID [facility] Administration Metoprolol Tartrate 5 mg 12/02/18 11:33 Lopressor Injection - IVPUSH Q4H PRN TACHYCARDIA Multivitamins/Minerals/Vitamin C 1 tab 12/01/18 10:00 12/09/18 10:01 Tab-A-Vit - PO 1 tab DAILY [facility] Administration Prednisone 40 mg 12/07/18 10:00 12/09/18 10:02 Deltasone - PO 40 mg DAILY DANYEL Administration Warfarin Sodium 2.5 mg 12/09/18 12:18 Coumadin - PO DAILY@1800 [facility] CBC, BMP 12/09/18 11:35 12/09/18 11:35 Assessment/Plan ECG x2 11/27: afib, RBBB, far right QRS axis, nonspecific ST-T abn--R bundle and axis new vs 01/2016 prior CXR: large heart, congestive changes (new vs 2017), no effusions (my review: + cephalization, + incr interstitium c/w interstitial edema possibly) Echo 2015: mild LVE, moderately decr LVSF (global). RV tds. valves unremarkable tele: AF with rvr at times 1. PAF: -known dx since at least 2014, at that time on amiodarone with dr robledo--pt not currently taking, thinks he stopped it since 2014. -Cont metoprolol and dig. Monitor on tele. -CHADS VASC 4--warrants AC. xarelto started here (15mg qd for GFR 15-50) -patient unable to afford xarelto - cont coumadin, goal INR 2-3 2. Acute on chronic syst HF: -Diuresing and overall improved. -previously with known moderately decr LVSF 2014. Now with EF 30%, global -etiology uncertain--? if completed outpt ischemia w/u at time of initial dx -suspect may have high, longstanding burden of tachycardia as he has no sx's when in rapid AF--? isch CMP -echo 11/30 showed severe global HK, EF 30%, moderate MR -holding enalapril to allow bp room to tolerate diuretics, AF rate control -no concern for ACS (trop neg x 2) -ischemic w/u when euvolemic 12/09: cont iv lasix, daily wt, chem7 3. [place]: -creat 1.7, from 1.3 in 2016 -? cardiorenal syndrome -Creat stable 4. VT: -NSVT on tele, vs AF with aberrancy -K > 4, Mg > 2 5. HTN: -low bp's here, improved. -TANMAY-I on hold for now.
--- NOTE | 2018-12-09 13:21 | PN ---
Progress Note (short form) - Note Progress Note: PULMONARY States breathing is improving. Occasional nonproductive cough. No chest pain. Vital Signs Period Temp Pulse Resp BP Sys/Perez Pulse Ox Last 24 Hr 98 F-98.6 F 100-109 18-20 102-136/65-81 91-99 Gen: NAD at rest Heart: RRR Lung: scattered basilar rales Abd: soft, nontender Ext: +distal edema CBC, BMP 12/09/18 11:35 12/09/18 11:35 Active Medications Acetaminophen (Tylenol -) 650 mg PO Q6H PRN PRN Reason: FEVER Last Admin: 12/03/18 03:30 Dose: 650 mg Albuterol Sulfate (Ventolin Hfa Inhaler -) 1 puff IH Q6H [facility] Last Admin: 12/09/18 05:00 Dose: 1 puff Aspirin (Asa -) 81 mg PO DAILY [facility] Last Admin: 12/09/18 10:02 Dose: 81 mg Calcium Carbonate (Os-Raffi 500mg -) 500 mg PO BID [facility] Last Admin: 12/09/18 10:02 Dose: 500 mg Digoxin (Lanoxin -) 0.125 mg PO DAILY [facility] Last Admin: 12/09/18 10:01 Dose: 0.125 mg Docusate Sodium (Colace -) 100 mg PO TID [facility] Last Admin: 12/09/18 06:40 Dose: 100 mg Furosemide (Lasix Injection -) 80 mg IVPB DAILY [facility] Last Admin: 12/09/18 10:02 Dose: 80 mg Guaifenesin (Robitussin Dm -) 10 ml PO Q6H PRN PRN Reason: COUGH Last Admin: 12/07/18 16:32 Dose: 10 ml Insulin Aspart (Novolog Vial Sliding Scale -) 1 vial SQ [facility]; Protocol Last Admin: 12/09/18 12:23 Dose: 12 units Insulin Detemir (Levemir Vial) 15 units SQ HS [facility] Last Admin: 12/08/18 21:59 Dose: 15 units Magnesium Citrate (Citroma -) 300 ml PO Q48H PRN PRN Reason: CONSTIPATION Last Admin: 12/06/18 18:47 Dose: 300 ml Magnesium Oxide (Mag-Ox -) 400 mg PO BID [facility] Last Admin: 12/09/18 10:02 Dose: 400 mg Metoprolol Succinate (Toprol Xl -) 100 mg PO BID [facility] Last Admin: 12/09/18 10:01 Dose: 100 mg Metoprolol Tartrate (Lopressor Injection -) 5 mg IVPUSH Q4H PRN PRN Reason: TACHYCARDIA Multivitamins/Minerals/Vitamin C (Tab-A-Vit -) 1 tab PO DAILY [facility] Last Admin: 12/09/18 10:01 Dose: 1 tab Prednisone (Deltasone -) 40 mg PO DAILY [facility] Last Admin: 12/09/18 10:02 Dose: 40 mg Warfarin Sodium (Coumadin -) 2.5 mg PO DAILY@1800 [facility] A/P Acute on Chronic Systolic Heart Failure Atrial Fibrillation Pneumonia Lung Nodule Acute Kidney Injury HTN - continue lasix - monitor urine output, creatinine - daily weights - rate control - continue anticoagulation - O2 to keep Spo2 >90% - prednisone taper - inhaled bronchodilators as needed - will need outpt PET
--- NOTE | 2018-12-09 14:13 | PN ---
Progress Note, Physician - Current Medication List Current Medications: Active Medications Acetaminophen (Tylenol -) 650 mg PO Q6H PRN PRN Reason: FEVER Last Admin: 12/03/18 03:30 Dose: 650 mg Albuterol Sulfate (Ventolin Hfa Inhaler -) 1 puff IH Q6H [facility] Last Admin: 12/09/18 05:00 Dose: 1 puff Aspirin (Asa -) 81 mg PO DAILY [facility] Last Admin: 12/09/18 10:02 Dose: 81 mg Calcium Carbonate (Os-Raffi 500mg -) 500 mg PO BID [facility] Last Admin: 12/09/18 10:02 Dose: 500 mg Digoxin (Lanoxin -) 0.125 mg PO DAILY [facility] Last Admin: 12/09/18 10:01 Dose: 0.125 mg Docusate Sodium (Colace -) 100 mg PO TID [facility] Last Admin: 12/09/18 06:40 Dose: 100 mg Furosemide (Lasix Injection -) 80 mg IVPB DAILY [facility] Last Admin: 12/09/18 10:02 Dose: 80 mg Guaifenesin (Robitussin Dm -) 10 ml PO Q6H PRN PRN Reason: COUGH Last Admin: 12/07/18 16:32 Dose: 10 ml Insulin Aspart (Novolog Vial Sliding Scale -) 1 vial SQ [facility]; Protocol Last Admin: 12/09/18 12:23 Dose: 12 units Insulin Detemir (Levemir Vial) 15 units SQ HS [facility] Last Admin: 12/08/18 21:59 Dose: 15 units Magnesium Citrate (Citroma -) 300 ml PO Q48H PRN PRN Reason: CONSTIPATION Last Admin: 12/06/18 18:47 Dose: 300 ml Magnesium Oxide (Mag-Ox -) 400 mg PO BID [facility] Last Admin: 12/09/18 10:02 Dose: 400 mg Metoprolol Succinate (Toprol Xl -) 100 mg PO BID [facility] Last Admin: 12/09/18 10:01 Dose: 100 mg Metoprolol Tartrate (Lopressor Injection -) 5 mg IVPUSH Q4H PRN PRN Reason: TACHYCARDIA Multivitamins/Minerals/Vitamin C (Tab-A-Vit -) 1 tab PO DAILY [facility] Last Admin: 12/09/18 10:01 Dose: 1 tab Prednisone (Deltasone -) 40 mg PO DAILY [facility] Last Admin: 12/09/18 10:02 Dose: 40 mg Warfarin Sodium (Coumadin -) 2.5 mg PO DAILY@1800 [facility] - Objective Vital Signs: Vital Signs Temperature 98.6 F 12/09/18 09:00 Pulse Rate 106 H 12/09/18 10:01 Respiratory Rate 20 12/09/18 09:00 Blood Pressure 131/77 12/09/18 09:00 O2 Sat by Pulse Oximetry (%) 91 L 12/09/18 09:00 Labs: CBC, BMP 12/09/18 11:35 12/09/18 11:35 INR, PTT INR 3.24 (0.83-1.09) H 12/09/18 11:35
[2018-12-09] MEDS: guaiFENesin/D-METHORPHAN HB 10 ML UNIT-DOSE CUPS PO PRN ×2 (14:45→21:34)
[2018-12-09] MEDS ORDERED: INSULIN (NOVOLOG) ASPART 100 UNITS/ML 10ML VIAL ONE (15:04)
--- NOTE | 2018-12-09 15:30 | PN ---
Progress Note (short form) - Note Progress Note: Renal follow up for Hyponatremiea/[place]/CKD Pt seen and examined at the bedside awake and alert reports feeling better still has cough making urine Vital Signs Temperature 98 F 12/09/18 14:00 Pulse Rate 119 H 12/09/18 14:00 Respiratory Rate 20 12/09/18 14:00 Blood Pressure 106/75 12/09/18 14:00 O2 Sat by Pulse Oximetry (%) 91 L 12/09/18 09:00 Intake & Output 12/06/18 12/07/18 12/08/18 12/09/18 23:59 23:59 23:59 23:59 Intake Total 445 395 250 Balance 445 395 250 Weight 77.474 kg 77.564 kg 77.927 kg NAD irregular, no M/R CTA, no rales soft,obese, NT/ND no LE edema, clubbing or cyanosis CBC, BMP 12/09/18 11:35 12/09/18 11:35 Current Medications Acetaminophen (Tylenol -) 650 mg PO Q6H PRN PRN Reason: FEVER Last Admin: 12/03/18 03:30 Dose: 650 mg Albuterol Sulfate (Ventolin Hfa Inhaler -) 1 puff IH Q6H [facility] Last Admin: 12/09/18 05:00 Dose: 1 puff Aspirin (Asa -) 81 mg PO DAILY [facility] Last Admin: 12/09/18 10:02 Dose: 81 mg Calcium Carbonate (Os-Raffi 500mg -) 500 mg PO BID [facility] Last Admin: 12/09/18 10:02 Dose: 500 mg Digoxin (Lanoxin -) 0.125 mg PO DAILY [facility] Last Admin: 12/09/18 10:01 Dose: 0.125 mg Docusate Sodium (Colace -) 100 mg PO TID [facility] Last Admin: 12/09/18 14:44 Dose: 100 mg Furosemide (Lasix Injection -) 80 mg IVPB DAILY [facility] Last Admin: 12/09/18 10:02 Dose: 80 mg Guaifenesin (Robitussin Dm -) 10 ml PO Q6H PRN PRN Reason: COUGH Last Admin: 12/09/18 14:45 Dose: 10 ml Insulin Aspart (Novolog Vial Sliding Scale -) [address] [facility]; Protocol Last Admin: 12/09/18 12:23 Dose: 12 units Insulin Detemir (Levemir Vial) 15 units SQ HS [facility] Last Admin: 12/08/18 21:59 Dose: 15 units Magnesium Citrate (Citroma -) 300 ml PO Q48H PRN PRN Reason: CONSTIPATION Last Admin: 12/06/18 18:47 Dose: 300 ml Magnesium Oxide (Mag-Ox -) 400 mg PO BID [facility] Last Admin: 12/09/18 10:02 Dose: 400 mg Metoprolol Succinate (Toprol Xl -) 100 mg PO BID [facility] Last Admin: 12/09/18 10:01 Dose: 100 mg Metoprolol Tartrate (Lopressor Injection -) 5 mg IVPUSH Q4H PRN PRN Reason: TACHYCARDIA Multivitamins/Minerals/Vitamin C (Tab-A-Vit -) 1 tab PO DAILY [facility] Last Admin: 12/09/18 10:01 Dose: 1 tab Prednisone (Deltasone -) 40 mg PO DAILY [facility] Last Admin: 12/09/18 10:02 Dose: 40 mg Warfarin Sodium (Coumadin -) 2.5 mg PO DAILY@1800 [facility] 68 year old gentleman with hx of systolic HF, Afib, DM who presented with complaints of chest pain, shortness of breath and LE swelling and admitted for CHF exacerbation with downtrending serum Na and Cr of 1.6. #Hyponatremia in setting of HF and [place]/CKD due to fluid overload and increased water intake/poor solute intake #CHF exacerbation #[place]/CKD (baseline Cr from 2016 is 1.3) #Fevers #DM #Anemia BUN/Cr slightly up, likely due to IV lasix would continue Lasix for now given edema and weight changes trend renal function and electrolytes continue fluid restriction Cardiology following Miguel Garcia DO
[2018-12-09] MEDS: INSULIN (LEVEMIR) 100 UNITS/ML UNITS SQ SCH (21:32)
[2018-12-10] MEDS: ALBUTEROL SO4 8 GM HFA INHALER IH SCH (03:50)
[2018-12-10] MEDS: DOCUSATE SODIUM 100 MG CAPSULE (FP) PO SCH ×3 (05:50→22:40)
[2018-12-10] MEDS: INSULIN SLIDING SCALE (NOVOLOG) 1 VIAL SQ SCH ×4 (06:36→22:41)
[2018-12-10 07:34] LABS: BASO % 0.6 % (0-2.0); EOS % 0.8 % (0-4.5); HEMATOCRIT 34.1 % (35.4-49); HEMOGLOBIN 11.2 GM/dL (11.7-16.9); LYMPH % 17.7 % (8-40); MCH 27.9 pg (25.7-33.7); MCHC 32.9 g/dl (32.0-35.9); MEAN CELL VOLUME 84.7 fl (80-96); MONO % 6.8 % (3.8-10.2); NEUT % 74.1 % (42.8-82.8); PLATELET COUNT 302 K/MM3 (134-434); RBC 4.03 M/mm3 (4.00-5.60); RDW 15.2 % (11.9-15.9); WHITE BLOOD COUNT 10.9 K/mm3 (4.0-10.0)
--- NOTE | 2018-12-10 07:44 | PN ---
Progress Note, Physician Chief Complaint: Patient is a 68 year old male with a significant past medical history of A-fib ( no reported anticoagulation control), HTN, HLD and NIDDM (on metformin). He comes to the ED on 11/27/2018 with shortness of breath x 1 day. He was on [place] and arrived to [place] on 11/17/2018 and has been doing well except for bilateral lower ext edema, but then developed shortness of breath. BNP 7k on admission. His PCP is in [facility]. Patient has no prescription insurance. All medications to be called into [facility] pharmacy. On exam, he is awake and alert, slovenian speaking only, youngest daughter at bedside - Current Medication List Current Medications: Active Medications Acetaminophen (Tylenol -) 650 mg PO Q6H PRN PRN Reason: FEVER Last Admin: 12/03/18 03:30 Dose: 650 mg Albuterol Sulfate (Ventolin Hfa Inhaler -) 1 puff IH Q6H [facility] Last Admin: 12/10/18 03:50 Dose: Not Given Aspirin (Asa -) 81 mg PO DAILY [facility] Last Admin: 12/09/18 10:02 Dose: 81 mg Calcium Carbonate (Os-Raffi 500mg -) 500 mg PO BID [facility] Last Admin: 12/09/18 21:33 Dose: 500 mg Digoxin (Lanoxin -) 0.125 mg PO DAILY [facility] Last Admin: 12/09/18 10:01 Dose: 0.125 mg Docusate Sodium (Colace -) 100 mg PO TID [facility] Last Admin: 12/10/18 05:50 Dose: 100 mg Furosemide (Lasix Injection -) 80 mg IVPB DAILY [facility] Last Admin: 12/09/18 10:02 Dose: 80 mg Guaifenesin (Robitussin Dm -) 10 ml PO Q6H PRN PRN Reason: COUGH Last Admin: 12/09/18 21:34 Dose: 10 ml Insulin Aspart (Novolog Vial Sliding Scale -) 1 vial SQ [facility]; Protocol Last Admin: 12/10/18 06:36 Dose: 6 units Insulin Detemir (Levemir Vial) 15 units SQ HS [facility] Last Admin: 12/09/18 21:32 Dose: 15 units Magnesium Citrate (Citroma -) 300 ml PO Q48H PRN PRN Reason: CONSTIPATION Last Admin: 12/06/18 18:47 Dose: 300 ml Magnesium Oxide (Mag-Ox -) 400 mg PO BID [facility] Last Admin: 12/09/18 21:33 Dose: 400 mg Metoprolol Succinate (Toprol Xl -) 100 mg PO BID [facility] Last Admin: 12/09/18 21:33 Dose: 100 mg Metoprolol Tartrate (Lopressor Injection -) 5 mg IVPUSH Q4H PRN PRN Reason: TACHYCARDIA Multivitamins/Minerals/Vitamin C (Tab-A-Vit -) 1 tab PO DAILY [facility] Last Admin: 12/09/18 10:01 Dose: 1 tab Prednisone (Deltasone -) 30 mg PO DAILY [facility] Stop: 12/13/18 09:59 Prednisone (Deltasone -) 20 mg PO DAILY [facility] Stop: 12/15/18 10:01 Prednisone (Deltasone -) 10 mg PO DAILY [facility] Stop: 12/18/18 10:01 Prednisone (Deltasone -) 5 mg PO DAILY [facility] Stop: 12/21/18 10:01 Warfarin Sodium (Coumadin -) 5 mg PO DAILY@1800 [facility] - Objective Vital Signs: Vital Signs Temperature 98.0 F 12/10/18 05:51 Pulse Rate 106 H 12/10/18 05:51 Respiratory Rate 18 12/10/18 05:51 Blood Pressure 115/65 12/10/18 05:51 O2 Sat by Pulse Oximetry (%) 96 12/09/18 22:00 Constitutional: Yes: Well Nourished, No Distress Eyes: Yes: WNL, Conjunctiva Clear, EOM Intact HENT: Yes: WNL, Atraumatic, Normocephalic Neck: Yes: WNL, Supple, Trachea Midline Cardiovascular: Yes: WNL, Regular Rate and Rhythm Respiratory: Yes: WNL, Regular, CTA Bilaterally, Diminished (at bases) Gastrointestinal: Yes: WNL, Normal Bowel Sounds, Soft ...Rectal Exam: Yes: WNL Genitourinary: Yes: WNL Musculoskeletal: Yes: WNL Extremities: Yes: WNL Edema: Yes Edema: LLE: Trace, RLE: Trace Peripheral Pulses WNL: Yes Integumentary: Yes: WNL Neurological: Yes: WNL, Alert, Oriented ...Motor Strength: WNL Psychiatric: Yes: WNL, Alert, Oriented Labs: INR, PTT INR 3.24 (0.83-1.09) H 12/09/18 11:35 Problem List - Problems (1) [place] (acute kidney injury) Assessment/Plan: - cardiorenal syndrome -daily CMP to trend Cr. - creatinine 1.3 at baseline, now 1.4 -based on creat in past admission, baseline 1.0-1.3 -monitor kidney function and encourage PO intake, monitor while closely while on diuretic therapy. -change lasix to PO tomorrow Code(s): N17.9 - ACUTE KIDNEY FAILURE, UNSPECIFIED (2) Acute on chronic HFrEF (heart failure with reduced ejection fraction) Assessment/Plan: -continue lasix -daily weights, 2 kg down since admission -daily CMP to assess renal function, Cr 1.4 -continue to hold home enalapril -Trops negative x 2, no further need to trend unless chest pain presents Code(s): I50.23 - ACUTE ON CHRONIC SYSTOLIC (CONGESTIVE) HEART FAILURE (3) Atrial fibrillation with rapid ventricular response Assessment/Plan: remains in AF rate controlled on beat blockers and digoxin Code(s): I48.91 - UNSPECIFIED ATRIAL FIBRILLATION (4) Atrial fibrillation Assessment/Plan: chronic AF now with RVR -maintain on metoprolol -not able to afford Xarelto, maintain on coumadin -INR 2.9 today, lovenox stopped and continue with coumadin 5 mg tonight -INR goal 2-3 Code(s): I48.91 - UNSPECIFIED ATRIAL FIBRILLATION (5) SOB (shortness of breath) Assessment/Plan: on supplemental oxygen @ 2l pulmonary following -continue xopenex -not requiring noctural bipap -pre & post done and O2 decreased to 91% off O2. Will not qualify for home O2. Will speak with daughter again since she expressed concerns about needing supplemental O2 at home Code(s): R06.02 - SHORTNESS OF BREATH (6) Diabetes Assessment/Plan: Novolog sliding scale FS AC/HS diabetic diet, BS >300 this am-daughter states she had fruit-education provided Code(s): E11.9 - TYPE 2 DIABETES MELLITUS WITHOUT COMPLICATIONS (7) Hypertension Assessment/Plan: hold home anti hypertensives (CCB) while attempting to rate control AF with BB resume home meds when rate control and BL will tolerate hold TANMAY low salt diet Code(s): I10 - ESSENTIAL (PRIMARY) HYPERTENSION Qualifiers: Hypertension type: secondary to endocrine disorders Qualified Code(s): I15.2 - Hypertension secondary to endocrine disorders (8) NSVT (nonsustained ventricular tachycardia) Assessment/Plan: resolved Code(s): I47.2 - VENTRICULAR TACHYCARDIA (9) Hyponatremia Assessment/Plan: Serum sodium now WNL 137 -Seen by nephrology and recommendations appreciated. -Will continue lasix per cardiology and nephrology -monitor cmp. Code(s): E87.1 - HYPO-OSMOLALITY AND HYPONATREMIA (10) Sepsis Assessment/Plan: resolved Code(s): A41.9 - SEPSIS, UNSPECIFIED ORGANISM Qualifiers: Sepsis type: sepsis due to unspecified organism Qualified Code(s): A41.9 - Sepsis, unspecified organism (11) CHF (congestive heart failure) Assessment/Plan: on diuretic therapy. -TTE EF 30%. LV mildly dilated, severe global hypokinesis of left ventricle. left ventricular systolic function is severely reduced. right ventricle normal, left atria mildly dilated. right atrial size normal. mild to moderate mitral regurg. mitral regurg jet is eccentrically directed. mild aortic valve thickening -cardiology following and appreciate input Code(s): I50.9 - HEART FAILURE, UNSPECIFIED (12) Elevated d-dimer Assessment/Plan: resolved Code(s): R79.89 - OTHER SPECIFIED ABNORMAL FINDINGS OF BLOOD CHEMISTRY (13) Under or uninsured Assessment/Plan: request place for emergency Medicaid by social work and binder caser Request typically take 30-45 days to be approved. Will update family/patient. -information given to family on pricing for oxygen for home Appreciate CM/SW assistance Code(s): Z59.8 - OTHER PROBLEMS RELATED TO HOUSING AND ECONOMIC CIRCUMSTANCES (14) Prophylactic measure Assessment/Plan: on comadin INR 2.9 today Dispo maintian as inpatient possible dc tomorrow appreciate SW/CN help Code(s): Z29.9 - ENCOUNTER FOR PROPHYLACTIC MEASURES, UNSPECIFIED Impression/Plan Impression/Plan: FEN no additional IV while diuresing replete electrolytes as needed diabetic, low sodium diet. Avoid caffeine Prophy dvt: on coumadin and lovenox until inr 2, then just coumadin gi: on bowel regimen. physical therapy when more stable Dispo -maintain as in patient -discharge planning -Follow up Appointment: an appointment has been set up - ThursdayDecember AT 10.AM(CANCELED).. with Dr. Winters. [facility] THIS IS FOR AN INR CHECK AND POST HOSPITAL CHECK. The office aware patient is uninsured and will offer services at a nominal rate. -full code Visit type - Emergency Visit Emergency Visit: Yes ED Registration Date: 11/27/18 Care time: The patient presented to the Emergency Department on the above date and was hospitalized for further evaluation of their emergent condition. - New Patient This patient is new to me today: No - Critical Care Critical Care patient: No - Discharge Referral Referred to [facility] Med [facility] No
[2018-12-10 07:55] LABS: INR 2.93 (0.83-1.09)
[2018-12-10 08:54] LABS: BILIRUBIN,TOTAL 0.4 mg/dL (0.2-1); CALCIUM 9.1 mg/dL (8.5-10.1); CREATININE 1.4 mg/dL (0.55-1.3); MAGNESIUM 1.9 mg/dL (1.8-2.4); PHOSPHOROUS 3.9 mg/dL (2.5-4.9); POTASSIUM 4.4 mmol/L (3.5-5.1)
[2018-12-10] MEDS ORDERED: PT OWN MED DRAWER 7, Y5N ONE (10:02)
--- NOTE | 2018-12-10 10:07 | PN ---
Progress Note, Physician Chief Complaint: sitting comfortably, no distress TELE: AF w/ average rate 100bpm History of Present Illness: no CP or SOB - Current Medication List Current Medications: Active Medications Acetaminophen (Tylenol -) 650 mg PO Q6H PRN PRN Reason: FEVER Last Admin: 12/03/18 03:30 Dose: 650 mg Albuterol Sulfate (Ventolin Hfa Inhaler -) 1 puff IH Q6H [facility] Last Admin: 12/10/18 03:50 Dose: Not Given Aspirin (Asa -) 81 mg PO DAILY [facility] Last Admin: 12/09/18 10:02 Dose: 81 mg Calcium Carbonate (Os-Raffi 500mg -) 500 mg PO BID [facility] Last Admin: 12/09/18 21:33 Dose: 500 mg Digoxin (Lanoxin -) 0.125 mg PO DAILY [facility] Last Admin: 12/09/18 10:01 Dose: 0.125 mg Docusate Sodium (Colace -) 100 mg PO TID [facility] Last Admin: 12/10/18 05:50 Dose: 100 mg Furosemide (Lasix Injection -) 80 mg IVPB DAILY [facility] Last Admin: 12/09/18 10:02 Dose: 80 mg Guaifenesin (Robitussin Dm -) 10 ml PO Q6H PRN PRN Reason: COUGH Last Admin: 12/09/18 21:34 Dose: 10 ml Insulin Aspart (Novolog Vial Sliding Scale -) 1 vial SQ [facility]; Protocol Last Admin: 12/10/18 06:36 Dose: 6 units Insulin Detemir (Levemir Vial) 15 units SQ [facility] Last Admin: 12/09/18 21:32 Dose: 15 units Magnesium Citrate (Citroma -) 300 ml PO Q48H PRN PRN Reason: CONSTIPATION Last Admin: 12/06/18 18:47 Dose: 300 ml Magnesium Oxide (Mag-Ox -) 400 mg PO BID [facility] Last Admin: 12/09/18 21:33 Dose: 400 mg Metoprolol Succinate (Toprol Xl -) 100 mg PO BID [facility] Last Admin: 12/09/18 21:33 Dose: 100 mg Metoprolol Tartrate (Lopressor Injection -) 5 mg IVPUSH Q4H PRN PRN Reason: TACHYCARDIA Multivitamins/Minerals/Vitamin C (Tab-A-Vit -) 1 tab PO DAILY [facility] Last Admin: 12/09/18 10:01 Dose: 1 tab Prednisone (Deltasone -) 30 mg PO DAILY [facility] Stop: 12/13/18 09:59 Prednisone (Deltasone -) 20 mg PO DAILY [facility] Stop: 12/15/18 10:01 Prednisone (Deltasone -) 10 mg PO DAILY [facility] Stop: 12/18/18 10:01 Prednisone (Deltasone -) 5 mg PO DAILY [facility] Stop: 12/21/18 10:01 Warfarin Sodium (Coumadin -) 5 mg PO DAILY@1800 [facility] - Objective Vital Signs: Vital Signs Temperature 98.0 F 12/10/18 05:51 Pulse Rate 106 H 12/10/18 05:51 Respiratory Rate 18 12/10/18 05:51 Blood Pressure 115/65 12/10/18 05:51 O2 Sat by Pulse Oximetry (%) 96 12/09/18 22:00 Constitutional: Yes: No Distress Eyes: Yes: Conjunctiva Clear Cardiovascular: Yes: Pulse Irregular Respiratory: Yes: CTA Bilaterally (no rales) Gastrointestinal: Yes: Soft Edema: No Labs: CBC, BMP 12/10/18 06:38 12/10/18 06:38 INR, PTT INR 2.93 (0.83-1.09) H 12/10/18 06:38 Laboratory Tests 12/10/18 12/10/18 12/10/18 06:38 06:38 06:38 WBC 10.9 H Hgb 11.2 L Plt Count Pending INR 2.93 H Potassium 4.4 Creatinine 1.4 H - ....Imaging EKG: Image Reviewed Assessment/Plan Assessment/Plan ECG x2 11/27: afib, RBBB, far right QRS axis, nonspecific ST-T abn--R bundle and axis new vs 01/2016 prior CXR: large heart, congestive changes (new vs 2017), no effusions (my review: + cephalization, + incr interstitium c/w interstitial edema possibly) Echo 2014: mild LVE, moderately decr LVSF (global). RV tds. valves unremarkable tele: AF with rvr at times 1. PAF: -known dx since at least 2014, at that time on amiodarone with dr robledo--pt not currently taking, thinks he stopped it since 2014. -Cont metoprolol and dig. Monitor on tele. -CHADS VASC 4--warrants AC. xarelto started here (15mg qd for GFR 15-50) -patient unable to afford xarelto - cont coumadin, goal INR 2-3 2. Acute on chronic syst HF: -Diuresing and overall improved. -previously with known moderately decr LVSF 2014. Now with EF 30%, global -etiology uncertain--? if completed outpt ischemia w/u at time of initial dx -suspect may have high, longstanding burden of tachycardia as he has no sx's when in rapid AF--? isch CMP -echo 11/30 showed severe global HK, EF 30%, moderate MR -holding enalapril to allow bp room to tolerate diuretics, AF rate control -no concern for ACS (trop neg x 2) -ischemic w/u when euvolemic -Patient can be converted to PO Lasix Monday 12/11 3. [place]: -creat 1.7, from 1.3 in 2016 -? cardiorenal syndrome -Creat stable 4. VT: -NSVT on tele, vs AF with aberrancy -K > 4, Mg > 2 5. HTN: -low bp's here, improved. -TANMAY-I on hold for now.
[2018-12-10] MEDS: FUROSEMIDE 40 MG/4 ML INJECTABLE VIAL IVPB SCH (10:11)
[2018-12-10] MEDS: MAGNESIUM OXIDE 400 MG TABLET (FP) PO SCH ×2 (10:11→22:41)
[2018-12-10] MEDS: MULTIVITAMINS (DAILY MVI) TABLET (FP) PO SCH (10:11)
[2018-12-10] MEDS: DIGOXIN 0.125 MG TABLET (FP) PO SCH (10:11)
[2018-12-10] MEDS: CALCIUM (OYSTER SHELL) 500 MG TABLET (FP) PO SCH ×2 (10:11→22:41)
[2018-12-10] MEDS: predniSONE 20 MG TABLET (UD) PO SCH (10:11)
[2018-12-10] MEDS: ASPIRIN 81 MG CHEWABLE TABLETS PO SCH (10:12)
--- NOTE | 2018-12-10 13:56 | PN ---
Progress Note, Physician History of Present Illness: PULMONARY ALERT,COMFORTABLE,NO DISTRESS,O2 SAT 96% ON RA AT REST - Current Medication List Current Medications: Active Medications Acetaminophen (Tylenol -) 650 mg PO Q6H PRN PRN Reason: FEVER Last Admin: 12/03/18 03:30 Dose: 650 mg Albuterol Sulfate (Ventolin Hfa Inhaler -) 1 puff IH Q6H [facility] Last Admin: 12/10/18 03:50 Dose: Not Given Aspirin (Asa -) 81 mg PO DAILY [facility] Last Admin: 12/10/18 10:12 Dose: 81 mg Calcium Carbonate (Os-Raffi 500mg -) 500 mg PO BID [facility] Last Admin: 12/10/18 10:11 Dose: 500 mg Digoxin (Lanoxin -) 0.125 mg PO DAILY [facility] Last Admin: 12/10/18 10:11 Dose: 0.125 mg Docusate Sodium (Colace -) 100 mg PO TID [facility] Last Admin: 12/10/18 13:40 Dose: 100 mg Furosemide (Lasix Injection -) 80 mg IVPB DAILY [facility] Stop: 12/11/18 10:00 Last Admin: 12/10/18 10:11 Dose: 80 mg Furosemide (Lasix -) 80 mg PO BID@0600,1400 [facility] Guaifenesin (Robitussin Dm -) 10 ml PO Q6H PRN PRN Reason: COUGH Last Admin: 12/09/18 21:34 Dose: 10 ml Insulin Aspart (Novolog Vial Sliding Scale -) 1 vial SQ [facility]; Protocol Last Admin: 12/10/18 11:04 Dose: 14 units Insulin Detemir (Levemir Vial) 15 units SQ [facility] Last Admin: 12/09/18 21:32 Dose: 15 units Magnesium Citrate (Citroma -) 300 ml PO Q48H PRN PRN Reason: CONSTIPATION Last Admin: 12/06/18 18:47 Dose: 300 ml Magnesium Oxide (Mag-Ox -) 400 mg PO BID [facility] Last Admin: 12/10/18 10:11 Dose: 400 mg Metoprolol Succinate (Toprol Xl -) 100 mg PO BID [facility] Last Admin: 12/10/18 10:12 Dose: 100 mg Metoprolol Tartrate (Lopressor Injection -) 5 mg IVPUSH Q4H PRN PRN Reason: TACHYCARDIA Multivitamins/Minerals/Vitamin C (Tab-A-Vit -) 1 tab PO DAILY [facility] Last Admin: 12/10/18 10:11 Dose: 1 tab Prednisone (Deltasone -) 30 mg PO DAILY [facility] Stop: 12/13/18 09:59 Last Admin: 12/10/18 10:11 Dose: 30 mg Prednisone (Deltasone -) 20 mg PO DAILY [facility] Stop: 12/15/18 10:01 Prednisone (Deltasone -) 10 mg PO DAILY [facility] Stop: 12/18/18 10:01 Prednisone (Deltasone -) 5 mg PO DAILY [facility] Stop: 12/21/18 10:01 Warfarin Sodium (Coumadin -) 5 mg PO DAILY@1800 [facility] - Objective Vital Signs: Vital Signs Temperature 98.0 F 12/10/18 05:51 Pulse Rate 100 H 12/10/18 10:11 Respiratory Rate 20 12/10/18 10:00 Blood Pressure 126/70 12/10/18 10:00 O2 Sat by Pulse Oximetry (%) 96 12/10/18 09:00 Constitutional: Yes: Well Nourished, Calm Eyes: Yes: WNL HENT: Yes: WNL Neck: Yes: WNL Cardiovascular: Yes: Pulse Irregular, S1, S2 Respiratory: Yes: Rales (FEW BIBASILAR CRACKLES) Gastrointestinal: Yes: Normal Bowel Sounds, Soft Extremities: Yes: WNL Edema: No Labs: CBC, BMP 12/10/18 06:38 12/10/18 06:38 INR, PTT INR 2.93 (0.83-1.09) H 12/10/18 06:38 Problem List - Problems (1) Acute hypoxemic respiratory failure Code(s): J96.01 - ACUTE RESPIRATORY FAILURE WITH HYPOXIA (2) [place] (acute kidney injury) Code(s): N17.9 - ACUTE KIDNEY FAILURE, UNSPECIFIED (3) Acute on chronic HFrEF (heart failure with reduced ejection fraction) Code(s): I50.23 - ACUTE ON CHRONIC SYSTOLIC (CONGESTIVE) HEART FAILURE (4) Atrial fibrillation with rapid ventricular response Code(s): I48.91 - UNSPECIFIED ATRIAL FIBRILLATION (5) CHF (congestive heart failure) Code(s): I50.9 - HEART FAILURE, UNSPECIFIED (6) Dyslipidemia associated with type 2 diabetes mellitus Code(s): E11.69 - TYPE 2 DIABETES MELLITUS WITH OTHER SPECIFIED COMPLICATION; E78.5 - HYPERLIPIDEMIA, UNSPECIFIED (7) Elevated d-dimer Code(s): R79.89 - OTHER SPECIFIED ABNORMAL FINDINGS OF BLOOD CHEMISTRY (8) Hypotension Code(s): I95.9 - HYPOTENSION, UNSPECIFIED (9) SOB (shortness of breath) Code(s): R06.02 - SHORTNESS OF BREATH (10) Hypertension Code(s): I10 - ESSENTIAL (PRIMARY) HYPERTENSION Qualifiers: Hypertension type: secondary to endocrine disorders Qualified Code(s): I15.2 - Hypertension secondary to endocrine disorders (11) Acute respiratory failure Code(s): J96.00 - ACUTE RESPIRATORY FAILURE, UNSP W HYPOXIA OR HYPERCAPNIA Assessment/Plan IMP ACUTE RESPIRATORY FAILURE improving ACUTE ON CHRONIC CHF/CARDIOMYOPATHY improving SEVERE LV DYSFUNCTION WITH GLOBAL HYPOKINESIS LVEF 30% AFIB WITH RVR ? H/O COPD PNEUMONIA HTN ELEVATED D-DIMER NON-SPECIFIC CANNOT EXCLUDE PE ACUTE KIDNEY INJURY RUL NODULE PLAN RATE CONTROL PER CARDIOLOGY PREDNISONE TAPER LASIX AC XOPENEX PRN NIPPV NEEDED O2 TO MAINTAIN O2 SAT > 90% MONITOR LYTES,RENAL FUNCTION DAILY WT PET SCAN OUTPATIENT DR SKY Problem List - Problems (1) Acute hypoxemic respiratory failure Code(s): J96.01 - ACUTE RESPIRATORY FAILURE WITH HYPOXIA (2) [place] (acute kidney injury) Code(s): N17.9 - ACUTE KIDNEY FAILURE, UNSPECIFIED (3) Acute on chronic HFrEF (heart failure with reduced ejection fraction) Code(s): I50.23 - ACUTE ON CHRONIC SYSTOLIC (CONGESTIVE) HEART FAILURE (4) Atrial fibrillation with rapid ventricular response Code(s): I48.91 - UNSPECIFIED ATRIAL FIBRILLATION (5) CHF (congestive heart failure) Code(s): I50.9 - HEART FAILURE, UNSPECIFIED (6) Dyslipidemia associated with type 2 diabetes mellitus Code(s): E11.69 - TYPE 2 DIABETES MELLITUS WITH OTHER SPECIFIED COMPLICATION; E78.5 - HYPERLIPIDEMIA, UNSPECIFIED (7) Elevated d-dimer Code(s): R79.89 - OTHER SPECIFIED ABNORMAL FINDINGS OF BLOOD CHEMISTRY (8) Hypotension Code(s): I95.9 - HYPOTENSION, UNSPECIFIED (9) SOB (shortness of breath) Code(s): R06.02 - SHORTNESS OF BREATH (10) Hypertension Code(s): I10 - ESSENTIAL (PRIMARY) HYPERTENSION Qualifiers: Hypertension type: secondary to endocrine disorders Qualified Code(s): I15.2 - Hypertension secondary to endocrine disorders (11) Acute respiratory failure Code(s): J96.00 - ACUTE RESPIRATORY FAILURE, UNSP W HYPOXIA OR HYPERCAPNIA
--- NOTE | 2018-12-10 15:08 | PN ---
Progress Note (short form) - Note Progress Note: Renal follow up for Hyponatremiea/[place]/CKD Pt seen and examined at the bedside awake and alert no acute complaints feels better able to ambulate well today without O2 no chest pain, fever or chills making urine Vital Signs Temperature 98.0 F 12/10/18 05:51 Pulse Rate 100 H 12/10/18 10:11 Respiratory Rate 20 12/10/18 10:00 Blood Pressure 126/70 12/10/18 10:00 O2 Sat by Pulse Oximetry (%) 96 12/10/18 09:00 Intake & Output 12/07/18 12/08/18 12/09/18 12/10/18 23:59 23:59 23:59 23:59 Intake Total 395 250 350 200 Balance 395 250 350 200 Weight 77.474 kg 77.564 kg 77.927 kg 77.201 kg NAD irregular, no M/R CTA, no rales soft,obese, NT/ND no LE edema, clubbing or cyanosis CBC, BMP 12/10/18 06:38 12/10/18 06:38 Current Medications Acetaminophen (Tylenol -) 650 mg PO Q6H PRN PRN Reason: FEVER Last Admin: 12/03/18 03:30 Dose: 650 mg Albuterol Sulfate (Ventolin Hfa Inhaler -) 1 puff IH Q6H [facility] Last Admin: 12/10/18 03:50 Dose: Not Given Aspirin (Asa -) 81 mg PO DAILY [facility] Last Admin: 12/10/18 10:12 Dose: 81 mg Calcium Carbonate (Os-Raffi 500mg -) 500 mg PO BID [facility] Last Admin: 12/10/18 10:11 Dose: 500 mg Digoxin (Lanoxin -) 0.125 mg PO DAILY [facility] Last Admin: 12/10/18 10:11 Dose: 0.125 mg Docusate Sodium (Colace -) 100 mg PO TID [facility] Last Admin: 12/10/18 13:40 Dose: 100 mg Furosemide (Lasix Injection -) 80 mg IVPB DAILY [facility] Stop: 12/11/18 10:00 Last Admin: 12/10/18 10:11 Dose: 80 mg Furosemide (Lasix -) 80 mg PO BID@0600,1400 [facility] Guaifenesin (Robitussin Dm -) 10 ml PO Q6H PRN PRN Reason: COUGH Last Admin: 12/09/18 21:34 Dose: 10 ml Insulin Aspart (Novolog Vial Sliding Scale -) 1 vial SQ ACHS [facility]; Protocol Last Admin: 12/10/18 11:04 Dose: 14 units Insulin Detemir (Levemir Vial) 15 units SQ HS [facility] Last Admin: 12/09/18 21:32 Dose: 15 units Magnesium Citrate (Citroma -) 300 ml PO Q48H PRN PRN Reason: CONSTIPATION Last Admin: 12/06/18 18:47 Dose: 300 ml Magnesium Oxide (Mag-Ox -) 400 mg PO BID [facility] Last Admin: 12/10/18 10:11 Dose: 400 mg Metoprolol Succinate (Toprol Xl -) 100 mg PO BID [facility] Last Admin: 12/10/18 10:12 Dose: 100 mg Metoprolol Tartrate (Lopressor Injection -) 5 mg IVPUSH Q4H PRN PRN Reason: TACHYCARDIA Multivitamins/Minerals/Vitamin C (Tab-A-Vit -) 1 tab PO DAILY [facility] Last Admin: 12/10/18 10:11 Dose: 1 tab Prednisone (Deltasone -) 30 mg PO DAILY [facility] Stop: 12/13/18 09:59 Last Admin: 12/10/18 10:11 Dose: 30 mg Prednisone (Deltasone -) 20 mg PO DAILY [facility] Stop: 12/15/18 10:01 Prednisone (Deltasone -) 10 mg PO DAILY [facility] Stop: 12/18/18 10:01 Prednisone (Deltasone -) 5 mg PO DAILY [facility] Stop: 12/21/18 10:01 Warfarin Sodium (Coumadin -) 5 mg PO DAILY@1800 [facility] 68 year old gentleman with hx of systolic HF, Afib, DM who presented with complaints of chest pain, shortness of breath and LE swelling and admitted for CHF exacerbation with downtrending serum Na and Cr of 1.6. #Hyponatremia in setting of HF and [place]/CKD due to fluid overload and increased water intake/poor solute intake #CHF exacerbation #[place]/CKD (baseline Cr from 2016 is 1.3) #Fevers #DM #Anemia Renal function stable, Serum Na stable to transition to oral diuretics as per cardiology tomorrow will need to have maintenance diuretics on discharge can start TANMAY/ARB once on steady dose of oral diuretics will need renal follow up on discharge will sign off case, please call with any questions or concerns Miguel Garcia DO
[2018-12-10] MEDS: WARFARIN NA 5 MG TABLET (UD) PO SCH (17:30)
[2018-12-10] MEDS: INSULIN (LEVEMIR) 100 UNITS/ML UNITS SQ SCH (22:41)
[2018-12-10] MEDS: guaiFENesin/D-METHORPHAN HB 10 ML UNIT-DOSE CUPS PO PRN (22:46)
[2018-12-11] MEDS ORDERED: glipiZIDE-XL 10 MG TAB.ER.24 (FP) PO SCH (07:00)
[2018-12-11] MEDS: DOCUSATE SODIUM 100 MG CAPSULE (FP) PO SCH ×3 (07:17→21:20)
[2018-12-11] MEDS: ALBUTEROL SO4 8 GM HFA INHALER IH SCH ×2 (07:17→21:25)
[2018-12-11] MEDS: INSULIN SLIDING SCALE (NOVOLOG) 1 VIAL SQ SCH ×4 (07:17→21:22)
[2018-12-11 07:44] LABS: BASO % 0.5 % (0-2.0); EOS % 1.2 % (0-4.5); HEMATOCRIT 34.1 % (35.4-49); HEMOGLOBIN 11.2 GM/dL (11.7-16.9); LYMPH % 18.5 % (8-40); MCH 27.9 pg (25.7-33.7); MCHC 32.9 g/dl (32.0-35.9); MEAN CELL VOLUME 84.8 fl (80-96); MEAN PLT VOLUME 10.1 fl (7.5-11.1); MONO % 6.8 % (3.8-10.2); RBC 4.02 M/mm3 (4.00-5.60); RDW 15.2 % (11.9-15.9); WHITE BLOOD COUNT 10.7 K/mm3 (4.0-10.0)
[2018-12-11 08:09] LABS: INR 2.08 (0.83-1.09); PROTHROMBIN TIME (PATIENT) 24.7 SEC (9.7-13.0)
[2018-12-11 08:23] LABS: BILIRUBIN,TOTAL 0.4 mg/dL (0.2-1); BLOOD UREA NITROGEN 39.3 mg/dL (7-18); CREATININE 1.4 mg/dL (0.55-1.3); POTASSIUM 4.1 mmol/L (3.5-5.1)
[2018-12-11] MEDS: CALCIUM (OYSTER SHELL) 500 MG TABLET (FP) PO SCH ×2 (09:03→21:20)
[2018-12-11] MEDS: FUROSEMIDE 40 MG/4 ML INJECTABLE VIAL IVPB SCH (09:03)
[2018-12-11] MEDS: ASPIRIN 81 MG CHEWABLE TABLETS PO SCH (09:03)
[2018-12-11] MEDS: MAGNESIUM OXIDE 400 MG TABLET (FP) PO SCH ×2 (09:03→21:20)
[2018-12-11] MEDS: DIGOXIN 0.125 MG TABLET (FP) PO SCH (09:03)
[2018-12-11] MEDS: MULTIVITAMINS (DAILY MVI) TABLET (FP) PO SCH (09:03)
[2018-12-11] MEDS: predniSONE 20 MG TABLET (UD) PO SCH (09:04)
[2018-12-11] MEDS ORDERED: PT OWN MED DRAWER 7, Y5N ONE (10:29)
[2018-12-11] MEDS: ASCORBIC ACID 500 MG TABLET (FP) PO SCH (10:47)
--- NOTE | 2018-12-11 11:48 | PN ---
Progress Note (short form) - Note Progress Note: s: no cp sob palps dizzy o: Vital Signs Period Temp Pulse Resp BP Sys/Perez Pulse Ox Last 24 Hr 97.7 F-98.6 F 87-118 18-20 118-124/46-82 95-95 Constitutional: Yes: No Distress Cardiovascular: Yes: Pulse Irregular Respiratory: Yes: cta bl nl eff Gastrointestinal: Yes: Soft Edema: no le e/c/c no jaundice diaphoresis pos dp pt no jvd Current Medications Generic Name Dose Route Start Last Admin Trade Name Freq PRN Reason Stop Dose Admin Acetaminophen 650 mg 11/29/18 18:42 12/03/18 03:30 Tylenol - PO 650 mg Q6H PRN Administration FEVER Albuterol Sulfate 1 puff 11/30/18 09:45 12/11/18 07:17 Ventolin Hfa Inhaler - IH 1 puff Q6H DANYEL Administration Ascorbic Acid 500 mg 12/11/18 10:00 12/11/18 10:47 Vitamin C - PO 500 mg DAILY DANYEL Administration Aspirin 81 mg 11/28/18 10:00 12/11/18 09:03 Asa - PO 81 mg DAILY DANYEL Administration Atorvastatin Calcium 10 mg 12/11/18 22:00 Lipitor - PO HS DANYEL Calcium Carbonate 500 mg 11/30/18 22:00 12/11/18 09:03 Os-Raffi 500mg - PO 500 mg BID DANYEL Administration Digoxin 0.125 mg 11/29/18 10:00 12/11/18 09:03 Lanoxin - PO 0.125 mg DAILY DANYEL Administration Docusate Sodium 100 mg 11/30/18 22:00 12/11/18 07:17 Colace - PO 100 mg TID DANYEL Administration Furosemide 80 mg 12/11/18 14:00 Lasix - PO BID@0600,1400 DANYEL Glipizide 10 mg 12/11/18 07:00 12/11/18 10:48 Glucotrol Xl - PO 10 mg 0700 DANYEL Administration Guaifenesin 10 ml 11/29/18 05:25 12/10/18 22:46 Robitussin Dm - PO 10 ml Q6H PRN Administration COUGH Insulin Aspart 1 vial 12/05/18 16:19 12/11/18 07:17 Novolog Vial Sliding Scale - SQ 6 units ACHS DANYEL Administration Protocol Insulin Detemir 15 units 12/05/18 16:19 12/10/18 22:41 Levemir Vial SQ 15 units HS DANYEL Administration Magnesium Citrate 300 ml 11/29/18 17:57 12/06/18 18:47 Citroma - PO 300 ml Q48H PRN Administration CONSTIPATION Magnesium Oxide 400 mg 12/01/18 22:00 12/11/18 09:03 Mag-Ox - PO 400 mg BID DANYEL Administration Metformin HCl 850 mg 12/12/18 07:00 Glucophage - PO 0700 DANY[facility] Metoprolol Succinate 100 mg 12/07/18 12:00 12/11/18 09:03 Toprol Xl - PO 100 mg BID DANYEL Administration Multivitamins/Minerals/Vitamin C 1 tab 12/01/18 10:00 12/11/18 09:03 Tab-A-Vit - PO 1 tab DAILY DANYEL Administration Prednisone 30 mg 12/10/18 10:00 12/11/18 09:04 Deltasone - PO 12/13/18 09:59 30 mg DAILY ADNYEL Administration Prednisone 20 mg 12/13/18 10:00 Deltasone - PO 12/15/18 10:01 DAILY DANYEL Prednisone 10 mg 12/16/18 10:00 Deltasone - PO 12/18/18 10:01 DAILY DANYEL Prednisone 5 mg 12/19/18 10:00 Deltasone - PO 12/21/18 10:01 DAILY DANYEL Warfarin Sodium 5 mg 12/10/18 18:00 12/10/18 17:30 Coumadin - PO 5 mg DAILY@1800 DANYEL Administration CBC, BMP 12/11/18 06:28 12/11/18 06:28 Assessment/Plan ECG x2 11/27: afib, RBBB, far right QRS axis, nonspecific ST-T abn--R bundle and axis new vs 01/2016 prior CXR: large heart, congestive changes (new vs 2017), no effusions (my review: + cephalization, + incr interstitium c/w interstitial edema possibly) Echo 2014: mild LVE, moderately decr LVSF (global). RV tds. valves unremarkable tele: AF, rate ok 1. PAF: -known dx since at least 2014, at that time on amiodarone with dr robledo--pt not currently taking, thinks he stopped it since 2014. -Cont metoprolol and dig. rate ok. -CHADS VASC 4--warrants AC. xarelto started here (15mg qd for GFR 15-50) but patient unable to afford xarelto - cont coumadin, goal INR 2-3 2. Acute on chronic syst HF: -Diuresing and overall improved-->now on po lasix -previously with known moderately decr LVSF 2014. Now with EF 30%, global -etiology uncertain--? if completed outpt ischemia w/u at time of initial dx -suspect may have high, longstanding burden of tachycardia as he has no sx's when in rapid AF--? isch CMP -echo 11/30 showed severe global HK, EF 30%, moderate MR -holding enalapril to allow bp room to tolerate diuretics, AF rate control -no concern for ACS (trop neg x 2) -ischemic w/u as outpt -cont po lasix 80 bid 3. [place]: -creat 1.7, from 1.3 in 2016 -? cardiorenal syndrome -Creat stable 4. VT: -NSVT on tele, vs AF with aberrancy -K > 4, Mg > 2 5. HTN: -low bp's here, improved.
--- NOTE | 2018-12-11 13:50 | PN ---
Progress Note (short form) - Note Progress Note: PULMONARY States breathing is improving. Occasional nonproductive cough. No chest pain. Vital Signs Period Temp Pulse Resp BP Sys/Perez Pulse Ox Last 24 Hr 97.7 F-98.6 F 87-118 18-20 118-124/46-82 95-95 Gen: NAD at rest Heart: RRR Lung: scattered basilar rales Abd: soft, nontender Ext: +distal edema CBC, BMP 12/11/18 06:28 12/11/18 06:28 Active Medications Acetaminophen (Tylenol -) 650 mg PO Q6H PRN PRN Reason: FEVER Last Admin: 12/03/18 03:30 Dose: 650 mg Albuterol Sulfate (Ventolin Hfa Inhaler -) 1 puff IH Q6H [facility] Last Admin: 12/11/18 07:17 Dose: 1 puff Ascorbic Acid (Vitamin C -) 500 mg PO DAILY [facility] Last Admin: 12/11/18 10:47 Dose: 500 mg Aspirin (Asa -) 81 mg PO DAILY [facility] Last Admin: 12/11/18 09:03 Dose: 81 mg Atorvastatin Calcium (Lipitor -) 10 mg PO [facility] Calcium Carbonate (Os-Raffi 500mg -) 500 mg PO BID [facility] Last Admin: 12/11/18 09:03 Dose: 500 mg Digoxin (Lanoxin -) 0.125 mg PO DAILY [facility] Last Admin: 12/11/18 09:03 Dose: 0.125 mg Docusate Sodium (Colace -) 100 mg PO TID [facility] Last Admin: 12/11/18 07:17 Dose: 100 mg Furosemide (Lasix -) 80 mg PO BID@0600,1400 [facility] Glipizide (Glucotrol Xl -) 10 mg PO 0700 [facility] Last Admin: 12/11/18 10:48 Dose: 10 mg Guaifenesin (Robitussin Dm -) 10 ml PO Q6H PRN PRN Reason: COUGH Last Admin: 12/10/18 22:46 Dose: 10 ml Insulin Aspart (Novolog Vial Sliding Scale -) 1 vial SQ [facility]; Protocol Last Admin: 12/11/18 12:30 Dose: 8 units Insulin Detemir (Levemir Vial) 15 units SQ [facility] Last Admin: 12/10/18 22:41 Dose: 15 units Magnesium Citrate (Citroma -) 300 ml PO Q48H PRN PRN Reason: CONSTIPATION Last Admin: 12/06/18 18:47 Dose: 300 ml Magnesium Oxide (Mag-Ox -) 400 mg PO BID [facility] Last Admin: 12/11/18 09:03 Dose: 400 mg Metformin HCl (Glucophage -) 850 mg PO 0700 [facility] Metoprolol Succinate (Toprol Xl -) 100 mg PO BID [facility] Last Admin: 12/11/18 09:03 Dose: 100 mg Multivitamins/Minerals/Vitamin C (Tab-A-Vit -) 1 tab PO DAILY [facility] Last Admin: 12/11/18 09:03 Dose: 1 tab Prednisone (Deltasone -) 30 mg PO DAILY [facility] Stop: 12/13/18 09:59 Last Admin: 12/11/18 09:04 Dose: 30 mg Prednisone (Deltasone -) 20 mg PO DAILY [facility] Stop: 12/15/18 10:01 Prednisone (Deltasone -) 10 mg PO DAILY [facility] Stop: 12/18/18 10:01 Prednisone (Deltasone -) 5 mg PO DAILY [facility] Stop: 12/21/18 10:01 Warfarin Sodium (Coumadin -) 5 mg PO DAILY@1800 [facility] Last Admin: 12/10/18 17:30 Dose: 5 mg A/P Acute on Chronic Systolic Heart Failure Atrial Fibrillation Pneumonia Lung Nodule Acute Kidney Injury HTN - continue lasix - monitor urine output, creatinine - daily weights - rate control - continue anticoagulation - O2 to keep Spo2 >90% - prednisone taper - inhaled bronchodilators as needed - will need outpt PET
[2018-12-11 14:04] LABS: PLATELET COUNT 297 K/MM3 (134-434)
[2018-12-11] MEDS: FUROSEMIDE 40 MG TABLET (FP) PO SCH (14:32)
--- NOTE | 2018-12-11 18:03 | DS ---
Physical Examination Vital Signs: Vital Signs Temperature 98.2 F 12/11/18 14:10 Pulse Rate 83 12/11/18 14:10 Respiratory Rate 20 12/11/18 14:10 Blood Pressure 131/66 12/11/18 14:10 O2 Sat by Pulse Oximetry (%) 95 12/11/18 09:00 Constitutional: Yes: Well Nourished, No Distress, Calm Eyes: Yes: WNL, Conjunctiva Clear, EOM Intact HENT: Yes: WNL, Atraumatic, Normocephalic Neck: Yes: WNL, Supple, Trachea Midline Cardiovascular: Yes: WNL, Regular Rate and Rhythm Respiratory: Yes: WNL, Regular, CTA Bilaterally Gastrointestinal: Yes: WNL, Normal Bowel Sounds, Soft Renal/: Yes: WNL Musculoskeletal: Yes: WNL Extremities: Yes: WNL Edema: Yes Edema: LLE: Trace, RLE: Trace Peripheral Pulses WNL: Yes Integumentary: Yes: WNL Neurological: Yes: WNL, Alert, Oriented ...Motor Strength: WNL Psychiatric: Yes: WNL, Alert, Oriented Labs: CBC, BMP 12/11/18 06:28 12/11/18 06:28 Discharge Summary Reason For Visit: [place],SOB,CHF,HYPOTENSION,A-FRIB W/RAP VENT RESP Current Active Problems [place] (acute kidney injury) (Acute) Acute hypoxemic respiratory failure (Acute) Acute metabolic encephalopathy (Acute) Acute on chronic HFrEF (heart failure with reduced ejection fraction) (Acute) Acute respiratory failure (Acute) Atrial fibrillation with rapid ventricular response (Acute) CHF (congestive heart failure) (Acute) D dimer value normal (Acute) Dyslipidemia associated with type 2 diabetes mellitus (Acute) Elevated d-dimer (Acute) Hyponatremia (Acute) Hypotension (Acute) NSVT (nonsustained ventricular tachycardia) (Acute) Prophylactic measure (Acute) SOB (shortness of breath) (Acute) Sepsis (Acute) Under or uninsured (Acute) Hospital Course: Progress Note, Physician Chief Complaint: Patient is a 68 year old male with a significant past medical history of A-fib ( no reported anticoagulation control), HTN, HLD and NIDDM (on metformin). He comes to the ED on 11/27/2018 with shortness of breath x 1 day. He was on [place] and arrived to [place] on 11/17/2018 and has been doing well except for bilateral lower ext edema, but then developed shortness of breath. BNP 7k on admission. His PCP is in [facility]. Patient has no prescription insurance. All medications to be called into [facility] pharmacy. On exam, he is awake and alert, yoruba speaking only, youngest daughter at bedside - Current Medication List Current Medications: Active Medications Acetaminophen (Tylenol -) 650 mg PO Q6H PRN PRN Reason: FEVER Last Admin: 12/03/18 03:30 Dose: 650 mg Albuterol Sulfate (Ventolin Hfa Inhaler -) 1 puff IH Q6H [facility] Last Admin: 12/10/18 03:50 Dose: Not Given Aspirin (Asa -) 81 mg PO DAILY [facility] Last Admin: 12/09/18 10:02 Dose: 81 mg Calcium Carbonate (Os-Raffi 500mg -) 500 mg PO BID [facility] Last Admin: 12/09/18 21:33 Dose: 500 mg Digoxin (Lanoxin -) 0.125 mg PO DAILY [facility] Last Admin: 12/09/18 10:01 Dose: 0.125 mg Docusate Sodium (Colace -) 100 mg PO TID [facility] Last Admin: 12/10/18 05:50 Dose: 100 mg Furosemide (Lasix Injection -) 80 mg IVPB DAILY [facility] Last Admin: 12/09/18 10:02 Dose: 80 mg Guaifenesin (Robitussin Dm -) 10 ml PO Q6H PRN PRN Reason: COUGH Last Admin: 12/09/18 21:34 Dose: 10 ml Insulin Aspart (Novolog Vial Sliding Scale -) 1 vial SQ [facility]; Protocol Last Admin: 12/10/18 06:36 Dose: 6 units Insulin Detemir (Levemir Vial) 15 units SQ HS [facility] Last Admin: 12/09/18 21:32 Dose: 15 units Magnesium Citrate (Citroma -) 300 ml PO Q48H PRN PRN Reason: CONSTIPATION Last Admin: 12/06/18 18:47 Dose: 300 ml Magnesium Oxide (Mag-Ox -) 400 mg PO BID [facility] Last Admin: 12/09/18 21:33 Dose: 400 mg Metoprolol Succinate (Toprol Xl -) 100 mg PO BID [facility] Last Admin: 12/09/18 21:33 Dose: 100 mg Metoprolol Tartrate (Lopressor Injection -) 5 mg IVPUSH Q4H PRN PRN Reason: TACHYCARDIA Multivitamins/Minerals/Vitamin C (Tab-A-Vit -) 1 tab PO DAILY [facility] Last Admin: 12/09/18 10:01 Dose: 1 tab Prednisone (Deltasone -) 30 mg PO DAILY [facility] Stop: 12/13/18 09:59 Prednisone (Deltasone -) 20 mg PO DAILY [facility] Stop: 12/15/18 10:01 Prednisone (Deltasone -) 10 mg PO DAILY [facility] Stop: 12/18/18 10:01 Prednisone (Deltasone -) 5 mg PO DAILY [facility] Stop: 12/21/18 10:01 Warfarin Sodium (Coumadin -) 5 mg PO DAILY@1800 [facility] - Objective Vital Signs: Vital Signs Temperature 98.0 F 12/10/18 05:51 Pulse Rate 106 H 12/10/18 05:51 Respiratory Rate 18 12/10/18 05:51 Blood Pressure 115/65 12/10/18 05:51 O2 Sat by Pulse Oximetry (%) 96 12/09/18 22:00 Constitutional: Yes: Well Nourished, No Distress Eyes: Yes: WNL, Conjunctiva Clear, EOM Intact HENT: Yes: WNL, Atraumatic, Normocephalic Neck: Yes: WNL, Supple, Trachea Midline Cardiovascular: Yes: WNL, Regular Rate and Rhythm Respiratory: Yes: WNL, Regular, CTA Bilaterally, Diminished (at bases) Gastrointestinal: Yes: WNL, Normal Bowel Sounds, Soft ...Rectal Exam: Yes: WNL Genitourinary: Yes: WNL Musculoskeletal: Yes: WNL Extremities: Yes: WNL Edema: Yes Edema: LLE: Trace, RLE: Trace Peripheral Pulses WNL: Yes Integumentary: Yes: WNL Neurological: Yes: WNL, Alert, Oriented ...Motor Strength: WNL Psychiatric: Yes: WNL, Alert, Oriented Labs: INR, PTT INR 3.24 (0.83-1.09) H 12/09/18 11:35 Problem List - Problems (1) [place] (acute kidney injury) Assessment/Plan: -started initially on IV lasix and transitioned to PO (2) Acute on chronic HFrEF (heart failure with reduced ejection fraction) Assessment/Plan: -continue lasix -continue to hold home enalapril -Trops negative x 2 and no longer trended (3) Atrial fibrillation with rapid ventricular response Assessment/Plan: started on toprol and rate controled xarelto stopped and coumadin with lovenox bringe due to high cost topatient (4) Atrial fibrillation Assessment/Plan: chronic AF now with RVR -maintain on metoprolol -not able to afford Xarelto, maintain on coumadin -evening dose 5mg -INR goal 2-3 (5) SOB (shortness of breath) Assessment/Plan: No longer needing supplemental O2 -continue inhaled bronchodilators -not requiring noctural bipap -pre & post done and O2 decreased to 91% off O2. Will not qualify for home O2. Will speak with daughter again since she expressed concerns about needing supplemental O2 at home (6) Diabetes Assessment/Plan: Novolog sliding scale FS AC/HS diabetic diet restart metformin & gluchophage (7) Hypertension Assessment/Plan: enalapril held initially and resume on dc low salt diet (8) NSVT (nonsustained ventricular tachycardia) Assessment/Plan: resolved after initiating BB (9) Hyponatremia resolved with free water fluid restriction and lasix Code(s): E87.1 - HYPO-OSMOLALITY AND HYPONATREMIA (10) Sepsis Assessment/Plan: resolved com,pleted course of abx (11) CHF (congestive heart failure) Assessment/Plan: on diuretic therapy. -TTE EF 30%. LV mildly dilated, severe global hypokinesis of left ventricle. left ventricular systolic function is severely reduced. right ventricle normal, left atria mildly dilated. right atrial size normal. mild to moderate mitral regurg. mitral regurg jet is eccentrically directed. mild aortic valve thickening (13) Under or uninsured Assessment/Plan: request place for emergency Medicaid by social work and case supervisor Request typically take 30-45 days to be approved. Will update family/patient. -information given to family on pricing for oxygen for home (14) Prophylactic measure Assessment/Plan: on comadin INR 2.9 today - Instructions Diet, Activity, Other Instructions: Mr. Miguelito Hsu: You were admitted for irregular heartbeat, shortness of breath and acute kidney injury. During hospitalization you developed hyponatremia. Here are our recommendations: IRREGULAR HEART BEAT: You have a condition called Atrial fibrillation. What is atrial fibrillation? It is a condition that causes your heart to beat fast, or irregular. It can cause symptoms such as shortness of breath or palpitation. It puts you a a GREAT risk for strokes. How do you prevent strokes with atrial fibrillation? You are on a medication called Metoprolol, it is a medication that can control your heart from beating too fast. Take it as directed. your also need a blood thinner called COUMADIN. Coumadin helps your blood be thinner so that you dont develop BLOOD CLOTS. It is important that you take COUMADIN every day. WITH COUMADIN YOU NEED TO CHECK YOUR INR. What is an INR? INR is a blood test that lets us know how effective the coumadin is. Your INR should be between 2 and 3. In the beginning you may need the Coumadin dose to be changed based on the INR, but after you are therapeutic, you dont need to be checked so frequently. SHORTNESS OF BREATH continue the Prednisone as directed. ACUTE KIDNEY INJURY Please have your blood work checked to make sure your kidney is working effectively. HYPONATREMIA Hyponatremia is LOW amounts of salt in your blood. Water is good for you but not if you drink it in excess amounts. Drink no more than 1 1/2 liters per day of water and have your blood work checked. FOLLOW UP We found that you have a nodule on your right lung that needs follow up. so please have a PET CAT SCAN to follow up on this nodule. Thank you Prednisone Taper 12/12 -- 30mg 12/13-- 30mg 12/14-- 30mg 12/15-- 20mg 12/16-- 20mg 12/17-- 20mg 12/18-- 10mg 12/19-- 10mg 12/20-- 10mg 12/21-- 5mg 12/22-- 5mg 12/23-- 5mg COMPLETED NOVOLOG SLIDING SCALE 101-150 0 units 151-200 2 units 201-250 4 units 251-300 6 units 301-350 8 units 350-400 10 units >400 12 unita and call provider Referrals: Ruddy Winters MD [Staff Physician] - 12/17/18 (Call to set up appointment with Dr. Winters. THIS IS FOR AN INR CHECK AND POST HOSPITAL CHECK. ) - Home Medications Comprehensive Discharge Medication List: Ambulatory Orders metFORMIN HCL [Metformin HCl] 850 mg PO DAILY 07/13/14 Aspirin [ASA -] 81 mg PO DAILY #0 tab.chew 08/09/14 Ascorbic Acid [Vitamin C -] 500 mg PO DAILY 11/27/18 Albuterol Sulfate Inhaler - [Ventolin HFA Inhaler -] 1 puff IH PRN #1 inhaler Aspirin [ASA -] 81 mg PO DAILY tab.chew 12/11/18 Atorvastatin Ca [Lipitor] 10 mg PO HS #30 tablet 12/11/18 Calcium (Oyster Shell) [Os-Raffi 500MG -] 500 mg PO BID tablet 12/11/18 Digoxin [Lanoxin -] 0.125 mg PO DAILY #30 tablet 12/11/18 Docusate Sodium [Colace -] 100 mg PO TID capsule 12/11/18 Enalapril Maleate [Vasotec] 20 mg PO DAILY #30 tablet 12/11/18 Furosemide [Lasix -] 80 mg PO BID@0600,1400 #60 tablet 12/11/18 Glipizide [Glipizide Xl] 10 mg PO DAILY #30 tab.er.24 12/11/18 Insulin (Levemir) [Levemir Vial] 15 units SQ HS #100 units 12/11/18 Insulin Sliding Scale [Novolog Vial Sliding Scale -] 1 vial SQ ACHS #100 units 12/11/18 Magnesium Citrate [Citroma -] 300 ml PO Q48H PRN bottle 12/11/18 Magnesium Oxide [Mag-Ox -] 400 mg PO BID tablet 12/11/18 Metoprolol Succinate [Toprol XL -] 100 mg PO BID #30 tab.sr.24h 12/11/18 Multivitamins [Multivit ([facility] Formulary)] 1 tab PO DAILY tab 12/11/18 Warfarin Na [Coumadin -] 5 mg PO DAILY@1800 #30 tablet 12/11/18 metFORMIN HCL [Glucophage -] 850 mg PO 0700 #30 tablet 12/11/18 predniSONE [Deltasone -] 5 mg PO DAILY 3 Days #3 tablet MDD 1 12/11/18 predniSONE [Deltasone -] 10 mg PO DAILY #3 tablet 12/11/18 predniSONE [Deltasone -] 20 mg PO DAILY #3 tablet 12/11/18 predniSONE [Deltasone -] 30 mg PO DAILY #3 tablet 12/11/18 predniSONE [Deltasone -] 40 mg PO DAILY #3 tablet 12/11/18 This patient is new to me today: No Emergency Visit: Yes ED Registration Date: 11/27/18 Care time: The patient presented to the Emergency Department on the above date and was hospitalized for further evaluation of their emergent condition. Critical Care patient: No - Discharge Referral Referred to [facility] Med [facility] No
[2018-12-11] MEDS: WARFARIN NA 5 MG TABLET (UD) PO SCH (18:13)
[2018-12-11] MEDS ORDERED: INSULIN (NOVOLOG) ASPART 100 UNITS/ML 10ML VIAL ONE (21:15)
[2018-12-11] MEDS: INSULIN (LEVEMIR) 100 UNITS/ML UNITS SQ SCH (21:21)
[2018-12-11] MEDS ORDERED: ATORVASTATIN CA 10 MG TABLET (FP) PO SCH (22:00)
[2018-12-12] MEDS: ALBUTEROL SO4 8 GM HFA INHALER IH SCH (04:00)
[2018-12-12] MEDS ORDERED: PT OWN MED DRAWER 7, Y5N ONE (06:25)
[2018-12-12] MEDS: DOCUSATE SODIUM 100 MG CAPSULE (FP) PO SCH (06:36)
[2018-12-12] MEDS: FUROSEMIDE 40 MG TABLET (FP) PO SCH (06:36)
[2018-12-12] MEDS: INSULIN SLIDING SCALE (NOVOLOG) 1 VIAL SQ SCH (06:37)
[2018-12-12] MEDS: guaiFENesin/D-METHORPHAN HB 10 ML UNIT-DOSE CUPS PO PRN (06:42)
[2018-12-12 07:51] VITALS: BP 107/80; TEMP 97.7
[2018-12-12] MEDS: ASPIRIN 81 MG CHEWABLE TABLETS PO SCH (08:11)
[2018-12-12] MEDS: predniSONE 20 MG TABLET (UD) PO SCH (08:12)
[2018-12-12] MEDS: DIGOXIN 0.125 MG TABLET (FP) PO SCH (08:12)
[2018-12-12] MEDS: ASCORBIC ACID 500 MG TABLET (FP) PO SCH (08:13)
[2018-12-12] MEDS: CALCIUM (OYSTER SHELL) 500 MG TABLET (FP) PO SCH (08:14)
[2018-12-12] MEDS: MAGNESIUM OXIDE 400 MG TABLET (FP) PO SCH (08:14)
[2018-12-12] MEDS: MULTIVITAMINS (DAILY MVI) TABLET (FP) PO SCH (08:14)
[2018-12-12 08:16] VITALS: PULSE 92
[2018-12-13] MEDS ORDERED: predniSONE 20 MG TABLET (UD) PO SCH (10:00)
[2018-12-16] MEDS ORDERED: predniSONE 10 MG TABLET (UD) PO SCH (10:00)
[2018-12-19] MEDS ORDERED: predniSONE 5 MG TABLET (UD) PO SCH (10:00)
== END 2018-12-12 09:38 | disposition home or self-care (01) | DRG 469 ==
LOC: JER 08:28 → JERBED 09:54 → J4W 16:31
PROVIDERS: ADMIT Internal Medicine; ATTEND Internal Medicine
DX: N17.9 Acute kidney failure, unspecified (principal); I13.0 Hypertensive heart and chronic kidney disease with heart failure and stage 1 through stage 4 chronic kidney disease, or unspecified chronic kidney disease; I50.23 Acute on chronic systolic (congestive) heart failure; E11.9 Type 2 diabetes mellitus without complications; E78.5 Hyperlipidemia, unspecified; J96.01 Acute respiratory failure with hypoxia; G93.41 Metabolic encephalopathy; E87.1 Hypo-osmolality and hyponatremia; I95.9 Hypotension, unspecified; I47.1 Supraventricular tachycardia; N18.9 Chronic kidney disease, unspecified; E87.70 Fluid overload, unspecified; D64.9 Anemia, unspecified; I42.9 Cardiomyopathy, unspecified; I48.0 Paroxysmal atrial fibrillation; J18.9 Pneumonia, unspecified organism; R91.1 Solitary pulmonary nodule; I45.10 Unspecified right bundle-branch block; I45.2 Bifascicular block; J98.11 Atelectasis; A41.89 Other specified sepsis
CPT/HCPCS: 36415; 36600; 70450-TC; 71045-TC-FY; 71046-TC-FY; 71250-TC; 72125-TC; 80048; 80053; 80061; 80162; 81003; 82550; 82565; 82728; 82803; 82962; 83036; 83540; 83550; 83605; 83721; 83735; 83880; 83930; 83935; 84100; 84156; 84300; 84443; 84484; 84540; 85025; 85027; 85379; 85610; 85730; 87040; 87086; 87207; 93005; 93010; 93306-TC; 93970-TC; 94010; 94660; 94761; 97116-GP; 97161-GP; 99285-25; J0131